=== PATIENT | female | born 1960 | race Caucasian/White ===

== ENCOUNTER 2016-08-21 17:18 | Observation (INO) | payer OTHER ==
[~2016-08-21] VITALS: Ht 154.9 cm; Wt 104.3 kg
[~2016-08-21 17:18] MED LIST: CEPH-571 PO; FNTTP25 TOP; HYDR2TAB2 PO; METO5TAB2 PO; ONDA4TAB9 PO; RXCS5 PO
[2016-08-21] MEDS ORDERED: HYDROmorphone HCL 2 MG TAB PO PRN (18:00)
[2016-08-21] MEDS ORDERED: ONDANSETRON INJ 2 MG/ML 2 ML VIAL IV PRN (18:00)
[2016-08-21] MEDS ORDERED: POLYETHYLENE (MIRALAX) 17 GM PACK PO PRN (18:00)
[2016-08-21] MEDS ORDERED: OXYCODONE HCL SOLN 5 MG/5 ML UDC PO PRN (18:00)
[2016-08-21] MEDS ORDERED: HYDROmorphone INJ 0.5 MG/0.5 ML SYR IV PRN (18:00)
[2016-08-21] MEDS ORDERED: MAGNESIUM HYDROXIDE SUSP 30 ML UDC PO PRN (18:00)
[2016-08-21] MEDS ORDERED: ONDANSETRON 4 MG TAB PO PRN (18:00)
[2016-08-21] MEDS ORDERED: ACETAMINOPHEN 325 MG TAB PO PRN (18:00)
[2016-08-21] MEDS ORDERED: METOCLOPRAMIDE HCL 5 MG TAB PO PRN (18:00)
[2016-08-21] MEDS ORDERED: HYDROmorphone INJ 1 MG/ML SYR IV PRN (18:00)
[2016-08-21] MEDS ORDERED: LORAZEPAM 2 MG/ML 1 ML VIAL IV PRN ×2 (18:00)
[2016-08-21] MEDS ORDERED: ALUMINUM/MAGNESIUM/SIMETH (MAALOX MAX) 30 ML UDC PO PRN (18:00)
[2016-08-21] MEDS ORDERED: FENTANYL PATCH REMOVE & WASTE SCH (18:59)
[2016-08-21] MEDS ORDERED: FENTANYL 25 MCG/HR TDSY TD SCH (19:00)
[2016-08-21] MEDS ORDERED: FILGRASTIM 300 MCG/ML 1 ML VIAL SQ ONE (19:00)
[2016-08-21] MEDS ORDERED: IV FLUIDS COMPLETED PRN (19:30)
[2016-08-21] MEDS ORDERED: LORAZEPAM INJ 0.5 MG in SYRINGE 0.75 ML IV PRN (19:45)
[2016-08-21] MEDS ORDERED: LORAZEPAM INJ 1 MG in SYRINGE 0.5 ML IV PRN (19:45)
[2016-08-21] MEDS: SODIUM CHLORIDE 0.9% 1000ML 1,000 ML IV SCH (20:36)
[2016-08-21] MEDS: HYDROmorphone INJ 1 MG/ML SYR IV PRN (20:44)
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
[2016-08-21] MEDS: OXYMETAZOLINE HCL 0.05% NA SPR 15 ML BTL PRN (22:22)
[2016-08-21 22:32] VITALS: BP 117/79; PULSE 88; TEMP 36.7; O2SAT 93
[2016-08-21 22:37] VITALS: BP 117/79; PULSE 88; TEMP 36.7; O2SAT 93; BMI 43.0
[2016-08-21] MEDS: CHECK FENTANYL PATCH PLACEMENT SCH (23:48)
[2016-08-22] VITALS (19 sets, daily range): BP systolic 100–158; BP diastolic 67–95; PULSE 75–100; TEMP 36.3–36.9; O2SAT 90–96; BMI 43.4
[2016-08-22] MEDS: HYDROmorphone INJ 1 MG/ML SYR IV PRN ×2 (00:53→15:31)
[2016-08-22] MEDS ORDERED: NURSING VERBAL MED ORDER ONE (02:00)
[2016-08-22] MEDS ORDERED: BACITRACIN OINT 15 GM TUBE EXT PRN (02:30)
[2016-08-22] MEDS: SODIUM CHLORIDE 0.9% 1000ML 1,000 ML IV SCH ×2 (05:11→15:32)
[2016-08-22 06:43] LABS: BUN/CREATININE RATIO 29.6 (10-20); CALCIUM 7.8 mg/dl (8.5-10.1); CREATININE 0.87 mg/dl (0.60-1.20); POTASSIUM 3.5 mmol/L (3.5-5.1)
[2016-08-22 07:16] LABS: HEMATOCRIT 22.9 % (37-47); MEAN CELL VOLUME 86.7 fL (80-100); MEAN CORPUSCULAR HEMOGLOBIN 29.2 pg (25-34); MEAN CORPUSCULAR HGB CONC 33.6 g/dl (32-36); PLATELET COUNT 4 K/uL (130-400); RED BLOOD COUNT 2.64 M/uL (4.2-5.4)
[2016-08-22 07:17] LABS: PLT ESTIMATE SIGNIFIC DECREASED
[2016-08-22] MEDS: CHECK FENTANYL PATCH PLACEMENT SCH ×3 (08:03→15:32)
--- NOTE | 2016-08-22 09:58 | Oncology Consultation ---
Oncology/Heme Consultation Date of Consultation: Aug 22, 2016. Attending Physician: Bridger Brooks M.D. Reason for Consultation: Pancytopenia Metastatic ovarian cancer History of Present Illness Ms. 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 She had a hysterectomy/BSO in 2008, which may have been original primary. She was found to have peritoneal carcinomatosis in January 2015. She was treated with debulking surgery with both pre- and post-surgical chemotherapy with carbo/taxol, last in October 2015. She had recurrent disease and a rising CA125 in January,. She was started on Cisplatin/Gemcitabine and received 3 cycles through March 2016. Had pain and rising CA125 with scans showing progression. Started Doxil in April , which continued through late June. In that time, she had multiple admissions for bowel obstructions and her scans were not improving. She also had a rising CA125, suggesting progression. She was recently started on Topotecan/Bevacizumab, but the second week of her treatment was delayed again by a hospital stay for small bowel obstruction. She completed the second week of therapy on 08/14 and received a Neulasta injection that day. She presented to the ER two nights ago feeling ill and was found to be pancytopenic. She was afebrile and had no infectious symptoms, so she was discharged. She came to the [facility] yesterday and was given IV hydration and 2 units of PRBCs. She was also ordered for platelets, but they did not come until late in the evening, so she was admitted for observation and her platelets. By reports, they were hung around 3 am this morning. Her labs, drawn at 5 am, show no response in either her hemoglobin or her platelets. She denies any fevers, chills, infectious symptoms, headaches, vision changes, confusion, or pain. She did have epistaxis while I was in the room, though it was a small amount. Past Medical/Surgical History Medical Problems: (1) Abdominal pain Status: Acute (2) Bowel obstruction Status: Acute (3) Carcinomatosis Status: Acute (4) Dehydration Status: Acute (5) Esophageal Reflux Status: Chronic (6) Left flank pain Status: Acute (7) Lower abdominal pain Status: Acute (8) Morbid Obesity Status: Chronic (9) Ovarian cancer Status: Acute (10) Ovarian cancer Status: Acute (11) Precordial chest pain Status: Acute (12) Primary cancer of peritoneum Status: Chronic (13) Small bowel obstruction Status: Acute (14) UTI (urinary tract infection) Status: Acute Family History Diabetes mellitus FH: heart disease Hypertension Social History Smoking Status: Never Smoker Drug Use: none Marital Status: Housing Status: lives with family Occupation Status: retired Allergies Coded Allergies: Sulfa Antibiotics (Verified Allergy, Intermediate, HIVES, 07/03/16) PT HAS REMOTE HISTORY OF REACTION TO "SULFA DRUG" - PER PT, UNSURE WHICH DRUG, BUT THOUGHT IT WAS AN ANTIBIOTIC Ipratropium (Verified Allergy, Unknown, `, 07/03/16) Levofloxacin (Verified Allergy, Unknown, `, 07/03/16) Codeine (Verified Adverse Reaction, Intermediate, NAUSEA, 07/03/16) Diphenhydramine (Verified Adverse Reaction, Mild, Restless leg, 07/03/16) Home Medications Scheduled Cephalexin (Keflex), 1 CAP PO TID Fentanyl (Fentanyl), 25 MCG TOP CQ72HR Scheduled PRN Hydromorphone Hcl (Hydromorphone Hcl), 2-4 MG PO Q3HRS PRN for Pain Metoclopramide Hcl (Metoclopramide Hcl), 5 MG PO Q6H PRN for Indigestion/Nausea Ondansetron (Ondansetron HCl), 4 MG PO UD PRN for Nausea Oxycodone HCl (Oxycodone HCl), 15 ML PO UD PRN for Pain Current Inpatient Medications Current Inpatient Medications Medications (Trade) Dose Ordered Sig/Mendoza Route Start Time Stop Time Status Last Admin Dose Admin Acetaminophen (Tylenol Tab) 650 mg Q4H PRN PO 08/21/16 18:00 09/20/16 17:59 Al Hydrox/Mg Hydrox/Simethicone (Maalox Max Susp) 15 ml Q4H PRN PO 08/21/16 18:00 09/20/16 17:59 Magnesium Hydroxide (Milk Of Magnesia Susp) 30 ml Q6H PRN PO 08/21/16 18:00 09/20/16 17:59 Polyethylene (Miralax Powder Packet) 17 gm DAILY PRN PO 08/21/16 18:00 09/20/16 17:59 Ondansetron HCl (Zofran Inj) 4 mg Q6H PRN IV 08/21/16 18:00 09/20/16 17:59 08/22/16 00:51 4 MG Fentanyl (Duragesic Patch) 25 mcg Q3D@1900 TD 08/21/16 19:00 09/04/16 18:59 08/21/16 20:36 25 MCG Hydromorphone HCl (Dilaudid Tab) 4 mg Q6 PRN PO 08/21/16 18:00 09/04/16 17:59 Metoclopramide HCl (Reglan Tab) 5 mg Q6H PRN PO 08/21/16 18:00 09/20/16 17:59 Ondansetron HCl (Zofran Tab) 4 mg Q6 PRN PO 08/21/16 18:00 09/20/16 17:59 Oxycodone HCl (Roxicodone Soln) 15 mg BID PRN PO 08/21/16 18:00 09/04/16 17:59 Miscellaneous (Fentanyl Patch Remove & Waste) 1 ea Q3D@1859 N/A 08/21/16 18:59 09/20/16 18:58 08/21/16 20:34 1 EA Miscellaneous Information (Check Fentanyl Patch Placement) 1 ea QS N/A 08/22/16 00:00 09/21/16 00:00 08/22/16 08:03 1 EA Lorazepam (Ativan Inj) 1 mg Q4H PRN IV 08/21/16 18:00 09/20/16 17:59 Lorazepam (Ativan Inj) 0.5 mg Q4H PRN IV 08/21/16 18:00 09/20/16 17:59 Hydromorphone HCl (Dilaudid Inj) FOR PAIN 0.5-1MG 0.5MG ... Q4 PRN IV 08/21/16 19:00 09/04/16 18:59 08/22/16 00:53 1 MG Miscellaneous 1 ea 1 ea PRN PRN N/A 08/21/16 19:30 08/21/17 19:29 Lorazepam 0.5 mg/ Syringe 1 ml @ 1 mls/min Q4 PRN IV 08/21/16 19:45 09/20/16 19:44 Lorazepam 1 mg/ Syringe 1 ml @ 1 mls/min Q4 PRN IV 08/21/16 19:45 09/20/16 19:44 Sodium Chloride (Nss 1000ml) 1,000 ml @ 100 mls/hr Q10H IV 08/21/16 19:45 09/20/16 19:44 08/22/16 05:11 100 MLS/HR Oxymetazoline HCl (Afrin 0.05% Nasal Herreid) 2 sprays UD PRN NA 08/21/16 21:00 09/20/16 20:59 08/21/16 22:22 2 SPRAYS Bacitracin (Bacitracin Oint) 1 appln PRN PRN EXT 08/22/16 02:30 09/21/16 02:29 Review of Systems Constitutional: No chills, No fever, No sweats Eyes: No worsening of vision ENT: + unusual epistaxis, No nasal symptoms Respiratory: No cough, No hemoptysis, No shortness of breath, No sputum Cardiovascular: No chest pain, No edema Abdomen: No GI bleeding, No nausea, No pain, No vomiting Musculoskeletal: No joint pain, No muscle pain Genitourinary - Female: No dysuria, No hematuria, No urinary frequency, No urinary urgency Neurologic: No numbness/tingling Hematologic / Lymphatic: + abnormal bleeding/bruising, No night sweats Integumentary: No rash Physical Exam Date Time Temp Pulse Resp B/P Pulse Ox O2 Delivery O2 Flow Rate FiO2 08/22/16 08:00 Room Air 08/22/16 07:36 36.9 87 18 125/85 91 Room Air 08/22/16 05:00 36.6 95 18 106/70 90 08/22/16 04:30 36.6 100 18 101/68 91 08/22/16 03:59 36.7 92 20 100/67 95 08/22/16 03:45 36.6 92 18 103/67 92 08/22/16 03:30 36.8 97 20 107/68 96 08/22/16 00:48 36.3 87 18 136/78 93 Room Air 08/22/16 00:15 Room Air 08/21/16 22:37 36.7 88 18 117/79 93 Room Air 08/21/16 22:32 36.7 88 18 117/79 93 Room Air General Appearance: WD/WN, no apparent distress Head: normocephalic, atraumatic Eyes: EOMI, sclerae normal ENT: pharynx normal, + pertinent finding (small amount of epistaxis during my visit) Neck: supple, no adenopathy Respiratory/Chest: lungs clear Cardiovascular: regular rate, rhythm, no murmur Abdomen/GI: non tender, soft Extremities/Musculoskelatal: no calf tenderness, no pedal edema Neurologic/Psych: no motor/sensory deficits, alert, oriented x 3 Skin: warm/dry, no rash Lymphatic: no adenopathy Laboratory Results Last 24 Hours Test 08/22/16 05:55 White Blood Count 0.80 K/uL Red Blood Count 2.64 M/uL Hemoglobin 7.7 g/dL Hematocrit 22.9 % Mean Corpuscular Volume 86.7 fL Mean Corpuscular Hemoglobin 29.2 pg Mean Corpuscular Hemoglobin Concent 33.6 g/dl RDW Standard Deviation 49.0 fL RDW Coefficient of Variation 15.3 % Platelet Count 4 K/uL Platelet Estimate SIGNIFIC DECREASED Sodium Level 145 mmol/L Potassium Level 3.5 mmol/L Chloride Level 111 mmol/L Carbon Dioxide Level 25 mmol/L Anion Gap 9.0 mmol/L Blood Urea Nitrogen 26 mg/dl Creatinine 0.87 mg/dl Est Creatinine Clear Calc Drug Dose 80.2 ml/min Estimated GFR () 86.3 Estimated GFR (Non- 74.5 BUN/Creatinine Ratio 29.6 Random Glucose 83 mg/dl Calcium Level 7.8 mg/dl Assessment & Plan Ms. 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 She has not responded to several lines of therapy and has been in and out of the hospital over the last 3 -4 months with recurring bowel obstructions. She is now on third line therapy for her recurrent disease. Her CA125 was down a bit after her first week of topotecan/Avastin. Her counts being low at this point in her cycle, 8 days from her last dose, is not unexpected. However, the degree of her cytopenias and her apparent lack of response to Neulasta is suggestive of chronic bone marrow toxicity from all the chemo she has received this year. It is hard to explain why her counts did not change at all after transfusion. Her CBC was drawn very close to the end of her platelet transfusion, so it is possible the transfused cells had not had a chance to distribute before the blood was taken. The lack of hemoglobin response is more worrisome. She does not appear to be bleeding anywhere, aside from some scant epistaxis. Her smear did not reveal any evidence of microangiopathy or hemolysis. It is possible that, in the time between her CBC on the and her transfusion the following afternoon, her hemoglobin fell even further. It is also possible she was hemoconcentrated in the ER and that her actual hemoglobin was lower. I asked for a repeat CBC to be drawn. We can base further management on her current values. She may require further transfusion today, particularly of platelets given her epistaxis.
[2016-08-22] MEDS: OXYMETAZOLINE HCL 0.05% NA SPR 15 ML BTL PRN (15:32)
--- NOTE | 2016-08-22 15:53 | Progress Note ---
Subjective Date of Service: Aug 22, 2016. Subjective Pt evaluation today including: conversation w/ patient Pain: none PO Intake: imporving seen and examined earlier, awake and alert afebrile, sitting in bed , looks comfortable, no CP or SOB<, no more nasal bleed, palt. 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 (13) Small bowel obstruction Status: Acute (14) UTI (urinary tract infection) Status: Acute Review of Systems Constitutional: + see HPI Eyes: + see HPI ENT: + see HPI Respiratory: + see HPI Cardiac: + see HPI Abdomen: + see HPI Musculoskeletal: + see HPI Neurologic: + see HPI Psychiatric: + see HPI Heme: + see HPI Endo: + see HPI Medications Current Inpatient Medications Medications (Trade) Dose Ordered Sig/Mendoza Route Start Time Stop Time Status Last Admin Dose Admin Acetaminophen (Tylenol Tab) 650 mg Q4H PRN PO 08/21/16 18:00 09/20/16 17:59 Al Hydrox/Mg Hydrox/Simethicone (Maalox Max Susp) 15 ml Q4H PRN PO 08/21/16 18:00 09/20/16 17:59 Magnesium Hydroxide (Milk Of Magnesia Susp) 30 ml Q6H PRN PO 08/21/16 18:00 09/20/16 17:59 Polyethylene (Miralax Powder Packet) 17 gm DAILY PRN PO 08/21/16 18:00 09/20/16 17:59 Ondansetron HCl (Zofran Inj) 4 mg Q6H PRN IV 08/21/16 18:00 09/20/16 17:59 08/22/16 00:51 4 MG Fentanyl (Duragesic Patch) 25 mcg Q3D@1900 TD 08/21/16 19:00 09/04/16 18:59 08/21/16 20:36 25 MCG Hydromorphone HCl (Dilaudid Tab) 4 mg Q6 PRN PO 08/21/16 18:00 09/04/16 17:59 Metoclopramide HCl (Reglan Tab) 5 mg Q6H PRN PO 08/21/16 18:00 09/20/16 17:59 Ondansetron HCl (Zofran Tab) 4 mg Q6 PRN PO 08/21/16 18:00 09/20/16 17:59 Oxycodone HCl (Roxicodone Soln) 15 mg BID PRN PO 08/21/16 18:00 09/04/16 17:59 Miscellaneous (Fentanyl Patch Remove & Waste) 1 ea Q3D@1859 N/A 08/21/16 18:59 09/20/16 18:58 08/21/16 20:34 1 EA Miscellaneous Information (Check Fentanyl Patch Placement) 1 ea QS N/A 08/22/16 00:00 09/21/16 00:00 08/22/16 15:32 1 EA Lorazepam (Ativan Inj) 1 mg Q4H PRN IV 08/21/16 18:00 09/20/16 17:59 Lorazepam (Ativan Inj) 0.5 mg Q4H PRN IV 08/21/16 18:00 09/20/16 17:59 Hydromorphone HCl (Dilaudid Inj) FOR PAIN 0.5-1MG 0.5MG ... Q4 PRN IV 08/21/16 19:00 09/04/16 18:59 08/22/16 15:31 1 MG Miscellaneous 1 ea 1 ea PRN PRN N/A 08/21/16 19:30 08/21/17 19:29 Lorazepam 0.5 mg/ Syringe 1 ml @ 1 mls/min Q4 PRN IV 08/21/16 19:45 09/20/16 19:44 Lorazepam 1 mg/ Syringe 1 ml @ 1 mls/min Q4 PRN IV 08/21/16 19:45 09/20/16 19:44 Sodium Chloride (Nss 1000ml) 1,000 ml @ 100 mls/hr Q10H IV 08/21/16 19:45 09/20/16 19:44 08/22/16 15:32 100 MLS/HR Oxymetazoline HCl (Afrin 0.05% Nasal Beggs) 2 sprays UD PRN NA 08/21/16 21:00 09/20/16 20:59 08/22/16 15:32 2 SPRAYS Bacitracin (Bacitracin Oint) 1 appln PRN PRN EXT 08/22/16 02:30 09/21/16 02:29 Objective Vital Signs Date Time Temp Pulse Resp B/P Pulse Ox O2 Delivery O2 Flow Rate FiO2 08/22/16 14:56 36.6 79 18 156/94 90 08/22/16 12:08 36.6 84 18 147/84 91 08/22/16 11:40 36.7 90 18 138/79 94 08/22/16 10:25 36.7 80 18 121/85 94 08/22/16 09:55 36.8 89 20 126/82 93 08/22/16 09:40 36.7 86 18 123/84 93 08/22/16 09:21 36.4 91 18 121/84 93 08/22/16 08:00 Room Air 08/22/16 07:36 36.9 87 18 125/85 91 Room Air 08/22/16 05:00 36.6 95 18 106/70 90 08/22/16 04:30 36.6 100 18 101/68 91 08/22/16 03:59 36.7 92 20 100/67 95 08/22/16 03:45 36.6 92 18 103/67 92 08/22/16 03:30 36.8 97 20 107/68 96 08/22/16 00:48 36.3 87 18 136/78 93 Room Air 08/22/16 00:15 Room Air 08/21/16 22:37 36.7 88 18 117/79 93 Room Air 08/21/16 22:32 36.7 88 18 117/79 93 Room Air Physical Exam General Appearance: no apparent distress Eyes: normal inspection ENT: normal ENT inspection Neck: supple, no JVD, no carotid bruits Respiratory/Chest: normal breath sounds, no respiratory distress Cardiovascular: regular rate, rhythm, no edema, no gallop, no JVD, no murmur Abdomen: normal bowel sounds, non tender, soft, no organomegaly, + pertinent finding (has PEG tube and no skin abnormalities around ) Extremities: normal range of motion, non-tender, normal inspection, no pedal edema Neurologic/Psychiatric: no motor/sensory deficits, alert, normal mood/affect, oriented x 3 Skin: normal color, no rash Laboratory Results Last 24 Hours Test 08/22/16 05:55 08/22/16 09:22 08/22/16 10:06 White Blood Count 0.80 K/uL Red Blood Count 2.64 M/uL Hemoglobin 7.7 g/dL Hematocrit 22.9 % Mean Corpuscular Volume 86.7 fL Mean Corpuscular Hemoglobin 29.2 pg Mean Corpuscular Hemoglobin Concent 33.6 g/dl RDW Standard Deviation 49.0 fL RDW Coefficient of Variation 15.3 % Platelet Count 4 K/uL Platelet Estimate SIGNIFIC DECREASED Sodium Level 145 mmol/L Potassium Level 3.5 mmol/L Chloride Level 111 mmol/L Carbon Dioxide Level 25 mmol/L Anion Gap 9.0 mmol/L Blood Urea Nitrogen 26 mg/dl Creatinine 0.87 mg/dl Est Creatinine Clear Calc Drug Dose 80.2 ml/min Estimated GFR () 86.3 Estimated GFR (Non- 74.5 BUN/Creatinine Ratio 29.6 Random Glucose 83 mg/dl Calcium Level 7.8 mg/dl Assessment and Plan Severe pancytopenia poss sec to primary peritoneal CA and Chemotherapy Doubted ITP as has no schistocyte and has elsa renal function -as DW hematology repeat CBC, LDH, LFT and HDL is still low palt. count needs plat, nut look like has multiple Ab and needs to bring blood from out side had Neulasta 2 days ago as per pat , no needs for Neupogen or Granix recheck CBC closely poor prognosis Epistaxis sec to severe thrombocytopenia, resolved Primary peritoneal CA and Ovarian CA Poor oral intake needs to be restarted on her TPN all DW pat and nurse DVt prophylaxis , not indicated because of severe thrombocytopenia
[2016-08-22] MEDS ORDERED: CONSULT PHARMACY STA (16:05)
[2016-08-22] MEDS ORDERED: DEXTROSE 10% 1,000 ML IV PRN (16:05)
[2016-08-22] MEDS ORDERED: TPN/PPN CONSULT PHARMACY PRN (16:15)
[2016-08-22 19:10] LABS: HEMATOCRIT 27.3 % (37-47); MEAN CELL VOLUME 84.5 fL (80-100); MEAN CORPUSCULAR HEMOGLOBIN 29.1 pg (25-34); MEAN CORPUSCULAR HGB CONC 34.4 g/dl (32-36); MEAN PLATELET VOLUME 9.5 fL (7.4-10.4); PLATELET COUNT 29 K/uL (130-400); RED BLOOD COUNT 3.23 M/uL (4.2-5.4); WHITE BLOOD COUNT 0.79 K/uL (4.8-10.8)
[2016-08-22 19:12] LABS: BASO % 1.3 %; BASO ABS # 0.01 K/uL (0-0.2); COMPLETE YES; DOHLE BODIES 2+; LYMPH % 89.9 %; LYMPH ABS # 0.71 K/uL (1.2-3.4); MONO % 7.6 %; NEUT % 1.2 %; TOXIC GRANULATION 3+
[2016-08-23 00:19] VITALS: BP 171/78; PULSE 96; TEMP 36.7; O2SAT 92
[2016-08-23] MEDS: CHECK FENTANYL PATCH PLACEMENT SCH ×2 (01:30→08:29)
[2016-08-23] MEDS: SODIUM CHLORIDE 0.9% 1000ML 1,000 ML IV SCH ×2 (01:31→08:55)
[2016-08-23] MEDS: HYDROmorphone INJ 1 MG/ML SYR IV PRN ×2 (01:36→08:55)
[2016-08-23 04:14] VITALS: BP 135/84; PULSE 96; TEMP 36.4; O2SAT 90
[2016-08-23 06:58] VITALS: Ht 154.9 cm; Wt 104.3 kg
[2016-08-23 06:58] LABS: HEMATOCRIT 26.6 % (37-47); MEAN CELL VOLUME 84.4 fL (80-100); MEAN CORPUSCULAR HEMOGLOBIN 29.2 pg (25-34); MEAN CORPUSCULAR HGB CONC 34.6 g/dl (32-36); MEAN PLATELET VOLUME 8.9 fL (7.4-10.4); PLATELET COUNT 21 K/uL (130-400); RED BLOOD COUNT 3.15 M/uL (4.2-5.4); WHITE BLOOD COUNT 0.76 K/uL (4.8-10.8)
[2016-08-23 07:12] LABS: BUN/CREATININE RATIO 19.7 (10-20); CREATININE 0.96 mg/dl (0.60-1.20); MAGNESIUM 1.8 mg/dl (1.8-2.4); POTASSIUM 3.5 mmol/L (3.5-5.1)
[2016-08-23 07:13] LABS: PHOSPHORUS 3.1 mg/dl (2.5-4.9)
[2016-08-23 07:14] LABS: DOHLE BODIES 2+; PLT ESTIMATE SIGNIFIC DECREASED; TOXIC GRANULATION 3+
[2016-08-23 07:15] LABS: COMPLETE YES; LYMPH ABS # 0.65 K/uL (1.2-3.4); LYMPHOCYTE % 85.7 %; META ABS # 0.01 K/uL (0-0); METAMYELOCYTE % 0.9 %; NEUTROPHILS % 13.4 %
[2016-08-23 08:06] VITALS: BP 123/81; PULSE 86; TEMP 36.7; O2SAT 91
--- NOTE | 2016-08-23 10:15 | Hematology/Oncology Prog Note ---
Hematology/Onc Progress Note Date of Service Aug 23, 2016. Diagnoses Pancytopenia Ovarian cancer Medications Medications Administered Medications (Trade) Dose Ordered Sig/Mendoza Route Start Time Stop Time Status Last Admin Dose Admin Ondansetron HCl (Zofran Inj) 4 mg Q6H PRN IV 08/21/16 18:00 09/20/16 17:59 08/22/16 00:51 4 MG Fentanyl (Duragesic Patch) 25 mcg Q3D@1900 TD 08/21/16 19:00 09/04/16 18:59 08/21/16 20:36 25 MCG Miscellaneous (Fentanyl Patch Remove & Waste) 1 ea Q3D@1859 N/A 08/21/16 18:59 09/20/16 18:58 08/21/16 20:34 1 EA Miscellaneous Information (Check Fentanyl Patch Placement) 1 ea QS N/A 08/22/16 00:00 09/21/16 00:00 08/23/16 08:29 1 EA Filgrastim (Neupogen Sq) 300 mcg ONE ONCE SQ 08/21/16 19:00 08/21/16 19:01 DC 08/21/16 20:35 300 MCG Hydromorphone HCl FOR PAIN 0.5-1MG 0.5MG ... Q4 PRN IV 08/21/16 19:00 09/04/16 18:59 08/23/16 08:55 1 MG Sodium Chloride (Nss 1000ml) 1,000 ml @ 100 mls/hr Q10H IV 08/21/16 19:45 09/20/16 19:44 08/23/16 08:55 100 MLS/HR Oxymetazoline HCl (Afrin 0.05% Nasal [place]) 2 sprays UD PRN NA 08/21/16 21:00 09/20/16 20:59 08/22/16 15:32 2 SPRAYS Subjective Ms. Mcbride is tired today, but otherwise feels unchanged. Her epistaxis has stopped. Over the last 2 days, she's received 3 units of PRBCs and 3 pools of platelets. She denies any fevers, chills, sweats, pain, bleeding, or headaches. Review of Systems: Constitutional: No chills, No fever Eyes: No worsening of vision ENT: No unusual epistaxis Respiratory: No cough, No shortness of breath Cardiovascular: No chest pain, No palpitations Abdomen: No GI bleeding, No nausea, No pain, No vomiting Female : No dysuria, No urinary frequency Neurologic: No numbness/tingling, No weakness Heme: No abnormal bleeding/bruising, No swollen lymph nodes Skin: No rash Vital Signs Vital Signs Past 12 Hours Date Time Temp Pulse Resp B/P Pulse Ox O2 Delivery O2 Flow Rate FiO2 08/23/16 08:06 36.7 86 18 123/81 91 08/23/16 08:00 Room Air 08/23/16 04:14 36.4 96 17 135/84 90 Room Air 08/23/16 00:30 Room Air 08/23/16 00:19 36.7 96 18 171/78 92 Room Air Physical Exam Constitutional: General Apperance: heathly-appearing Level of Distress: NAD Psychiatric: Mental Status: active & alert Orientation: oriented except where noted Head: normocephalic, atraumatic Eyes: EOM: EOMI ENMT: pharynx normal Neck: supple, no masses Lungs: Respiratory Effort: no dyspnea Auscuitation: breath sounds normal Cardiovascular: Heart Auscultation: RRR, no murmurs Abdomen: Inspection & Palpation: soft, non-distended Extremities: no edema, no ulcers Laboratory Last 24 Hours Test 08/22/16 18:08 08/23/16 05:58 White Blood Count 0.79 K/uL 0.76 K/uL Red Blood Count 3.23 M/uL 3.15 M/uL Hemoglobin 9.4 g/dL 9.2 g/dL Hematocrit 27.3 % 26.6 % Mean Corpuscular Volume 84.5 fL 84.4 fL Mean Corpuscular Hemoglobin 29.1 pg 29.2 pg Mean Corpuscular Hemoglobin Concent 34.4 g/dl 34.6 g/dl Platelet Count 29 K/uL 21 K/uL Mean Platelet Volume 9.5 fL 8.9 fL Neutrophils (%) (Auto) 1.2 % Lymphocytes (%) (Auto) 89.9 % Monocytes (%) (Auto) 7.6 % Eosinophils (%) (Auto) 0.0 % Basophils (%) (Auto) 1.3 % Neutrophils # (Auto) 0.01 K/uL Lymphocytes # (Auto) 0.71 K/uL Monocytes # (Auto) 0.06 K/uL Eosinophils # (Auto) 0.00 K/uL Basophils # (Auto) 0.01 K/uL RDW Standard Deviation 45.5 fL 45.3 fL RDW Coefficient of Variation 14.6 % 14.5 % Immature Granulocyte % (Auto) 0.0 % Immature Granulocyte # (Auto) 0.00 K/uL Toxic Granulation 3+ 3+ Dohle Bodies 2+ 2+ Total Bilirubin 0.9 mg/dl Direct Bilirubin 0.3 mg/dl Aspartate Amino Transf (AST/SGOT) 16 U/L Alanine Aminotransferase (ALT/SGPT) 34 U/L Alkaline Phosphatase 91 U/L Lactate Dehydrogenase 183 U/L Total Protein 6.2 gm/dl Albumin 2.7 gm/dl Neutrophils % (Manual) 13.4 % Lymphocytes % (Manual) 85.7 % Metamyelocytes % 0.9 % Neutrophils # (Manual) 0.10 K/uL Total Absolute Neutrophils 0.10 K/uL Lymphocytes # (Manual) 0.65 K/uL Total Absolute Lymphocytes 0.65 K/uL Metamyelocytes # 0.01 K/uL Platelet Estimate SIGNIFIC DECREASED Sodium Level 142 mmol/L Potassium Level 3.5 mmol/L Chloride Level 107 mmol/L Carbon Dioxide Level 27 mmol/L Anion Gap 8.0 mmol/L Blood Urea Nitrogen 19 mg/dl Creatinine 0.96 mg/dl Est Creatinine Clear Calc Drug Dose 72.7 ml/min Estimated GFR () 76.6 Estimated GFR (Non- 66.1 BUN/Creatinine Ratio 19.7 Random Glucose 82 mg/dl Calcium Level 8.0 mg/dl Phosphorus Level 3.1 mg/dl Magnesium Level 1.8 mg/dl Triglycerides Level 130 mg/dl Assessment & Plan Ms. Mcbride's hemoglobin is improved. Her bleeding has stopped, though her platelets responded only slightly. She may have some platelet antibodies to explain her poor response to transfusion. She has no evidence by labs or smear of hemolysis or microangiopathy. I would repeat a CBC in the afternoon, to document stability of her platelet count. As for her WBCs, I suspect she has either chronic marrow toxicity from chemotherapy or possibly marrow replacement with tumor. Although she did receive a dose of Neulasta about 10 days ago, we can try some additional GCSF to try to boost her count. Overall, however, this will likely limit her ability to receive further therapy moving forward.
[2016-08-23 11:20] VITALS: BP 137/94; PULSE 76; TEMP 36.7; O2SAT 91
[2016-08-23 13:20] LABS: HEMATOCRIT 30.4 % (37-47); MEAN CELL VOLUME 84.9 fL (80-100); MEAN CORPUSCULAR HEMOGLOBIN 28.8 pg (25-34); MEAN CORPUSCULAR HGB CONC 33.9 g/dl (32-36); MEAN PLATELET VOLUME 9.4 fL (7.4-10.4); PLATELET COUNT 22 K/uL (130-400); RED BLOOD COUNT 3.58 M/uL (4.2-5.4); WHITE BLOOD COUNT 0.87 K/uL (4.8-10.8)
--- NOTE | 2016-08-23 13:35 | Discharge Instructions ---
Discharge Instructions Admission Reason for Admission: Thrombocytopenia, Metastic Ovarian Ca Discharge Discharge Diagnosis / Problem: Pancytopenia Discharge Goals Goal(s): Improve disease control, Therapeutic intervention Activity Recommendations Activity Limitations: resume your previous activity . Instructions / Follow-Up Instructions / Follow-Up You were admitted to receive transfusions of blood and platelets. Your blood counts improved. You are stable for discharge to home and should follow up with Dr. Burgess/Oncology on Wednesday08/25/15. Current Hospital Diet Patient's current hospital diet: Clear Liquid Diet Discharge Diet Recommended Diet: Clear Liquid Diet (and TPN to resume at home) Pending Studies Studies pending at discharge: no Laboratory Results Lipid Panel Test 08/23/16 05:58 Range/Units Triglycerides Level 130 0-150 mg/dl Medical Emergencies . Who to Call and When: Medical Emergencies: If at any time you feel your situation is an emergency, please call 911 immediately. . Non-Emergent Contact Non-Emergency issues call your: Primary Care Provider, Oncologist Call Non-Emergent contact if: temperature is above 101, your pain is not controlled, your pain is worsening, your pain is unusual for you, your pain is concerning you, you have any medication questions Or if you have bleeding of any sort or easy bruising. . . "Provider Documentation" section prepared by Courtney Joshua. VTE Core Measure Inpt VTE Proph given/why not?: Contraindicated
[2016-08-23 13:36] LABS: COMPLETE YES; DOHLE BODIES 2+; EOS % 1.1 %; LYMPH % 78.2 %; LYMPH ABS # 0.68 K/uL (1.2-3.4); MONO % 12.6 %; NEUT % 8.1 %; TOXIC GRANULATION 3+
[2016-08-23 13:52] VITALS: BP 137/94; PULSE 76; TEMP 36.7; O2SAT 91
--- NOTE | 2016-08-24 20:20 | Discharge Summary ---
Discharge Summary Admission Date: Aug 21, 2016 at 18:42 Discharge Date: Aug 23, 2016 Discharge Disposition: Home Principal Diagnosis: Pancytopenia Problems/Secondary Diagnoses: Epistaxis secondary to severe thrombocytopenia Primary peritoneal CA and Ovarian CA H/o small bowel obstructions GERD Obesity Immunizations: Have You Had Influenza Vaccine: Yes History of Tetanus Vaccine?: UTD History of Pneumococcal: No History of Hepatitis B Vaccine: No Procedures: None Consultations: Oncology Medication Reconciliation Continued Medications: Fentanyl (Fentanyl) 25 Mcg Tdsy 25 MCG TOP [id number] Hydromorphone Hcl (Hydromorphone Hcl) 2 Mg Tab 2-4 MG PO Q3HRS PRN for Pain Metoclopramide Hcl (Metoclopramide Hcl) 5 Mg Tab 5 MG PO Q6H PRN for Indigestion/Nausea Ondansetron (Ondansetron HCl) 4 Mg Tab 4 MG PO UD PRN for Nausea Oxycodone HCl (Oxycodone HCl) 5 Mg/5 Ml Soln 15 ML PO UD PRN for Pain Discontinued Medications: Cephalexin (Keflex) 500 Mg Cap 1 CAP PO TID for 7 Days, #21 CAP Referrals At Discharge Follow up Referrals: Family Practice Referral - Within 1-2 Weeks with Marsha Espinoza C.R.N.P Oncology/Hematology Referral - 08/25/16 with Collin Burgess D.O. Discharge Exam Review of Systems: Constitutional: No fever Eyes: No problem reported ENT: No problem reported Respiratory: No shortness of breath Cardiovascular: No chest pain Abdomen: No pain, No vomiting Musculoskeletal: No problem reported Genitourinary - Female: No problem reported Neurologic: No problem reported Psychiatric: No problem reported Endocrine: No problem reported Hematologic / Lymphatic: No abnormal bleeding/bruising Integumentary: No problem reported Physical Exam: General Appearance: no apparent distress, + obese Eyes: normal inspection, sclerae normal Neck: trachea midline Respiratory/Chest: lungs clear, normal breath sounds, no respiratory distress, no accessory muscle use Cardiovascular: regular rate, rhythm, no edema, no gallop, no murmur, normal peripheral pulses Abdomen / GI: normal bowel sounds, non tender, soft (with PEG tube in place) Extremities: no calf tenderness, no pedal edema Neurologic/Psychiatric: alert, oriented x 3, + depressed affect Skin: normal color, warm/dry, no rash Hospital Course Pt has endstage ovarian cancer, found to be pancytopenic and admitted here for transfusion of prbc and platelets. She did develop a nose bleed from low platelets wghich resolved with Afrin. The pt is on home TPN, has a g tube to drain stomach contents due to sbo from abdominal carcinomatosis. She received platelets and PRBCs and her counts improved. She was stable for discharge to home. Total Time Spent: Greater than 30 minutes This includes examination of the patient, discharge planning, medication reconciliation, and communication with other providers. Discharge Instructions Please refer to the electronic Patient Visit Report (Discharge Instructions) for additional information. Follow-Up with Oncology in 2 days Additional Copies To Collin Burgess D.O.
[2016-09-25] MEDS ORDERED: Boost Nutritional Drink PO (16:35)
[2016-09-25] MEDS ORDERED: OMEP40CA41 PO (16:35)
[2016-09-25] MEDS ORDERED: METO5TAB2 PO (16:35)
[2016-09-25] MEDS ORDERED: DRGTP12 TD (16:35)
[2016-09-25] MEDS ORDERED: ANT25 PO (16:35)
[2016-09-25] MEDS ORDERED: LORA-741 PO (16:35)
[2016-09-25] MEDS ORDERED: CLX20 PO (16:35)
[2016-09-25] MEDS ORDERED: HYDR2TAB2 PO (18:23)
== END 2016-08-23 14:41 | disposition home health service (06) ==
LOC: UNDOADMOB 18:42 → C.4E 18:42
PROVIDERS: ADMIT Internal Medicine; ATTEND Family Medicine
DX: D61.818 Other pancytopenia (principal); R04.0 Epistaxis; D69.6 Thrombocytopenia, unspecified; C48.2 Malignant neoplasm of peritoneum, unspecified; C79.60 Secondary malignant neoplasm of unspecified ovary; K21.9 Gastro-esophageal reflux disease without esophagitis; E66.01 Morbid (severe) obesity due to excess calories; Z90.710 Acquired absence of both cervix and uterus; Z90.79 Acquired absence of other genital organ(s); Z90.722 Acquired absence of ovaries, bilateral; Z87.440 Personal history of urinary (tract) infections; Z88.2 Allergy status to sulfonamides; Z88.5 Allergy status to narcotic agent; Z83.3 Family history of diabetes mellitus; Z82.49 Family history of ischemic heart disease and other diseases of the circulatory system

== ENCOUNTER → 2016-08-27 | Outpatient (CLI) | payer OTHER ==
[~2016-08-27] MED LIST changes: +ANT25 PO; +ATV1 SL; +Boost Nutritional Drink PO; -CEPH-571 PO; +CLX20 PO; +DRGTP100 TD; +DRGTP12 TD; +LORA-741 PO; +OMEP40CA41 PO; +OXYC1TAB3 PO
[2016-08-27 12:04] LABS: BLOOD UREA NITROGEN 22 mg/dl (7-18); BUN/CREATININE RATIO 23.5 (10-20); CALCIUM 8.7 mg/dl (8.5-10.1); CARBON DIOXIDE 28 mmol/L (21-32); CHLORIDE 103 mmol/L (98-107); CREATININE 0.94 mg/dl (0.60-1.20); GLUCOSE 113 mg/dl (70-99); MAGNESIUM 1.8 mg/dl (1.8-2.4); POTASSIUM 3.4 mmol/L (3.5-5.1); SODIUM 141 mmol/L (136-145)
== END | disposition home or self-care (01) ==
LOC: C.LABSPEC 12:04
PROVIDERS: ATTEND Family Medicine
DX: K56.69 Other intestinal obstruction (principal); C48.2 Malignant neoplasm of peritoneum, unspecified; E64.0 Sequelae of protein-calorie malnutrition; N39.0 Urinary tract infection, site not specified

== ENCOUNTER → 2016-09-04 | Outpatient (CLI) | payer OTHER ==
[2016-09-04 09:48] LABS: BLOOD UREA NITROGEN 22 mg/dl (7-18); BUN/CREATININE RATIO 23.6 (10-20); CALCIUM 8.6 mg/dl (8.5-10.1); CARBON DIOXIDE 27 mmol/L (21-32); CHLORIDE 107 mmol/L (98-107); CREATININE 0.94 mg/dl (0.60-1.20); GLUCOSE 116 mg/dl (70-99); MAGNESIUM 1.9 mg/dl (1.8-2.4); PHOSPHORUS 3.9 mg/dl (2.5-4.9); SODIUM 144 mmol/L (136-145)
--- NOTE | 2016-09-08 08:40 | CODING QUERY NO DIAGNOSIS ---
: 1960 TREATMENT RENDERED WITHOUT A DIAGNOSIS To promote full compliance with coding requirements relating to patient care, physician participation is requested in all cases of cloth framer uncertainty. Please assist us with providing a diagnosis/symptom for the test(s) below: A diagnosis/symptom was not documented on your Order. A valid diagnosis/symptom is required to bill all insurances. Please remember that we are unable to code a diagnosis of rule out, probable, possible, questionable, or suspected. Tests that require a diagnosis: DOS: 09/04/16 * Magnesium DIAGNOSIS: * Phosphorus DIAGNOSIS: * Partial Renal Profile DIAGNOSIS: * Calcium, Ionized DIAGNOSIS: Provider Signature: Date: Thank you Vikki Wang Health Information Management Once completed, please kindly fax back to [phone] For questions please call [phone]
--- NOTE | 2016-09-18 08:47 | CODING QUERY NO DIAGNOSIS ---
Valid Physician Order Needed A valid physician order must be submitted in order to properly bill for the service(s) provided, including date of service(s), valid diagnosis, and physician signature. If these tests are done on a recurring basis the original physican order must be submitted in order to code and bill for the service(s) provided. Please fax us the original, signed physician order so that we may expedite billing to [phone]. DOS 09/04/2016 * Magnesium * Phosphorus * Partial Renal Profile * Calcium, Ionized Thank you Vikki Mosschey [facility] Information Management
== END | disposition home or self-care (01) ==
LOC: C.LABSPEC 09:04
PROVIDERS: ATTEND Family Medicine
DX: Z00.00 Encounter for general adult medical examination without abnormal findings (principal)

== ENCOUNTER 2016-09-07 10:07 | Inpatient (IN) | payer OTHER ==
[~2016-09-07] VITALS: Ht 154.9 cm; Wt 105.2 kg
[~2016-09-07 10:07] MED LIST changes: -ANT25 PO; -ATV1 SL; -Boost Nutritional Drink PO; -CLX20 PO; -DRGTP100 TD; -DRGTP12 TD; -LORA-741 PO; -OMEP40CA41 PO; -OXYC1TAB3 PO
[2016-09-07] MEDS ORDERED: PROMETHAZINE HCL INJ 25 MG/ML 1 ML VIAL IV STA (10:47)
[2016-09-07] MEDS ORDERED: SODIUM CHLORIDE 0.9% 1000ML 500 ML IV STA (10:47)
[2016-09-07] MEDS ORDERED: ONDANSETRON INJ 2 MG/ML 2 ML VIAL IV STA (10:47)
[2016-09-07] MEDS ORDERED: HYDROmorphone INJ 2 MG/ML SYR/VIAL IV PRN (11:00)
[2016-09-07] MEDS ORDERED: PROMETHAZINE HCL INJ 12.5 MG in SODIUM CHLORIDE 0.9% 50ML 50 ML IV STA (11:05)
[2016-09-07 11:14] LABS: BASO % 0.2 %; BASO ABS # 0.01 K/uL (0-0.2); COMPLETE YES; HEMATOCRIT 27.6 % (37-47); IG% 0.3 %; LYMPH % 5.9 %; LYMPH ABS # 0.34 K/uL (1.2-3.4); MEAN CELL VOLUME 87.6 fL (80-100); MEAN CORPUSCULAR HEMOGLOBIN 29.2 pg (25-34); MEAN CORPUSCULAR HGB CONC 33.3 g/dl (32-36); MEAN PLATELET VOLUME 11.1 fL (7.4-10.4); NEUT % 89.6 %; PLATELET COUNT 136 K/uL (130-400); RED BLOOD COUNT 3.15 M/uL (4.2-5.4); WHITE BLOOD COUNT 5.77 K/uL (4.8-10.8)
--- NOTE | 2016-09-07 11:25 | DIAGNOSTIC IMAGING REPORT ---
SINGLE VIEW CHEST CLINICAL HISTORY: Generalized abdominal pain. Nausea. FINDINGS: An AP, portable, upright chest radiograph is compared to study dated 08/20/2016 and correlated with chest CT dated 05/15/2016. The examination is degraded by portable technique, large body habitus, and patient rotation. A right PICC line and a left subclavian central venous infusion port are unchanged in position. The heart is top normal for projection. The pulmonary vasculature is noncongested. Mild chronic interstitial thickening is unchanged. Minimal bibasilar atelectasis is noted. No airspace consolidation or pleural effusion is seen. There is no pneumothorax. The skeletal structures are osteopenic. The bony thorax is grossly intact. An indeterminant catheter projects over the left upper quadrant. IMPRESSION: No acute cardiopulmonary abnormality. Electronically signed by: Art Grady M.D. 09/07/2016 11:23 AM Dictated Date/Time: 09/07/2016 11:21 AM
[2016-09-07 11:28] LABS: INR 1.1 (0.9-1.1); PARTIAL THROMBOPLASTIN RATIO 1.1; PROTHROMBIN TIME (PATIENT) 12.1 SECONDS (9.0-12.0)
[2016-09-07 11:33] LABS: ALT/SGPT 35 U/L (12-78); BLOOD UREA NITROGEN 19 mg/dl (7-18); BUN/CREATININE RATIO 19.1 (10-20); CALCIUM 8.7 mg/dl (8.5-10.1); CARBON DIOXIDE 23 mmol/L (21-32); CHLORIDE 107 mmol/L (98-107); CREATININE 0.99 mg/dl (0.60-1.20); GLUCOSE 147 mg/dl (70-99); POTASSIUM 4.4 mmol/L (3.5-5.1); SODIUM 142 mmol/L (136-145)
[2016-09-07 11:43] LABS: ALB/GLOB RATIO 0.8 (0.9-2); ALKALINE PHOSPHATASE 108 U/L (45-117); AST/SGOT 25 U/L (15-37)
--- NOTE | 2016-09-07 12:04 | DIAGNOSTIC IMAGING REPORT ---
CT SCAN OF THE ABDOMEN AND PELVIS WITHOUT IV CONTRAST CLINICAL HISTORY: Generalized abdominal pain. Nausea and vomiting. COMPARISON STUDY: Prior abdominal CT scans, most recently dated 07/31/2016. TECHNIQUE: CT scan of the abdomen and pelvis is performed from the lung bases to the proximal femora. Images are reviewed in the axial, sagittal, and coronal planes. IV contrast was not administered for this examination as per the referring clinician. Note that the examination was performed in significantly suboptimal fashion without oral and IV contrast. Automated dose control exposure was utilized. CT DOSE: 1044.53 mGy.cm FINDINGS: Lung bases: The heart is normal in size and without pericardial effusion. There are small pleural effusions with bibasilar atelectasis. Liver: The unenhanced liver is normal in size and contour. The liver demonstrates diffusely diminished attenuation consistent with hepatic steatosis. There is no intrahepatic biliary ductal dilatation. Gallbladder: Surgically absent noting clips in the gallbladder fossa. Spleen: Normal in size and attenuation. Pancreas: The unenhanced pancreas is moderately atrophic and grossly unremarkable. Adrenal glands: Unremarkable. Kidneys: The unenhanced kidneys are atrophic and without hydronephrosis. There is a 5 mm nonobstructing calculus in the lower pole of the right kidney. No left renal calculi are identified. Parapelvic cysts in the left kidney are unchanged. Abdominal vasculature: The abdominal aorta is normal in course and caliber noting mild atherosclerotic calcification. Stomach and bowel: There is a tiny hiatal hernia. A gastrostomy tube is noted in the stomach. An incisional hernia is again seen in the ventral abdominal wall and contains a loop of distal small bowel. No bowel obstruction is identified. Carcinomatosis is again noted involving distal ileal loops in the right lower quadrant. The appendix is not clearly visualized. Peritoneum: There is no intraperitoneal free air. No abdominal ascites is seen. Findings of peritoneal carcinomatosis have not significantly changed from 07/31/2016. Omental thickening and nodularity is similar to previous, greatest in the left mid abdomen Lymphadenopathy: None. Pelvic viscera: The bladder is decompressed and grossly unremarkable. The uterus is surgically absent. A cystic structure in the right adnexa seen on image #345 has not significant changed from 07/31/2016 and measures up to 2.8 cm. Skeletal structures: The skeletal structures are osteopenic. There is mild lumbar sacral spondylosis. No lytic or blastic lesions are seen. IMPRESSION: 1. Significantly suboptimal examination without oral and IV contrast. 2. Small pleural effusions and bibasilar atelectasis. Pleural effusions are new from 07/31/2016. 3. There are no acute infectious or inflammatory findings in the abdomen or pelvis. 4. A ventral hernia containing a nonobstructed loop of small bowel is similar to previous. No bowel obstruction is identified on today's examination. 5. Findings of peritoneal carcinomatosis and a cystic lesion in the right ventral pelvis are unchanged from 07/31/2016. 6. Nonobstructing right renal calculus. 7. Hepatic steatosis. 8. Additional changes as above. Electronically signed by: Art Grady M.D. 09/07/2016 12:02 PM Dictated Date/Time: 09/07/2016 11:52 AM
[2016-09-07] MEDS ORDERED: ACETAMINOPHEN 325 MG TAB PO PRN (14:30)
[2016-09-07] MEDS ORDERED: ALUMINUM/MAGNESIUM/SIMETH (MAALOX MAX) 30 ML UDC PO PRN (14:30)
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
[2016-09-07 16:01] VITALS: BP 160/95; PULSE 125; TEMP 36.8; O2SAT 96; Ht 154.9 cm; Wt 105.2 kg
[2016-09-07] MEDS: ONDANSETRON INJ 2 MG/ML 2 ML VIAL IV PRN (16:53)
[2016-09-07] MEDS ORDERED: HYDROmorphone INJ 1 MG/ML SYR IV ONE (17:00)
[2016-09-07] MEDS: SODIUM CHLORIDE 0.9% 1000ML 1,000 ML IV SCH (18:02)
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
[2016-09-07] MEDS: HYDROmorphone INJ 0.5 MG/0.5 ML SYR IV PRN (20:03)
[2016-09-07 20:05] LABS: URINE APPEARANCE CLEAR (CLEAR); URINE BILIRUBIN NEG (NEG); URINE COLOR YELLOW; URINE NITRITE NEG (NEG); URINE SPECIFIC GRAVITY 1.016 (1.000-1.030); UROBILINOGEN NEG (NEG); ZZUR CULT IF INDIC CLEAN CATCH NO
[2016-09-07 20:08] LABS: MANUAL MICROSCOPIC REQUIRED? NO; REVIEW REQ? NO
[2016-09-07] MEDS ORDERED: LORAZEPAM 2 MG/ML 1 ML VIAL IV PRN (20:30)
[2016-09-07] MEDS ORDERED: LORAZEPAM INJ 0.5 MG in SYRINGE 0.75 ML IV PRN (20:45)
[2016-09-07 23:48] VITALS: BP 111/81; PULSE 102; TEMP 37.3; O2SAT 96
[2016-09-08] MEDS: D5W AND 1/2NSS + 20MEQ KCL 1,000 ML IV SCH ×2 (00:15→14:13)
[2016-09-08] MEDS: SODIUM CHLORIDE 0.9% 1000ML 1,000 ML IV SCH ×2 (01:08→09:28)
[2016-09-08 07:49] VITALS: BP 118/78; PULSE 88; TEMP 37.2; O2SAT 91
[2016-09-08] MEDS: ONDANSETRON INJ 2 MG/ML 2 ML VIAL IV PRN (09:27)
[2016-09-08] MEDS: HYDROmorphone INJ 0.5 MG/0.5 ML SYR IV PRN ×3 (09:28→22:12)
[2016-09-08 11:29] VITALS: BP 111/75; PULSE 81; TEMP 36.5; O2SAT 96
[2016-09-08] MEDS ORDERED: NURSING VERBAL MED ORDER ONE (12:30)
[2016-09-08] MEDS: BACITRACIN OINT 15 GM TUBE EXT SCH ×2 (14:30→19:36)
[2016-09-08] MEDS: PROCHLORPERAZINE INJ 10 MG in SYRINGE 8 ML IV PRN (14:30)
--- NOTE | 2016-09-08 15:09 | DIAGNOSTIC IMAGING REPORT ---
SINUS CT WITHOUT CONTRAST CLINICAL HISTORY: Headache with frontal tenderness. COMPARISON STUDY: PET/CT January 29, 2016. Technique: Helical axial images of the sinuses were obtained without IV contrast. Coronal reformats were viewed. CT DOSE: 568.41 mGy.cm FINDINGS: Visualized portions of the intracranial contents are unremarkable on this unenhanced exam. The orbits are within normal limits. No bony destruction is present. There is mild leftward deviation of the nasal septum. No mass is present with a nasal cavity or the sinuses. Major drainage pathways are patent. There is mild polypoid mucosal thickening of the maxillary sinuses. There is minimal mucosal thickening of the ethmoid sinuses. Frontal sinuses are clear. IMPRESSION: 1. Mild polypoid mucosal thickening of the maxillary sinuses. No CT evidence of acute sinusitis. 2. Patent major drainage pathways. 3. Mild leftward deviation of the nasal septum. Electronically signed by: Giacomo Bird M.D. 09/08/2016 3:07 PM Dictated Date/Time: 09/08/2016 3:04 PM
--- NOTE | 2016-09-08 17:08 | Family Medicine Progress Note ---
Progress Note Date of Service Sep 08, 2016. Subjective Pt evaluation today including: conversation w/ patient, physical exam, chart review, lab review Pain: well controlled Voiding: no voiding problems 56 y/o F with metastatic ovarian cancer here for chemotherapy induced vomiting , 2 weeks after last session. has been treated with IVF and antiemetics. had no more episodes of vomiting since last night. nausea controlled with Zofran as needed. Pain controlled with Dilaudid. c/o headache rosana in the frontal area with some congestion. denied any photophobia. neck stiffness, blurriness in vision, fevers/chills. Constitutional: No chills, No fever Eyes: No worsening of vision ENT: + nasal symptoms, No hearing loss Cardiovascular: No chest pain Abdomen: + nausea, No pain, No vomiting Female : No dysuria Neurologic: No memory loss Medications Current Inpatient Medications Medications (Trade) Dose Ordered Sig/Mendoza Route Start Time Stop Time Status Last Admin Dose Admin Acetaminophen (Tylenol Tab) 650 mg Q4H PRN PO 09/07/16 14:30 10/07/16 14:29 Al Hydrox/Mg Hydrox/Simethicone (Maalox Max Susp) 15 ml Q4H PRN PO 09/07/16 14:30 10/07/16 14:29 Ondansetron HCl 4 mg 4 mg Q6H PRN IV 09/07/16 14:30 10/07/16 14:29 09/08/16 09:27 4 MG Prochlorperazine Edisylate/Syringe (Compazine Inj/ Syringe) 10 ml @ 5 mls/min Q6H PRN IV 09/07/16 17:45 10/07/16 17:44 09/08/16 14:30 5 MLS/MIN Hydromorphone HCl (Dilaudid Inj) 0.5 mg Q2H PRN IV 09/07/16 17:45 09/21/16 17:44 09/08/16 22:12 0.5 MG Bacitracin 1 appln 1 appln BID EXT 09/08/16 13:00 10/08/16 12:59 09/08/16 19:36 1 APPLN Potassium Chloride/Dextrose/ Sod Cl (D5W And 1/2nss + 20meq KCl) 1,000 ml @ 100 mls/hr Q10H IV 09/08/16 13:45 10/08/16 13:29 09/08/16 14:13 100 MLS/HR Lorazepam 1 mg 1 mg Q4H PRN IV 09/08/16 20:00 10/08/16 19:59 09/08/16 22:12 1 MG Acetaminophen 650 mg/Empty Bag 65 ml @ 260 mls/hr Q6H PRN IV 09/08/16 20:00 10/08/16 19:59 Lorazepam/Syringe (Ativan Inj/ Syringe) 1 ml @ 1 mls/min Q4H PRN IV 09/08/16 21:30 10/08/16 21:29 Objective Vital Signs Date Time Temp Pulse Resp B/P Pulse Ox O2 Delivery O2 Flow Rate FiO2 09/08/16 23:09 36.9 89 20 97/64 92 09/08/16 20:00 36.7 80 16 111/74 90 Room Air 09/08/16 16:00 Room Air 09/08/16 11:29 36.5 81 18 111/75 96 Room Air 09/08/16 10:10 Room Air 09/08/16 07:49 37.2 88 20 118/78 91 Room Air 09/08/16 00:00 Room Air 09/07/16 23:48 37.3 102 20 111/81 96 Room Air Physical Exam General Appearance: WD/WN, no apparent distress Eyes: normal inspection ENT: normal ENT inspection, pharynx normal, + pertinent finding (frontal tenderness) Neck: supple Respiratory/Chest: chest non-tender, lungs clear, normal breath sounds, no respiratory distress, no accessory muscle use Cardiovascular: regular rate, rhythm Abdomen: normal bowel sounds, + pertinent finding (peg tube in place) Extremities: normal range of motion, non-tender, no pedal edema Neurologic/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 COMPARISON STUDY: PET/CT January 29, 2016. Technique: Helical axial images of the sinuses were obtained without IV contrast. Coronal reformats were viewed. CT DOSE: 568.41 mGy.cm FINDINGS: Visualized portions of the intracranial contents are unremarkable on this unenhanced exam. The orbits are within normal limits. No bony destruction is present. There is mild leftward deviation of the nasal septum. No mass is present with a nasal cavity or the sinuses. Major drainage pathways are patent. There is mild polypoid mucosal thickening of the maxillary sinuses. There is minimal mucosal thickening of the ethmoid sinuses. Frontal sinuses are clear. IMPRESSION: 1. Mild polypoid mucosal thickening of the maxillary sinuses. No CT evidence of acute sinusitis. 2. Patent major drainage pathways. 3. Mild leftward deviation of the nasal septum. Electronically signed by: Giacomo Bird M.D. 09/08/2016 3:07 PM Dictated Date/Time: 09/08/2016 3:04 PM Assessment and Plan 56 y/o F with h/o ovarian cancer with peritoneal carcinomatosis here with c/o nausea, vomiting which started about 3 days ago [employer]. s/p chemotherapy about 2 weeks ago Chemotherapy induced Nausea and vomiting - IVF, switched to D51/2 NS - Zofran 4 mg q4h PRN , compazine 10 mg q6h for nausea and vomiting, Ativan 1 mg q4h for nausea/sedation - Dilaudid 0.5 mg q4h PRN pain Frontal headache with associated congestion - CN II TO XII intact - CT paranasal sinuses ordered: 1. Mild polypoid mucosal thickening of the maxillary sinuses. No CT evidence of acute sinusitis. Nutrition: H/o recurrent SBO, has a PEG tube and receives TPN via right PICC line - will restart TPN tomorrow , switched IVF to D51/2 NS clear liquid diet DVT prophylaxis: SCDs, will avoid heparin( recent thrombocytopenia s/p platelet transfusion) Dispo: Med/surg Continued [facility] stay due to: inadequate po fluid intake Discharge planning: home Reviewed: Pt Seen/Exam by MICHAEL Burkett Notes, Labs, RAD History Resident Physician Supervision Note: I was present with Dr. Elizabeth during the history and exam. I discussed the case with the resident and agree with the findings and plan as documented in the note. Any exceptions or clarifications are listed here: Pt with improved N/V, but still with mild frontal SALGUERO, wants to eat clears that then go right into her PEG bag (for comfort) Vitals reviewed Neuro: CN 2-12 intact HEENT: +ttp over medial eyebrows bilat, no maxilla tenderness, OP clear Pulm: CTAB, no wcr CV rrrr no mgr Abd soft, obese, G-tube in place draining green fluid A/P: 56 yo unfortunate female with metastatic ovarian CA with carcinomatosis, gastric outlet obstruction, on TPN, still receiving palliative chemo, here with intractable N/V. Unclear if from chemo vs gastric outlet obstruction although seems to be improving and G tube is draining. With new onset SALGUERO, CT sinuses negative--> consider MRI brain to look for mets. -continue antiemetics, added ativan prn nausea and anxiety -IVFs for now and restart TPN tomorrow if still here clears diet for comfort IV Tylenol prn SALGUERO Proph-SCDs Documented By: Courtney Joshua
[2016-09-08 20:00] VITALS: BP 111/74; PULSE 80; TEMP 36.7; O2SAT 90
[2016-09-08] MEDS ORDERED: LORAZEPAM 2 MG/ML 1 ML VIAL IV PRN (20:00)
[2016-09-08 23:09] VITALS: BP 97/64; PULSE 89; TEMP 36.9; O2SAT 92
[2016-09-09] VITALS (7 sets, daily range): BP systolic 101–124; BP diastolic 69–81; PULSE 79–86; TEMP 36.5–36.7; O2SAT 92–95
[2016-09-09 07:00] LABS: BUN/CREATININE RATIO 14.3 (10-20); CALCIUM 7.8 mg/dl (8.5-10.1); CREATININE 1.1 mg/dl (0.60-1.20); POTASSIUM 3.6 mmol/L (3.5-5.1)
[2016-09-09] MEDS: ONDANSETRON INJ 2 MG/ML 2 ML VIAL IV PRN (07:40)
[2016-09-09] MEDS: HYDROmorphone INJ 0.5 MG/0.5 ML SYR IV PRN ×4 (07:40→23:51)
[2016-09-09] MEDS: D5W AND 1/2NSS + 20MEQ KCL 1,000 ML IV SCH (10:17)
[2016-09-09] MEDS: BACITRACIN OINT 15 GM TUBE EXT SCH ×2 (10:18→20:39)
[2016-09-09] MEDS ORDERED: TPN/PPN CONSULT PHARMACY PRN ×2 (14:15→16:00)
--- NOTE | 2016-09-09 15:17 | Pharmacy Progress Note ---
Parenteral Nutrition Consult Date of Service Sep 09, 2016. Scope Pharmacy has been consulted to manage parenteral nutrition orders and order appropriate labs. As part of the Nutrition Support Team guidelines, pharmacy will work in conjunction with dietary when determining the patients caloric needs. Subjective The patient is a 56 year old female admitted on Sep 07, 2016 at 14:26 for Chemotherapy Induced Nausea And Vomiting. Patient is to receive parenteral nutrition for malnutrition and patient was on a home TPN. Pertinent PMH: Ovarian Cancer Objective Height (Feet): 5 Height (Inches): 1.00 Weight (Kilograms): 104.100 Vascular Access: A. Port. Intake & Output (Last 72 Hr): 09/07/16 09/08/16 09/09/16 08:00 08:00 08:00 Intake Total 2453 ml 2905 ml Output Total 950 ml 4600 ml Balance 1503 ml -1695 ml Laboratory Data (Last 24 Hr): Test 09/09/16 05:55 Blood Urea Nitrogen 16 mg/dl (7-18) Calcium Level 7.8 mg/dl (8.5-10.1) Carbon Dioxide Level 31 mmol/L (21-32) Chloride Level 108 mmol/L (98-107) Creatinine 1.10 mg/dl (0.60-1.20) Potassium Level 3.6 mmol/L (3.5-5.1) Random Glucose 93 mg/dl (70-99) Sodium Level 145 mmol/L (136-145) Nutrition Assessment Assessment Patient was on a home TPN regimen infused cyclicly over 18 hrs. Lipids in the home TPN bag was scheduled for Mon,Wed & Fri. Planning on continuing this here while pt is admitted. Plan For day 1 of PN administration, the following will be ordered: Macronutrients Amino acids 84 grams/day Dextrose 250 grams/day Lipids 70 grams/day Micronutrients Combined electrolytes 20 mL - contains 35 mEq Na, 20 meq K, 4.5 mEq Ca, 5 mEq Mg , 35 mEq Cl, 29.5 mEq acetate per 20 mL Potassium phosphate 24 mMol Magnesium sulfate 4.06 mEq Multivitamins 10 mL Trace Elements 1 mL Additional additives: Thiamine 100 mg Total volume 2100 mL to be infused over 18 hrs will provide 1886 kcal/day Labs to be ordered per PN order protocol Pharmacy will follow and adjust parenteral nutrition orders on a daily basis. Thank you.
[2016-09-09] MEDS ORDERED: CUSTOM CENTRAL PN 1 BAG IV SCH (16:00)
--- NOTE | 2016-09-09 16:09 | Family Medicine Progress Note ---
Progress Note Date of Service Sep 09, 2016. Subjective Pt evaluation today including: conversation w/ patient, physical exam, chart review, lab review Pain: well controlled PO Intake: TPN 56 y/o F with metastatic ovarian cancer here for chemotherapy induced vomiting , 2 weeks after last session. doing better, no new episodes of N/V. tolerated clear liquid diet well. Ct for sinuses was negative. Continues to have headaches with some congestion and also c/o muscle aches Constitutional: No chills, No fever Eyes: No worsening of vision ENT: No hearing loss Respiratory: No cough, No sputum, No wheezing Cardiovascular: No chest pain Abdomen: No diarrhea, No nausea, No pain, No vomiting Musculoskeletal: No joint pain Female : No dysuria Medications Current Inpatient Medications Medications (Trade) Dose Ordered Sig/Mendoza Route Start Time Stop Time Status Last Admin Dose Admin Acetaminophen (Tylenol Tab) 650 mg Q4H PRN PO 09/07/16 14:30 10/07/16 14:29 Al Hydrox/Mg Hydrox/Simethicone (Maalox Max Susp) 15 ml Q4H PRN PO 09/07/16 14:30 10/07/16 14:29 Ondansetron HCl 4 mg 4 mg Q6H PRN IV 09/07/16 14:30 10/07/16 14:29 09/09/16 07:40 4 MG Prochlorperazine Edisylate/Syringe (Compazine Inj/ Syringe) 10 ml @ 5 mls/min Q6H PRN IV 09/07/16 17:45 10/07/16 17:44 09/08/16 14:30 5 MLS/MIN Hydromorphone HCl (Dilaudid Inj) 0.5 mg Q2H PRN IV 09/07/16 17:45 09/21/16 17:44 09/09/16 18:12 0.5 MG Bacitracin (Bacitracin Oint) 1 appln BID EXT 09/08/16 13:00 10/08/16 12:59 09/09/16 10:18 1 APPLN Lorazepam 1 mg 1 mg Q4H PRN IV 09/08/16 20:00 10/08/16 19:59 09/08/16 22:12 1 MG Acetaminophen 650 mg/Empty Bag 65 ml @ 260 mls/hr Q6H PRN IV 09/08/16 20:00 10/08/16 19:59 09/09/16 17:23 260 MLS/HR Lorazepam/Syringe (Ativan Inj/ Syringe) 1 ml @ 1 mls/min Q4H PRN IV 09/08/16 21:30 10/08/16 21:29 Miscellaneous Information 1 ea 1 ea UD PRN N/A 09/09/16 16:00 10/09/16 15:59 Nutrition (Parenteral) (Custom Central Pn) 0 ml @ 0 mls/hr TODAY@1600 IV 09/09/16 16:00 09/10/16 09:59 09/09/16 16:47 0 MLS/HR Miscellaneous Information (Pending Order) 1 ea DAILY@0900,1700 N/A 09/09/16 17:00 10/09/16 16:59 09/09/16 17:47 1 EA Objective Vital Signs Date Time Temp Pulse Resp B/P Pulse Ox O2 Delivery O2 Flow Rate FiO2 09/09/16 19:06 36.6 79 18 123/80 Room Air 09/09/16 15:35 36.5 81 16 109/75 94 Room Air 09/09/16 12:24 36.5 80 16 104/69 94 Room Air 09/09/16 11:33 Room Air 09/09/16 07:20 36.6 85 20 101/69 95 Room Air 09/09/16 00:00 92 Room Air 09/08/16 23:09 36.9 89 20 97/64 92 09/08/16 20:00 36.7 80 16 111/74 90 Room Air Physical Exam General Appearance: WD/WN, no apparent distress Eyes: normal inspection ENT: normal ENT inspection, hearing grossly normal Neck: supple Respiratory/Chest: chest non-tender, lungs clear, normal breath sounds, no respiratory distress, no accessory muscle use Cardiovascular: regular rate, rhythm Abdomen: normal bowel sounds, non tender, soft, + pertinent finding (peg tube in place) Neurologic/Psychiatric: alert, normal mood/affect, oriented x 3 Skin: normal color Laboratory Results Last 24 Hours Test 09/09/16 05:55 09/09/16 14:25 Sodium Level 145 mmol/L Potassium Level 3.6 mmol/L Chloride Level 108 mmol/L Carbon Dioxide Level 31 mmol/L Anion Gap 6.0 mmol/L Blood Urea Nitrogen 16 mg/dl Creatinine 1.10 mg/dl Est Creatinine Clear Calc Drug Dose 63.4 ml/min Estimated GFR () 65.0 Estimated GFR (Non- 56.1 BUN/Creatinine Ratio 14.3 Random Glucose 93 mg/dl Calcium Level 7.8 mg/dl Influenza Type A Antigen Neg for Influ A Influenza Type B Antigen Neg for Influ B Assessment and Plan 56 y/o F with h/o ovarian cancer with peritoneal carcinomatosis here with c/o nausea, vomiting which started about 3 days ago [employer]. s/p chemotherapy about 2 weeks ago Chemotherapy induced Nausea and vomiting- better controlled - Zofran 4 mg q4h PRN , compazine 10 mg q6h for nausea and vomiting, Ativan 1 mg q4h for nausea/sedation - Dilaudid 0.5 mg q4h PRN pain - TPN restarted today Frontal headache with associated congestion - CN II TO XII intact - CT paranasal sinuses ordered: 1. Mild polypoid mucosal thickening of the maxillary sinuses. No CT evidence of acute sinusitis. - Flu swab negative for influenza A and B - MRI head ordered for possible brain mets considering aggressive ovarian cancer , headaches , N/V Nutrition: H/o recurrent SBO, has a PEG tube and receives TPN via right PICC line - TPN restarted clear liquid diet DVT prophylaxis: SCDs, will avoid heparin( recent thrombocytopenia s/p platelet transfusion) Dispo: Med/surg Full Code Discharge planning: home Reviewed: Pt Seen/Exam by MICHAEL Burkett Notes, Labs, RAD History Resident Physician Supervision Note: I interviewed and examined the patient. Discussed with Dr. Elizabeth and agree with findings and plan as documented in the note. Any exceptions or clarifications are listed here: SALGUERO is improved but moved over to right side of head. Did have a brief visual change a few min ago where the "lights flickered" in her right eye and had trouble seeing, then went away. No other focal neuro issues. No more N/V. Vitals reviewed obese, NAD, does have a bit of a head/chin tremor RRR no mgr Pulm CTAB no wcr Abd PEG tube in place draining bilious fluid, obese, soft, mild diffuse TTP Ext no edema A/P: 56 yo unfortunate female with metastatic ovarian CA with carcinomatosis, gastric outlet obstruction, on TPN, still receiving palliative chemo, here with intractable N/V, now resolved. Unclear if from chemo vs gastric outlet obstruction although seems to be improving and G tube is draining. With new onset SALGUERO, CT sinuses negative-->will check MRI brain to look for mets. -continue antiemetics, added ativan prn nausea and anxiety -Irestarted TPN clears diet for comfort IV Tylenol prn SALGUERO Proph-SCDs Documented By: Courtney Joshua
[2016-09-09] MEDS: ACETAMINOPHEN IV 650 MG in EMPTY BAG 0 ML IV PRN (17:23)
[2016-09-09] MEDS ORDERED: GADAVIST IV PRN (22:45)
--- NOTE | 2016-09-09 23:07 | DIAGNOSTIC IMAGING REPORT ---
Brain MRI WITH AND WITHOUT CONTRAST HISTORY: h/o metastatic ovarian cancer, headache TECHNIQUE: Multiplanar multisequence MRI of the brain was performed both before and after the intravenous administration of contrast. COMPARISON STUDY: Head CT 04/05/2010. FINDINGS: There are no areas of restricted diffusion to suggest acute infarction. The midline structures are intact. Mild mucosal thickening within the maxillary sinuses and a few partially opacified right posterior mastoid air cells. A few scattered punctate foci of T2 hyperintensity within the subcortical white matter of the supratentorial brain. This is nonspecific but favors mild microvascular ischemic change. The ventricles and sulci are within normal limits for age. There is no mass, hematoma, midline shift. The major vascular flow-voids at the skull base are well maintained. Postcontrast sequences show no areas of abnormal enhancement. IMPRESSION: No evidence for metastatic disease within the brain. Electronically signed by: Joshua Morales M.D. 09/09/2016 11:06 PM Dictated Date/Time: 09/09/2016 10:59 PM
[2016-09-10] VITALS (7 sets, daily range): BP systolic 89–121; BP diastolic 51–89; PULSE 85–143; TEMP 36.6–37.1; O2SAT 90–94
[2016-09-10] MEDS: LORAZEPAM INJ 1 MG in SYRINGE 0.5 ML IV PRN ×2 (01:01→21:30)
[2016-09-10 06:25] LABS: BASO % 0.3 %; BASO ABS # 0.01 K/uL (0-0.2); EOS % 0.3 %; HEMATOCRIT 24.6 % (37-47); IG% 0.3 %; LYMPH % 27.7 %; LYMPH ABS # 0.94 K/uL (1.2-3.4); MEAN CELL VOLUME 90.8 fL (80-100); MEAN CORPUSCULAR HEMOGLOBIN 28.8 pg (25-34); MEAN CORPUSCULAR HGB CONC 31.7 g/dl (32-36); MEAN PLATELET VOLUME 11.3 fL (7.4-10.4); MONO % 20.1 %; NEUT % 51.3 %; PLATELET COUNT 166 K/uL (130-400); RED BLOOD COUNT 2.71 M/uL (4.2-5.4); WHITE BLOOD COUNT 3.39 K/uL (4.8-10.8)
[2016-09-10 06:55] LABS: BUN/CREATININE RATIO 13.4 (10-20); C-REACTIVE PROTEIN 1.8 mg/dl (0-0.29); POTASSIUM 3.5 mmol/L (3.5-5.1)
[2016-09-10 06:58] LABS: PHOSPHORUS 3.7 mg/dl (2.5-4.9)
[2016-09-10 07:06] LABS: COMPLETE YES
[2016-09-10] MEDS: HYDROmorphone INJ 0.5 MG/0.5 ML SYR IV PRN ×4 (07:36→19:48)
[2016-09-10] MEDS: BACITRACIN OINT 15 GM TUBE EXT SCH ×2 (10:53→19:48)
--- NOTE | 2016-09-10 13:17 | Discharge Instructions ---
Discharge Instructions Admission Reason for Admission: Chemotherapy Induced Nausea And Vomiting Discharge Discharge Diagnosis / Problem: Chempotherapy induced vomiting Discharge Goals Goal(s): Decrease discomfort Activity Recommendations Activity Limitations: resume your previous activity . Instructions / Follow-Up Instructions / Follow-Up You were admitted for nausea and vomiting after your chemotherapy 2 weeks ago - Continue to increase fluid intake - Use Zofran as needed for nausea and vomiting - Continue TPN - Reschedule appointment with Jose C to change your Peg tube - Follow up with Dr. Burgess in 2-3 days Current Hospital Diet Patient's current hospital diet: Clear Liquid Diet Discharge Diet Recommended Diet: N/A (TPN) Pending Studies Studies pending at discharge: no Laboratory Results Lipid Panel Test 09/10/16 05:20 Range/Units Triglycerides Level 142 0-150 mg/dl Medical Emergencies . Who to Call and When: Medical Emergencies: If at any time you feel your situation is an emergency, please call 911 immediately. . Non-Emergent Contact Non-Emergency issues call your: Oncologist . . "Provider Documentation" section prepared by Sandi Elizabeth. VTE Core Measure Inpt VTE Proph given/why not?: SCD's
[2016-09-10 14:09] LABS: HEMATOCRIT 26.3 % (37-47); MEAN CELL VOLUME 89.8 fL (80-100); MEAN CORPUSCULAR HEMOGLOBIN 29.7 pg (25-34); MEAN CORPUSCULAR HGB CONC 33.1 g/dl (32-36); MEAN PLATELET VOLUME 10.1 fL (7.4-10.4); PLATELET COUNT 156 K/uL (130-400); RED BLOOD COUNT 2.93 M/uL (4.2-5.4); WHITE BLOOD COUNT 4.46 K/uL (4.8-10.8)
[2016-09-10] MEDS ORDERED: CUSTOM CENTRAL PN 1 BAG IV SCH (16:00)
[2016-09-10] MEDS: ONDANSETRON INJ 2 MG/ML 2 ML VIAL IV PRN (16:22)
[2016-09-10 17:06] LABS: URINE APPEARANCE CLEAR (CLEAR); URINE BILIRUBIN NEG (NEG); URINE COLOR YELLOW; URINE NITRITE NEG (NEG); URINE PH >= 9.0 (4.5-7.5); URINE SPECIFIC GRAVITY 1.015 (1.000-1.030); UROBILINOGEN POS (NEG)
[2016-09-10 17:17] LABS: MANUAL MICROSCOPIC REQUIRED? NO; REVIEW REQ? NO
[2016-09-10 17:37] LABS: BASO % 0.2 %; BASO ABS # 0.01 K/uL (0-0.2); COMPLETE YES; HEMATOCRIT 28.4 % (37-47); IG% 0.5 %; LYMPH % 5.1 %; LYMPH ABS # 0.31 K/uL (1.2-3.4); MEAN CELL VOLUME 90.7 fL (80-100); MEAN CORPUSCULAR HEMOGLOBIN 29.4 pg (25-34); MEAN CORPUSCULAR HGB CONC 32.4 g/dl (32-36); MEAN PLATELET VOLUME 10.3 fL (7.4-10.4); MONO % 4.9 %; NEUT % 89.3 %; PLATELET COUNT 142 K/uL (130-400); RED BLOOD COUNT 3.13 M/uL (4.2-5.4); WHITE BLOOD COUNT 6.09 K/uL (4.8-10.8)
--- NOTE | 2016-09-10 18:12 | Family Medicine Progress Note ---
Progress Note Date of Service Sep 10, 2016. Subjective Pt evaluation today including: conversation w/ patient, physical exam, chart review, lab review Pain: denies PO Intake: TPN Voiding: no voiding problems Was doing better until later this afternoon and she spiked a temperature and congestion with mucus. No new episodes of N/V Constitutional: + problem reported (rigors), No chills, No fever ENT: No hearing loss Respiratory: No cough, No shortness of breath, No sputum, No wheezing Cardiovascular: No chest pain, No orthopnea Abdomen: No diarrhea, No nausea, No pain, No vomiting Musculoskeletal: No joint pain Female : No dysuria Medications Current Inpatient Medications Medications (Trade) Dose Ordered Sig/Mendoza Route Start Time Stop Time Status Last Admin Dose Admin Acetaminophen (Tylenol Tab) 650 mg Q4H PRN PO 09/07/16 14:30 10/07/16 14:29 Al Hydrox/Mg Hydrox/Simethicone (Maalox Max Susp) 15 ml Q4H PRN PO 09/07/16 14:30 10/07/16 14:29 Ondansetron HCl 4 mg 4 mg Q6H PRN IV 09/07/16 14:30 10/07/16 14:29 09/10/16 16:22 4 MG Prochlorperazine Edisylate/Syringe (Compazine Inj/ Syringe) 10 ml @ 5 mls/min Q6H PRN IV 09/07/16 17:45 10/07/16 17:44 09/08/16 14:30 5 MLS/MIN Hydromorphone HCl (Dilaudid Inj) 0.5 mg Q2H PRN IV 09/07/16 17:45 09/21/16 17:44 09/10/16 14:14 0.5 MG Bacitracin (Bacitracin Oint) 1 appln BID EXT 09/08/16 13:00 10/08/16 12:59 09/10/16 10:53 1 APPLN Lorazepam 1 mg 1 mg Q4H PRN IV 09/08/16 20:00 10/08/16 19:59 09/08/16 22:12 1 MG Acetaminophen 650 mg/Empty Bag 65 ml @ 260 mls/hr Q6H PRN IV 09/08/16 20:00 10/08/16 19:59 09/09/16 17:23 260 MLS/HR Lorazepam/Syringe (Ativan Inj/ Syringe) 1 ml @ 1 mls/min Q4H PRN IV 09/08/16 21:30 10/08/16 21:29 09/10/16 01:01 1 MLS/MIN Miscellaneous Information (Pharmacy Tpn/ Ppn Consult Active) 1 ea UD PRN N/A 09/09/16 16:00 10/09/16 15:59 Miscellaneous Information (Pending Order) 1 ea DAILY@0900,1700 N/A 09/09/16 17:00 10/09/16 16:59 09/10/16 17:22 1 EA Gadobutrol (Gadavist) 10 mmol UD PRN IV 09/09/16 22:45 09/13/16 22:44 Heparin Sodium (Porcine) (Heparin 10 Unit/ ml 5 ml Flush) 5 ml PRN PRN FLUSH 09/10/16 00:15 10/10/16 00:14 09/10/16 14:08 5 ML Heparin Sodium (Porcine) 5 ml 5 ml PRN PRN IV 09/10/16 00:15 10/10/16 00:14 09/10/16 17:27 5 ML Nutrition (Parenteral) (Custom Central Pn) 0 ml @ 0 mls/hr TODAY@1600 IV 09/10/16 16:00 09/11/16 09:59 09/10/16 16:20 0 MLS/HR Objective Vital Signs Date Time Temp Pulse Resp B/P Pulse Ox O2 Delivery O2 Flow Rate FiO2 09/10/16 16:00 37.1 09/10/16 15:24 Room Air 09/10/16 15:13 37.0 103 16 121/89 91 Room Air 09/10/16 11:15 36.7 93 18 111/73 93 Room Air 09/10/16 11:00 Room Air 09/10/16 07:39 36.6 92 18 120/80 92 Room Air 09/10/16 04:01 36.7 85 18 111/72 94 Room Air 09/10/16 00:00 Room Air 09/09/16 23:41 36.7 86 20 124/81 92 Room Air 09/09/16 19:06 36.6 79 18 123/80 Room Air Physical Exam General Appearance: WD/WN, no apparent distress Eyes: normal inspection ENT: normal ENT inspection, hearing grossly normal Neck: supple Respiratory/Chest: chest non-tender, lungs clear, normal breath sounds, no respiratory distress, no accessory muscle use Cardiovascular: regular rate, rhythm Abdomen: normal bowel sounds, non tender, soft, + pertinent finding (peg tube in place) Extremities: normal range of motion, non-tender, + pertinent finding (Right PICC) Neurologic/Psychiatric: alert, normal mood/affect, oriented x 3 Laboratory Results 09/10/16 16:20 Red Blood Count 3.13, Mean Corpuscular Volume 90.7, Mean Corpuscular Hemoglobin 29.4, Mean Corpuscular Hemoglobin Concent 32.4, Mean Platelet Volume 10.3, Neutrophils (%) (Auto) 89.3, Lymphocytes (%) (Auto) 5.1, Monocytes (%) (Auto) 4.9, Eosinophils (%) (Auto) 0.0, Basophils (%) (Auto) 0.2, Neutrophils # (Auto) 5.44, Lymphocytes # (Auto) 0.31, Monocytes # (Auto) 0.30, Eosinophils # (Auto) 0.00, Basophils # (Auto) 0.01 09/10/16 05:20 Test 09/10/16 00:00 09/10/16 05:20 09/10/16 11:48 09/10/16 16:20 Red Blood Cell Morphology Unremarkable Anion Gap 8.0 mmol/L (3-11) Est Creatinine Clear Calc Drug Dose 69.7 ml/min Estimated GFR () 72.9 Estimated GFR (Non- 62.9 BUN/Creatinine Ratio 13.4 (10-20) Calcium Level 8.0 mg/dl (8.5-10.1) Phosphorus Level 3.7 mg/dl (2.5-4.9) Magnesium Level 2.0 mg/dl (1.8-2.4) Total Bilirubin 0.3 mg/dl (0.2-1) Aspartate Amino Transf (AST/SGOT) 46 U/L (15-37) Alanine Aminotransferase (ALT/SGPT) 57 U/L (12-78) Alkaline Phosphatase 84 U/L (45-117) C-Reactive Protein 1.80 mg/dl (0-0.29) Albumin 2.4 gm/dl (3.4-5.0) Triglycerides Level 142 mg/dl (0-150) Bedside Glucose 131 mg/dl (70-90) White Blood Count 6.09 K/uL (4.8-10.8) Red Blood Count 3.13 M/uL (4.2-5.4) Hemoglobin 9.2 g/dL (12.0-16.0) Hematocrit 28.4 % (37-47) Mean Corpuscular Volume 90.7 fL (80-100) Mean Corpuscular Hemoglobin 29.4 pg (25-34) Mean Corpuscular Hemoglobin Concent 32.4 g/dl (32-36) Platelet Count 142 K/uL (130-400) Mean Platelet Volume 10.3 fL (7.4-10.4) Neutrophils (%) (Auto) 89.3 % Lymphocytes (%) (Auto) 5.1 % Monocytes (%) (Auto) 4.9 % Eosinophils (%) (Auto) 0.0 % Basophils (%) (Auto) 0.2 % Neutrophils # (Auto) 5.44 K/uL (1.4-6.5) Lymphocytes # (Auto) 0.31 K/uL (1.2-3.4) Monocytes # (Auto) 0.30 K/uL (0.11-0.59) Eosinophils # (Auto) 0.00 K/uL (0-0.5) Basophils # (Auto) 0.01 K/uL (0-0.2) RDW Standard Deviation 51.7 fL (36.4-46.3) RDW Coefficient of Variation 17.5 % (11.5-14.5) Immature Granulocyte % (Auto) 0.5 % Immature Granulocyte # (Auto) 0.03 K/uL (0.00-0.02) Nucleated RBC Absolute Count (auto) 0.02 K/uL (0-0) Nucleated Red Blood Cells % 0.4 % Test 09/10/16 16:30 Urine Color YELLOW Urine Appearance CLEAR (CLEAR) Urine pH >= 9.0 (4.5-7.5) Urine Specific [place] 1.015 (1.000-1.030) Urine Protein NEG (NEG) Urine Glucose (UA) NEG (NEG) Urine Ketones NEG (NEG) Urine Occult Blood NEG (NEG) Urine Nitrite NEG (NEG) Urine Bilirubin NEG (NEG) Urine Urobilinogen POS (NEG) Urine Leukocyte Esterase NEG (NEG) Assessment and Plan 56 y/o F with h/o ovarian cancer with peritoneal carcinomatosis here with c/o 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 s/p chemotherapy about 2 weeks ago spiking temp toady with tachycardia, concern for any infection considering immunosuppressed state Congestion with mucus discharge: - rapid flu negative - BC, UC , Influenza PCR sent Chemotherapy induced Nausea and vomiting- resolved - Zofran 4 mg q4h PRN , compazine 10 mg q6h for nausea and vomiting, Ativan 1 mg q4h for nausea/sedation - Dilaudid 0.5 mg q4h PRN pain - TPN restarted today Frontal headache with associated congestion - CN II TO XII intact - CT paranasal sinuses ordered: 1. Mild polypoid mucosal thickening of the maxillary sinuses. No CT evidence of acute sinusitis. - Flu swab negative for influenza A and B - MRI head ordered for possible brain mets considering aggressive ovarian cancer , headaches , N/V- no mets Nutrition: H/o recurrent SBO, has a PEG tube and receives TPN via right PICC line - TPN restarted clear liquid diet DVT prophylaxis: SCDs, will avoid heparin( recent thrombocytopenia s/p platelet transfusion) Dispo: Med/surg Full Code Reviewed: Pt Seen/Exam by MICHAEL Burkett Notes, Labs, RAD History Resident Physician Supervision Note: I interviewed and examined the patient. Discussed with Dr. Elizabeth and agree with findings and plan as documented in the note. Any exceptions or clarifications are listed here: Having rigors while I saw her today, no temp yet but pancultured and got CXR, no worsening abd pain, no diarrhea but with URI type symptoms. SALGUERO much improved and just very mild. Brain MRI negative for mets. Vitals reviewed Obese, shaking with chills, chattering jaw RRR no mgr Pulm CTAB no wcr HEENT no erythema or exudate in throat, no sinus ttp Abd -G tube in place draining green fluid, mildly diffuse tenderness, +BS, soft Ext no edema A/P:56 yo unfortunate female with metastatic ovarian CA with carcinomatosis, gastric outlet obstruction, on TPN, still receiving palliative chemo, here with intractable N/V, now resolved. Unclear if from chemo vs gastric outlet obstruction although seems to be improving and G tube is draining. With new onset SALGUERO, CT sinuses negative--> MRI brain to look for mets was negative. Now with rigors, low grade temp, immunosuppressed. Will keep for workup for infection. Won't start abx yet unless find a source or meets sepsis criteria. -continue antiemetics, added ativan prn nausea and anxiety -restarted TPN clears diet for comfort IV Tylenol prn SALGUERO -panculture, CXR, flu swab Proph-SCDs Documented By: Courtney Joshua
[2016-09-10 19:03] LABS: INFLUENZA A PCR Neg for Influ A (NEG); INFLUENZA B PCR Neg for Influ B (NEG)
[2016-09-10] MEDS ORDERED: SODIUM CHLORIDE 0.9% 500ML 500 ML IV STA (20:46)
--- NOTE | 2016-09-10 20:46 | DIAGNOSTIC IMAGING REPORT ---
CHEST ONE VIEW PORTABLE CLINICAL HISTORY: Shortness of breath COMPARISON STUDY: Chest radiograph September 07, 2016. FINDINGS: A left subclavian [id number] and right remain in place. There is no pneumothorax. This study is mildly compromised by motion artifact. There is no evidence of pulmonary edema. Cardiomediastinal silhouette is normal. Mild left basilar opacity likely reflects atelectasis. There may be trace bilateral pleural effusions. IMPRESSION: Possible trace bilateral pleural effusions. Electronically signed by: Giacomo Bird M.D. 09/10/2016 8:44 PM Dictated Date/Time: 09/10/2016 8:43 PM
[2016-09-10] MEDS ORDERED: PIPERACILL/TAZOBAC CONSULT ACTIVE PRN (21:15)
[2016-09-10] MEDS ORDERED: VANCOMYCIN CONSULT ACTIVE PRN (21:15)
--- NOTE | 2016-09-10 21:15 | Progress Note ---
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 Had cultures - urine / blood taken, labwork completed - initially was neutropenic which has now resolved (though would likely not be able to produce a leukocytosis on chemo) Saw patient, she reported feeling unwell and felt very thirsty. Denies any pain but feels off. Feels her mouth is very dry. Ate a little amount. Feels cold, had many blankets put on her and her legs are very warm now. O/E Vitals - No documented fevers. Other vitals per EMR. General - awake, alert, oriented HEENT - eyes sunken, tongue dry CVS - tachycardic, HS normal no MRG Chest - Port in situ. Hoarse end-expiratory wheeze, poor inspiratory effort but good air entry bilaterally Abd - soft, tender to palpation around PEG tube site Skin - no erythema around legs, no erythema around PEG site Extremities - very warm legs. non-tender to palpation. Assessment - Tachycardia in pt on chemotherapy, with Port/PEG tube - differential includes dehydration vs infection, and I am concerned for both at this time Plan - Discussed w/Dr Burk - IV Fluids: NSS 500mL/hour, will monitor - I/O monitoring: Use bedside commode - Cultures drawn, start Abx - will start with broad coverage of Vanc and Zosyn - Will follow up later tonight. 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
[2016-09-10] MEDS ORDERED: VANCOMYCIN INJ 2,600 MG in SODIUM CHLORIDE 0.9% 500ML 500 ML IV ONE (21:30)
[2016-09-10] MEDS ORDERED: PIPERACILL/TAZOBAC IV 4.5 GM in DEXTROSE 5% 100ML IV ONE (21:30)
[2016-09-10] MEDS ORDERED: PIPERACILL/TAZOBAC IV 3.375 GM in DEXTROSE 5% 100ML 100 ML IV SCH (22:00)
[2016-09-11] MEDS: HYDROmorphone INJ 0.5 MG/0.5 ML SYR IV PRN ×4 (01:48→20:10)
[2016-09-11] MEDS: SODIUM CHLOR 0.45% + 20MEQ KCL 1,000 ML IV SCH ×2 (01:50→08:32)
[2016-09-11 03:51] VITALS: BP 118/74; PULSE 116; TEMP 37.8; O2SAT 91
[2016-09-11] MEDS: PIPERACILL/TAZOBAC IV 4.5 GM in DEXTROSE 5% 100ML IV SCH ×3 (04:07→20:14)
[2016-09-11] MEDS: ONDANSETRON INJ 2 MG/ML 2 ML VIAL IV PRN (04:09)
[2016-09-11 06:42] LABS: BUN/CREATININE RATIO 17.2 (10-20); CALCIUM 7.5 mg/dl (8.5-10.1); CREATININE 1.2 mg/dl (0.60-1.20); MAGNESIUM 1.7 mg/dl (1.8-2.4)
--- NOTE | 2016-09-11 06:54 | Pharmacy Progress Note ---
Pharmacy Antibiotic Consult Date of Service: Sep 11, 2016. Pharmacy Dosing Scope Pharmacy is consulted to initiate Vancomycin IV dosing therapy, order appropriate labs and adjust drug dose/frequency. Subjective The patient is a 56 year old female admitted on Sep 07, 2016 at 14:[address] Vazquez consulted pharmacy for Vancomycin and Zosyn for possible sepsis. Patient is immunosuppressed patient who became tachycardic and she felt between possible dehydration/infection it was prudent to begin broad spectrum antibiotic regimen. Objective Height (Feet): 5 Height (Inches): 1.00 Weight (Kilograms): 102.200 Lab Results (24hrs): Laboratory Tests Test 09/10/16 14:02 09/10/16 16:20 09/11/16 05:13 White Blood Count 4.46 K/uL 6.09 K/uL Red Blood Count 3.13 M/uL Hemoglobin 9.2 g/dL Hematocrit 28.4 % Mean Corpuscular Volume 90.7 fL Mean Corpuscular Hemoglobin 29.4 pg Mean Corpuscular Hemoglobin Concent 32.4 g/dl Platelet Count 142 K/uL Mean Platelet Volume 10.3 fL Neutrophils (%) (Auto) 89.3 % Lymphocytes (%) (Auto) 5.1 % Monocytes (%) (Auto) 4.9 % Eosinophils (%) (Auto) 0.0 % Basophils (%) (Auto) 0.2 % Neutrophils # (Auto) 5.44 K/uL Lymphocytes # (Auto) 0.31 K/uL Monocytes # (Auto) 0.30 K/uL Eosinophils # (Auto) 0.00 K/uL Basophils # (Auto) 0.01 K/uL BUN/Creatinine Ratio 17.2 Creatinine 1.20 mg/dl Micro Results: Item Value Date Time Urine Culture Received 09/10/16 1630 Urine , Clean Catch Pending Blood Culture Received 09/10/16 1625 Blood Pending Blood Culture Received 09/10/16 1620 Blood Pending Recent Pertinent Medications Item Value Date Time Piperacillin Sod/ 120 ml @ 30 mls/hr 09/11/16 0400 Tazobactam Sod Q8H/IV 09/11/16 0407 4.5 gm/Dextrose Assessment & Plan Loading dose: Vancomycin 2600mg (~25mg/kg) IV X 1 dose then: Vancomycin 1350mg (~13mg/kg) every 12 hours. I estimated a half life of around 11 hours. I will check a trough level prior to 0200 dose on 09/13/16. Goal trough level estimate: between 15-20 mcg/mL. Pharmacy will continue to follow and will adjust dose/frequency as necessary. Thank you
[2016-09-11 07:48] VITALS: BP 124/75; PULSE 111; TEMP 37.4; O2SAT 92
[2016-09-11 08:08] LABS: BASO % 0.2 %; BASO ABS # 0.01 K/uL (0-0.2); IG% 0.4 %; LYMPH % 10.6 %; LYMPH ABS # 0.59 K/uL (1.2-3.4); MEAN CORPUSCULAR HEMOGLOBIN 29.1 pg (25-34); MEAN CORPUSCULAR HGB CONC 32.3 g/dl (32-36); MEAN PLATELET VOLUME 11.5 fL (7.4-10.4); MONO % 8.8 %; PLATELET COUNT 162 K/uL (130-400); RED BLOOD COUNT 2.89 M/uL (4.2-5.4); WHITE BLOOD COUNT 5.58 K/uL (4.8-10.8)
[2016-09-11] MEDS: BACITRACIN OINT 15 GM TUBE EXT SCH ×2 (08:32→20:16)
[2016-09-11 10:16] LABS: COMPLETE YES; LARGE PLATELETS 1+; POLYCHROMASIA 1+
[2016-09-11 11:46] VITALS: BP 113/72; PULSE 97; TEMP 36.9; O2SAT 94
[2016-09-11] MEDS ORDERED: MAGNESIUM SULFATE 1GM / D5W 1 GM in PREMIXED IN D5W 100 ML IV SCH (12:30)
--- NOTE | 2016-09-11 13:04 | Pharmacy Progress Note ---
Parenteral Nutrition Consult Date of Service Sep 11, 2016. [facility] was consulted on 09/09/16 to manage parenteral nutrition orders for this patient. Subjective The patient is currently on day # 3 of central parenteral nutrition for chemotherapy induced n/v, on home TPN. Objective Height (Feet): 5 Height (Inches): 1.00 Weight (Kilograms): 102.000 Diet: Clear Liquid Vascular Access: PICC (TPN) and implanted PORT (chemo) Intake & Output (Last 72 Hr): 09/09/16 09/10/16 09/11/16 08:00 08:00 08:00 Intake Total 2905 ml 1611 ml 5248 ml Output Total 4600 ml 3775 ml 3550 ml Balance -1695 ml -2164 ml 1698 ml Additional Fluid Losses/Gains: Item Value Date Time Piperacillin Sod/ 120 ml @ 30 mls/hr 09/11/16 0400 Tazobactam Sod Q8H/IV 09/11/16 0407 4.5 gm/Dextrose 300 mL/day of D5W (15g of Dextrose) Vancomycin HCl 277 ml @ 125 mls/hr 09/11/16 1400 1350 mg/Sodium Q12H/IV Chloride 554 mL/day of NSS Potassium 1,000 ml @ 125 mls/hr 09/10/16 2215 Chloride/Sodium .Q8H/IV 09/11/16 0832 Chloride 2000mL (154mEq Na, 40mEq KCl) Laboratory Data (Last 24 Hr): Test 09/11/16 05:13 Blood Urea Nitrogen 21 mg/dl (7-18) Calcium Level 7.5 mg/dl (8.5-10.1) Carbon Dioxide Level 28 mmol/L (21-32) Chloride Level 104 mmol/L (98-107) Creatinine 1.20 mg/dl (0.60-1.20) Magnesium Level 1.7 mg/dl (1.8-2.4) Phosphorus Level 3.0 mg/dl (2.5-4.9) Potassium Level 4.0 mmol/L (3.5-5.1) Random Glucose 127 mg/dl (70-99) Sodium Level 140 mmol/L (136-145) Nutrition Assessment Please refer to the Notes section of the EMR for 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 Assessment * 56 y/o female who has ovarian cancer. * She recently completed chemotherapy * TPN at home for n/v * Magnesium low today * replete with 1g IV x1 prior to TPN today * Gram positive cocci in 2/2 blood cultures * vancomycin and pip/tazo started on 09/10/16 * Large amount of output from G-tube * No s/s of refeeding * continue same phos/k * 1/2NS + 20mEq KCl @ 125mL/hr given while TPN off overnight Plan * Continue TPN as below * May consider re-evaulation of thiamine need * Increase magnesium in TPN * Continue to monitor infection, may consider holding TPN until source found/ controlled For day 3 of PN administration, the following will be ordered: Macronutrients Amino acids 84 grams/day Dextrose 250 grams/day Lipids 70 grams/day (given MWF) Micronutrients Sodium chloride 70 mEq Potassium phosphate 24 mMol Potassium chloride 40 mEq Magnesium sulfate 8.12 mEq Calcium gluconate 4.65 mEq Multivitamins 10 mL Trace Elements 1 mL Additional additives: Thiamine 100 mg Total volume 2100 mL to be infused over 18 hrs will provide 1886 kcal/day Labs, as indicated, will be ordered per protocol Pharmacy will continue to follow and adjust parenteral nutrition orders on a daily basis. Thank you for allowing us to participate in the care of this patient.
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
[2016-09-11] MEDS: VANCOMYCIN INJ 1,350 MG in SODIUM CHLORIDE 0.9% 250ML 250 ML IV SCH (14:21)
[2016-09-11 15:14] VITALS: BP 117/62; PULSE 93; TEMP 37; O2SAT 91
[2016-09-11] MEDS ORDERED: CUSTOM CENTRAL PN 1 BAG IV SCH (16:00)
--- NOTE | 2016-09-11 17:17 | Family Medicine Progress Note ---
Progress Note Date of Service Sep 11, 2016. Subjective Pt evaluation today including: conversation w/ patient, physical exam, chart review, lab review Voiding: no voiding problems Constitutional: + chills, + fever Eyes: No worsening of vision ENT: No hearing loss Respiratory: No cough, No shortness of breath, No sputum, No wheezing Cardiovascular: No chest pain Abdomen: No diarrhea, No nausea, No pain, No vomiting Musculoskeletal: No joint pain Female : No dysuria, No urinary frequency Neurologic: No memory loss Medications Current Inpatient Medications Medications (Trade) Dose Ordered Sig/Mendoza Route Start Time Stop Time Status Last Admin Dose Admin Acetaminophen (Tylenol Tab) 650 mg Q4H PRN PO 09/07/16 14:30 10/07/16 14:29 Al Hydrox/Mg Hydrox/Simethicone (Maalox Max Susp) 15 ml Q4H PRN PO 09/07/16 14:30 10/07/16 14:29 Ondansetron HCl 4 mg 4 mg Q6H PRN IV 09/07/16 14:30 10/07/16 14:29 09/11/16 04:09 4 MG Prochlorperazine Edisylate/Syringe (Compazine Inj/ Syringe) 10 ml @ 5 mls/min Q6H PRN IV 09/07/16 17:45 10/07/16 17:44 09/08/16 14:30 5 MLS/MIN Hydromorphone HCl (Dilaudid Inj) 0.5 mg Q2H PRN IV 09/07/16 17:45 09/21/16 17:44 09/11/16 16:56 0.5 MG Bacitracin (Bacitracin Oint) 1 appln BID EXT 09/08/16 13:00 10/08/16 12:59 09/11/16 08:32 1 APPLN Lorazepam 1 mg 1 mg Q4H PRN IV 09/08/16 20:00 10/08/16 19:59 09/08/16 22:12 1 MG Acetaminophen 650 mg/Empty Bag 65 ml @ 260 mls/hr Q6H PRN IV 09/08/16 20:00 10/08/16 19:59 09/09/16 17:23 260 MLS/HR Lorazepam/Syringe (Ativan Inj/ Syringe) 1 ml @ 1 mls/min Q4H PRN IV 09/08/16 21:30 10/08/16 21:29 09/10/16 21:30 1 MLS/MIN Miscellaneous Information (Pharmacy Tpn/ Ppn Consult Active) 1 ea UD PRN N/A 09/09/16 16:00 10/09/16 15:59 Miscellaneous Information (Pending Order) 1 ea DAILY@0900,1700 N/A 09/09/16 17:00 10/09/16 16:59 09/11/16 16:57 1 EA Gadobutrol (Gadavist) 10 mmol UD PRN IV 09/09/16 22:45 09/13/16 22:44 Heparin Sodium (Porcine) (Heparin 10 Unit/ ml 5 ml Flush) 5 ml PRN PRN FLUSH 09/10/16 00:15 10/10/16 00:14 09/10/16 14:08 5 ML Heparin Sodium (Porcine) 5 ml 5 ml PRN PRN IV 09/10/16 00:15 10/10/16 00:14 09/10/16 17:27 5 ML Vancomycin HCl/ Sodium Chloride (Vancomycin Inj/ Nss 250ml) 277 ml @ 125 mls/hr Q12H IV 09/11/16 14:00 09/20/16 13:59 09/11/16 14:21 125 MLS/HR Piperacillin Sod/ Tazobactam Sod (Consult) 1 ea UD PRN N/A 09/10/16 21:15 10/10/16 21:14 Vancomycin HCl 1 ea 1 ea UD PRN N/A 09/10/16 21:15 10/10/16 21:14 Piperacillin Sod/ Tazobactam Sod 4.5 gm/Dextrose 120 ml @ 30 mls/hr Q8H IV 09/11/16 04:00 10/11/16 03:59 09/11/16 12:55 30 MLS/HR Nutrition (Parenteral) 0 ml @ 0 mls/hr TODAY@1600 IV 09/11/16 16:00 09/12/16 10:00 09/11/16 16:57 0 MLS/HR Famotidine/ Dextrose (Pepcid IV Inj/ D5 100ml) 102 ml @ 200 mls/hr Q12H IV 09/11/16 17:00 10/11/16 16:59 UNV Objective Vital Signs Date Time Temp Pulse Resp B/P Pulse Ox O2 Delivery O2 Flow Rate FiO2 09/11/16 15:14 37.0 93 18 117/62 91 Room Air 09/11/16 11:46 36.9 97 20 113/72 94 Room Air 09/11/16 08:00 Room Air 09/11/16 07:48 37.4 111 18 124/75 92 Room Air 09/11/16 03:51 37.8 116 19 118/74 91 Nasal Cannula 2.0 09/11/16 00:15 Nasal Cannula 2.0 09/10/16 23:19 36.9 103 19 89/58 94 Nasal Cannula 2.0 91/51 09/10/16 20:10 Nasal Cannula 2.0 09/10/16 19:38 36.6 143 20 113/73 90 Room Air Physical Exam General Appearance: WD/WN, no apparent distress Eyes: normal inspection ENT: normal ENT inspection, hearing grossly normal Neck: supple Respiratory/Chest: chest non-tender, lungs clear, normal breath sounds Cardiovascular: regular rate, rhythm Abdomen: normal bowel sounds, non tender, soft, + pertinent finding (peg tube in place) Extremities: normal range of motion, no pedal edema, + pertinent finding ( Right PICC line, site reddened) Neurologic/Psychiatric: alert, normal mood/affect, oriented x 3 Skin: normal color Laboratory Results 09/11/16 05:13 Red Blood Count 2.89, Mean Corpuscular Volume 90.0, Mean Corpuscular Hemoglobin 29.1, Mean Corpuscular Hemoglobin Concent 32.3, Mean Platelet Volume 11.5, Neutrophils (%) (Auto) 80.0, Lymphocytes (%) (Auto) 10.6, Monocytes (%) (Auto) 8.8, Eosinophils (%) (Auto) 0.0, Basophils (%) (Auto) 0.2, Neutrophils # (Auto) 4.47, Lymphocytes # (Auto) 0.59, Monocytes # (Auto) 0.49, Eosinophils # (Auto) 0.00, Basophils # (Auto) 0.01 09/11/16 05:13 Test 09/11/16 05:13 09/11/16 12:05 White Blood Count 5.58 K/uL (4.8-10.8) Red Blood Count 2.89 M/uL (4.2-5.4) Hemoglobin 8.4 g/dL (12.0-16.0) Hematocrit 26.0 % (37-47) Mean Corpuscular Volume 90.0 fL (80-100) Mean Corpuscular Hemoglobin 29.1 pg (25-34) Mean Corpuscular Hemoglobin Concent 32.3 g/dl (32-36) Platelet Count 162 K/uL (130-400) Mean Platelet Volume 11.5 fL (7.4-10.4) Neutrophils (%) (Auto) 80.0 % Lymphocytes (%) (Auto) 10.6 % Monocytes (%) (Auto) 8.8 % Eosinophils (%) (Auto) 0.0 % Basophils (%) (Auto) 0.2 % Neutrophils # (Auto) 4.47 K/uL (1.4-6.5) Lymphocytes # (Auto) 0.59 K/uL (1.2-3.4) Monocytes # (Auto) 0.49 K/uL (0.11-0.59) Eosinophils # (Auto) 0.00 K/uL (0-0.5) Basophils # (Auto) 0.01 K/uL (0-0.2) RDW Standard Deviation 52.9 fL (36.4-46.3) RDW Coefficient of Variation 17.9 % (11.5-14.5) Immature Granulocyte % (Auto) 0.4 % Immature Granulocyte # (Auto) 0.02 K/uL (0.00-0.02) Large Platelets 1+ Polychromasia 1+ Anion Gap 8.0 mmol/L (3-11) Est Creatinine Clear Calc Drug Dose 57.5 ml/min Estimated GFR () 58.5 Estimated GFR (Non- 50.5 BUN/Creatinine Ratio 17.2 (10-20) Calcium Level 7.5 mg/dl (8.5-10.1) Phosphorus Level 3.0 mg/dl (2.5-4.9) Magnesium Level 1.7 mg/dl (1.8-2.4) Bedside Glucose 101 mg/dl (70-90) Assessment and Plan 56 y/o F with h/o ovarian cancer with peritoneal carcinomatosis here with c/o nausea, vomiting which started about 3 days ago [employer]. s/p chemotherapy about 2 weeks ago spiked temperature overnight- workup for sepsis Bacteremia with unknown origin: - BCX2 - G+ve cocci, UC - mixed reynaldo - BCx2 from PICC line-pending - PICC line catheter tip culture- pending - Influenza PCR -negative - DC PICC line - ID consult- appreciate input - Continue vancomycin and Zosyn, Dc Zosyn if no G-ve Tachycardia: likely sec to fevers Chemotherapy induced Nausea and vomiting- resolved - Zofran 4 mg q4h PRN , compazine 10 mg q6h for nausea and vomiting, Ativan 1 mg q4h for nausea/sedation - Dilaudid 0.5 mg q4h PRN pain - TPN - MRI head ordered for possible brain mets considering aggressive ovarian cancer , headaches , N/V- no mets Nutrition: H/o recurrent SBO, has a PEG tube - TPN via central port Clear liquid diet DVT prophylaxis: SCDs, will avoid heparin( recent thrombocytopenia s/p platelet transfusion) Dispo: Med/surg Full Code Continued [facility] stay due to: fever Discharge planning: home Reviewed: Pt Seen/Exam by MICHAEL Burkett Notes, Labs, RAD History Resident Physician Supervision Note: I interviewed and examined the patient. Discussed with and agree with findings and plan as documented in the note. Any exceptions or clarifications are listed here: Pt having dull SALGUERO across forehead again, no more rigors, feels nauseous but no vomiting. PICC line noted to have some erythema around it today by Dr. Burgess and was discontinued and sent for culture of the tip. Bacteremia with GPCs Vitals reviewed Obese, NAD Mild tachy, reg rhythm CTAB no wcr Abd G-tube with yellow clear drainage, soft, hypoactive BS, +TTP diffusely but no guarding or rebound Ext no edema or calf tenderness, RUE previous PICC site with pressure dressing in place Skin: left subclavian region with port in place and no surrounding erythema, G tube site with no erythema or induration A/P: 56 yo unfortunate female with metastatic ovarian CA with carcinomatosis, gastric outlet obstruction, on TPN, still receiving palliative chemo, here with intractable N/V, now resolved. Unclear if from chemo vs gastric outlet obstruction although seems to be improving and G tube is draining. With new onset SALGUERO, CT sinuses negative--> MRI brain to look for mets was negative. Developed rigors, low grade temp, immunosuppressed on 09/10 and now found to be bacteremic with GPCs, likely infected PICC RUE. PICC removed. FLu swab neg. -continue antiemetics, added ativan prn nausea and anxiety -continue TPN through port since PICC removed clears diet for comfort -IV Tylenol prn SALGUERO, dilaudid prn pain -continue Zosyn and Vanco, await BCx ID and sensitivity, follow catheter tip cx -Pt still wanting to proceed with chemo when possible, but need to consider Palliative Consult on Wednesday Proph-SCDs Documented By: Courtney Joshua
[2016-09-11] MEDS: FAMOTIDINE IV INJ 20 MG in DEXTROSE 5% 100ML 100 ML IV SCH (18:29)
[2016-09-11 20:05] VITALS: BP 119/78; PULSE 88; TEMP 37; O2SAT 94
[2016-09-11] MEDS: LORAZEPAM INJ 1 MG in SYRINGE 0.5 ML IV PRN (23:40)
[2016-09-12 00:13] VITALS: BP 130/72; PULSE 86; TEMP 37.1; O2SAT 94
[2016-09-12] MEDS: HYDROmorphone INJ 0.5 MG/0.5 ML SYR IV PRN ×5 (00:58→22:30)
[2016-09-12] MEDS: VANCOMYCIN INJ 1,350 MG in SODIUM CHLORIDE 0.9% 250ML 250 ML IV SCH ×2 (02:06→13:34)
[2016-09-12 04:58] VITALS: BP 142/82; PULSE 90; TEMP 36.7; O2SAT 97
[2016-09-12] MEDS: FAMOTIDINE IV INJ 20 MG in DEXTROSE 5% 100ML 100 ML IV SCH ×2 (05:19→18:10)
[2016-09-12] MEDS: PIPERACILL/TAZOBAC IV 4.5 GM in DEXTROSE 5% 100ML IV SCH ×3 (05:56→20:00)
[2016-09-12 06:24] LABS: BUN/CREATININE RATIO 14.8 (10-20); CALCIUM 7.9 mg/dl (8.5-10.1); CREATININE 1.2 mg/dl (0.60-1.20); MAGNESIUM 2.2 mg/dl (1.8-2.4); POTASSIUM 4.3 mmol/L (3.5-5.1)
[2016-09-12 06:25] LABS: PHOSPHORUS 2.8 mg/dl (2.5-4.9)
[2016-09-12 07:46] VITALS: BP 125/85; PULSE 86; TEMP 36.8; O2SAT 92
[2016-09-12] MEDS: BACITRACIN OINT 15 GM TUBE EXT SCH ×2 (10:02→20:01)
[2016-09-12] MEDS: ONDANSETRON INJ 2 MG/ML 2 ML VIAL IV PRN (13:33)
[2016-09-12 15:49] VITALS: BP 108/70; PULSE 78; TEMP 36.7; O2SAT 96
[2016-09-12] MEDS ORDERED: CUSTOM CENTRAL PN 1 BAG IV SCH (16:00)
--- NOTE | 2016-09-12 19:17 | Hospitalist Progress Note ---
Hospitalist Progress Note Date of Service Sep 12, 2016. Subjective Pt evaluation today including: conversation w/ patient, physical exam, chart review, lab review, review of studies, review of inpatient medication list PO Intake: minimal clears Voiding: no voiding problems Pt feeling a little better today, afebrile. Has some irritation around PEG tube site. Headache is gone Constitutional: No fever Respiratory: No cough, No shortness of breath Cardiovascular: No chest pain Abdomen: + nausea, + pain, No vomiting All Other Systems: Reviewed and Negative Objective Vital Signs Date Time Temp Pulse Resp B/P Pulse Ox O2 Delivery O2 Flow Rate FiO2 09/12/16 15:49 36.7 78 18 108/70 96 Room Air 09/12/16 08:00 Room Air 09/12/16 07:46 36.8 86 16 125/85 92 Room Air 09/12/16 04:58 36.7 90 20 142/82 97 Room Air 09/12/16 00:13 37.1 86 20 130/72 94 Room Air 09/12/16 00:00 Room Air 09/11/16 20:05 37.0 88 20 119/78 94 Room Air 09/11/16 20:00 Room Air Physical Exam General Appearance: no apparent distress, + obese Eyes: normal inspection, sclerae normal ENT: hearing grossly normal, pharynx normal, + pertinent finding (alopecia) Neck: trachea midline Respiratory/Chest: lungs clear, normal breath sounds, no respiratory distress, no accessory muscle use Cardiovascular: regular rate, rhythm, no edema, no gallop, no murmur Abdomen: soft, + pertinent finding (obese, PEG tube in place with small amount of erythema surrounding inferior portion with indentation from plastic disc, abd with hypoactive BS, diffuse mild TTP without guarding or rebound) Extremities: non-tender, normal inspection, no pedal edema, no calf tenderness Neurologic/Psychiatric: alert, oriented x 3, + depressed affect Skin: normal color, warm/dry, no rash, + pertinent finding (left subclavian port without erythema) Laboratory Results Last 24 Hours Test 09/11/16 23:53 09/12/16 05:19 09/12/16 11:45 Bedside Glucose 125 mg/dl 98 mg/dl Sodium Level 139 mmol/L Potassium Level 4.3 mmol/L Chloride Level 105 mmol/L Carbon Dioxide Level 24 mmol/L Anion Gap 10.0 mmol/L Blood Urea Nitrogen 18 mg/dl Creatinine 1.20 mg/dl Est Creatinine Clear Calc Drug Dose 57.4 ml/min Estimated GFR () 58.5 Estimated GFR (Non- 50.5 BUN/Creatinine Ratio 14.8 Random Glucose 126 mg/dl Calcium Level 7.9 mg/dl Phosphorus Level 2.8 mg/dl Magnesium Level 2.2 mg/dl Assessment and Plan 56 y/o F with h/o ovarian cancer with peritoneal carcinomatosis here with 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, developed headache and workup for brain mets negative, however developed fever and bacteremia while here, related to PICC line Bacteremia with Strep species - BCX2 -Strep species PICC catheter tip with Strep -Repeat BCx2 09/11 NGTD - Influenza PCR -negative - DC'd PICC line - ID consult- appreciate input - Continue vancomycin and Zosyn until sensitivities come back, will need 14 days of IV abx most likely -will need replaced PICC line when repeat BCxs neg Intractable Nausea and vomiting, does have gastric outlet obstruction with G- tube draining to gravity- resolved - Zofran 4 mg q4h PRN , compazine 10 mg q6h for nausea and vomiting, Ativan 1 mg q4h for nausea/sedation - Dilaudid 0.5 mg q4h PRN pain -continue TPN - MRI head ordered for possible brain mets considering aggressive ovarian cancer , headaches , N/V- no mets Nutrition: H/o recurrent SBO and 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
[2016-09-12 20:13] VITALS: BP 128/81; PULSE 85; TEMP 36.6; O2SAT 94
[2016-09-12] MEDS: LORAZEPAM INJ 1 MG in SYRINGE 0.5 ML IV PRN (23:07)
[2016-09-12 23:55] VITALS: BP 131/83; PULSE 74; TEMP 36.7; O2SAT 93
[2016-09-13] VITALS (11 sets, daily range): BP systolic 103–125; BP diastolic 72–86; PULSE 75–81; TEMP 36.4–36.7; O2SAT 18–96
[2016-09-13] MEDS ORDERED: VANCOMYCIN TROUGH SCH (01:30)
[2016-09-13] MEDS: VANCOMYCIN INJ 1,350 MG in SODIUM CHLORIDE 0.9% 250ML 250 ML IV SCH (01:58)
[2016-09-13] MEDS: LORAZEPAM INJ 1 MG in SYRINGE 0.5 ML IV PRN (04:14)
[2016-09-13] MEDS: FAMOTIDINE IV INJ 20 MG in DEXTROSE 5% 100ML 100 ML IV SCH ×2 (04:51→17:40)
[2016-09-13] MEDS: PIPERACILL/TAZOBAC IV 4.5 GM in DEXTROSE 5% 100ML IV SCH ×2 (05:34→13:06)
[2016-09-13 06:24] LABS: CREATININE 1.1 mg/dl (0.60-1.20); MAGNESIUM 2.1 mg/dl (1.8-2.4); POTASSIUM 3.9 mmol/L (3.5-5.1)
[2016-09-13 07:50] LABS: BASO % 0.3 %; BASO ABS # 0.01 K/uL (0-0.2); EOS % 0.3 %; HEMATOCRIT 22.7 % (37-47); IG% 0.6 %; LYMPH % 23.7 %; LYMPH ABS # 0.85 K/uL (1.2-3.4); MEAN CELL VOLUME 91.5 fL (80-100); MEAN CORPUSCULAR HGB CONC 31.7 g/dl (32-36); MEAN PLATELET VOLUME 11.2 fL (7.4-10.4); MONO % 15.3 %; NEUT % 59.8 %; PLATELET COUNT 134 K/uL (130-400); RED BLOOD COUNT 2.48 M/uL (4.2-5.4); WHITE BLOOD COUNT 3.59 K/uL (4.8-10.8)
[2016-09-13 08:09] LABS: COMPLETE YES; LARGE PLATELETS 1+
[2016-09-13] MEDS: HYDROmorphone INJ 0.5 MG/0.5 ML SYR IV PRN ×2 (09:35→09:56)
[2016-09-13] MEDS: ONDANSETRON INJ 2 MG/ML 2 ML VIAL IV PRN ×2 (09:35→15:20)
[2016-09-13] MEDS: BACITRACIN OINT 15 GM TUBE EXT SCH ×2 (09:41→20:49)
[2016-09-13] MEDS ORDERED: NURSING VERBAL MED ORDER ONE (10:00)
--- NOTE | 2016-09-13 10:07 | Hospitalist Progress Note ---
Hospitalist Progress Note Date of Service Sep 13, 2016. Subjective Pt evaluation today including: conversation w/ patient, physical exam, chart review, lab review, review of studies, review of inpatient medication list PO Intake: minimal clears Voiding: no voiding problems Pt just started having severe abd pain this AM in mi abdomen an is vomiting again. G-tube draining pink fluid that is cloudy. She did have a broan BM this morning which is rare fo rher an is passing flatus. Afebrile Constitutional: No fever Respiratory: No shortness of breath Cardiovascular: No chest pain Abdomen: + nausea, + pain, + vomiting, No GI bleeding Skin: No rash All Other Systems: Reviewed and Negative Objective Vital Signs Date Time Temp Pulse Resp B/P Pulse Ox O2 Delivery O2 Flow Rate FiO2 09/13/16 07:30 36.5 79 16 122/86 96 Room Air 09/13/16 04:16 36.7 79 20 118/83 96 Room Air 09/13/16 00:20 Room Air 09/12/16 23:55 36.7 74 20 131/83 93 Room Air 09/12/16 20:13 36.6 85 20 128/81 94 Room Air 09/12/16 20:00 Room Air 09/12/16 16:00 Room Air 09/12/16 15:49 36.7 78 18 108/70 96 Room Air Physical Exam General Appearance: + mild distress, + obese Eyes: sclerae normal Neck: trachea midline Respiratory/Chest: lungs clear, normal breath sounds, no respiratory distress, no accessory muscle use Cardiovascular: regular rate, rhythm, no edema, no gallop, no murmur Abdomen: + tenderness (hypoactive BS, soft, +TTP mid abdomen and somewhat diffusely without guaring or rebound tenderness, G tube in place and draining pink fluid with some particulate matter in it) Extremities: no calf tenderness Neurologic/Psychiatric: alert, oriented x 3 Skin: normal color, warm/dry, + pertinent finding (left subclavian port site w/ o surrounding erythema) Laboratory Results Last 24 Hours Test 09/12/16 11:45 09/13/16 00:15 09/13/16 01:16 09/13/16 05:17 Bedside Glucose 98 mg/dl 116 mg/dl Vancomycin Level Trough 30.4 mcg/ml White Blood Count 3.59 K/uL Red Blood Count 2.48 M/uL Hemoglobin 7.2 g/dL Hematocrit 22.7 % Mean Corpuscular Volume 91.5 fL Mean Corpuscular Hemoglobin 29.0 pg Mean Corpuscular Hemoglobin Concent 31.7 g/dl Platelet Count 134 K/uL Mean Platelet Volume 11.2 fL Neutrophils (%) (Auto) 59.8 % Lymphocytes (%) (Auto) 23.7 % Monocytes (%) (Auto) 15.3 % Eosinophils (%) (Auto) 0.3 % Basophils (%) (Auto) 0.3 % Neutrophils # (Auto) 2.15 K/uL Lymphocytes # (Auto) 0.85 K/uL Monocytes # (Auto) 0.55 K/uL Eosinophils # (Auto) 0.01 K/uL Basophils # (Auto) 0.01 K/uL RDW Standard Deviation 61.0 fL RDW Coefficient of Variation 18.6 % Immature Granulocyte % (Auto) 0.6 % Immature Granulocyte # (Auto) 0.02 K/uL Large Platelets 1+ Sodium Level 144 mmol/L Potassium Level 3.9 mmol/L Chloride Level 112 mmol/L Carbon Dioxide Level 24 mmol/L Anion Gap 8.0 mmol/L Blood Urea Nitrogen 15 mg/dl Creatinine 1.10 mg/dl Est Creatinine Clear Calc Drug Dose 62.9 ml/min Estimated GFR () 65.0 Estimated GFR (Non- 56.1 BUN/Creatinine Ratio 14.0 Random Glucose 118 mg/dl Calcium Level 7.0 mg/dl Phosphorus Level 3.0 mg/dl Magnesium Level 2.1 mg/dl Test 09/13/16 06:58 Bedside Glucose 138 mg/dl Assessment and Plan 56 y/o F with h/o ovarian cancer with peritoneal carcinomatosis, h/o SBOs, here with 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 N/V improved, developed headache and workup for brain mets negative, however developed fever and bacteremia while here, related to PICC line and with Strep bacteremia. Now with recurrent abd pain and N/V on 09/13. Bacteremia with Strep species - BCX2 -Strep species, awaiting final ID and sens PICC catheter tip with Strep -Repeat BCx2 09/11 NGTD - Influenza PCR -negative, CT sinuses neg for sinusitis - DC'd PICC line - ID consult- appreciate input - Continue vancomycin and Zosyn until sensitivities come back, will need 14 days of IV abx most likely -will need replaced PICC line when repeat BCxs neg Intractable Nausea and vomiting, does have gastric outlet obstruction with G- tube draining to gravity- resolved but NOW RETURNED on 09/13. MRI brain neg for mets as cause of intractable N/V. She does take clears for comfort but most goes out her G-tube to gravity but did have a BM on 09/13. -check AAS, consult Gen Surgery for further input in case of worsening abd pain given complex history. Called Dr. 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 Jones as he is currently in OR - Zofran 4 mg q4h PRN , compazine 10 mg q6h for nausea and vomiting, Ativan 1 mg q4h for nausea/sedation - increase Dilaudid 1 mg mg q2h PRN pain -continue TPN - MRI head ordered for possible brain mets considering aggressive ovarian cancer , headaches , N/V- no mets Metastatic Ovarian CA- pt on palliative chemo with plans to return to this as soon as possible -discussed with her Palliative Care consult and she declines Anemia- hgb low chronically possibly from CA, chemo? 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
--- NOTE | 2016-09-13 10:29 | DIAGNOSTIC IMAGING REPORT ---
ABDOMINAL SERIES 4 VIEWS CLINICAL HISTORY: Metastatic ovarian carcinoma, abdominal pain. History of small bowel obstruction COMPARISON STUDY: 07/05/2016 FINDINGS: Supine and decubitus views are provided for interpretation. There is a left-sided gastrostomy tube. There are surgical clips within the right upper quadrant consistent with a prior cholecystectomy. There are no abnormally dilated loops of large or small bowel. There are few scattered air-fluid levels on the decubitus view. No free air is visualized. IMPRESSION: No evidence of bowel obstruction. No evidence of free air. Electronically signed by: Lalo Fortune M.D. 09/13/2016 10:27 AM Dictated Date/Time: 09/13/2016 10:26 AM
[2016-09-13] MEDS ORDERED: HYDROmorphone INJ 0.5 MG/0.5 ML SYR IV ONE (10:30)
[2016-09-13] MEDS ORDERED: DiphenhydrAMINE HCL 50 MG/ML VIAL IV SCH (12:15)
--- NOTE | 2016-09-13 12:36 | HISTORY & PHYSICAL EXAMINATION ---
DATE OF ADMISSION: 09/07/[address] Joshua for abdominal pain. HISTORY OF PRESENT ILLNESS: The patient is a 56-year-old female admitted to the hospital with recurrent severe nausea and abdominal pain with a history of metastatic ovarian cancer with carcinomatosis, who had surgery approximately over a year ago at [facility] and then recently had a recurrence of her cancer and has been started on chemo with recent chemo lately. She has had some problems with thrombocytopenia and is currently anemic with a hematocrit of 22. She was doing relatively well, has a gastrostomy tube in place to gravity because of gastric outlet obstruction from tumor; however, she became very nauseated today and developed upper abdominal pain which was relatively severe. She had an abdominal film done which showed no evidence of obstruction or free air. Her other history includes history of bronchitis, morbid obesity. She has had a cholecystectomy, partial hysterectomy. FAMILY AND SOCIAL HISTORY: Noncontributory. REVIEW OF SYSTEMS: Please see HPI for review of systems. Ten other systems reviewed and negative. ALLERGIES: SHE HAS MULTIPLE ALLERGIES INCLUDING SULFA AND LEVOFLOXACIN. MEDICATIONS: Takes multiple medications and several pain medications at home. PHYSICAL EXAMINATION: GENERAL: She is an ill-appearing female in no distress at the present time, she is responsive. She is very pale. She has no rashes. HEENT: Her sclerae are nonicteric. LUNGS: Clear. HEART: Regular rate and rhythm. ABDOMEN: Actually flat and soft. She has minimal tenderness. She does have bowel sounds. She has a hernia to the right and near the umbilicus which is soft and nontender. EXTREMITIES: Without significant edema. Recent PICC line tip showed enterococcus. She is being treated for that. I did review her film. ASSESSMENT AND PLAN: A 56-year-old female with abdominal pain, chronic nausea which is intractable with a draining gastrostomy tube and evidence of carcinomatosis. The patient does not have significant obstruction at this time, does not have evidence of perforation. Her exam at the present time is relatively stable with minimal pain. I do not think she has a surgical emergency. I did discuss with her the possibility of going back to [facility] at some point if surgery is required but she does not want to do this. We will continue to monitor her progress.
[2016-09-13] MEDS: ACETAMINOPHEN IV 650 MG in EMPTY BAG 0 ML IV PRN (12:42)
[2016-09-13] MEDS: HYDROmorphone INJ 1 MG/ML SYR IV PRN ×2 (15:37→21:45)
[2016-09-13] MEDS ORDERED: CUSTOM CENTRAL PN 1 BAG IV SCH (16:00)
[2016-09-13] MEDS: AMPICILLIN INJ 2,000 MG in SODIUM CHLORIDE 0.9% 50ML 50 ML IV SCH ×2 (18:28→21:50)
[2016-09-14] VITALS (8 sets, daily range): BP systolic 100–142; BP diastolic 68–86; PULSE 73–90; TEMP 36.3–36.9; O2SAT 91–98
[2016-09-14] MEDS: AMPICILLIN INJ 2,000 MG in SODIUM CHLORIDE 0.9% 50ML 50 ML IV SCH ×2 (01:47→05:53)
[2016-09-14] MEDS: HYDROmorphone INJ 1 MG/ML SYR IV PRN ×4 (04:52→20:49)
[2016-09-14] MEDS: FAMOTIDINE IV INJ 20 MG in DEXTROSE 5% 100ML 100 ML IV SCH ×2 (04:56→20:49)
[2016-09-14] MEDS: AMPICILLIN IV 2,000 MG in SODIUM CHLOR 0.9% AD-VAN 100ML 100 ML IV SCH ×5 (06:45→21:58)
[2016-09-14 07:08] LABS: BASO % 0.4 %; BASO ABS # 0.02 K/uL (0-0.2); COMPLETE YES; EOS % 0.9 %; HEMATOCRIT 33.1 % (37-47); IG% 0.4 %; LYMPH % 23.2 %; LYMPH ABS # 1.09 K/uL (1.2-3.4); MEAN CELL VOLUME 87.1 fL (80-100); MEAN CORPUSCULAR HEMOGLOBIN 29.7 pg (25-34); MEAN CORPUSCULAR HGB CONC 34.1 g/dl (32-36); MEAN PLATELET VOLUME 11.3 fL (7.4-10.4); MONO % 17.7 %; NEUT % 57.4 %; PLATELET COUNT 167 K/uL (130-400); WHITE BLOOD COUNT 4.69 K/uL (4.8-10.8)
[2016-09-14 07:46] LABS: CALCIUM 8.7 mg/dl (8.5-10.1); CREATININE 1.2 mg/dl (0.60-1.20); MAGNESIUM 2.3 mg/dl (1.8-2.4); PHOSPHORUS 3.8 mg/dl (2.5-4.9); POTASSIUM 4.7 mmol/L (3.5-5.1)
--- NOTE | 2016-09-14 08:31 | Surgery Progress Note ---
Surgery Progress Note Date of Service Sep 14, 2016. Subjective little less pain today, tolerating clears, G-tube unclamped Objective Vital Signs: Date Time Temp Pulse Resp B/P Pulse Ox O2 Delivery O2 Flow Rate FiO2 09/14/16 07:54 36.5 73 20 121/80 92 Room Air 09/14/16 04:07 36.7 77 18 120/78 94 Room Air 09/14/16 00:33 36.5 75 20 131/83 93 Room Air 09/14/16 00:05 Room Air 09/13/16 20:00 Room Air 09/13/16 16:00 Room Air 09/13/16 15:50 36.6 79 16 125/81 09/13/16 15:20 36.7 75 22 117/86 95 09/13/16 14:50 36.5 81 16 103/73 09/13/16 14:35 36.6 75 16 109/72 09/13/16 14:15 36.5 80 18 110/78 09/13/16 13:30 36.4 76 16 113/77 09/13/16 13:00 36.5 79 16 108/73 09/13/16 12:30 36.4 80 16 112/75 09/13/16 12:12 36.5 80 113/76 18 Abdomen: non tender, non distended, soft Laboratory Results: Results Past 24 Hours Test 09/13/16 11:19 09/13/16 14:18 09/13/16 23:52 09/14/16 06:47 Range/Units Bedside Glucose 122 103 112 70-90 mg/dl Random Vancomycin Level 29.2 mcg/ml Test 09/14/16 06:53 Range/Units White Blood Count 4.69 4.8-10.8 K/uL Red Blood Count 3.80 4.2-5.4 M/uL Hemoglobin 11.3 12.0-16.0 g/dL Hematocrit 33.1 37-47 % Mean Corpuscular Volume 87.1 80-100 fL Mean Corpuscular Hemoglobin 29.7 25-34 pg Mean Corpuscular Hemoglobin Concent 34.1 32-36 g/dl Platelet Count 167 130-400 K/uL Mean Platelet Volume 11.3 7.4-10.4 fL Neutrophils (%) (Auto) 57.4 % Lymphocytes (%) (Auto) 23.2 % Monocytes (%) (Auto) 17.7 % Eosinophils (%) (Auto) 0.9 % Basophils (%) (Auto) 0.4 % Neutrophils # (Auto) 2.69 1.4-6.5 K/uL Lymphocytes # (Auto) 1.09 1.2-3.4 K/uL Monocytes # (Auto) 0.83 0.11-0.59 K/uL Eosinophils # (Auto) 0.04 0-0.5 K/uL Basophils # (Auto) 0.02 0-0.2 K/uL RDW Standard Deviation 55.9 36.4-46.3 fL RDW Coefficient of Variation 18.6 11.5-14.5 % Immature Granulocyte % (Auto) 0.4 % Immature Granulocyte # (Auto) 0.02 0.00-0.02 K/uL Sodium Level 142 136-145 mmol/L Potassium Level 4.7 3.5-5.1 mmol/L Chloride Level 107 98-107 mmol/L Carbon Dioxide Level 25 21-32 mmol/L Anion Gap 10.0 3-11 mmol/L Blood Urea Nitrogen 18 7-18 mg/dl Creatinine 1.20 0.60-1.20 mg/dl Est Creatinine Clear Calc Drug Dose 57.3 ml/min Estimated GFR () 58.5 Estimated GFR (Non- 50.5 BUN/Creatinine Ratio 15.0 10-20 Random Glucose 116 70-99 mg/dl Calcium Level 8.7 8.5-10.1 mg/dl Phosphorus Level 3.8 2.5-4.9 mg/dl Magnesium Level 2.3 1.8-2.4 mg/dl Total Bilirubin 0.5 0.2-1 mg/dl Direct Bilirubin 0.2 0-0.2 mg/dl Aspartate Amino Transf (AST/SGOT) 32 15-37 U/L Alanine Aminotransferase (ALT/SGPT) 37 12-78 U/L Alkaline Phosphatase 82 45-117 U/L Total Protein 5.9 6.4-8.2 gm/dl Albumin 2.4 3.4-5.0 gm/dl Assessment & Plan abdominal pain, ovarian carcinomatosis no acute findings continue symptomatic treatment, TPN
[2016-09-14] MEDS: BACITRACIN OINT 15 GM TUBE EXT SCH ×2 (08:39→21:58)
--- NOTE | 2016-09-14 10:15 | Infectious Disease Progress Nt ---
Progress Note Date of Service Sep 14, 2016. Subjective Pt evaluation today including: conversation w/ patient, physical exam, chart review, lab review, review of studies, conversation w/ risk and insurance consultant, review of inpatient medication list Recent events reviewed. Patient developed recurrent nausea and vomiting, now improved. Blood cultures have returned positive for Enterococcus faecalis, and catheter tip also growing same species. As discussed, patient now on ampicillin. Currently afebrile and tolerating antibiotic without apparent difficulty. All Other Systems: Reviewed and Negative Medications Current Inpatient Medications Medications (Trade) Dose Ordered Sig/Mendoza Route Start Time Stop Time Status Last Admin Dose Admin Acetaminophen (Tylenol Tab) 650 mg Q4H PRN PO 09/07/16 14:30 10/07/16 14:29 Al Hydrox/Mg Hydrox/Simethicone (Maalox Max Susp) 15 ml Q4H PRN PO 09/07/16 14:30 10/07/16 14:29 Ondansetron HCl 4 mg 4 mg Q6H PRN IV 09/07/16 14:30 10/07/16 14:29 09/13/16 15:20 4 MG Prochlorperazine Edisylate/Syringe (Compazine Inj/ Syringe) 10 ml @ 5 mls/min Q6H PRN IV 09/07/16 17:45 10/07/16 17:44 09/08/16 14:30 5 MLS/MIN Bacitracin (Bacitracin Oint) 1 appln BID EXT 09/08/16 13:00 10/08/16 12:59 09/14/16 08:39 1 APPLN Lorazepam 1 mg 1 mg Q4H PRN IV 09/08/16 20:00 10/08/16 19:59 09/08/16 22:12 1 MG Acetaminophen 650 mg/Empty Bag 65 ml @ 260 mls/hr Q6H PRN IV 09/08/16 20:00 10/08/16 19:59 09/13/16 12:42 260 MLS/HR Lorazepam/Syringe (Ativan Inj/ Syringe) 1 ml @ 1 mls/min Q4H PRN IV 09/08/16 21:30 10/08/16 21:29 09/13/16 04:14 1 MLS/MIN Miscellaneous Information (Pharmacy Tpn/ Ppn Consult Active) 1 ea UD PRN N/A 09/09/16 16:00 10/09/16 15:59 Miscellaneous Information (Pending Order) 1 ea DAILY@0900,1700 N/A 09/09/16 17:00 10/09/16 16:59 09/14/16 09:26 1 EA Heparin Sodium (Porcine) (Heparin 10 Unit/ ml 5 ml Flush) 5 ml PRN PRN FLUSH 09/10/16 00:15 10/10/16 00:14 09/10/16 14:08 5 ML Heparin Sodium (Porcine) 5 ml 5 ml PRN PRN IV 09/10/16 00:15 10/10/16 00:14 09/12/16 10:30 5 ML Famotidine/ Dextrose (Pepcid IV Inj/ D5 100ml) 102 ml @ 200 mls/hr Q12H IV 09/11/16 18:00 10/11/16 17:59 09/14/16 04:56 200 MLS/HR Hydromorphone HCl 1 mg 1 mg Q2H PRN IV 09/13/16 11:45 09/27/16 11:44 09/14/16 08:36 1 MG Ampicillin Sodium/ Sodium Chloride (Ampicillin Iv/ Nss Ad-Van 100ml) 108 ml @ 216 mls/hr Q4@0200,0600,1000,1400,1800,2200 IV 09/14/16 06:40 09/24/16 06:39 09/14/16 09:28 216 MLS/HR Fentanyl (Duragesic Patch) 12 mcg Q72H TD 09/14/16 10:00 09/28/16 09:59 UNV Miscellaneous (Fentanyl Patch Remove & Waste) 1 ea Q3D N/A 09/17/16 10:00 10/17/16 09:59 UNV Miscellaneous Information 1 ea 1 ea QS N/A 09/14/16 16:00 10/14/16 15:59 UNV Nutrition (Parenteral) (Custom Central Pn) 0 ml @ 0 mls/hr TODAY@1600 IV 09/14/16 16:00 09/15/16 15:59 Objective Vital Signs Date Time Temp Pulse Resp B/P Pulse Ox O2 Delivery O2 Flow Rate FiO2 09/14/16 07:54 36.5 73 20 121/80 92 Room Air 09/14/16 04:07 36.7 77 18 120/78 94 Room Air 09/14/16 00:33 36.5 75 20 131/83 93 Room Air 09/14/16 00:05 Room Air 09/13/16 20:00 Room Air 09/13/16 16:00 Room Air 09/13/16 15:50 36.6 79 16 125/81 09/13/16 15:20 36.7 75 22 117/86 95 09/13/16 14:50 36.5 81 16 103/73 09/13/16 14:35 36.6 75 16 109/72 09/13/16 14:15 36.5 80 18 110/78 09/13/16 13:30 36.4 76 16 113/77 09/13/16 13:00 36.5 79 16 108/73 09/13/16 12:30 36.4 80 16 112/75 09/13/16 12:12 36.5 80 113/76 18 Physical Exam General Appearance: WD/WN, no apparent distress Eyes: normal inspection, sclerae normal ENT: normal ENT inspection, pharynx normal Neck: supple, no adenopathy, trachea midline Respiratory/Chest: chest non-tender, lungs clear, normal breath sounds, no respiratory distress Cardiovascular: regular rate, rhythm, no gallop, no murmur Abdomen: normal bowel sounds, non tender, soft, no organomegaly Extremities: non-tender, no calf tenderness Neurologic/Psychiatric: alert, oriented x 3 Skin: normal color, no rash Lymphatic: no adenopathy Laboratory Results Last 2 RUN DATE: 09/13/16 [facility] LAB PAGE 1 RUN TIME: 1114 Specimen Inquiry PATIENT: ARIANA MCKEON LOC: [facility] U # : [id number] AGE/SX: 56/F ROOM: [facility] REG : 09/07/[address]: Courtney Joshua MD : 1960 BED: 1 DIS : STATUS: ADM IN TLOC: SPEC #: [id number] ARIANE: 09/11/16 STATUS: COMP REQ #: [id number] RECD: 09/11/[address]: Sandi Elizabeth MD SOURCE: CATH TIP ENTR: 09/11/[address]: Jean Carlos Burgess MD SPDESC: PICC Marsha Espinoza C.R.N.P Tussey, Natalie B., MD ORDERED: CT COMMENTS: Has Specimen Been Obtained/Collected? Y Procedure Result Verified Site CATHETER TIP CULTURE Final 09/13/16-1114 Organism 1 ENTEROCOCCUS FAECALIS CATH TIP QUANTITY >1000 COLONIES SENS SENSITIVITY TO FOLLOW 1. ENTEROCOCCUS FAECALIS Target Route Dose RX AB Cost M.I.C. IQ ------ ----- ------ -- ------ -------- - ------ AMPICILLIN S <=2 GENT SYNERGY S <=500 VANCOMYCIN S 4 PENICILLIN S 2 DAPTOMYCIN S 2 STREP SYNERGY S <=1000 Streptomycin Synergy Screen S Gentamicin Synergy Screen S S = SENSITIVE I = INTERMEDIATE R = RESISTANT 4 Hours Test 09/13/16 11:19 09/13/16 14:18 09/13/16 23:52 09/14/16 06:47 Bedside Glucose 122 mg/dl 103 mg/dl 112 mg/dl Random Vancomycin Level 29.2 mcg/ml Test 09/14/16 06:53 White Blood Count 4.69 K/uL Red Blood Count 3.80 M/uL Hemoglobin 11.3 g/dL Hematocrit 33.1 % Mean Corpuscular Volume 87.1 fL Mean Corpuscular Hemoglobin 29.7 pg Mean Corpuscular Hemoglobin Concent 34.1 g/dl Platelet Count 167 K/uL Mean Platelet Volume 11.3 fL Neutrophils (%) (Auto) 57.4 % Lymphocytes (%) (Auto) 23.2 % Monocytes (%) (Auto) 17.7 % Eosinophils (%) (Auto) 0.9 % Basophils (%) (Auto) 0.4 % Neutrophils # (Auto) 2.69 K/uL Lymphocytes # (Auto) 1.09 K/uL Monocytes # (Auto) 0.83 K/uL Eosinophils # (Auto) 0.04 K/uL Basophils # (Auto) 0.02 K/uL RDW Standard Deviation 55.9 fL RDW Coefficient of Variation 18.6 % Immature Granulocyte % (Auto) 0.4 % Immature Granulocyte # (Auto) 0.02 K/uL Sodium Level 142 mmol/L Potassium Level 4.7 mmol/L Chloride Level 107 mmol/L Carbon Dioxide Level 25 mmol/L Anion Gap 10.0 mmol/L Blood Urea Nitrogen 18 mg/dl Creatinine 1.20 mg/dl Est Creatinine Clear Calc Drug Dose 57.3 ml/min Estimated GFR () 58.5 Estimated GFR (Non- 50.5 BUN/Creatinine Ratio 15.0 Random Glucose 116 mg/dl Calcium Level 8.7 mg/dl Phosphorus Level 3.8 mg/dl Magnesium Level 2.3 mg/dl Total Bilirubin 0.5 mg/dl Direct Bilirubin 0.2 mg/dl Aspartate Amino Transf (AST/SGOT) 32 U/L Alanine Aminotransferase (ALT/SGPT) 37 U/L Alkaline Phosphatase 82 U/L Total Protein 5.9 gm/dl Albumin 2.4 gm/dl ABDOMINAL SERIES 4 VIEWS CLINICAL HISTORY: Metastatic ovarian carcinoma, abdominal pain. History of small bowel obstruction COMPARISON STUDY: 07/05/2016 FINDINGS: Supine and decubitus views are provided for interpretation. There is a left-sided gastrostomy tube. There are surgical clips within the right upper quadrant consistent with a prior cholecystectomy. There are no abnormally dilated loops of large or small bowel. There are few scattered air-fluid levels on the decubitus view. No free air is visualized. IMPRESSION: No evidence of bowel obstruction. No evidence of free air. Electronically signed by: Lalo Fortune M.D. 09/13/2016 10:27 AM Dictated Date/Time: 09/13/2016 10:26 AM The status of this report is Signed. Draft = Not yet reviewed or approved by Radiologist. Signed = Reviewed and approved by Radiologist. <AttendingPhy>Courtney Joshua MD</AttendingPhy> <FamilyPhy>Marsha Espinoza C.R.N.P</FamilyPhy> <PrimaryPhy>Marsha Espinoza C.R.N.P</PrimaryPhy> <UnitNumber >[id number]</UnitNumber> <VisitNumber>[id number]</VisitNumber> <PatientName> ARIANA MCKEON</PatientName> <DateOfBirth>1960</DateOfBirth> <Location>C[facility] </Location> <ServiceDate>09/07/16</ServiceDate> <MNE>ESINDI</MNE> <OrderingPhy> Courtney Joshua MD</OrderingPhy> <OrderingPhyMNE>f rep ord dr dickinson</ OrderingPhyMNE> <DictatingPhyMNE>f rep dict dr dickinson</DictatingPhyMNE> <CCListMNE> f rep ct mne</CCListMNE> <AdmittingPhyMNE>f pt admit dr dickinson</AdmittingPhyMNE> < AttendingPhyMNE>f pt attend dr dickinson</AttendingPhyMNE> <ConsultingPhyMNE>f pt consult dr dickinson</ConsultingPhyMNE> <FamilyPhyMNE>f pt fam dr dickinson</FamilyPhyMNE> <OtherPhyMNE>f pt other dr dickinson</OtherPhyMNE> < PrimaryPhyMNE>f pt prim care dr dickinson</PrimaryPhyMNE> <ReferringPhyMNE>f pt referring dr dickinson</ReferringPhyMNE> Assessment and Plan Choose 56-year-old female with metastatic ovarian carcinoma on chemotherapy now with interim in enterococcal bacteremia from infected PICC line, now removed. As discussed, patient has been changed to IV ampicillin, and will require 2 weeks of IV therapy. Repeat blood cultures are negative. We will continue to follow.
--- NOTE | 2016-09-14 10:54 | Family Medicine Progress Note ---
Progress Note Date of Service Sep 14, 2016. Subjective Pt evaluation today including: conversation w/ patient, physical exam Pain: 4 The patient states that her pain is relatively under control but feels like the efficiency of the medications is starting to waver Other no other complaints agreeable to have another PICC placed Constitutional: No fever Eyes: No worsening of vision ENT: No hearing loss Respiratory: No cough, No dyspnea on exertion, No shortness of breath, No sputum, No wheezing Cardiovascular: No chest pain Abdomen: No constipation, No diarrhea, No nausea, No pain, No vomiting Musculoskeletal: No joint pain, No muscle pain Neurologic: + weakness, No balance problems, No memory loss Endo: + fatigue Skin: No rash Medications Medications Administered Medications (Trade) Dose Ordered Sig/Mendoza Route Start Time Stop Time Status Last Admin Dose Admin Sodium Chloride (Nss 1000ml) 500 ml @ 999 mls/hr Q31M STAT IV 09/07/16 10:47 09/07/16 11:17 DC 09/07/16 11:11 999 MLS/HR Ondansetron HCl (Zofran Inj) 4 mg NOW STAT IV 09/07/16 10:47 09/07/16 10:49 DC 09/07/16 11:11 4 MG Hydromorphone HCl 1 mg 1 mg Q30M PRN IV 09/07/16 11:00 09/07/16 17:49 DC 09/07/16 11:11 1 MG Promethazine HCl/ Sodium Chloride (Phenergan Inj/ Nss 50ml) 50.5 ml @ 202 mls/hr NOW STAT IV 09/07/16 11:05 09/07/16 11:19 DC 09/07/16 11:20 202 MLS/HR Ondansetron HCl (Zofran Inj) 4 mg Q6H PRN IV 09/07/16 14:30 10/07/16 14:29 09/13/16 15:20 4 MG Hydromorphone HCl 1 mg 1 mg NOW ONCE IV 09/07/16 17:00 09/07/16 17:01 DC 09/07/16 16:53 1 MG Prochlorperazine Edisylate/Syringe (Compazine Inj/ Syringe) 10 ml @ 5 mls/min Q6H PRN IV 09/07/16 17:45 10/07/16 17:44 09/08/16 14:30 5 MLS/MIN Hydromorphone HCl 0.5 mg 0.5 mg Q2H PRN IV 09/07/16 17:45 09/13/16 09:59 DC 09/13/16 09:56 0.5 MG Sodium Chloride (Nss 1000ml) 1,000 ml @ 125 mls/hr Q8H IV 09/07/16 17:45 09/08/16 13:28 DC 09/08/16 09:28 125 MLS/HR Lorazepam (Ativan Inj) 0.5 mg Q4H PRN IV 09/07/16 20:30 09/08/16 21:18 DC 09/07/16 22:30 0.5 MG Bacitracin 1 appln 1 appln BID EXT 09/08/16 13:00 10/08/16 12:59 09/14/16 08:39 1 APPLN Potassium Chloride/Dextrose/ Sod Cl (D5W And 1/2nss + 20meq KCl) 1,000 ml @ 100 mls/hr Q10H IV 09/08/16 13:45 09/09/16 16:00 DC 09/09/16 10:17 100 MLS/HR Lorazepam 1 mg 1 mg Q4H PRN IV 09/08/16 20:00 10/08/16 19:59 09/08/16 22:12 1 MG Acetaminophen 650 mg/Empty Bag 65 ml @ 260 mls/hr Q6H PRN IV 09/08/16 20:00 10/08/16 19:59 09/13/16 12:42 260 MLS/HR Lorazepam 1 mg/ Syringe 1 ml @ 1 mls/min Q4H PRN IV 09/08/16 21:30 10/08/16 21:29 09/13/16 04:14 1 MLS/MIN Nutrition (Parenteral) (Custom Central Pn) 0 ml @ 0 mls/hr TODAY@1600 IV 09/09/16 16:00 09/10/16 09:59 DC 09/09/16 16:47 0 MLS/HR Miscellaneous Information (Pending Order) 1 ea DAILY@0900,1700 N/A 09/09/16 17:00 10/09/16 16:59 09/14/16 09:26 1 EA Heparin Sodium (Porcine) (Heparin 10 Unit/ ml 5 ml Flush) 5 ml PRN PRN FLUSH 09/10/16 00:15 10/10/16 00:14 09/10/16 14:08 5 ML Heparin Sodium (Porcine) 5 ml 5 ml PRN PRN IV 09/10/16 00:15 10/10/16 00:14 09/12/16 10:30 5 ML Nutrition (Parenteral) 0 ml @ 0 mls/hr TODAY@1600 IV 09/10/16 16:00 09/11/16 09:59 DC 09/10/16 16:20 0 MLS/HR Sodium Chloride 500 ml @ 500 mls/hr Q1H STAT IV 09/10/16 20:46 09/10/16 21:45 DC 09/10/16 21:04 500 MLS/HR Vancomycin HCl 2600 mg/Sodium Chloride 552 ml @ 200 mls/hr TODAY@2130 ONCE IV 09/10/16 21:30 09/11/16 00:15 DC 09/10/16 22:53 200 MLS/HR Vancomycin HCl 1350 mg/Sodium Chloride 277 ml @ 125 mls/hr Q12H IV 09/11/16 14:00 09/13/16 17:49 DC 09/13/16 01:58 125 MLS/HR Piperacillin Sod/ Tazobactam Sod 4.5 gm/Dextrose 120 ml @ 200 mls/hr TODAY@2130 ONCE IV 09/10/16 21:30 09/10/16 22:05 DC 09/10/16 21:57 200 MLS/HR Piperacillin Sod/ Tazobactam Sod 4.5 gm/Dextrose 120 ml @ 30 mls/hr Q8H IV 09/11/16 04:00 09/13/16 17:49 DC 09/13/16 13:06 30 MLS/HR Potassium Chloride/Sodium Chloride 1,000 ml @ 125 mls/hr Q8H IV 09/10/16 22:15 09/11/16 14:14 DC 09/11/16 08:32 125 MLS/HR Magnesium Sulfate 1 gm/Prmx 100 ml @ 100 mls/hr 1230 IV 09/11/16 12:30 09/11/16 13:29 DC 09/11/16 12:56 100 MLS/HR Nutrition (Parenteral) 0 ml @ 0 mls/hr TODAY@1600 IV 09/11/16 16:00 09/12/16 10:00 DC 09/11/16 16:57 0 MLS/HR Famotidine 20 mg/ Dextrose 102 ml @ 200 mls/hr Q12H IV 09/11/16 18:00 10/11/16 17:59 09/14/16 04:56 200 MLS/HR Nutrition (Parenteral) (Custom Central Pn) 0 ml @ 0 mls/hr TODAY@1600 IV 09/12/16 16:00 09/13/16 15:59 DC 09/12/16 17:14 0 MLS/HR Hydromorphone HCl (Dilaudid Inj) 1 mg Q2H PRN IV 09/13/16 11:45 09/27/16 11:44 09/14/16 08:36 1 MG Diphenhydramine HCl 12.5 mg 12.5 mg TODAY@1215 IV 09/13/16 12:15 09/13/16 23:59 DC 09/13/16 12:19 12.5 MG Nutrition (Parenteral) 0 ml @ 0 mls/hr TODAY@1600 IV 09/13/16 16:00 09/14/16 09:59 DC 09/13/16 16:34 0 MLS/HR Ampicillin Sodium 2000 mg/Sodium Chloride 58 ml @ 100 mls/hr Q4H IV 09/13/16 18:00 09/14/16 06:34 DC 09/14/16 01:47 100 MLS/HR Ampicillin Sodium/ Sodium Chloride (Ampicillin Iv/ Nss Ad-Van 100ml) 108 ml @ 216 mls/hr Q4@0200,0600,1000,1400,1800,2200 IV 09/14/16 06:40 09/24/16 06:39 09/14/16 09:28 216 MLS/HR Objective Vital Signs Date Time Temp Pulse Resp B/P Pulse Ox O2 Delivery O2 Flow Rate FiO2 09/14/16 07:54 36.5 73 20 121/80 92 Room Air 09/14/16 04:07 36.7 77 18 120/78 94 Room Air 09/14/16 00:33 36.5 75 20 131/83 93 Room Air 09/14/16 00:05 Room Air 09/13/16 20:00 Room Air 09/13/16 16:00 Room Air 09/13/16 15:50 36.6 79 16 125/81 09/13/16 15:20 36.7 75 22 117/86 95 09/13/16 14:50 36.5 81 16 103/73 09/13/16 14:35 36.6 75 16 109/72 09/13/16 14:15 36.5 80 18 110/78 09/13/16 13:30 36.4 76 16 113/77 09/13/16 13:00 36.5 79 16 108/73 09/13/16 12:30 36.4 80 16 112/75 09/13/16 12:12 36.5 80 113/76 18 Physical Exam General Appearance: WD/WN, no apparent distress Eyes: normal inspection ENT: normal ENT inspection Neck: supple Respiratory/Chest: lungs clear, normal breath sounds, no respiratory distress, no accessory muscle use Cardiovascular: regular rate, rhythm, no murmur Abdomen: normal bowel sounds, non tender, soft, + pertinent finding ( gastrostomy tube , intact and non tender) Extremities: non-tender, normal inspection, no pedal edema, no calf tenderness Neurologic/Psychiatric: alert, normal mood/affect, oriented x 3 Skin: normal color, warm/dry, no rash Lymphatic: no adenopathy Laboratory Results Results Past 24 Hours Test 09/13/16 11:19 09/13/16 14:18 09/13/16 23:52 09/14/16 06:47 Range/Units Bedside Glucose 122 103 112 70-90 mg/dl Random Vancomycin Level 29.2 mcg/ml Test 09/14/16 06:53 Range/Units White Blood Count 4.69 4.8-10.8 K/uL Red Blood Count 3.80 4.2-5.4 M/uL Hemoglobin 11.3 12.0-16.0 g/dL Hematocrit 33.1 37-47 % Mean Corpuscular Volume 87.1 80-100 fL Mean Corpuscular Hemoglobin 29.7 25-34 pg Mean Corpuscular Hemoglobin Concent 34.1 32-36 g/dl Platelet Count 167 130-400 K/uL Mean Platelet Volume 11.3 7.4-10.4 fL Neutrophils (%) (Auto) 57.4 % Lymphocytes (%) (Auto) 23.2 % Monocytes (%) (Auto) 17.7 % Eosinophils (%) (Auto) 0.9 % Basophils (%) (Auto) 0.4 % Neutrophils # (Auto) 2.69 1.4-6.5 K/uL Lymphocytes # (Auto) 1.09 1.2-3.4 K/uL Monocytes # (Auto) 0.83 0.11-0.59 K/uL Eosinophils # (Auto) 0.04 0-0.5 K/uL Basophils # (Auto) 0.02 0-0.2 K/uL RDW Standard Deviation 55.9 36.4-46.3 fL RDW Coefficient of Variation 18.6 11.5-14.5 % Immature Granulocyte % (Auto) 0.4 % Immature Granulocyte # (Auto) 0.02 0.00-0.02 K/uL Sodium Level 142 136-145 mmol/L Potassium Level 4.7 3.5-5.1 mmol/L Chloride Level 107 98-107 mmol/L Carbon Dioxide Level 25 21-32 mmol/L Anion Gap 10.0 3-11 mmol/L Blood Urea Nitrogen 18 7-18 mg/dl Creatinine 1.20 0.60-1.20 mg/dl Est Creatinine Clear Calc Drug Dose 57.3 ml/min Estimated GFR () 58.5 Estimated GFR (Non- 50.5 BUN/Creatinine Ratio 15.0 10-20 Random Glucose 116 70-99 mg/dl Calcium Level 8.7 8.5-10.1 mg/dl Phosphorus Level 3.8 2.5-4.9 mg/dl Magnesium Level 2.3 1.8-2.4 mg/dl Total Bilirubin 0.5 0.2-1 mg/dl Direct Bilirubin 0.2 0-0.2 mg/dl Aspartate Amino Transf (AST/SGOT) 32 15-37 U/L Alanine Aminotransferase (ALT/SGPT) 37 12-78 U/L Alkaline Phosphatase 82 45-117 U/L Total Protein 5.9 6.4-8.2 gm/dl Albumin 2.4 3.4-5.0 gm/dl Assessment and Plan 56 yo f with a h/o ovarian cancer with peritoneal carcinomatosis that was suffering from a fever secondary to a bacteremia associated to PICC line with Strep. Blood cx negative x 2 so plan is to replace PICC. w/u brain mets negative. Patient plans to return to palliative chemo after d/c. Bacteremia with Strep species - BCX2 -Strep species, source is from PICC - sensitive to Ampicillin - blood cx repeat neg x 2 09/11 - plan is to replace PICC - Influenza PCR -negative - ID consult- appreciate input Intractable Nausea and vomiting, - Resolved; h/o SBO and gastric outlet obs with G Tube - Gen surg was consult for worsening N&V- no obstruction noted - appreciate input - Zofran 4 mg q4h PRN , compazine 10 mg q6h for nausea and vomiting, Ativan 1 mg q4h for nausea/sedation - increase Dilaudid 1 mg mg q2h PRN pain - continue TPN - MRI head ordered for possible brain mets considering aggressive ovarian cancer , headaches , N/V- no mets Metastatic Ovarian CA- pt on palliative chemo with plans to return to this as soon as possible -declines palliative consult - For pain control, additionally added fentanyl 15 mcg patch Anemia- possibly secondary to chemo vs anemia of chronic disease -Hgb 7.2 today--> received 2 units PRBCs - improved to 11.2 -follow CBC Nutrition: - TPN via central port for now and then will need PICC if o go home again on TPN Clear liquid diet for comfort DVT prophylaxis: SCDs, will avoid heparin( recent thrombocytopenia s/p platelet transfusion) Dispo: Med/surg Full Code-discussed with pt without family present and she definitely still wants to pursue chemo when she recovers from bacteremia PT/OT Resident Physician Supervision Note: I interviewed and examined the patient. Discussed with Dr. Villela and agree with findings and plan as documented in the note. Any exceptions or clarifications are listed here: None Documented By: Gordon Patel feeling better, abdominal pain improving, notes she's on a 25mcg fentanyl patch at home vitals noted, pleasant nad breathing unlabored -strep bacteremia - IV abx as per ID, working towards outpt administration -nausea/vomiting - improving -pain control - improving, resume fentanyl patch at 12mcg, increase if needed otherwise as above Continued [facility] stay due to: inadequate oral pain control, multiple IV medications needed Discharge planning: uncertain
[2016-09-14] MEDS ORDERED: FENTANYL PATCH REMOVE & WASTE SCH (11:29)
[2016-09-14] MEDS ORDERED: FENTANYL 12 MCG/HR TDSY TD SCH (11:30)
[2016-09-14] MEDS: CHECK FENTANYL PATCH PLACEMENT SCH ×2 (15:32→23:06)
[2016-09-14] MEDS ORDERED: CUSTOM CENTRAL PN 1 BAG IV SCH (16:00)
[2016-09-14] MEDS: LORAZEPAM INJ 1 MG in SYRINGE 0.5 ML IV PRN (23:06)
[2016-09-15] MEDS: HYDROmorphone INJ 1 MG/ML SYR IV PRN ×5 (01:34→23:35)
[2016-09-15] MEDS: AMPICILLIN IV 2,000 MG in SODIUM CHLOR 0.9% AD-VAN 100ML 100 ML IV SCH ×6 (01:39→22:37)
[2016-09-15 03:39] VITALS: BP 103/71; PULSE 78; TEMP 36.7; O2SAT 95
[2016-09-15] MEDS: FAMOTIDINE IV INJ 20 MG in DEXTROSE 5% 100ML 100 ML IV SCH ×2 (06:00→17:33)
[2016-09-15 06:20] LABS: HEMATOCRIT 33.2 % (37-47); MEAN CELL VOLUME 88.3 fL (80-100); MEAN CORPUSCULAR HEMOGLOBIN 29.5 pg (25-34); MEAN CORPUSCULAR HGB CONC 33.4 g/dl (32-36); MEAN PLATELET VOLUME 11.2 fL (7.4-10.4); PLATELET COUNT 177 K/uL (130-400); RED BLOOD COUNT 3.76 M/uL (4.2-5.4); WHITE BLOOD COUNT 5.08 K/uL (4.8-10.8)
[2016-09-15 06:46] LABS: BUN/CREATININE RATIO 14.5 (10-20); CALCIUM 8.7 mg/dl (8.5-10.1); CREATININE 1.4 mg/dl (0.60-1.20); MAGNESIUM 2.2 mg/dl (1.8-2.4); POTASSIUM 4.3 mmol/L (3.5-5.1)
[2016-09-15 07:32] VITALS: BP 125/65; PULSE 68; TEMP 36.5; O2SAT 96
[2016-09-15] MEDS ORDERED: SODIUM CHLORIDE 0.9% 1000ML 1,000 ML IV ONE ×2 (07:45→17:45)
[2016-09-15] MEDS: CHECK FENTANYL PATCH PLACEMENT SCH ×3 (07:51→23:40)
[2016-09-15] MEDS: BACITRACIN OINT 15 GM TUBE EXT SCH ×2 (07:51→20:26)
--- NOTE | 2016-09-15 08:28 | Surgery Progress Note ---
Surgery Progress Note Date of Service Sep 15, 2016. Subjective resting comfortably, G tube draining well Objective Vital Signs: Date Time Temp Pulse Resp B/P Pulse Ox O2 Delivery O2 Flow Rate FiO2 09/15/16 07:32 36.5 68 18 125/65 96 Room Air 09/15/16 03:39 36.7 78 18 103/71 95 Room Air 09/15/16 00:00 Room Air 09/14/16 23:44 36.9 84 16 127/75 93 Room Air 09/14/16 20:39 36.5 84 16 142/86 98 Room Air 09/14/16 16:00 94 Room Air 09/14/16 15:17 36.6 84 18 100/68 94 Room Air 09/14/16 12:01 36.3 90 20 119/82 91 Room Air General Appearance: no apparent distress Respiratory/Chest: no respiratory distress Abdomen: soft Laboratory Results: Results Past 24 Hours Test 09/14/16 13:23 09/14/16 20:34 09/15/16 05:35 Range/Units Bedside Glucose 84 99 70-90 mg/dl White Blood Count 5.08 4.8-10.8 K/uL Red Blood Count 3.76 4.2-5.4 M/uL Hemoglobin 11.1 12.0-16.0 g/dL Hematocrit 33.2 37-47 % Mean Corpuscular Volume 88.3 80-100 fL Mean Corpuscular Hemoglobin 29.5 25-34 pg Mean Corpuscular Hemoglobin Concent 33.4 32-36 g/dl RDW Standard Deviation 56.3 36.4-46.3 fL RDW Coefficient of Variation 18.5 11.5-14.5 % Platelet Count 177 130-400 K/uL Mean Platelet Volume 11.2 7.4-10.4 fL Sodium Level 143 136-145 mmol/L Potassium Level 4.3 3.5-5.1 mmol/L Chloride Level 107 98-107 mmol/L Carbon Dioxide Level 26 21-32 mmol/L Anion Gap 10.0 3-11 mmol/L Blood Urea Nitrogen 20 7-18 mg/dl Creatinine 1.40 0.60-1.20 mg/dl Est Creatinine Clear Calc Drug Dose 49.0 ml/min Estimated GFR () 48.6 Estimated GFR (Non- 41.9 BUN/Creatinine Ratio 14.5 10-20 Random Glucose 107 70-99 mg/dl Calcium Level 8.7 8.5-10.1 mg/dl Phosphorus Level 4.0 2.5-4.9 mg/dl Magnesium Level 2.2 1.8-2.4 mg/dl Assessment & Plan 09/15/16- seems to be stable- no acute abdominal process requiring surgery will sign off for now.
[2016-09-15] MEDS: ONDANSETRON INJ 2 MG/ML 2 ML VIAL IV PRN (08:54)
[2016-09-15] MEDS ORDERED: FENTANYL PATCH REMOVE & WASTE SCH (09:29)
[2016-09-15] MEDS ORDERED: FENTANYL 25 MCG/HR TDSY TD SCH (09:30)
[2016-09-15 11:15] VITALS: BP 117/77; PULSE 94; TEMP 36.5; O2SAT 93
[2016-09-15 13:37] LABS: BUN/CREATININE RATIO 14.2 (10-20); CREATININE 1.4 mg/dl (0.60-1.20); POTASSIUM 4.2 mmol/L (3.5-5.1)
--- NOTE | 2016-09-15 15:25 | Family Medicine Progress Note ---
Progress Note Date of Service Sep 15, 2016. Subjective Pt evaluation today including: conversation w/ patient, physical exam, chart review, lab review Pain: controlled wit current regimen PO Intake: tpn Voiding: no voiding problems Patient is doing well She had her PICC placed today on the right side one bout of abdominal pain which was controlled with dilaudid concerns and questions were addressed Constitutional: No fever Eyes: No worsening of vision ENT: No hearing loss Respiratory: No cough, No dyspnea on exertion, No shortness of breath, No sputum, No wheezing Cardiovascular: No chest pain Abdomen: + nausea (controlled), No constipation, No diarrhea, No pain, No vomiting Musculoskeletal: No joint pain, No muscle pain Neurologic: No balance problems, No memory loss, No numbness/tingling, No weakness Psychiatric: No depression symptoms Endo: No fatigue Medications Medications Administered Medications (Trade) Dose Ordered Sig/Mendoza Route Start Time Stop Time Status Last Admin Dose Admin Sodium Chloride (Nss 1000ml) 500 ml @ 999 mls/hr Q31M STAT IV 09/07/16 10:47 09/07/16 11:17 DC 09/07/16 11:11 999 MLS/HR Ondansetron HCl (Zofran Inj) 4 mg NOW STAT IV 09/07/16 10:47 09/07/16 10:49 DC 09/07/16 11:11 4 MG Hydromorphone HCl 1 mg 1 mg Q30M PRN IV 09/07/16 11:00 09/07/16 17:49 DC 09/07/16 11:11 1 MG Promethazine HCl/ Sodium Chloride (Phenergan Inj/ Nss 50ml) 50.5 ml @ 202 mls/hr NOW STAT IV 09/07/16 11:05 09/07/16 11:19 DC 09/07/16 11:20 202 MLS/HR Ondansetron HCl (Zofran Inj) 4 mg Q6H PRN IV 09/07/16 14:30 10/07/16 14:29 09/15/16 08:54 4 MG Hydromorphone HCl 1 mg 1 mg NOW ONCE IV 09/07/16 17:00 09/07/16 17:01 DC 09/07/16 16:53 1 MG Prochlorperazine Edisylate/Syringe (Compazine Inj/ Syringe) 10 ml @ 5 mls/min Q6H PRN IV 09/07/16 17:45 10/07/16 17:44 09/08/16 14:30 5 MLS/MIN Hydromorphone HCl 0.5 mg 0.5 mg Q2H PRN IV 09/07/16 17:45 09/13/16 09:59 DC 09/13/16 09:56 0.5 MG Sodium Chloride (Nss 1000ml) 1,000 ml @ 125 mls/hr Q8H IV 09/07/16 17:45 09/08/16 13:28 DC 09/08/16 09:28 125 MLS/HR Lorazepam (Ativan Inj) 0.5 mg Q4H PRN IV 09/07/16 20:30 09/08/16 21:18 DC 09/07/16 22:30 0.5 MG Bacitracin 1 appln 1 appln BID EXT 09/08/16 13:00 10/08/16 12:59 09/15/16 07:51 1 APPLN Potassium Chloride/Dextrose/ Sod Cl (D5W And 1/2nss + 20meq KCl) 1,000 ml @ 100 mls/hr Q10H IV 09/08/16 13:45 09/09/16 16:00 DC 09/09/16 10:17 100 MLS/HR Lorazepam 1 mg 1 mg Q4H PRN IV 09/08/16 20:00 10/08/16 19:59 09/08/16 22:12 1 MG Acetaminophen 650 mg/Empty Bag 65 ml @ 260 mls/hr Q6H PRN IV 09/08/16 20:00 10/08/16 19:59 09/13/16 12:42 260 MLS/HR Lorazepam 1 mg/ Syringe 1 ml @ 1 mls/min Q4H PRN IV 09/08/16 21:30 10/08/16 21:29 09/14/16 23:06 1 MLS/MIN Nutrition (Parenteral) (Custom Central Pn) 0 ml @ 0 mls/hr TODAY@1600 IV 09/09/16 16:00 09/10/16 09:59 DC 09/09/16 16:47 0 MLS/HR Miscellaneous Information (Pending Order) 1 ea DAILY@0900,1700 N/A 09/09/16 17:00 10/09/16 16:59 09/15/16 08:57 1 EA Heparin Sodium (Porcine) (Heparin 10 Unit/ ml 5 ml Flush) 5 ml PRN PRN FLUSH 09/10/16 00:15 10/10/16 00:14 09/10/16 14:08 5 ML Heparin Sodium (Porcine) 5 ml 5 ml PRN PRN IV 09/10/16 00:15 10/10/16 00:14 09/14/16 10:59 5 ML Nutrition (Parenteral) 0 ml @ 0 mls/hr TODAY@1600 IV 09/10/16 16:00 09/11/16 09:59 DC 09/10/16 16:20 0 MLS/HR Sodium Chloride 500 ml @ 500 mls/hr Q1H STAT IV 09/10/16 20:46 09/10/16 21:45 DC 09/10/16 21:04 500 MLS/HR Vancomycin HCl 2600 mg/Sodium Chloride 552 ml @ 200 mls/hr TODAY@2130 ONCE IV 09/10/16 21:30 09/11/16 00:15 DC 09/10/16 22:53 200 MLS/HR Vancomycin HCl 1350 mg/Sodium Chloride 277 ml @ 125 mls/hr Q12H IV 09/11/16 14:00 09/13/16 17:49 DC 09/13/16 01:58 125 MLS/HR Piperacillin Sod/ Tazobactam Sod 4.5 gm/Dextrose 120 ml @ 200 mls/hr TODAY@2130 ONCE IV 09/10/16 21:30 09/10/16 22:05 DC 09/10/16 21:57 200 MLS/HR Piperacillin Sod/ Tazobactam Sod 4.5 gm/Dextrose 120 ml @ 30 mls/hr Q8H IV 09/11/16 04:00 09/13/16 17:49 DC 09/13/16 13:06 30 MLS/HR Potassium Chloride/Sodium Chloride 1,000 ml @ 125 mls/hr Q8H IV 09/10/16 22:15 09/11/16 14:14 DC 09/11/16 08:32 125 MLS/HR Magnesium Sulfate 1 gm/Prmx 100 ml @ 100 mls/hr 1230 IV 09/11/16 12:30 09/11/16 13:29 DC 09/11/16 12:56 100 MLS/HR Nutrition (Parenteral) 0 ml @ 0 mls/hr TODAY@1600 IV 09/11/16 16:00 09/12/16 10:00 DC 09/11/16 16:57 0 MLS/HR Famotidine 20 mg/ Dextrose 102 ml @ 200 mls/hr Q12H IV 09/11/16 18:00 10/11/16 17:59 09/15/16 06:00 200 MLS/HR Nutrition (Parenteral) (Custom Central Pn) 0 ml @ 0 mls/hr TODAY@1600 IV 09/12/16 16:00 09/13/16 15:59 DC 09/12/16 17:14 0 MLS/HR Hydromorphone HCl (Dilaudid Inj) 1 mg Q2H PRN IV 09/13/16 11:45 09/27/16 11:44 09/15/16 14:28 1 MG Diphenhydramine HCl 12.5 mg 12.5 mg TODAY@1215 IV 09/13/16 12:15 09/13/16 23:59 DC 09/13/16 12:19 12.5 MG Nutrition (Parenteral) 0 ml @ 0 mls/hr TODAY@1600 IV 09/13/16 16:00 09/14/16 09:59 DC 09/13/16 16:34 0 MLS/HR Ampicillin Sodium 2000 mg/Sodium Chloride 58 ml @ 100 mls/hr Q4H IV 09/13/16 18:00 09/14/16 06:34 DC 09/14/16 01:47 100 MLS/HR Ampicillin Sodium/ Sodium Chloride (Ampicillin Iv/ Nss Ad-Van 100ml) 108 ml @ 216 mls/hr Q4@0200,0600,1000,1400,1800,2200 IV 09/14/16 06:40 09/24/16 06:39 09/15/16 14:24 216 MLS/HR Fentanyl (Duragesic Patch) 12 mcg Q3D@1130 TD 09/14/16 11:30 09/15/16 09:16 DC 09/14/16 11:52 12 MCG Miscellaneous Information 1 ea 1 ea QS N/A 09/14/16 16:00 10/14/16 15:59 09/15/16 07:51 1 EA Nutrition (Parenteral) 0 ml @ 0 mls/hr TODAY@1600 IV 09/14/16 16:00 09/15/16 15:59 09/14/16 16:10 0 MLS/HR Sodium Chloride (Nss 1000ml) 1,000 ml @ 150 mls/hr Q6H40M ONCE IV 09/15/16 07:45 09/15/16 14:24 DC 09/15/16 07:51 150 MLS/HR Fentanyl (Duragesic Patch) 25 mcg Q3D@0930 TD 09/15/16 09:30 09/29/16 09:29 09/15/16 10:14 25 MCG Miscellaneous (Fentanyl Patch Remove & Waste) 1 ea Q3D@0929 N/A 09/15/16 09:29 10/15/16 09:28 09/15/16 10:16 1 EA Objective Vital Signs Date Time Temp Pulse Resp B/P Pulse Ox O2 Delivery O2 Flow Rate FiO2 09/15/16 11:15 36.5 94 22 117/77 93 Room Air 09/15/16 08:00 Room Air 09/15/16 07:32 36.5 68 18 125/65 96 Room Air 09/15/16 03:39 36.7 78 18 103/71 95 Room Air 09/15/16 00:00 Room Air 09/14/16 23:44 36.9 84 16 127/75 93 Room Air 09/14/16 20:39 36.5 84 16 142/86 98 Room Air 09/14/16 16:00 94 Room Air Physical Exam General Appearance: WD/WN, no apparent distress, + obese Eyes: normal inspection ENT: normal ENT inspection Neck: supple Respiratory/Chest: lungs clear, normal breath sounds, no respiratory distress, no accessory muscle use Cardiovascular: regular rate, rhythm, no murmur Abdomen: normal bowel sounds, non tender, soft, + pertinent finding ( gastrostomy tube patent and clean) Extremities: normal range of motion, non-tender, normal inspection Neurologic/Psychiatric: alert, normal mood/affect, oriented x 3 Skin: normal color, warm/dry, no rash Lymphatic: no adenopathy Laboratory Results Results Past 24 Hours Test 09/14/16 20:34 09/15/16 05:35 09/15/16 12:01 09/15/16 13:00 Range/Units Bedside Glucose 99 76 70-90 mg/dl White Blood Count 5.08 4.8-10.8 K/uL Red Blood Count 3.76 4.2-5.4 M/uL Hemoglobin 11.1 12.0-16.0 g/dL Hematocrit 33.2 37-47 % Mean Corpuscular Volume 88.3 80-100 fL Mean Corpuscular Hemoglobin 29.5 25-34 pg Mean Corpuscular Hemoglobin Concent 33.4 32-36 g/dl RDW Standard Deviation 56.3 36.4-46.3 fL RDW Coefficient of Variation 18.5 11.5-14.5 % Platelet Count 177 130-400 K/uL Mean Platelet Volume 11.2 7.4-10.4 fL Sodium Level 143 143 136-145 mmol/L Potassium Level 4.3 4.2 3.5-5.1 mmol/L Chloride Level 107 107 98-107 mmol/L Carbon Dioxide Level 26 23 21-32 mmol/L Anion Gap 10.0 13.0 3-11 mmol/L Blood Urea Nitrogen 20 20 7-18 mg/dl Creatinine 1.40 1.40 0.60-1.20 mg/dl Est Creatinine Clear Calc Drug Dose 49.0 49.0 ml/min Estimated GFR () 48.6 48.6 Estimated GFR (Non- 41.9 41.9 BUN/Creatinine Ratio 14.5 14.2 10-20 Random Glucose 107 77 70-99 mg/dl Calcium Level 8.7 9.0 8.5-10.1 mg/dl Phosphorus Level 4.0 2.5-4.9 mg/dl Magnesium Level 2.2 1.8-2.4 mg/dl Assessment and Plan 56 yo f with a h/o ovarian cancer with peritoneal carcinomatosis that was suffering from a fever secondary to a bacteremia associated to PICC line with Strep. Blood cx negative x 2 so plan is to replace PICC. w/u brain mets negative. Patient plans to return to palliative chemo after d/c. Bacteremia with Strep species - BCX2 -Strep species, source is from PICC - sensitive to Ampicillin - blood cx repeat neg x 2 09/11 - PICC placed 09/15- plan is d/c home tomorrow morning with ampicillin for 7 more days - Influenza PCR -negative - ID consult- appreciate input Intractable Nausea and vomiting, - Resolved; h/o SBO and gastric outlet obs with G Tube - Gen surg was consult for worsening N&V- no obstruction noted - appreciate input - Zofran 4 mg q4h PRN , compazine 10 mg q6h for nausea and vomiting, Ativan 1 mg q4h for nausea/sedation - increase Dilaudid 1 mg mg q2h PRN pain - continue TPN - MRI head ordered for possible brain mets considering aggressive ovarian cancer , headaches , N/V- no mets Metastatic Ovarian CA- pt on palliative chemo with plans to return to this as soon as possible -declines palliative consult - For pain control, additionally added fentanyl 25 mcg patch Anemia- possibly secondary to chemo vs anemia of chronic disease -Hgb 7.2 today--> received 2 units PRBCs - improved to 11.2 -follow CBC Nutrition: - TPN via central port for now and then will need PICC if o go home again on TPN Clear liquid diet for comfort DVT prophylaxis: SCDs, will avoid heparin( recent thrombocytopenia s/p platelet transfusion) Dispo: Med/surg Full Code-discussed with pt without family present and she definitely still wants to pursue chemo when she recovers from bacteremia PT/OT Resident Physician Supervision Note: I interviewed and examined the patient. Discussed with Dr. Villela and agree with findings and plan as documented in the note. Any exceptions or clarifications are listed here: None Documented By: Gordon Patel feeling better, still some abdominal pain this AM but relates that this may have been due to anxiety as much as anything. this is better. awaiting arrangements for IV abx vitals noted, nad, breathing unlabored, no neuro deficits bacteremia - ongoing IV abx metastatic ovarian cancer - ongoing symptomatic care Continued [facility] stay due to: multiple IV medications needed, other Discharge planning: home with home health
[2016-09-15 15:26] VITALS: BP 112/63; PULSE 96; TEMP 36.5; O2SAT 91
--- NOTE | 2016-09-15 15:35 | Infectious Disease Progress Nt ---
Progress Note Date of Service Sep 15, 2016. Subjective Pt evaluation today including: conversation w/ patient, physical exam, chart review, lab review, review of studies, conversation w/ publicity consultant, review of inpatient medication list Patient without further vomiting. Pain controlled. Remains afebrile. New PICC line placed. All Other Systems: Reviewed and Negative Medications Current Inpatient Medications Medications (Trade) Dose Ordered Sig/Mendoza Route Start Time Stop Time Status Last Admin Dose Admin Acetaminophen (Tylenol Tab) 650 mg Q4H PRN PO 09/07/16 14:30 10/07/16 14:29 Al Hydrox/Mg Hydrox/Simethicone (Maalox Max Susp) 15 ml Q4H PRN PO 09/07/16 14:30 10/07/16 14:29 Ondansetron HCl 4 mg 4 mg Q6H PRN IV 09/07/16 14:30 10/07/16 14:29 09/15/16 08:54 4 MG Prochlorperazine Edisylate/Syringe (Compazine Inj/ Syringe) 10 ml @ 5 mls/min Q6H PRN IV 09/07/16 17:45 10/07/16 17:44 09/08/16 14:30 5 MLS/MIN Bacitracin (Bacitracin Oint) 1 appln BID EXT 09/08/16 13:00 10/08/16 12:59 09/15/16 07:51 1 APPLN Lorazepam 1 mg 1 mg Q4H PRN IV 09/08/16 20:00 10/08/16 19:59 09/08/16 22:12 1 MG Acetaminophen 650 mg/Empty Bag 65 ml @ 260 mls/hr Q6H PRN IV 09/08/16 20:00 10/08/16 19:59 09/13/16 12:42 260 MLS/HR Lorazepam/Syringe (Ativan Inj/ Syringe) 1 ml @ 1 mls/min Q4H PRN IV 09/08/16 21:30 10/08/16 21:29 09/14/16 23:06 1 MLS/MIN Miscellaneous Information (Pharmacy Tpn/ Ppn Consult Active) 1 ea UD PRN N/A 09/09/16 16:00 10/09/16 15:59 Miscellaneous Information (Pending Order) 1 ea DAILY@0900,1700 N/A 09/09/16 17:00 10/09/16 16:59 09/15/16 08:57 1 EA Heparin Sodium (Porcine) (Heparin 10 Unit/ ml 5 ml Flush) 5 ml PRN PRN FLUSH 09/10/16 00:15 10/10/16 00:14 09/10/16 14:08 5 ML Heparin Sodium (Porcine) 5 ml 5 ml PRN PRN IV 09/10/16 00:15 10/10/16 00:14 09/14/16 10:59 5 ML Famotidine/ Dextrose (Pepcid IV Inj/ D5 100ml) 102 ml @ 200 mls/hr Q12H IV 09/11/16 18:00 10/11/16 17:59 09/15/16 06:00 200 MLS/HR Hydromorphone HCl 1 mg 1 mg Q2H PRN IV 09/13/16 11:45 09/27/16 11:44 09/15/16 14:28 1 MG Ampicillin Sodium/ Sodium Chloride (Ampicillin Iv/ Nss Ad-Van 100ml) 108 ml @ 216 mls/hr Q4@0200,0600,1000,1400,1800,2200 IV 09/14/16 06:40 09/24/16 06:39 09/15/16 14:24 216 MLS/HR Miscellaneous Information 1 ea 1 ea QS N/A 09/14/16 16:00 10/14/16 15:59 09/15/16 07:51 1 EA Nutrition (Parenteral) (Custom Central Pn) 0 ml @ 0 mls/hr TODAY@1600 IV 09/14/16 16:00 09/15/16 15:59 09/14/16 16:10 0 MLS/HR Fentanyl (Duragesic Patch) 25 mcg Q3D@0930 TD 09/15/16 09:30 09/29/16 09:29 09/15/16 10:14 25 MCG Miscellaneous 1 ea 1 ea Q3D@0929 N/A 09/15/16 09:29 10/15/16 09:28 09/15/16 10:16 1 EA Nutrition (Parenteral) (Custom Central Pn) 0 ml @ 0 mls/hr TODAY@1600 IV 09/15/16 16:00 09/16/16 15:59 Objective Vital Signs Date Time Temp Pulse Resp B/P Pulse Ox O2 Delivery O2 Flow Rate FiO2 09/15/16 15:26 36.5 96 20 112/63 91 Room Air 09/15/16 11:15 36.5 94 22 117/77 93 Room Air 09/15/16 08:00 Room Air 09/15/16 07:32 36.5 68 18 125/65 96 Room Air 09/15/16 03:39 36.7 78 18 103/71 95 Room Air 09/15/16 00:00 Room Air 09/14/16 23:44 36.9 84 16 127/75 93 Room Air 09/14/16 20:39 36.5 84 16 142/86 98 Room Air 09/14/16 16:00 94 Room Air Physical Exam General Appearance: WD/WN, no apparent distress Eyes: normal inspection, sclerae normal ENT: normal ENT inspection, pharynx normal Neck: supple, no adenopathy, trachea midline Respiratory/Chest: chest non-tender, lungs clear, normal breath sounds, no respiratory distress Cardiovascular: regular rate, rhythm, no gallop, no murmur Abdomen: normal bowel sounds, non tender, soft, no organomegaly Extremities: non-tender, no calf tenderness Neurologic/Psychiatric: alert, oriented x 3 Skin: normal color, warm/dry, no rash Lymphatic: no adenopathy Laboratory Results Last 24 Hours Test 09/14/16 20:34 09/15/16 05:35 09/15/16 12:01 09/15/16 13:00 Bedside Glucose 99 mg/dl 76 mg/dl White Blood Count 5.08 K/uL Red Blood Count 3.76 M/uL Hemoglobin 11.1 g/dL Hematocrit 33.2 % Mean Corpuscular Volume 88.3 fL Mean Corpuscular Hemoglobin 29.5 pg Mean Corpuscular Hemoglobin Concent 33.4 g/dl RDW Standard Deviation 56.3 fL RDW Coefficient of Variation 18.5 % Platelet Count 177 K/uL Mean Platelet Volume 11.2 fL Sodium Level 143 mmol/L 143 mmol/L Potassium Level 4.3 mmol/L 4.2 mmol/L Chloride Level 107 mmol/L 107 mmol/L Carbon Dioxide Level 26 mmol/L 23 mmol/L Anion Gap 10.0 mmol/L 13.0 mmol/L Blood Urea Nitrogen 20 mg/dl 20 mg/dl Creatinine 1.40 mg/dl 1.40 mg/dl Est Creatinine Clear Calc Drug Dose 49.0 ml/min 49.0 ml/min Estimated GFR () 48.6 48.6 Estimated GFR (Non- 41.9 41.9 BUN/Creatinine Ratio 14.5 14.2 Random Glucose 107 mg/dl 77 mg/dl Calcium Level 8.7 mg/dl 9.0 mg/dl Phosphorus Level 4.0 mg/dl Magnesium Level 2.2 mg/dl Assessment and Plan Choose 56-year-old female with metastatic ovarian carcinoma on chemotherapy now with interim in enterococcal bacteremia from infected PICC line, now removed. As discussed, patient has been changed to IV ampicillin, and will require 2 weeks of IV therapy. Repeat blood cultures are negative. We will continue to follow.
[2016-09-15] MEDS ORDERED: CUSTOM CENTRAL PN 1 BAG IV SCH (16:00)
[2016-09-15 19:53] VITALS: BP 106/73; PULSE 88; TEMP 36.6; O2SAT 94
[2016-09-15 23:38] VITALS: BP 123/76; PULSE 78; TEMP 36.7; O2SAT 94
[2016-09-15] MEDS: LORAZEPAM INJ 1 MG in SYRINGE 0.5 ML IV PRN (23:47)
[2016-09-16] MEDS: AMPICILLIN IV 2,000 MG in SODIUM CHLOR 0.9% AD-VAN 100ML 100 ML IV SCH ×3 (02:00→10:09)
[2016-09-16 04:10] VITALS: BP 127/82; PULSE 79; TEMP 36.6; O2SAT 95
[2016-09-16] MEDS: FAMOTIDINE IV INJ 20 MG in DEXTROSE 5% 100ML 100 ML IV SCH (05:22)
[2016-09-16 05:33] LABS: HEMATOCRIT 31.6 % (37-47); MEAN CELL VOLUME 90.5 fL (80-100); MEAN CORPUSCULAR HEMOGLOBIN 28.9 pg (25-34); MEAN PLATELET VOLUME 10.7 fL (7.4-10.4); PLATELET COUNT 164 K/uL (130-400); RED BLOOD COUNT 3.49 M/uL (4.2-5.4); WHITE BLOOD COUNT 4.46 K/uL (4.8-10.8)
[2016-09-16 06:05] LABS: CREATININE 1.4 mg/dl (0.60-1.20)
[2016-09-16 06:06] LABS: BUN/CREATININE RATIO 14.4 (10-20); CALCIUM 8.4 mg/dl (8.5-10.1); POTASSIUM 4.5 mmol/L (3.5-5.1)
[2016-09-16 07:48] VITALS: BP 135/78; PULSE 76; TEMP 36.6; O2SAT 93
[2016-09-16] MEDS: CHECK FENTANYL PATCH PLACEMENT SCH (08:00)
[2016-09-16] MEDS: BACITRACIN OINT 15 GM TUBE EXT SCH (10:09)
[2016-09-16 10:25] LABS: MAGNESIUM 2.2 mg/dl (1.8-2.4); PHOSPHORUS 4.2 mg/dl (2.5-4.9)
[2016-09-16 11:24] VITALS: BP 127/78; PULSE 83; TEMP 36.6; O2SAT 94
[2016-09-16] MEDS: ONDANSETRON INJ 2 MG/ML 2 ML VIAL IV PRN (11:49)
[2016-09-16] MEDS ORDERED: DAPTOmycin IV 625 MG in SODIUM CHLORIDE 0.9% 50ML 50 ML IV SCH (12:00)
[2016-09-16] MEDS: HYDROmorphone INJ 1 MG/ML SYR IV PRN (12:28)
[2016-09-16] MEDS: PROCHLORPERAZINE INJ 10 MG in SYRINGE 8 ML IV PRN (12:43)
--- NOTE | 2016-09-16 13:05 | Discharge Instructions ---
Discharge Instructions Admission Reason for Admission: Chemotherapy Induced Nausea And Vomiting Discharge Discharge Diagnosis / Problem: bacteremia Discharge Goals Goal(s): Decrease discomfort, Improve disease control, Improve nutritional status Activity Recommendations Activity Limitations: resume your previous activity Lifting Limitations: none Exercise/Sports Limitations: as tolerated Shower/Bathe: no limitations . Instructions / Follow-Up Instructions / Follow-Up You were admitted to the hospital because of worsening nausea and vomiting. While admitted you were found to have positive blood cultures. This means we found some bacteria in your blood. The type of bacteria is called streptomycin. When we cultured your PICC we were able to find that that was the source of the infection. This is not uncommon when you have a mcc line placed especially when you receive TPN. You were treated with the appropriate antibiotics and this will be continue in the outpatient setting. This has been arranged with case management.We also had the PICC replaced once we had a normal blood culture returned. As you have worsening nausea and vomiting we also checked imagining of the brain to make sure there was no acute changes and this imaging with normal. Your hemoglobin (blood count) also decreased which could be a result of your chemotherapy. You received 2 units of blood for this and your blood count has been stable since. We recommend you get a blood count recheck with your oncologist/ PCP in the next week or so. We also recommend you get your BMP rechecked by Wednesday as there was a minimal bump in your creatinine. You did received some fluids but we would like you to recheck it to make sure it improves. 1. Continue your Antibiotics as prescribed, script has been sent to the agency 2. Repeat BMP by wednesday 3. Please follow up with your PCP wednesday/ and discuss a repeat blood count (CBC) 4. If you have worsening of symptoms, develop a fever > 102F, chest pain please return to the ED Current Hospital Diet Patient's current hospital diet: Clear Liquid Diet Discharge Diet Recommended Diet: N/A Pending Studies Studies pending at discharge: no Laboratory Results Lipid Panel Test 09/10/16 05:20 Range/Units Triglycerides Level 142 0-150 mg/dl Medical Emergencies . Who to Call and When: Medical Emergencies: If at any time you feel your situation is an emergency, please call 911 immediately. . Non-Emergent Contact Non-Emergency issues call your: Primary Care Provider . . "Provider Documentation" section prepared by Mackenzie Villela. VTE Core Measure Inpt VTE Proph given/why not?: SCD's
--- NOTE | 2016-09-16 13:14 | Discharge Summary ---
Discharge Summary Admission Date: Sep 07, 2016 at 14:26 Discharge Date: Sep 10, 2016 Discharge Disposition: Home with services Principal Diagnosis: Bacteremia Problems/Secondary Diagnoses: (1) Esophageal Reflux Status: Chronic (2) Morbid Obesity Status: Chronic (3) Primary cancer of peritoneum Status: Chronic Immunizations: Have You Had Influenza Vaccine: Yes History of Tetanus Vaccine?: UTD History of Pneumococcal: No History of Hepatitis B Vaccine: No (Mackenzie Villela MD) Medication Reconciliation Continued Medications: Fentanyl (Fentanyl) 25 Mcg Tdsy 25 MCG TOP [id number] Hydromorphone Hcl (Hydromorphone Hcl) 2 Mg Tab 2-4 MG PO Q3HRS PRN for Pain Metoclopramide Hcl (Metoclopramide Hcl) 5 Mg Tab 5 MG PO Q6H PRN for Indigestion/Nausea Ondansetron (Ondansetron HCl) 4 Mg Tab 4 MG PO UD PRN for Nausea Oxycodone HCl (Oxycodone HCl) 5 Mg/5 Ml Soln 15 ML PO UD PRN for Pain Discharge Exam Patient feeling well, a little fatigued this morning Pain is under good control Denies any N&V questions and concerns regarding discharge was addressed and patient is agreeable with plan Review of Systems: Constitutional: No fever Eyes: No worsening of vision ENT: No hearing loss Respiratory: No cough, No dyspnea at rest, No dyspnea on exertion, No shortness of breath, No sputum, No wheezing Cardiovascular: No chest pain Abdomen: + nausea, + pain, No constipation, No diarrhea, No vomiting Musculoskeletal: No joint pain, No muscle pain Genitourinary - Female: No dysuria, No urinary frequency Neurologic: + balance problems, + weakness, No memory loss, No numbness/ tingling, No paralysis Endocrine: + fatigue Hematologic / Lymphatic: No abnormal bleeding/bruising Integumentary: No rash (Mackenzie Villela MD) Hospital Course 56 yo f with a h/o ovarian cancer with peritoneal carcinomatosis that was suffering from a fever secondary to a bacteremia associated to PICC line with Strep. She was treated with broad spectrum antibiotics and once sensitivities returned she was changed to Ampicillin. Once the blood culture was negative a PICC was replaced and as per ID she was d/c home with daptomycin. Home antibiotics Iv therapy was arranged prior to d/c by case management. She did have intractable N&V which was concerning considering her PMHx of SBO and mets. A MRI of the brain did not reveal any met and gen surgery did not feel the patient was suffering from an acute abdomen. Her N&V is currently under good control on dc/. She was also found to have a decrease in her hgb to 7.2. She received 2 units of blood and has been stable since. Most likely secondary to chemo however it is recommended she get a follow up CBC. She also had a very mild elevation of Cr to 1.4. She was given fluids and it remained stable. She was given a script to check it on Wednesday. She was also told to try and follow up on Wednesday/ Wednesday or next week. 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 - Gen surg was consult for worsening N&V- no obstruction noted - MRI head ordered for possible brain mets considering aggressive ovarian cancer , headaches , N/V- no mets Anemia- possibly secondary to chemo vs anemia of chronic disease -Hgb 7.2 --> received 2 units PRBCs - improved to 11.2 and stable around 10 - Rec recheck of CBC next week Full Code-discussed with pt without family present and she definitely still wants to pursue chemo when she recovers from bacteremia Total Time Spent: Less than 30 minutes This includes examination of the patient, discharge planning, medication reconciliation, and communication with other providers. (Mackenzie Villela MD) Resident Physician Supervision Note: I interviewed and examined the patient. Discussed with Dr. Villela and agree with findings and plan as documented in the note. Any exceptions or clarifications are listed here: None Documented By: Gordon Patel feeling better, wants to go home. notes pain under better control vitals noted, nad, no pallor or icterus. breathing unlabored bacteremia - ongoing ampicillin metastatic ovarian cancer - continue pain control. otherwise as above. stable for home. close ongoing outpt f/u Total Time Spent: Less than 30 minutes (Gordon Patel, D.O.) Discharge Instructions Please refer to the electronic Patient Visit Report (Discharge Instructions) for additional information. (Mackenzie Villela MD) Additional Copies To Marsha Espinoza C.R.N.P
[2016-09-16 13:17] VITALS: BP 127/78; PULSE 83; TEMP 36.6; O2SAT 94
[2016-09-16] MEDS ORDERED: CUSTOM CENTRAL PN 1 BAG IV SCH (16:00)
[2016-09-25] MEDS ORDERED: OMEP40CA41 PO (16:35)
[2016-09-25] MEDS ORDERED: LORA-741 PO (16:35)
[2016-09-25] MEDS ORDERED: DRGTP12 TD (16:35)
[2016-09-25] MEDS ORDERED: ANT25 PO (16:35)
[2016-09-25] MEDS ORDERED: METO5TAB2 PO (16:35)
[2016-09-25] MEDS ORDERED: Boost Nutritional Drink PO (16:35)
[2016-09-25] MEDS ORDERED: CLX20 PO (16:35)
[2016-09-25] MEDS ORDERED: HYDR2TAB2 PO (18:23)
[2016-10-10] MEDS ORDERED: DRGTP100 TD (10:57)
[2016-10-10] MEDS ORDERED: ATV1 SL (10:57)
[2016-10-10] MEDS ORDERED: FNTTP25 TOP (10:57)
== END 2016-09-16 15:24 | disposition home or self-care (01) | DRG 872 ==
LOC: ENRESERVTM → ENRESERVDT → C.EDB 10:09 → C.4E 14:26
PROVIDERS: ADMIT Family Medicine; ATTEND Family Medicine
DX: R78.81 Bacteremia (principal); T80.211A Bloodstream infection due to central venous catheter, initial encounter; Z68.41 Body mass index [BMI] 40.0-44.9, adult; C48.1 Malignant neoplasm of specified parts of peritoneum; J98.11 Atelectasis; J90 Pleural effusion, not elsewhere classified; C79.60 Secondary malignant neoplasm of unspecified ovary; K21.9 Gastro-esophageal reflux disease without esophagitis; E66.01 Morbid (severe) obesity due to excess calories; K43.9 Ventral hernia without obstruction or gangrene; N20.0 Calculus of kidney; K76.0 Fatty (change of) liver, not elsewhere classified; N28.1 Cyst of kidney, acquired; M47.896 Other spondylosis, lumbar region; K43.2 Incisional hernia without obstruction or gangrene; D64.81 Anemia due to antineoplastic chemotherapy; Z93.1 Gastrostomy status; B95.2 Enterococcus as the cause of diseases classified elsewhere; Y84.8 Other medical procedures as the cause of abnormal reaction of the patient, or of later complication, without mention of misadventure at the time of the procedure; Z51.5 Encounter for palliative care; R11.2 Nausea with vomiting, unspecified; Z82.49 Family history of ischemic heart disease and other diseases of the circulatory system

== ENCOUNTER 2016-09-20 00:44 | Inpatient (IN) | payer OTHER ==
[~2016-09-20] VITALS: Ht 154.9 cm; Wt 102.0 kg
[2016-09-20] VITALS (9 sets, daily range): BP systolic 82–132; BP diastolic 52–75; PULSE 70–92; TEMP 36.4–36.6; O2SAT 94–96; BMI 40.3
[2016-09-20] MEDS ORDERED: SODIUM CHLORIDE 0.9% 500ML 500 ML IV STA (00:50)
[2016-09-20] MEDS ORDERED: SODIUM CHLORIDE 0.9% 1000ML 1,000 ML IV STA (00:50)
[2016-09-20] MEDS ORDERED: MoRPHine SULFATE 4 MG/ML 1 ML CARP\\VIAL IV STA ×2 (00:50→02:19)
[2016-09-20] MEDS ORDERED: ONDANSETRON INJ 2 MG/ML 2 ML VIAL IV STA (00:50)
[2016-09-20] MEDS ORDERED: METOCLOPRAMIDE HCL INJ 5 MG/ML 2 ML VIAL IV STA (01:28)
[2016-09-20] MEDS ORDERED: OXYC1TAB3 PO (01:30)
[2016-09-20 02:13] LABS: BASO % 0.2 %; BASO ABS # 0.02 K/uL (0-0.2); COMPLETE YES; EOS % 0.5 %; HEMATOCRIT 38.7 % (37-47); IG% 0.3 %; LYMPH % 11.7 %; LYMPH ABS # 1.35 K/uL (1.2-3.4); MEAN CELL VOLUME 88.4 fL (80-100); MEAN CORPUSCULAR HEMOGLOBIN 29.9 pg (25-34); MEAN CORPUSCULAR HGB CONC 33.9 g/dl (32-36); MEAN PLATELET VOLUME 10.9 fL (7.4-10.4); NEUT % 74.3 %; PLATELET COUNT 300 K/uL (130-400); RED BLOOD COUNT 4.38 M/uL (4.2-5.4); WHITE BLOOD COUNT 11.56 K/uL (4.8-10.8)
[2016-09-20 02:29] LABS: INR 1.1 (0.9-1.1); PARTIAL THROMBOPLASTIN RATIO 1.1; PROTHROMBIN TIME (PATIENT) 11.8 SECONDS (9.0-12.0)
[2016-09-20] MEDS ORDERED: OPTIRAY 320 IV PRN (02:30)
[2016-09-20 02:31] LABS: ALT/SGPT 71 U/L (12-78); AST/SGOT 51 U/L (15-37); BLOOD UREA NITROGEN 40 mg/dl (7-18); CARBON DIOXIDE 32 mmol/L (21-32); CHLORIDE 97 mmol/L (98-107); GLUCOSE 82 mg/dl (70-99); MAGNESIUM 2.1 mg/dl (1.8-2.4); POTASSIUM 2.7 mmol/L (3.5-5.1); SODIUM 140 mmol/L (136-145)
[2016-09-20 02:36] LABS: ALB/GLOB RATIO 0.7 (0.9-2); ALKALINE PHOSPHATASE 137 U/L (45-117)
[2016-09-20] MEDS ORDERED: POTASSIUM CHLORIDE 10 MEQ TABCR PO STA (02:37)
[2016-09-20] MEDS ORDERED: POTASSIUM CHLORIDE 10 MEQ / 100ML WTR IV STA (02:37)
[2016-09-20] MEDS ORDERED: METOCLOPRAMIDE HCL INJ 5 MG/ML 2 ML VIAL IV PRN (04:45)
[2016-09-20] MEDS ORDERED: ZOLPIDEM TARTRATE 5 MG TAB PO PRN ×2 (04:45)
[2016-09-20] MEDS ORDERED: HYDROmorphone INJ 1 MG/ML SYR IV PRN (04:45)
[2016-09-20] MEDS ORDERED: ACETAMINOPHEN 325 MG TAB PO PRN ×2 (04:45)
[2016-09-20] MEDS ORDERED: DiphenhydrAMINE HCL 50 MG/ML VIAL IV PRN (04:45)
[2016-09-20] MEDS ORDERED: ACETAMINOPHEN IV 100 ML IV PRN (04:45)
[2016-09-20] MEDS ORDERED: FENTANYL 25 MCG/HR TDSY TD SCH (04:45)
[2016-09-20] MEDS ORDERED: PROMETHAZINE HCL INJ 12.5 MG in SODIUM CHLORIDE 0.9% 50ML 50 ML IV PRN (04:45)
[2016-09-20] MEDS ORDERED: LORAZEPAM 2 MG/ML 1 ML VIAL IV PRN ×2 (04:45)
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
[2016-09-20] MEDS ORDERED: SODIUM CHLORIDE 0.9% 1000ML 1,000 ML IV SCH (05:45)
[2016-09-20] MEDS ORDERED: PIPERACILL/TAZOBAC IV 3.375 GM in DEXTROSE 5% 100ML 100 ML IV SCH (06:00)
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
[2016-09-20] MEDS: HYDROmorphone INJ 1 MG/ML SYR IV PRN ×3 (06:13→20:21)
[2016-09-20] MEDS ORDERED: PIPERACILL/TAZOBAC IV 4.5 GM in DEXTROSE 5% 100ML IV ONE (06:15)
[2016-09-20] MEDS ORDERED: PIPERACILL/TAZOBAC CONSULT ACTIVE PRN (06:15)
[2016-09-20] MEDS ORDERED: SODIUM CHLORIDE 0.9% IV SCH (08:00)
[2016-09-20] MEDS ORDERED: DAPTOMYCIN IV SCH (08:00)
--- NOTE | 2016-09-20 08:00 | DIAGNOSTIC IMAGING REPORT ---
CHEST ONE VIEW PORTABLE HISTORY: Upper abdominal pain. Epigastric pain. COMPARISON: Chest 09/10/2016. FINDINGS: No pneumothorax. No pleural effusions. Linear density at the left lung base likely represents scarring or subsegmental atelectasis. The lungs are otherwise clear. The heart is stable in size. There is a left subclavian Port-A-Cath and PICC which terminates in the SVC. IMPRESSION: No acute process. Electronically signed by: Joshua Morales M.D. 09/20/2016 7:58 AM Dictated Date/Time: 09/20/2016 7:57 AM
[2016-09-20] MEDS: CHECK FENTANYL PATCH PLACEMENT SCH ×2 (08:05→15:57)
[2016-09-20] MEDS ORDERED: NURSING VERBAL MED ORDER ONE (08:15)
[2016-09-20] MEDS ORDERED: SODIUM CHLORIDE 0.9% 1000ML 1,000 ML IV ONE (08:30)
--- NOTE | 2016-09-20 08:34 | DIAGNOSTIC IMAGING REPORT ---
ABDOMEN AND PELVIS CT WITHOUT CONTRAST CT DOSE: 1076.97 mGy.cm HISTORY: Generalized abdominal pain. Ovarian cancer. TECHNIQUE: Multiaxial CT images of the abdomen and pelvis were performed without contrast. COMPARISON STUDY: Abdomen and pelvis CT 09/07/2016. FINDINGS: Trace bilateral pleural effusions, unchanged. Prior cholecystectomy. The unenhanced liver, spleen, adrenal glands, and pancreas are unremarkable. There is a 3 mm stone within the lower pole the right kidney. No hydronephrosis. Bilateral peripelvic renal cysts are again noted. A percutaneous gastrostomy tube is in good position. No significant retroperitoneal lymphadenopathy. Small midline ventral hernia containing a short segment of small bowel. This remains unchanged. No evidence for bowel obstruction. The bladder is not well-distended but appears unremarkable. The uterus is surgically absent. No bowel wall thickening. A few fluid-filled loops of small bowel within the anterior abdomen which are nondilated this time. The majority without decompressed. Omental soft tissue thickening/nodularity persists consistent with the patient's history of carcinomatosis. Stable 2.8 cm low density lesion seen within the right pelvis. IMPRESSION: 1. Overall, no significant change compared to the prior study. 2. Omental thickening/nodularity consistent with peritoneal carcinomatosis. 3. Right-sided nephrolithiasis. No hydronephrosis. 4. Trace bilateral pleural effusions. 5. Stable small midline ventral hernia containing a short segment of small bowel. No evidence for bowel obstruction at this time. 6. Stable 2.8 cm low density lesion within the right pelvis. 7. Additional findings as described above. Electronically signed by: Joshua Morales M.D. 09/20/2016 8:32 AM Dictated Date/Time: 09/20/2016 8:24 AM
[2016-09-20 09:20] LABS: BASO % 0.3 %; BASO ABS # 0.03 K/uL (0-0.2); EOS % 0.9 %; HEMATOCRIT 35.5 % (37-47); IG% 0.3 %; LYMPH % 14.6 %; LYMPH ABS # 1.32 K/uL (1.2-3.4); MEAN CELL VOLUME 90.8 fL (80-100); MEAN CORPUSCULAR HEMOGLOBIN 30.2 pg (25-34); MEAN PLATELET VOLUME 11.1 fL (7.4-10.4); MONO % 13.3 %; NEUT % 70.6 %; PLATELET COUNT 266 K/uL (130-400); RED BLOOD COUNT 3.91 M/uL (4.2-5.4); WHITE BLOOD COUNT 9.05 K/uL (4.8-10.8)
[2016-09-20 09:32] LABS: COMPLETE YES; MEAN CORPUSCULAR HGB CONC 33.2 g/dl (32-36)
[2016-09-20 09:46] LABS: BUN/CREATININE RATIO 20.3 (10-20); CALCIUM 8.4 mg/dl (8.5-10.1); CREATININE 2.1 mg/dl (0.60-1.20); POTASSIUM 2.9 mmol/L (3.5-5.1)
[2016-09-20] MEDS ORDERED: POTASSIUM CHLORIDE INJ 40 MEQ in SODIUM CHLORIDE 0.9% 1000ML 1,000 ML IV SCH (10:00)
[2016-09-20] MEDS: PIPERACILL/TAZOBAC IV 4.5 GM in DEXTROSE 5% 100ML IV SCH ×2 (10:27→18:05)
--- NOTE | 2016-09-20 10:42 | Oncology Consultation ---
Oncology/Heme Consultation Date of Consultation: Sep 20, 2016. Attending Physician: Bridger Brooks M.D. Reason for Consultation: Ovarian cancer History of Present Illness Ms. Mcbride presented last night with fatigue and near syncope. She has been receiving chemotherapy with Dr. Burgess but has continued to decline clinically. Her appetite is [id number]-[id number]-existent. She is spending most of the day in bed. She had some mild nausea with chemo and one episode of vomiting, but she doesn' t think the nausea is why she wasn't eating. She is moving her bowels normally and last had a BM two days ago. She denies any worsening pain, though she is stably mildly tender in her abdomen. Past Medical/Surgical History Medical Problems: (1) Abdominal pain Status: Acute (2) Acute kidney injury Status: Acute (3) Bowel obstruction Status: Acute (4) Carcinomatosis Status: Acute (5) Dehydration Status: Acute (6) Dehydration Status: Acute (7) Diffuse abdominal pain Status: Acute (8) Esophageal Reflux Status: Chronic (9) Failure of outpatient treatment Status: Acute (10) Intractable abdominal pain Status: Acute (11) Left flank pain Status: Acute (12) Lower abdominal pain Status: Acute (13) Morbid Obesity Status: Chronic (14) Ovarian cancer Status: Acute (15) Ovarian cancer Status: Acute (16) Precordial chest pain Status: Acute (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 (18) Small bowel obstruction Status: Acute (19) UTI (urinary tract infection) Status: Acute Family History Diabetes mellitus FH: heart disease Hypertension Social History Smoking Status: Never Smoker Smokeless Tobacco Use: No Alcohol Use: none Drug Use: none Marital Status: Housing Status: lives with family Occupation Status: retired Allergies Coded Allergies: Sulfa Antibiotics (Verified Allergy, Intermediate, HIVES, 09/20/16) PT HAS REMOTE HISTORY OF REACTION TO "SULFA DRUG" - PER PT, UNSURE WHICH DRUG, BUT THOUGHT IT WAS AN ANTIBIOTIC Ipratropium (Verified Allergy, Unknown, `, 09/20/16) Levofloxacin (Verified Allergy, Unknown, `, 09/20/16) Codeine (Verified Adverse Reaction, Intermediate, NAUSEA, 09/20/16) Diphenhydramine (Verified Adverse Reaction, Mild, Restless leg, 09/20/16) Home Medications Scheduled Fentanyl (Fentanyl), 25 MCG TOP [id number] Scheduled PRN Hydromorphone Hcl (Hydromorphone Hcl), 2-4 MG PO Q3HRS PRN for Pain Metoclopramide Hcl (Metoclopramide Hcl), 5 MG PO Q6H PRN for Indigestion/Nausea Ondansetron (Ondansetron HCl), 4 MG PO UD PRN for Nausea Oxycodone Immediate Rel Tab (Roxicodone Ir), 1 TAB PO UD PRN for Pain Current Inpatient Medications Current Inpatient Medications Medications (Trade) Dose Ordered Sig/Mendoza Route Start Time Stop Time Status Last Admin Dose Admin Ioversol (Optiray 320) 100 ml UD PRN IV 09/20/16 02:30 2 02:29 Zolpidem Tartrate (Ambien Tab) 5 mg HSZ PRN PO 09/20/16 04:45 10/20/16 04:44 Lorazepam (Ativan Inj) 0.5 mg Q4H PRN IV 09/20/16 04:45 10/20/16 04:44 Lorazepam (Ativan Inj) 1 mg Q4H PRN IV 09/20/16 04:45 10/20/16 04:44 Acetaminophen (Tylenol Tab) 650 mg Q4H PRN PO 09/20/16 04:45 10/20/16 04:44 Diphenhydramine HCl 25 mg 25 mg Q4H PRN IV 09/20/16 04:45 10/20/16 04:44 Promethazine HCl/ Sodium Chloride (Phenergan Inj/ Nss 50ml) 50.5 ml @ 202 mls/hr Q4H PRN IV 09/20/16 04:45 10/20/16 04:44 Ondansetron HCl (Zofran Inj) 4 mg Q6H PRN IV 09/20/16 04:45 10/20/16 04:44 Hydromorphone HCl (Dilaudid Inj) 1 mg Q2H PRN IV 09/20/16 04:45 10/04/16 04:44 09/20/16 06:13 1 MG Hydromorphone HCl (Dilaudid Inj) 0.5 mg Q2H PRN IV 09/20/16 04:45 10/04/16 04:44 Hydromorphone HCl 2 mg 2 mg Q2H PRN IV 09/20/16 04:45 10/04/16 04:44 Acetaminophen (Ofirmev Iv) 100 ml @ 400 mls/hr Q8H PRN IV 09/20/16 04:45 10/20/16 04:44 Metoclopramide HCl 10 mg 10 mg Q6H PRN IV 09/20/16 04:45 10/20/16 04:44 Daptomycin/Sodium Chloride (Cubicin IV/Nss 50ml) 62.6 ml @ 100 mls/hr DAILY IV 09/20/16 08:00 10/04/16 08:59 Future Hold 09/20/16 07:59 100 MLS/HR Fentanyl (Duragesic Patch) 25 mcg Q3D TD 09/22/16 08:00 10/06/16 07:59 Miscellaneous (Fentanyl Patch Remove & Waste) 1 ea Q3D N/A 09/22/16 08:00 10/22/16 07:59 Miscellaneous Information 1 ea 1 ea QS N/A 09/20/16 08:00 10/20/16 07:59 09/20/16 08:05 1 EA Piperacillin Sod/ Tazobactam Sod/ Dextrose (Zosyn Iv/D5 100ml) 120 ml @ 30 mls/hr Q8H IV 09/20/16 10:30 09/30/16 10:29 Piperacillin Sod/ Tazobactam Sod 1 ea 1 ea UD PRN N/A 09/20/16 06:15 10/20/16 06:14 Potassium Chloride/Sodium Chloride (KCl Inj/Nss 1000ml) 1,020 ml @ 125 mls/hr Q8H10M IV 09/20/16 10:00 10/20/16 09:59 Review of Systems Constitutional: + fatigue, + weakness, No chills, No fever Eyes: No eye pain ENT: No sore throat, No unusual epistaxis Respiratory: No cough, No shortness of breath Cardiovascular: No chest pain, No palpitations Abdomen: + nausea, + pain, + vomiting, No GI bleeding, No constipation, No diarrhea Musculoskeletal: No joint pain, No muscle pain Genitourinary - Female: No dysuria Neurologic: No numbness/tingling, No weakness Hematologic / Lymphatic: No abnormal bleeding/bruising, No swollen lymph nodes Integumentary: No rash Physical Exam Date Time Temp Pulse Resp B/P Pulse Ox O2 Delivery O2 Flow Rate FiO2 09/20/16 09:31 88 113/75 09/20/16 09:10 79 102/70 09/20/16 08:05 82/60 09/20/16 08:00 Room Air 09/20/16 07:34 36.4 92 18 86/52 95 Room Air 09/20/16 06:28 96 Room Air 09/20/16 05:59 36.4 70 20 132/64 09/20/16 05:14 92 20 125/81 98 09/20/16 04:30 96 19 128/86 96 Room Air 09/20/16 04:17 102 09/20/16 04:00 101 16 09/20/16 03:30 102 18 09/20/16 02:28 92 Room Air 09/20/16 02:23 109 20 123/91 93 Room Air 09/20/16 00:53 36.7 115 20 111/83 93 Room Air 09/20/16 00:52 114 General Appearance: no apparent distress, + pertinent finding (Chronically ill- appearing and very weak) Head: normocephalic, atraumatic Eyes: EOMI ENT: + pertinent finding (mucous membranes dry) Respiratory/Chest: chest non-tender, lungs clear Cardiovascular: regular rate, rhythm, no murmur Abdomen/GI: normal bowel sounds, soft, + tenderness (mildly tender to palpation diffusely) Extremities/Musculoskelatal: no pedal edema Neurologic/Psych: no motor/sensory deficits, alert, oriented x 3 Skin: no rash Lymphatic: no adenopathy Laboratory Results Last 24 Hours Test 09/20/16 00:50 09/20/16 02:00 09/20/16 02:08 09/20/16 02:09 White Blood Count 11.56 K/uL Red Blood Count 4.38 M/uL Hemoglobin 13.1 g/dL Hematocrit 38.7 % Mean Corpuscular Volume 88.4 fL Mean Corpuscular Hemoglobin 29.9 pg Mean Corpuscular Hemoglobin Concent 33.9 g/dl Platelet Count 300 K/uL Mean Platelet Volume 10.9 fL Neutrophils (%) (Auto) 74.3 % Lymphocytes (%) (Auto) 11.7 % Monocytes (%) (Auto) 13.0 % Eosinophils (%) (Auto) 0.5 % Basophils (%) (Auto) 0.2 % Neutrophils # (Auto) 8.59 K/uL Lymphocytes # (Auto) 1.35 K/uL Monocytes # (Auto) 1.50 K/uL Eosinophils # (Auto) 0.06 K/uL Basophils # (Auto) 0.02 K/uL RDW Standard Deviation 58.7 fL RDW Coefficient of Variation 18.7 % Immature Granulocyte % (Auto) 0.3 % Immature Granulocyte # (Auto) 0.04 K/uL Prothrombin Time 11.8 SECONDS Prothromb Time International Ratio 1.1 Activated Partial Thromboplast Time 28.5 SECONDS Partial Thromboplastin Ratio 1.1 Sodium Level 140 mmol/L Potassium Level 2.7 mmol/L Chloride Level 97 mmol/L Carbon Dioxide Level 32 mmol/L Anion Gap 11.0 mmol/L Blood Urea Nitrogen 40 mg/dl Creatinine 1.80 mg/dl Est Creatinine Clear Calc Drug Dose 38.9 ml/min Estimated GFR () 35.8 Estimated GFR (Non- 30.9 BUN/Creatinine Ratio 22.0 Random Glucose 82 mg/dl Calcium Level 9.0 mg/dl Magnesium Level 2.1 mg/dl Total Bilirubin 0.7 mg/dl Aspartate Amino Transf (AST/SGOT) 51 U/L Alanine Aminotransferase (ALT/SGPT) 71 U/L Alkaline Phosphatase 137 U/L Total Creatine Kinase 17 U/L Creatine Kinase MB < 0.5 ng/ml Creatine Kinase MB Ratio Total Protein 7.7 gm/dl Albumin 3.3 gm/dl Globulin 4.4 gm/dl Albumin/Globulin Ratio 0.7 Bedside Lactic Acid Venous 1.13 mmol/L Bedside Troponin I 0.010 ng/ml Test 09/20/16 08:30 White Blood Count 9.05 K/uL Red Blood Count 3.91 M/uL Hemoglobin 11.8 g/dL Hematocrit 35.5 % Mean Corpuscular Volume 90.8 fL Mean Corpuscular Hemoglobin 30.2 pg Mean Corpuscular Hemoglobin Concent 33.2 g/dl Platelet Count 266 K/uL Mean Platelet Volume 11.1 fL Neutrophils (%) (Auto) 70.6 % Lymphocytes (%) (Auto) 14.6 % Monocytes (%) (Auto) 13.3 % Eosinophils (%) (Auto) 0.9 % Basophils (%) (Auto) 0.3 % Neutrophils # (Auto) 6.39 K/uL Lymphocytes # (Auto) 1.32 K/uL Monocytes # (Auto) 1.20 K/uL Eosinophils # (Auto) 0.08 K/uL Basophils # (Auto) 0.03 K/uL RDW Standard Deviation 62.1 fL RDW Coefficient of Variation 18.8 % Immature Granulocyte % (Auto) 0.3 % Immature Granulocyte # (Auto) 0.03 K/uL Sodium Level 142 mmol/L Potassium Level 2.9 mmol/L Chloride Level 101 mmol/L Carbon Dioxide Level 28 mmol/L Anion Gap 13.0 mmol/L Blood Urea Nitrogen 43 mg/dl Creatinine 2.10 mg/dl Est Creatinine Clear Calc Drug Dose 31.8 ml/min Estimated GFR () 29.7 Estimated GFR (Non- 25.7 BUN/Creatinine Ratio 20.3 Random Glucose 76 mg/dl Calcium Level 8.4 mg/dl Assessment & Plan Ms. Mcbride presents with dehydration and ARTEMIO secondary to decreased oral intake. Globally, she is doing very poorly. She has been in and out of the hospital on a regular basis since the fall. She has insisted on continuing aggressive therapy despite this decline. This is now her fourth hospital stay this month alone. Her performance status is such that I think further chemotherapy would be ill-advised. I discussed with her the concept of hospice care, a conversation I know she has had before. She did not respond much, though she at least seemed to be considering it. I would recommend consulting palliative care in an attempt to help her come to terms with the situation she is facing. Otherwise, I would continue with supportive care as she is receiving.
[2016-09-20] MEDS ORDERED: DEXTROSE 10% 1,000 ML IV PRN (11:42)
[2016-09-20] MEDS ORDERED: CONSULT PHARMACY STA (11:42)
--- NOTE | 2016-09-20 11:42 | Progress Note ---
Subjective Date of Service: Sep 20, 2016. Subjective pt feels so-so, no further vomiting, feels weak and tired Problem List Medical Problems: (1) Abdominal pain Status: Acute (2) Acute kidney injury Status: Acute (3) Bowel obstruction Status: Acute (4) Carcinomatosis Status: Acute (5) Dehydration Status: Acute (6) Dehydration Status: Acute (7) Diffuse abdominal pain Status: Acute (8) Esophageal Reflux Status: Chronic (9) Failure of outpatient treatment Status: Acute (10) Intractable abdominal pain Status: Acute (11) Left flank pain Status: Acute (12) Lower abdominal pain Status: Acute (13) Morbid Obesity Status: Chronic (14) Ovarian cancer Status: Acute (15) Ovarian cancer Status: Acute (16) Precordial chest pain Status: Acute (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 (18) Small bowel obstruction Status: Acute (19) UTI (urinary tract infection) Status: Acute Review of Systems Constitutional: No chills, No fever, No weight loss Respiratory: No cough, No shortness of breath Cardiac: No chest pain, No orthopnea Abdomen: + nausea, + pain, No diarrhea, No vomiting Female : No dysuria, No urinary frequency Psychiatric: No anhedonism, No depression symptoms Objective Vital Signs Date Time Temp Pulse Resp B/P Pulse Ox O2 Delivery O2 Flow Rate FiO2 09/20/16 08:05 82/60 09/20/16 07:34 36.4 92 18 86/52 95 Room Air 09/20/16 06:28 96 Room Air 09/20/16 05:59 36.4 70 20 132/64 09/20/16 05:14 92 20 125/81 98 09/20/16 04:30 96 19 128/86 96 Room Air 09/20/16 04:17 102 09/20/16 04:00 101 16 09/20/16 03:30 102 18 09/20/16 02:28 92 Room Air 09/20/16 02:23 109 20 123/91 93 Room Air 09/20/16 00:53 36.7 115 20 111/83 93 Room Air 09/20/16 00:52 114 Physical Exam General Appearance: + moderate distress, + obese Respiratory/Chest: chest non-tender, no respiratory distress, + decreased breath sounds Cardiovascular: regular rate, rhythm, + systolic murmur Abdomen: soft, + abnormal bowel sounds, + distended Extremities: no pedal edema, no calf tenderness Laboratory Results Last 24 Hours Test 09/20/16 00:50 09/20/16 02:00 09/20/16 02:08 09/20/16 02:09 White Blood Count 11.56 K/uL Red Blood Count 4.38 M/uL Hemoglobin 13.1 g/dL Hematocrit 38.7 % Mean Corpuscular Volume 88.4 fL Mean Corpuscular Hemoglobin 29.9 pg Mean Corpuscular Hemoglobin Concent 33.9 g/dl Platelet Count 300 K/uL Mean Platelet Volume 10.9 fL Neutrophils (%) (Auto) 74.3 % Lymphocytes (%) (Auto) 11.7 % Monocytes (%) (Auto) 13.0 % Eosinophils (%) (Auto) 0.5 % Basophils (%) (Auto) 0.2 % Neutrophils # (Auto) 8.59 K/uL Lymphocytes # (Auto) 1.35 K/uL Monocytes # (Auto) 1.50 K/uL Eosinophils # (Auto) 0.06 K/uL Basophils # (Auto) 0.02 K/uL RDW Standard Deviation 58.7 fL RDW Coefficient of Variation 18.7 % Immature Granulocyte % (Auto) 0.3 % Immature Granulocyte # (Auto) 0.04 K/uL Prothrombin Time 11.8 SECONDS Prothromb Time International Ratio 1.1 Activated Partial Thromboplast Time 28.5 SECONDS Partial Thromboplastin Ratio 1.1 Sodium Level 140 mmol/L Potassium Level 2.7 mmol/L Chloride Level 97 mmol/L Carbon Dioxide Level 32 mmol/L Anion Gap 11.0 mmol/L Blood Urea Nitrogen 40 mg/dl Creatinine 1.80 mg/dl Est Creatinine Clear Calc Drug Dose 38.9 ml/min Estimated GFR () 35.8 Estimated GFR (Non- 30.9 BUN/Creatinine Ratio 22.0 Random Glucose 82 mg/dl Calcium Level 9.0 mg/dl Magnesium Level 2.1 mg/dl Total Bilirubin 0.7 mg/dl Aspartate Amino Transf (AST/SGOT) 51 U/L Alanine Aminotransferase (ALT/SGPT) 71 U/L Alkaline Phosphatase 137 U/L Total Creatine Kinase 17 U/L Creatine Kinase MB < 0.5 ng/ml Creatine Kinase MB Ratio Total Protein 7.7 gm/dl Albumin 3.3 gm/dl Globulin 4.4 gm/dl Albumin/Globulin Ratio 0.7 Bedside Lactic Acid Venous 1.13 mmol/L Bedside Troponin I 0.010 ng/ml Assessment and Plan Ovarian cancer/peritoneal carcinomatosis Previous strep bacteremia was on outpt daptomycin, change to Zosyn( also covers strep per previous sensitivities), did have low blood pressure in am 09/20 , attempting fluid bolus maybe sepsis?, blood cultures drawn, urine culture, does have history of ESBL, may need Carbipenem previous SBO suspected from peritoneal carcinomatosis, s/p j tube for drainage of gastic secretions, nothing by mouth status. normal saline at 125 ML's per hour. Protonix 40 mg IV daily, typically is on tpn will have pharmacy consult for such Oncology did have discussion with pt regarding end of life and declining functional status that my limit further chemo and if so to reconsider TPN as no benefit as only reason started was to attempt chemo to open up sbo by shrinking abdominal carcinomatosis, so far little change Hypokalemia/renal insufficiency-repleted on admission will follow Pain management--continue fentanyl patch 25 g topically changing a 72 hour intervals, and place on Dilaudid 0.5-1-2 mg IV every 2 hours when necessary.
[2016-09-20] MEDS ORDERED: TPN/PPN CONSULT PHARMACY PRN (11:45)
[2016-09-20] MEDS ORDERED: CUSTOM CENTRAL PN 1 BAG IV SCH (16:00)
[2016-09-20] MEDS ORDERED: LORAZEPAM INJ 0.5 MG in SYRINGE 0.75 ML IV PRN (21:00)
[2016-09-20] MEDS: LORAZEPAM INJ 1 MG in SYRINGE 0.5 ML IV PRN (22:35)
[2016-09-21] VITALS (7 sets, daily range): BP systolic 99–138; BP diastolic 66–85; PULSE 72–83; TEMP 36.4–36.8; O2SAT 95–99; BMI 41.2
[2016-09-21] MEDS: CHECK FENTANYL PATCH PLACEMENT SCH ×3 (00:26→16:21)
[2016-09-21] MEDS: HYDROmorphone INJ 1 MG/ML SYR IV PRN ×3 (02:45→14:03)
[2016-09-21] MEDS: PIPERACILL/TAZOBAC IV 4.5 GM in DEXTROSE 5% 100ML IV SCH (02:45)
[2016-09-21] MEDS ORDERED: NURSING DECISION MEDICATION ORDER SCH (03:00)
[2016-09-21] MEDS ORDERED: MICONAZOLE NITRATE POWDER 43 GM ONE (03:00)
[2016-09-21 06:21] LABS: BASO % 0.2 %; BASO ABS # 0.01 K/uL (0-0.2); COMPLETE YES; EOS % 2.3 %; HEMATOCRIT 32.1 % (37-47); IG% 0.2 %; LYMPH % 12.3 %; LYMPH ABS # 0.81 K/uL (1.2-3.4); MEAN CELL VOLUME 91.2 fL (80-100); MEAN CORPUSCULAR HGB CONC 31.8 g/dl (32-36); MEAN PLATELET VOLUME 10.5 fL (7.4-10.4); MONO % 11.7 %; NEUT % 73.3 %; PLATELET COUNT 199 K/uL (130-400); RED BLOOD COUNT 3.52 M/uL (4.2-5.4); WHITE BLOOD COUNT 6.56 K/uL (4.8-10.8)
[2016-09-21 06:27] LABS: INR 1.1 (0.9-1.1); PROTHROMBIN TIME (PATIENT) 12.1 SECONDS (9.0-12.0)
[2016-09-21 07:03] LABS: BUN/CREATININE RATIO 25.7 (10-20); CALCIUM 8.1 mg/dl (8.5-10.1); CREATININE 1.6 mg/dl (0.60-1.20); MAGNESIUM 2.2 mg/dl (1.8-2.4); POTASSIUM 3.4 mmol/L (3.5-5.1)
[2016-09-21 07:35] LABS: PHOSPHORUS 2.7 mg/dl (2.5-4.9); PREALBUMIN 24.2 mg/dl (20-40)
--- NOTE | 2016-09-21 08:56 | HEME/ONC PROGRESS NOTE ---
DATE: 09/21/2016 HOSPITAL COURSE: Sandrita was admitted over the weekend. This is her fourth hospitalization in a brief period of time. She had been receiving topotecan with bevacizumab sporadically. Apparently was admitted for chemotherapy-induced nausea, vomiting and hypokalemia along with generalized weakness. Engaged in discussion regarding her current clinical status and overall prognosis. Sandrita is well aware that she is terminal. Briefly discussed the possibility of hospice and I believe at some point Sandrita will come around to agree with this approach. Her p.o. intake is minimal at this juncture, she is receiving TPN. She does not complain of pain at this time. PHYSICAL EXAMINATION: GENERAL: She is in no acute distress, appropriate and conversant. VITAL SIGNS: Temperature 36.8, pulse 75, respirations 18, blood pressure 129/85. SKIN: Without rash or lesion. HEENT: No buccal lesions or ulcerations. HEART: Regular rate and rhythm. LUNGS: Clear. ABDOMEN: Soft, nontender, nondistended. EXTREMITIES: No clubbing, cyanosis or edema. NEUROLOGIC: Grossly intact. LABORATORY DATA: WBC count 6560, hemoglobin 10.2, platelet count 199,000. Sodium 144, potassium 3.4, chloride 106, carbon dioxide 29, creatinine 1.60, BUN 41, total protein 5.9, albumin 2.5. IMPRESSION: 1. Chemotherapy-induced nausea and vomiting. 2. Acute renal injury. 3. Hypokalemia. 4. Hypoalbuminemia. 5. Metastatic ovarian cancer. PLAN: Sandrita is a very pleasant but unfortunate 56-year-old female patient well known to [facility] admitted with the above clinical issues. She is receiving TPN and generalized supportive care. Engaged in a lengthy discussion today with where we go from here clinically. Sandrita and I collectively agree to suspend further chemotherapy for the foreseeable future. Dr. Melton as well as myself discussed the possibility of hospice. Sandrita understands the terminal nature of her disease, but is not ready to commit to hospice care. Will engage her on a daily basis and hopefully by the time she is discharged will come to a consensus on where we go therapeutically. Thank you for assisting us in the care of this very pleasant lady.
[2016-09-21] MEDS ORDERED: POTASSIUM CHLR 20 MEQ / WTR 20 MEQ in PREMIXED WATER 100 ML IV ONE (09:45)
[2016-09-21] MEDS ORDERED: POTASSIUM CHLR 10 MEQ / WTR 10 MEQ in PREMIXED WATER 100 ML IV SCH (09:45)
[2016-09-21] MEDS: AMPICILLIN IV SCH ×2 (09:51→20:55)
[2016-09-21] MEDS: SODIUM CHLORIDE 0.9% IV SCH ×2 (09:51→20:55)
[2016-09-21] MEDS: POTASSIUM CHLR 10 MEQ / WTR 10 MEQ in PREMIXED WATER 100 ML IV SCH ×2 (10:01→11:13)
[2016-09-21] MEDS: TPN - STOP ORDER SCH (10:01)
[2016-09-21] MEDS ORDERED: TEMAZEPAM 7.5 MG CAP PO PRN (10:45)
--- NOTE | 2016-09-21 12:04 | DIAGNOSTIC IMAGING REPORT ---
CHEST CTA for PULMONARY ARTERIES CT DOSE: 605.80 mGycm HISTORY: Chest pain dyspnea. Appearing carcinoma. TECHNIQUE: Multiaxial CT images of the chest were performed following the intravenous administration of contrast to evaluate the pulmonary arteries. Maximal intensity projection images were also obtained. COMPARISON STUDY: None. FINDINGS: There is a normal caliber thoracic aorta with no evidence for dissection. There is no evidence for pulmonary embolus. Small bilateral pleural effusions. Mild bibasilar atelectasis. Lungs otherwise are clear. No significant nodular pathology. No significant mediastinal or hilar adenopathy. Evidence for a gastrostomy tube in position. Prior cholecystectomy. IMPRESSION: 1. Study is negative for pulmonary embolus. 2. Very small bilateral pleural effusions with mild bibasilar atelectasis. Electronically signed by: Garrett Jiang M.D. 09/21/2016 12:03 PM Dictated Date/Time: 09/21/2016 11:58 AM
[2016-09-21] MEDS: FENTANYL PATCH REMOVE & WASTE SCH (12:32)
[2016-09-21] MEDS: FENTANYL 12 MCG/HR TDSY TD SCH (12:38)
[2016-09-21] MEDS: FENTANYL 25 MCG/HR TDSY TD SCH (12:38)
[2016-09-21] MEDS ORDERED: CUSTOM CENTRAL PN 1 BAG IV SCH (16:00)
--- NOTE | 2016-09-21 21:16 | Progress Note ---
Subjective Date of Service: Sep 21, 2016. Subjective Pt evaluation today including: conversation w/ patient, physical exam, chart review, lab review, review of studies (CTA chest) Pain: abdomen, back - chronic PO Intake: requests clear liquids Voiding: no voiding problems reports ongoing dyspnea on exertion for at least a few weeks if not longer continues to have mild abdominal pain and back pain denies cough reports depression, lack of energy, etc but states "I'm not a quitter" and does not wish to initiate hospice yet alludes to some social issues at home (she lives with her , daughter, and her own mother and the daughter does not get along with pt's mother) Problem List Medical Problems: (1) Abdominal pain Status: Acute (2) Acute kidney injury Status: Acute (3) Bowel obstruction Status: Acute (4) Carcinomatosis Status: Acute (5) Dehydration Status: Acute (6) Dehydration Status: Acute (7) Diffuse abdominal pain Status: Acute (8) Esophageal Reflux Status: Chronic (9) Failure of outpatient treatment Status: Acute (10) Intractable abdominal pain Status: Acute (11) Left flank pain Status: Acute (12) Lower abdominal pain Status: Acute (13) Morbid Obesity Status: Chronic (14) Ovarian cancer Status: Acute (15) Ovarian cancer Status: Acute (16) Precordial chest pain Status: Acute (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 (18) Small bowel obstruction Status: Acute (19) UTI (urinary tract infection) Status: Acute Review of Systems Constitutional: No fever Respiratory: + dyspnea on exertion, No cough, No dyspnea at rest Cardiac: No chest pain Abdomen: + nausea, + pain, No vomiting Objective Vital Signs Date Time Temp Pulse Resp B/P Pulse Ox O2 Delivery O2 Flow Rate FiO2 09/21/16 19:56 36.5 78 18 138/79 97 Room Air 09/21/16 14:11 36.4 80 20 129/84 99 09/21/16 13:00 36.6 83 20 126/79 96 09/21/16 08:00 Room Air 09/21/16 07:50 36.8 75 18 129/85 98 Room Air 09/21/16 04:11 36.5 82 16 107/69 95 Room Air 09/21/16 01:57 Room Air 09/21/16 01:27 36.4 72 16 99/66 97 Room Air Physical Exam General Appearance: no apparent distress, + obese ENT: pharynx normal Neck: no JVD Respiratory/Chest: lungs clear, no respiratory distress, no accessory muscle use Cardiovascular: regular rate, rhythm, no gallop, no murmur Abdomen: normal bowel sounds, soft, no organomegaly, + tenderness (mild) Extremities: no pedal edema Neurologic/Psychiatric: alert, + depressed affect Skin: + pertinent finding (port clean) Laboratory Results Last 24 Hours Test 09/21/16 05:33 White Blood Count 6.56 K/uL Red Blood Count 3.52 M/uL Hemoglobin 10.2 g/dL Hematocrit 32.1 % Mean Corpuscular Volume 91.2 fL Mean Corpuscular Hemoglobin 29.0 pg Mean Corpuscular Hemoglobin Concent 31.8 g/dl Platelet Count 199 K/uL Mean Platelet Volume 10.5 fL Neutrophils (%) (Auto) 73.3 % Lymphocytes (%) (Auto) 12.3 % Monocytes (%) (Auto) 11.7 % Eosinophils (%) (Auto) 2.3 % Basophils (%) (Auto) 0.2 % Neutrophils # (Auto) 4.81 K/uL Lymphocytes # (Auto) 0.81 K/uL Monocytes # (Auto) 0.77 K/uL Eosinophils # (Auto) 0.15 K/uL Basophils # (Auto) 0.01 K/uL RDW Standard Deviation 62.2 fL RDW Coefficient of Variation 18.8 % Immature Granulocyte % (Auto) 0.2 % Immature Granulocyte # (Auto) 0.01 K/uL Prothrombin Time 12.1 SECONDS Prothromb Time International Ratio 1.1 Activated Partial Thromboplast Time 27.2 SECONDS Partial Thromboplastin Ratio 1.0 Sodium Level 144 mmol/L Potassium Level 3.4 mmol/L Chloride Level 106 mmol/L Carbon Dioxide Level 29 mmol/L Anion Gap 9.0 mmol/L Blood Urea Nitrogen 41 mg/dl Creatinine 1.60 mg/dl Est Creatinine Clear Calc Drug Dose 42.3 ml/min Estimated GFR () 41.3 Estimated GFR (Non- 35.7 BUN/Creatinine Ratio 25.7 Random Glucose 126 mg/dl Calcium Level 8.1 mg/dl Phosphorus Level 2.7 mg/dl Magnesium Level 2.2 mg/dl Total Bilirubin 0.4 mg/dl Direct Bilirubin 0.1 mg/dl Aspartate Amino Transf (AST/SGOT) 45 U/L Alanine Aminotransferase (ALT/SGPT) 69 U/L Alkaline Phosphatase 102 U/L Total Protein 5.9 gm/dl Albumin 2.5 gm/dl Prealbumin 24.2 mg/dl Triglycerides Level 144 mg/dl Assessment and Plan 56yo female: 1. acute kidney injury 2nd to nausea, vomiting from chemotherapy - improving with fluids. 2. hypokalemia 2nd to vomiting - improving; give additional 20meq of KCL today. 3. 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 Agree that hospice would be best option in light of progressive nature of disease, failure to thrive, poor quality of life, deconditioning, etc. 4. dyspnea on exertion - CTA chest obtained to exclude PE and negative for such. Likely deconditioning. 5. mild-moderate protein calorie malnutrition - on TPN via central port. 6. recent PICC line infection 2nd to enterococcus - day #14 of IV abx therapy today; d/c abx after today's doses. Repeat blood cx's negative to date. 7. depression - add SSRI. 8. chronic pain syndrome 2nd to #3 - increase fentanyl patch to 37mcg. 9. insomnia - temazepam at HS. 10. DVT proph - heparin BID. 11. FEN - allow clear liquids for palliative purposes. Replace K. BMP in am. 12. anemia - repeat CBC am. need to update family PT consult Continued [facility] stay due to: ambulation difficulties, multiple IV medications needed Discharge planning: home
[2016-09-22 00:14] VITALS: BP 131/71; PULSE 78; TEMP 37; O2SAT 96
[2016-09-22] MEDS: HYDROmorphone INJ 1 MG/ML SYR IV PRN ×4 (02:42→23:35)
[2016-09-22 05:01] VITALS: BP 127/81; PULSE 83; TEMP 36.4; O2SAT 94
[2016-09-22 06:10] LABS: BASO % 0.2 %; BASO ABS # 0.01 K/uL (0-0.2); COMPLETE YES; EOS % 3.6 %; HEMATOCRIT 31.9 % (37-47); IG% 0.2 %; LYMPH % 16.8 %; LYMPH ABS # 0.99 K/uL (1.2-3.4); MEAN CELL VOLUME 91.9 fL (80-100); MEAN CORPUSCULAR HEMOGLOBIN 29.7 pg (25-34); MEAN CORPUSCULAR HGB CONC 32.3 g/dl (32-36); MEAN PLATELET VOLUME 10.5 fL (7.4-10.4); MONO % 9.3 %; NEUT % 69.9 %; PLATELET COUNT 197 K/uL (130-400); RED BLOOD COUNT 3.47 M/uL (4.2-5.4); WHITE BLOOD COUNT 5.91 K/uL (4.8-10.8)
[2016-09-22 06:38] LABS: BUN/CREATININE RATIO 26.1 (10-20); CALCIUM 8.2 mg/dl (8.5-10.1); CREATININE 1.1 mg/dl (0.60-1.20); POTASSIUM 3.2 mmol/L (3.5-5.1)
[2016-09-22] MEDS ORDERED: FENTANYL PATCH REMOVE & WASTE SCH (08:00)
[2016-09-22] MEDS ORDERED: FENTANYL 25 MCG/HR TDSY TD SCH (08:00)
[2016-09-22] MEDS ORDERED: POTASSIUM CHLR 10 MEQ / WTR 10 MEQ in PREMIXED WATER 100 ML IV SCH (08:30)
--- NOTE | 2016-09-22 08:36 | HEME/ONC PROGRESS NOTE ---
DATE: 09/22/2016 DATE: 09/22/2016. HOSPITAL COURSE: Sandrita was seen and examined at bedside this morning. Again, she was admitted for chemotherapy-induced nausea and vomiting as well as hypokalemia. She also initially complained of generalized weakness, which has improved slightly. She has no significant complaints this morning; however, p.o. intake has been marginal. She continues TPN. She reports no other symptoms and nursing reports no overnight issues. The patient continues to ambulate to the bathroom with assistance. PHYSICAL EXAMINATION: GENERAL: She is in no acute distress. VITAL SIGNS: Temperature 36.4, pulse 83, blood pressure 127/81. SKIN: Without rash or lesion. HEAD, EYES, EARS, NOSE, AND THROAT: No oral lesions or ulcerations. NECK: Supple. HEART: Regular rate and rhythm. No clicks, rubs or murmurs. LUNGS: Clear to auscultation. ABDOMEN: Nondistended, mild tenderness around the PEG site. Otherwise bowel sounds hypoactive. EXTREMITIES: No clubbing, cyanosis or edema. NEUROLOGIC EXAMINATION: Grossly intact. LABORATORY DATA: WBC count 5,910, hemoglobin 10.3, platelet count 197,000. Sodium 141, potassium 3.2, chloride 104, carbon dioxide 29, BUN 29, creatinine 1.1. Chest CTA negative for pulmonary embolus, small bilateral effusions and mid bibasilar atelectasis noted. IMPRESSION: 1. Chemotherapy-induced nausea and vomiting. 2. Acute renal injury. 3. Hypokalemia. 4. Hypoalbuminemia. 5. Metastatic ovarian cancer. PLAN: Sandrita appears to be making some progress. Her p.o. intake however is minimal as she continues TPN. Would continue to replace electrolytes as necessary. Again, I engaged in discussion with Sandrita regarding halfway goals. She clearly understands with frequent hospitalizations and further chemotherapy would be more of a detriment. Will continue to work on convincing her to pursue a more palliative approach. Will continue to follow her during her hospital stay. Thank you again for assisting us in the care of this very pleasant but unfortunate lady. BRANDT
[2016-09-22] MEDS: CHECK FENTANYL PATCH PLACEMENT SCH ×4 (08:57→23:45)
[2016-09-22] MEDS: CITALOPRAM 20 MG TAB PO SCH (09:05)
[2016-09-22] MEDS: HEPARIN SOD 5000 UNIT/0.5 ML CARP SQ SCH ×2 (09:07→20:48)
[2016-09-22 09:16] VITALS: BP 118/79; PULSE 81; TEMP 36.7; O2SAT 95
[2016-09-22] MEDS: POTASSIUM CHLR 10 MEQ / WTR 10 MEQ in PREMIXED WATER 100 ML IV SCH ×4 (10:25→14:33)
[2016-09-22] MEDS: MICONAZOLE NITRATE POWDER 43 GM EXT PRN (10:30)
[2016-09-22] MEDS: TPN - STOP ORDER SCH (10:33)
[2016-09-22] MEDS: ONDANSETRON INJ 2 MG/ML 2 ML VIAL IV PRN (11:27)
[2016-09-22 11:50] VITALS: BP 137/84; PULSE 88; TEMP 36.8; O2SAT 96
[2016-09-22 15:56] VITALS: BP 137/84; PULSE 79; TEMP 36.6; O2SAT 95
[2016-09-22] MEDS ORDERED: CUSTOM CENTRAL PN 1 BAG IV SCH (16:00)
[2016-09-22] MEDS: BOOST BREEZE NUTRITION DRINK 1 BOX PO SCH (17:28)
[2016-09-22] MEDS ORDERED: MECLIZINE HCL 25 MG TAB PO PRN (19:00)
[2016-09-22 19:45] VITALS: BP 117/78; PULSE 85; TEMP 36.8; O2SAT 94
[2016-09-22] MEDS ORDERED: TEMAZEPAM 15 MG CAP PO PRN (21:00)
--- NOTE | 2016-09-22 22:01 | Progress Note ---
Subjective Date of Service: Sep 22, 2016. Subjective Pt evaluation today including: conversation w/ patient, conversation w/ family ( by phone), physical exam, chart review, lab review, conversation w/ dynamics ax consultant (Dr. Burgess, heme/onc), review of inpatient medication list Pain: back, abdomen - slight improvement today PO Intake: tolerating clears; no emesis Voiding: no voiding problems c/o vertigo today with movement has had BPV in the past no emesis overall feels better in comparison to admission Problem List Medical Problems: (1) Abdominal pain Status: Acute (2) Acute kidney injury Status: Acute (3) Bowel obstruction Status: Acute (4) Carcinomatosis Status: Acute (5) Dehydration Status: Acute (6) Dehydration Status: Acute (7) Diffuse abdominal pain Status: Acute (8) Esophageal Reflux Status: Chronic (9) Failure of outpatient treatment Status: Acute (10) Intractable abdominal pain Status: Acute (11) Left flank pain Status: Acute (12) Lower abdominal pain Status: Acute (13) Morbid Obesity Status: Chronic (14) Ovarian cancer Status: Acute (15) Ovarian cancer Status: Acute (16) Precordial chest pain Status: Acute (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 (18) Small bowel obstruction Status: Acute (19) UTI (urinary tract infection) Status: Acute Review of Systems Constitutional: No fever Respiratory: No cough, No dyspnea at rest Cardiac: No chest pain Abdomen: + pain Objective Vital Signs Date Time Temp Pulse Resp B/P Pulse Ox O2 Delivery O2 Flow Rate FiO2 09/22/16 19:45 36.8 85 16 117/78 94 Room Air 09/22/16 16:00 Room Air 09/22/16 15:56 36.6 79 20 137/84 95 Room Air 09/22/16 11:50 36.8 88 18 137/84 96 Room Air 09/22/16 09:16 36.7 81 16 118/79 95 Room Air 09/22/16 08:00 Room Air 09/22/16 05:01 36.4 83 18 127/81 94 Room Air 09/22/16 00:14 37.0 78 18 131/71 96 Room Air 09/22/16 00:00 Room Air Physical Exam General Appearance: no apparent distress, + pertinent finding (looks better) ENT: pharynx normal Neck: no JVD Respiratory/Chest: lungs clear, no respiratory distress, no accessory muscle use Cardiovascular: regular rate, rhythm, no gallop, no JVD Abdomen: normal bowel sounds, non tender, soft, no organomegaly Extremities: no pedal edema Neurologic/Psychiatric: alert, oriented x 3 Skin: + pertinent finding (port, chest, clean ) Laboratory Results Last 24 Hours Test 09/22/16 05:20 White Blood Count 5.91 K/uL Red Blood Count 3.47 M/uL Hemoglobin 10.3 g/dL Hematocrit 31.9 % Mean Corpuscular Volume 91.9 fL Mean Corpuscular Hemoglobin 29.7 pg Mean Corpuscular Hemoglobin Concent 32.3 g/dl Platelet Count 197 K/uL Mean Platelet Volume 10.5 fL Neutrophils (%) (Auto) 69.9 % Lymphocytes (%) (Auto) 16.8 % Monocytes (%) (Auto) 9.3 % Eosinophils (%) (Auto) 3.6 % Basophils (%) (Auto) 0.2 % Neutrophils # (Auto) 4.14 K/uL Lymphocytes # (Auto) 0.99 K/uL Monocytes # (Auto) 0.55 K/uL Eosinophils # (Auto) 0.21 K/uL Basophils # (Auto) 0.01 K/uL RDW Standard Deviation 60.8 fL RDW Coefficient of Variation 18.3 % Immature Granulocyte % (Auto) 0.2 % Immature Granulocyte # (Auto) 0.01 K/uL Sodium Level 141 mmol/L Potassium Level 3.2 mmol/L Chloride Level 104 mmol/L Carbon Dioxide Level 29 mmol/L Anion Gap 8.0 mmol/L Blood Urea Nitrogen 29 mg/dl Creatinine 1.10 mg/dl Est Creatinine Clear Calc Drug Dose 62.5 ml/min Estimated GFR () 65.0 Estimated GFR (Non- 56.1 BUN/Creatinine Ratio 26.1 Random Glucose 120 mg/dl Calcium Level 8.2 mg/dl Assessment and Plan 56yo female: 1. acute kidney injury 2nd to nausea, vomiting from chemotherapy - resolved. 2. hypokalemia 2nd to vomiting - ongoing; give additional 40meq of KCL today. BMP am. 3. 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 Agree that hospice would be best option in light of progressive nature of disease, failure to thrive, poor quality of life, deconditioning, etc. Pt reluctant to choose such. I spoke with who is going to visit tomorrow. Will speak with pt and her spouse tomorrow. 4. dyspnea on exertion - CTA chest obtained to exclude PE and negative for such. Likely deconditioning. 5. mild-moderate protein calorie malnutrition - on TPN via central port. 6. recent PICC line infection 2nd to enterococcus - completed 2-weeks abx -- d/ c abx. 7. depression - day #1 celexa. 8. chronic pain syndrome 2nd to #3 - fentanyl patch 37mcg. 9. insomnia - temazepam at HS. Helping, but not optimal; increase to 15mg at HS. 10. DVT proph - heparin BID. 11. FEN - allow clear liquids for palliative purposes. Replace K. BMP in am. Add boost breeze. 12. anemia - repeat CBC stable. 13. vertigo, likely BPV - meclizine prn. will give update to tomorrow when he visits hopefully home next 48 hrs Continued [facility] stay due to: ambulation difficulties, multiple IV medications needed Discharge planning: home
[2016-09-23] MEDS: HYDROmorphone INJ 1 MG/ML SYR IV PRN ×4 (00:07→19:43)
[2016-09-23 00:47] VITALS: BP 103/69; PULSE 76; TEMP 36.9; O2SAT 94
[2016-09-23 04:08] VITALS: BP 118/79; PULSE 71; TEMP 36.5; O2SAT 97
[2016-09-23 06:25] VITALS: BMI 41.7
[2016-09-23 06:30] LABS: BUN/CREATININE RATIO 23.7 (10-20); CALCIUM 8.4 mg/dl (8.5-10.1); CREATININE 1.1 mg/dl (0.60-1.20); PHOSPHORUS 2.9 mg/dl (2.5-4.9); POTASSIUM 4.5 mmol/L (3.5-5.1)
[2016-09-23] MEDS: BOOST BREEZE NUTRITION DRINK 1 BOX PO SCH ×2 (08:00→16:35)
[2016-09-23 08:02] VITALS: BP 138/66; PULSE 82; TEMP 36.7; O2SAT 95
--- NOTE | 2016-09-23 09:04 | HEME/ONC PROGRESS NOTE ---
DATE: 09/23/2016 DIAGNOSES: 1. Intractable nausea and vomiting. 2. Metastatic ovarian cancer. 3. Electrolyte dysfunction. HOSPITAL COURSE: Sandrita was once again seen and examined at bedside. She is attempting to eat breakfast. She states her nausea has improved somewhat. She is ambulating minimally with assistance and continues TPN. Engaged in discussion regarding long-term goals. Sandrita is compelled to continue her fight despite recognizing she has been hospitalized on multiple occasions here in the last several weeks. Also, discussed the possibility of palliative care consult versus placement in a step down facility to continue basic nursing care. Sandrita remains reluctant to pursue hospice at this juncture. PHYSICAL EXAMINATION: GENERAL: She is in no acute distress. VITAL SIGNS: Temperature 36.7, pulse 82, respirations 22, blood pressure 138/66. SKIN: Without rash or lesion. HEENT: No buccal lesions or ulcerations. NECK: Supple. HEART: Regular rate and rhythm. LUNGS: Clear to auscultation. ABDOMEN: Nondistended with periumbilical tenderness. Bowel sounds are otherwise hypoactive. EXTREMITIES: No clubbing, cyanosis or edema. NEUROLOGIC: Remains intact. LABORATORY DATA: Chemistries: Sodium 142, potassium 4.5, chloride 103, carbon dioxide 30, creatinine 1.1, BUN 26. IMPRESSION: 1. Chemotherapy-induced nausea and vomiting. 2. Acute renal injury. 3. Hypokalemia. 4. Hypoalbuminemia. 5. Metastatic ovarian cancer. PLAN: Sandrita was seen and examined this morning. She continues TPN, but is making attempts to increase p.o. intake. I again discussed long-term goals. She seems reluctant to discharge for fear that she may become symptomatic over the weekend. I presented a possibility of discharge to a step down assisted facility for continued basic nursing care. She remains reluctant to pursue a palliative approach. I once again explained to her that I would not agree to continue chemotherapy if I believe the potential harm is greater than any added benefit. I agree with the current medical management. Thank you again for assisting us in the care of this very pleasant but unfortunate lady.
[2016-09-23] MEDS: CHECK FENTANYL PATCH PLACEMENT SCH ×2 (09:33→16:27)
[2016-09-23] MEDS: CITALOPRAM 20 MG TAB PO SCH (09:34)
[2016-09-23] MEDS: HEPARIN SOD 5000 UNIT/0.5 ML CARP SQ SCH ×2 (09:35→21:37)
[2016-09-23] MEDS: TPN - STOP ORDER SCH (09:36)
[2016-09-23] MEDS: MICONAZOLE NITRATE POWDER 43 GM EXT PRN (10:30)
[2016-09-23 11:14] VITALS: BP 127/75; PULSE 76; TEMP 36.4; O2SAT 93
[2016-09-23 15:42] VITALS: BP 111/74; PULSE 81; TEMP 36.6; O2SAT 93
[2016-09-23] MEDS ORDERED: CUSTOM CENTRAL PN 1 BAG IV SCH (16:00)
[2016-09-23] MEDS: [UNRECOGNIZED DRUG - NUTRITION] SCH (17:30)
[2016-09-23 19:40] VITALS: BP 114/73; PULSE 83; TEMP 37.9; O2SAT 96
[2016-09-23] MEDS: LORAZEPAM INJ 1 MG in SYRINGE 0.5 ML IV PRN (22:47)
--- NOTE | 2016-09-23 23:36 | Progress Note ---
Subjective Date of Service: Sep 23, 2016. Subjective Pt evaluation today including: conversation w/ patient, conversation w/ family (daughter, , mother - all at bedside), physical exam, chart review, lab review, review of inpatient medication list Pain: abdomen - but improved PO Intake: tolerating clears Voiding: no voiding problems no major issues overnight vertigo is improved has had only 1 dose of antivert today no vomiting minimal nausea lengthy discussion held with family at bedside today Problem List Medical Problems: (1) Abdominal pain Status: Acute (2) Acute kidney injury Status: Acute (3) Bowel obstruction Status: Acute (4) Carcinomatosis Status: Acute (5) Dehydration Status: Acute (6) Dehydration Status: Acute (7) Diffuse abdominal pain Status: Acute (8) Esophageal Reflux Status: Chronic (9) Failure of outpatient treatment Status: Acute (10) Intractable abdominal pain Status: Acute (11) Left flank pain Status: Acute (12) Lower abdominal pain Status: Acute (13) Morbid Obesity Status: Chronic (14) Ovarian cancer Status: Acute (15) Ovarian cancer Status: Acute (16) Precordial chest pain Status: Acute (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 (18) Small bowel obstruction Status: Acute (19) UTI (urinary tract infection) Status: Acute Review of Systems Constitutional: No fever Respiratory: No dyspnea at rest Cardiac: No chest pain, No orthopnea Abdomen: + pain, No diarrhea, No vomiting Objective Vital Signs Date Time Temp Pulse Resp B/P Pulse Ox O2 Delivery O2 Flow Rate FiO2 09/23/16 19:40 37.9 83 16 114/73 96 Room Air 09/23/16 16:00 Room Air 09/23/16 15:42 36.6 81 16 111/74 93 Room Air 09/23/16 11:14 36.4 76 18 127/75 93 Room Air 09/23/16 08:02 36.7 82 22 138/66 95 Room Air 09/23/16 08:00 Room Air 09/23/16 04:08 36.5 71 18 118/79 97 Room Air 09/23/16 00:47 36.9 76 16 103/69 94 Room Air 09/23/16 00:00 Room Air Physical Exam General Appearance: no apparent distress ENT: pharynx normal Neck: no JVD Respiratory/Chest: lungs clear, no respiratory distress, no accessory muscle use Cardiovascular: regular rate, rhythm, no gallop, no murmur Abdomen: normal bowel sounds, non tender, soft, no organomegaly, + pertinent finding (J tube in place, clean insertion site) Extremities: no pedal edema Neurologic/Psychiatric: alert, + depressed affect Skin: + pertinent finding (port, chest, clean ) Laboratory Results Last 24 Hours Test 09/23/16 05:37 09/23/16 09:20 Sodium Level 142 mmol/L Potassium Level 4.5 mmol/L Chloride Level 103 mmol/L Carbon Dioxide Level 30 mmol/L Anion Gap 9.0 mmol/L Blood Urea Nitrogen 26 mg/dl Creatinine 1.10 mg/dl Est Creatinine Clear Calc Drug Dose 62.0 ml/min Estimated GFR () 65.0 Estimated GFR (Non- 56.1 BUN/Creatinine Ratio 23.7 Random Glucose 74 mg/dl Calcium Level 8.4 mg/dl Phosphorus Level 2.9 mg/dl Magnesium Level 2.0 mg/dl Assessment and Plan 56yo female: 1. acute kidney injury 2nd to nausea, vomiting from chemotherapy - resolved. 2. hypokalemia 2nd to vomiting - resolved. 3. progressive stage 4 ovarian CA with carcinomatosis - very length discussion held with patient, pt's /daughter/mother. I reviewed all test results, CT results, hospital course, and options for care after she leaves the hospital. I did not receive a whole lot of feedback from her family today; they mainly listened to the information being given. Ms. Mcbride was very open to disseminating all information to her family today. We DID discuss hospice - goals for hospice, what services they provide, etc 4. dyspnea on exertion - CTA chest obtained to exclude PE and negative for such. Likely deconditioning. 5. mild-moderate protein calorie malnutrition - on TPN via central port. 6. recent PICC line infection 2nd to enterococcus - completed 2-weeks abx and now OFF of such. 7. depression - day #2 celexa. Tolerating thus far. 8. chronic pain syndrome 2nd to #3 - fentanyl patch 37mcg. 9. insomnia - temazepam at HS. 10. DVT proph - heparin BID. 11. FEN - allow clear liquids for palliative purposes. BMP now normal. 12. anemia - repeat CBC stable. 13. vertigo, likely BPV - meclizine prn. between two visits today spent about 45 minutes discussing care plan, options for care, goals of hospice, etc pt more receptive today of her current condition she did ask questions about hospice later in the visit dispo - home tomorrow if possible Continued [facility] stay due to: ambulation difficulties, multiple IV medications needed Discharge planning: home
[2016-09-24 01:31] VITALS: BP 127/80; PULSE 79; TEMP 36.8; O2SAT 94
[2016-09-24] MEDS: HYDROmorphone INJ 2 MG/ML SYR/VIAL IV PRN ×3 (01:58→21:32)
[2016-09-24 04:33] VITALS: BP 112/73; PULSE 78; TEMP 36.7; O2SAT 95
[2016-09-24 06:21] VITALS: BMI 42.0
[2016-09-24 07:36] VITALS: BP 121/77; PULSE 74; TEMP 36.5; O2SAT 94
[2016-09-24] MEDS: CITALOPRAM 20 MG TAB PO SCH (07:55)
[2016-09-24] MEDS: BOOST BREEZE NUTRITION DRINK 1 BOX PO SCH ×2 (07:56→17:04)
[2016-09-24] MEDS: CHECK FENTANYL PATCH PLACEMENT SCH ×3 (07:59→15:53)
[2016-09-24] MEDS: FENTANYL 25 MCG/HR TDSY TD SCH (08:42)
[2016-09-24] MEDS: HEPARIN SOD 5000 UNIT/0.5 ML CARP SQ SCH ×2 (08:42→21:28)
[2016-09-24] MEDS: FENTANYL PATCH REMOVE & WASTE SCH (08:42)
[2016-09-24] MEDS: FENTANYL 12 MCG/HR TDSY TD SCH (08:43)
[2016-09-24] MEDS: ONDANSETRON INJ 2 MG/ML 2 ML VIAL IV PRN (08:43)
[2016-09-24 08:47] LABS: HEMATOCRIT 33.3 % (37-47); MEAN CELL VOLUME 92.8 fL (80-100); MEAN CORPUSCULAR HEMOGLOBIN 30.1 pg (25-34); MEAN CORPUSCULAR HGB CONC 32.4 g/dl (32-36); PLATELET COUNT 191 K/uL (130-400); RED BLOOD COUNT 3.59 M/uL (4.2-5.4); WHITE BLOOD COUNT 8.07 K/uL (4.8-10.8)
[2016-09-24] MEDS: [UNRECOGNIZED DRUG - NUTRITION] SCH ×2 (08:51→17:05)
[2016-09-24] MEDS: TPN - STOP ORDER SCH (09:36)
[2016-09-24] MEDS: METOCLOPRAMIDE HCL 5 MG TAB PO SCH ×3 (11:02→21:31)
[2016-09-24 15:56] VITALS: BP 120/83; PULSE 80; TEMP 36.5; O2SAT 98
[2016-09-24] MEDS ORDERED: CUSTOM CENTRAL PN 1 BAG IV SCH (16:00)
[2016-09-24 16:58] LABS: URINE APPEARANCE CLEAR (CLEAR); URINE BILIRUBIN NEG (NEG); URINE COLOR DK YELLOW; URINE EPITHELIAL CELL AUTO >30 /lpf (0-5); URINE NITRITE NEG (NEG); URINE PH 7.5 (4.5-7.5); URINE SPECIFIC GRAVITY 1.025 (1.000-1.030); UROBILINOGEN NEG (NEG)
[2016-09-24 17:03] LABS: MANUAL MICROSCOPIC REQUIRED? NO; REVIEW REQ? YES
[2016-09-24] MEDS: HYDROmorphone INJ 1 MG/ML SYR IV PRN (18:47)
--- NOTE | 2016-09-24 18:54 | Progress Note ---
Subjective Date of Service: Sep 24, 2016. Subjective Pt evaluation today including: conversation w/ patient, physical exam, chart review, lab review, conversation w/ technical healthcare consultant (motion picture camera lens technician, mercedes/onc (Dr Burgess), social media manager) Pain: abdomen - no change from yesterday; relieved with PRN oxy's PO Intake: minimal intake of clears Voiding: no voiding problems intermittent nausea persists c/o recent hematuria? just prior to admission and slight odor to urine she asks if she can speak with Dr. Burgess about continuing chemotherapy next week when asked if she feels ready for discharge she looks at me and says "I guess so " denies cough denies sob at rest denies vomiting had low-grade temp last night that resolved on its own Problem List Medical Problems: (1) Abdominal pain Status: Acute (2) Acute kidney injury Status: Acute (3) Bowel obstruction Status: Acute (4) Carcinomatosis Status: Acute (5) Dehydration Status: Acute (6) Dehydration Status: Acute (7) Diffuse abdominal pain Status: Acute (8) Esophageal Reflux Status: Chronic (9) Failure of outpatient treatment Status: Acute (10) Intractable abdominal pain Status: Acute (11) Left flank pain Status: Acute (12) Lower abdominal pain Status: Acute (13) Morbid Obesity Status: Chronic (14) Ovarian cancer Status: Acute (15) Ovarian cancer Status: Acute (16) Precordial chest pain Status: Acute (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 (18) Small bowel obstruction Status: Acute (19) UTI (urinary tract infection) Status: Acute Objective Vital Signs Date Time Temp Pulse Resp B/P Pulse Ox O2 Delivery O2 Flow Rate FiO2 09/24/16 16:00 Room Air 09/24/16 15:56 36.5 80 16 120/83 98 Room Air 09/24/16 07:45 Room Air 09/24/16 07:36 36.5 74 16 121/77 94 Room Air 09/24/16 04:33 36.7 78 18 112/73 95 Room Air 09/24/16 02:00 Room Air 09/24/16 01:31 36.8 79 18 127/80 94 Room Air 09/23/16 21:30 Room Air 09/23/16 19:40 37.9 83 16 114/73 96 Room Air Physical Exam General Appearance: no apparent distress, + obese ENT: pharynx normal Neck: no JVD Respiratory/Chest: lungs clear, no respiratory distress, no accessory muscle use Cardiovascular: regular rate, rhythm, no gallop, no murmur Abdomen: normal bowel sounds, non tender, soft, no organomegaly, + pertinent finding (j tube in place) Extremities: no pedal edema Neurologic/Psychiatric: alert, + depressed affect Skin: + pertinent finding (PICC, left arm - clean, no erythema or drainage ) Laboratory Results Last 24 Hours Test 09/24/16 08:07 09/24/16 15:00 White Blood Count 8.07 K/uL Red Blood Count 3.59 M/uL Hemoglobin 10.8 g/dL Hematocrit 33.3 % Mean Corpuscular Volume 92.8 fL Mean Corpuscular Hemoglobin 30.1 pg Mean Corpuscular Hemoglobin Concent 32.4 g/dl RDW Standard Deviation 60.1 fL RDW Coefficient of Variation 17.9 % Platelet Count 191 K/uL Mean Platelet Volume 11.0 fL Urine Color DK YELLOW Urine Appearance CLEAR Urine pH 7.5 Urine Specific Jerome 1.025 Urine Protein NEG Urine Glucose (UA) NEG Urine Ketones NEG Urine Occult Blood NEG Urine Nitrite NEG Urine Bilirubin NEG Urine Urobilinogen NEG Urine Leukocyte Esterase TRACE Urine WBC (Auto) 5-10 /hpf Urine RBC (Auto) 0-4 /hpf Urine Hyaline Casts (Auto) 10-30 /lpf Urine Epithelial Cells (Auto) >30 /lpf Urine Bacteria (Auto) NEG Urine Renal Epithelial Cells /lpf Assessment and Plan 56yo female: 1. acute kidney injury - resolved. 2. hypokalemia 2nd to vomiting - resolved. 3. progressive stage 4 ovarian CA with carcinomatosis - very length discussion held with patient, pt's /daughter/mother on 09/23/16. I reviewed all test results, CT results, hospital course, and options for care after she leaves the hospital. I did not receive a whole lot of feedback from her family; they mainly listened to the information being given. We DID discuss hospice - goals for hospice, what services they provide, etc After that discussion yesterday the patient today inquired about continuing chemotherapy. I discussed this with Dr. Burgess who will speak with patient in AM. Tumor marker noted to be markedly elevated & rising. 4. dyspnea on exertion - CTA chest obtained to exclude PE and negative for such. Likely deconditioning. 5. mild-moderate protein calorie malnutrition - on TPN via central port. 6. recent PICC line infection 2nd to enterococcus - completed 2-weeks abx and now OFF of such. 7. depression - day #3 celexa. Tolerating thus far. 8. chronic pain syndrome 2nd to #3 - fentanyl patch 37mcg. 9. insomnia - temazepam at HS. 10. DVT proph - heparin BID. 11. FEN - allow clear liquids for palliative purposes. BMP now normal. 12. anemia - repeat CBC stable. 13. vertigo, likely BPV - meclizine prn. Improved. 14. nausea - chronic, intermittent - schedule reglan 5mg ac/hs. hopefully home tomorrow Continued [facility] stay due to: ambulation difficulties Discharge planning: home with home health
[2016-09-24 19:10] VITALS: BP 116/83; PULSE 80; TEMP 36.8; O2SAT 93
[2016-09-24] MEDS: LORAZEPAM INJ 1 MG in SYRINGE 0.5 ML IV PRN (19:49)
[2016-09-25 00:42] VITALS: BP 112/71; PULSE 74; TEMP 36.8; O2SAT 92
[2016-09-25] MEDS: HYDROmorphone INJ 2 MG/ML SYR/VIAL IV PRN ×3 (03:58→16:44)
[2016-09-25 05:41] VITALS: BP 110/73; PULSE 73; TEMP 36.6; O2SAT 95
[2016-09-25 07:12] VITALS: Ht 154.9 cm; Wt 102.0 kg
[2016-09-25 07:19] LABS: BUN/CREATININE RATIO 20.8 (10-20); CALCIUM 8.7 mg/dl (8.5-10.1); CREATININE 1.2 mg/dl (0.60-1.20); MAGNESIUM 2.2 mg/dl (1.8-2.4); POTASSIUM 4.4 mmol/L (3.5-5.1)
[2016-09-25 07:20] LABS: PHOSPHORUS 3.6 mg/dl (2.5-4.9)
[2016-09-25] MEDS: METOCLOPRAMIDE HCL 5 MG TAB PO SCH ×3 (07:32→16:44)
[2016-09-25] MEDS: CHECK FENTANYL PATCH PLACEMENT SCH ×3 (07:37→16:45)
[2016-09-25] MEDS: BOOST BREEZE NUTRITION DRINK 1 BOX PO SCH ×2 (07:38→16:46)
[2016-09-25] MEDS: CITALOPRAM 20 MG TAB PO SCH (07:38)
[2016-09-25 08:13] VITALS: BP 168/79; PULSE 76; TEMP 36.9; O2SAT 94
[2016-09-25] MEDS: [UNRECOGNIZED DRUG - NUTRITION] SCH ×2 (08:54→16:46)
[2016-09-25] MEDS: HEPARIN SOD 5000 UNIT/0.5 ML CARP SQ SCH (08:55)
--- NOTE | 2016-09-25 09:27 | HEME/ONC PROGRESS NOTE ---
DATE: 09/25/2016 DIAGNOSES: 1. Intractable nausea and vomiting. 2. Electrolyte dysfunction. 3. Metastatic ovarian cancer. HOSPITAL COURSE: Sandrita was seen and examined at bedside this morning. She is eating a little bit better. Nausea has improved. She is ambulating minimally with assistance and continues TPN. Once again, I engaged in discussion regarding long-term goals. Sandrita would like to try chemotherapy one more time. I sort of bargained with her a bit and advised her that I did not think further chemo would be helpful, but I am willing to treat her one more time; however, she ended up hospitalized, we have collectively agreed to discontinue therapy at that point. PHYSICAL EXAMINATION: GENERAL: She is in no acute distress. VITAL SIGNS: Temperature 36.9, pulse 76, respirations 22, blood pressure 168/79. SKIN: Without rash or lesion. HEENT: No buccal lesions or ulcerations. NECK: Supple. HEART: Regular rate and rhythm. LUNGS: Clear. ABDOMEN: Mild periumbilical tenderness. Bowel sounds continue to be hypoactive. No rigidity or guarding. EXTREMITIES: No clubbing, cyanosis or edema. NEUROLOGIC: Grossly intact. LABORATORY DATA: CA 125 of 4579, sodium 139, potassium 4.4, chloride 102, carbon dioxide 30, creatinine 1.2, BUN 25. WBC count 8070, hemoglobin 10.8, platelet count 191,000. IMPRESSION: 1. Chemotherapy-induced nausea and vomiting. 2. Acute renal injury. 3. Hypokalemia. 4. Hypoalbuminemia. 5. Metastatic ovarian cancer. PLAN: Sandrita was seen and examined at bedside this morning. She has increased her p.o. intake modestly. She will continue TPN until discharge. I once again discussed long-term goals with her. She wants to attempt further chemotherapy. I am reluctant to do so but did bargain with her that we can try a reduced dose of current therapy for better tolerance. If she is hospitalized again, however, I informed her that I would no longer support further treatment. Thank you for assisting us in the care of this very pleasant but unfortunate lady.
[2016-09-25] MEDS: TPN - STOP ORDER SCH (10:07)
[2016-09-25 11:55] VITALS: BP 112/71; PULSE 83; TEMP 37; O2SAT 94
[2016-09-25 15:31] VITALS: BP 111/71; PULSE 76; TEMP 37.1; O2SAT 93
[2016-09-25] MEDS ORDERED: CUSTOM CENTRAL PN 1 BAG IV SCH (16:00)
[2016-09-25] MEDS ORDERED: Boost Nutritional Drink PO (16:35)
[2016-09-25] MEDS ORDERED: LORA-741 PO (16:35)
[2016-09-25] MEDS ORDERED: METO5TAB2 PO (16:35)
[2016-09-25] MEDS ORDERED: OMEP40CA41 PO (16:35)
[2016-09-25] MEDS ORDERED: CLX20 PO (16:35)
[2016-09-25] MEDS ORDERED: DRGTP12 TD (16:35)
[2016-09-25] MEDS ORDERED: ANT25 PO (16:35)
--- NOTE | 2016-09-25 16:58 | Discharge Instructions ---
Discharge Instructions Admission Reason for Admission: nausea, vomiting, low potassium, and dehydration Discharge Discharge Diagnosis / Problem: Nausea, vomiting, dehydration, low potassium - all resolved Discharge Goals Goal(s): Learn about illness, Diagnostic testing, Therapeutic intervention Activity Recommendations Activity Limitations: resume your previous activity . Instructions / Follow-Up Instructions / Follow-Up From Dr. Holley - 1. Your fentanyl patch dose has been increased to 37mcg every 3 days. Thus, place a 25mcg patch AND a 12mcg patch to your skin every 3 days. A new prescription for the 12mcg patch has been provided for you. 2. For "breakthrough" pain I would not take dilaudid (hydromorphone) and oxycodone together. Please stop the oxycodone and continue on the dilaudid for now. 3. For prevention and treatment of nausea - * take reglan (metoclopramide) 30 minutes before breakfast, 30 minutes before lunch, and 30 minutes before dinner AND at bedtime 4. For stomach upset/pain - * take omeprazole 40mg once daily every morning 5. For vertigo/dizziness - * take meclizine 25mg every 6 hours as needed 6. Diet - * continue your TPN as previous * try to obtain the boost breeze product and drink twice daily * continue on clear liquids as tolerated; I would not advance your diet beyond clears 7. For depression - * continue citalopram (celexa) 20mg once daily * this medication takes about 3-4 weeks to help with your spirits/depression 8. For anxiety or sleep - * may take ativan (lorazepam) 0.5mg every 6 hours as needed 9. Please call Dr. Burgess's office on Wednesday to schedule follow-up appointment with him. 10. Please call Marsha Ch's office on Wednesday to schedule follow-up appointment for early this coming week to ensure your nausea, pain, etc are all controlled. Current Hospital Diet Patient's current hospital diet: Clear Liquid Diet Discharge Diet Recommended Diet: Clear Liquid Diet Procedures Procedures Performed: CAT scan of the lungs - no evidence of blood clots, pneumonia, etc Pending Studies Studies pending at discharge: no Laboratory Results Lipid Panel Test 09/21/16 05:33 Range/Units Triglycerides Level 144 0-150 mg/dl Medical Emergencies . Who to Call and When: Medical Emergencies: If at any time you feel your situation is an emergency, please call 911 immediately. . Non-Emergent Contact Non-Emergency issues call your: Primary Care Provider, Oncologist Call Non-Emergent contact if: temperature is above 100.5, your pain is not controlled, your pain is worsening, your pain is unusual for you, your pain is concerning you, you have any medication questions . . "Provider Documentation" section prepared by Dmitri Holley. VTE Core Measure Inpt VTE Proph given/why not?: Unfractionated heparin SQ, SCD's
[2016-09-25 17:42] VITALS: BP 111/71; PULSE 76; TEMP 37.1; O2SAT 93
[2016-09-25] MEDS ORDERED: HYDR2TAB2 PO (18:23)
--- NOTE | 2016-09-29 23:15 | Discharge Summary ---
Discharge Summary Admission Date: Sep 20, 2016 at 04:31 Discharge Date: Sep 25, 2016 Discharge Disposition: Home with services Principal Diagnosis: acute kidney injury Problems/Secondary Diagnoses: 1. stage 4 ovarian cancer 2. failure to thrive 3. depression 4. hypokalemia - resolved 5. chronic pain syndrome due to ovarian cancer 6. chronic nausea due to ovarian cancer 7. G-tube status 2nd to small bowel obstruction from ovarian cancer 8. mild-moderate protein calorie malnutrition 9. recent PICC line infection 2nd to enterococcus 10. BPV 11. anemia Immunizations: Have You Had Influenza Vaccine: Yes History of Tetanus Vaccine?: UTD History of Pneumococcal: No History of Hepatitis B Vaccine: No Procedures: 1. CT abd/pelvis - IMPRESSION: 1. Overall, no significant change compared to the prior study. 2. Omental thickening/nodularity consistent with peritoneal carcinomatosis. 3. Right-sided nephrolithiasis. No hydronephrosis. 4. Trace bilateral pleural effusions. 5. Stable small midline ventral hernia containing a short segment of small bowel. No evidence for bowel obstruction at this time. 6. Stable 2.8 cm low density lesion within the right pelvis. 7. Additional findings as described above. 2. CTA chest - Negative for PE. Negative for metastatic disease. Consultations: hematology/oncology - Mark Melton MD / Collin Burgess, DO Medication Reconciliation New Medications: Lorazepam (Ativan) 0.5 Mg Tab 0.5 MG PO Q6H PRN for anxiety or sleep , #30 TAB 0 Refills Omeprazole (Prilosec) 40 Mg Cap 40 MG PO QAM, #30 CAP 2 Refills Citalopram (Citalopram Hydrobromide) 20 Mg Tab 20 MG PO QAM, #30 TAB 2 Refills Fentanyl (Fentanyl) 12 Mcg Tdsy 12 MCG TD Q3D@0900, #10 0 Refills total dose is 37mcg (25mcg patch + 12mcg patch) Meclizine HCl (Meclizine HCl) 25 Mg Tab 25 MG PO Q6H PRN for vertigo, #30 TAB 0 Refills for vertigo [Boost Nutritional Drink] () 1 BOX LIQD 1 BOX PO BIDM, #60 2 Refills Changed Medications: Hydromorphone Hcl (Hydromorphone Hcl) 2 Mg Tab 2 MG PO Q3HRS PRN for Pain, #30 0 Refills (Changed from: 2-4 MG; Refills: ) Metoclopramide Hcl (Metoclopramide Hcl) 5 Mg Tab 5 MG PO ac/hs, #120 1 Refill (Changed from: Q6H; Removed Reason; Refills: ) Continued Medications: Fentanyl (Fentanyl) 25 Mcg Tdsy 25 MCG TOP CQ72HR Ondansetron (Ondansetron HCl) 4 Mg Tab 4 MG PO UD PRN for Nausea Discontinued Medications: Oxycodone Immediate Rel Tab (Roxicodone Ir) 5 Mg Tab 1 TAB PO UD PRN for Pain Referrals At Discharge Follow up Referrals: Oncology/Hematology Referral - Please Call For Appointment with Collin Burgess D.O. Physician Referral - Within 1 Week with Marsha Espinoza C.R.N.P Discharge Exam Physical Exam: General Appearance: no apparent distress ENT: pharynx normal Neck: no JVD Respiratory/Chest: lungs clear, no respiratory distress, no accessory muscle use Cardiovascular: regular rate, rhythm, no gallop, no murmur, normal peripheral pulses Abdomen / GI: normal bowel sounds, non tender, soft, no organomegaly, + pertinent finding (G-tube in place draining nonbilious contents) Extremities: no pedal edema Neurologic/Psychiatric: alert, oriented x 3, + depressed affect Skin: + pertinent finding (port, left upper chest - clean, no erythema, no drainage ) Hospital Course HISTORY OF PRESENT ILLNESS: The patient is a 56-year-old female with known stage 4 ovarian cancer and carcinomatosis who presented to the emergency department with nausea and abdominal pain since the morning prior to arrival. She continues to receive chemotherapy [facility]. She was recently hospitalized for enterococcal bacteremia due to an infected PICC line and has been receiving daptomycin for such. She also has a G-tube in place due to previous, multiple SBOs due to her ovarian cancer. At time of ER presentation she had evidence of acute kidney injury as well as significant hypokalemia. CT abd/pelvis failed to reveal any bowel obstruction or change in her ovarian cancer burden. HOSPITAL COURSE: The patient's acute kidney injury resolved with IV fluids and supportive care measures. Peak creatinine was 2.1, improving to 1.2 prior to discharge. Her hypokalemia resolved with IV potassium supplementation. The acute kidney injury and hypokalemia were due to ongoing poor oral intake and recurrent vomiting in the setting of her progressive stage 4 ovarian cancer as well as recent chemotherapy. Throughout her stay multiple discussions were held with her (and to a lesser extent her family) about palliative care measures and/or hospice. Dr. Collin Burgess from oncology also spoke with her extensively about stopping chemotherapy, pursuing hospice, etc. She was made aware that her tumor marker - CA-125- was markedly elevated and continuing to rise. In light of her progressive disease and poor prognosis along with failure to thrive hospice was strongly encouraged. At the conclusion of her hospitalization the patient voiced that she wished to undergo at least 1 more session of chemotherapy. She also was not ready to initiate palliative care and/or hospice. She did report that if the next chemotherapy session went poorly she would stop all future treatments. In addition to the above, the following issues were also addressed - 1. dyspnea on exertion - CTA chest was obtained to exclude PE(s) and metastatic disease. This study was negative for such. Likely that deconditioning has been contributing to her dyspnea. 2. mild-moderate protein calorie malnutrition - she remains on TPN via central port. Home health services have been arranged for ongoing TPN within her home. 3. recent PICC line infection 2nd to enterococcus - she completed 2+ weeks of antibiotics for this and at time of discharge all antibiotics have been discontinued. Her LUE PICC line was also discontinued. 4. depression - celexa 20mg daily was initiated while here. She had no side effects from the SSRI. PCP - please continue to titrate in the future as necessary. 5. chronic pain syndrome - her fentanyl patch was increased to 37mcg q72h. She will remain on dilaudid by mouth PRN for breakthrough pain. . 6. chronic nausea - she was placed on scheduled reglan 5mg ac/hs with significant improvement in this symptom. She had no side effects from the reglan. 7. diet - she will remain on clear liquids. Boost Breeze supplementation was added and she tolerated this without difficulty. Total Time Spent: Greater than 30 minutes This includes examination of the patient, discharge planning, medication reconciliation, and communication with other providers. Discharge Instructions Please refer to the electronic Patient Visit Report (Discharge Instructions) for additional information. Follow-Up 1. see Marsha Espinoza NP, within [address] Collin Burgess, oncology, within 1-2 weeks Additional Copies To Collin Burgess D.O.; Marsha Espinoza C.R.N.P
[2016-10-10] MEDS ORDERED: DRGTP100 TD (10:57)
[2016-10-10] MEDS ORDERED: FNTTP25 TOP (10:57)
[2016-10-10] MEDS ORDERED: ATV1 SL (10:57)
== END 2016-09-25 18:48 | disposition home health service (06) | DRG 683 ==
LOC: ENRESERVTM → ENRESERVDT → EDBD 00:44 → C.EDB 00:47 → C.4E 04:31
PROVIDERS: ADMIT Hospitalist; ATTEND Internal Medicine
DX: N17.9 Acute kidney failure, unspecified (principal); Z68.41 Body mass index [BMI] 40.0-44.9, adult; C56.9 Malignant neoplasm of unspecified ovary; E44.0 Moderate protein-calorie malnutrition; C78.6 Secondary malignant neoplasm of retroperitoneum and peritoneum; K21.9 Gastro-esophageal reflux disease without esophagitis; E66.01 Morbid (severe) obesity due to excess calories; Z90.49 Acquired absence of other specified parts of digestive tract; Z90.710 Acquired absence of both cervix and uterus; Z87.440 Personal history of urinary (tract) infections; E87.6 Hypokalemia; Z83.3 Family history of diabetes mellitus; Z82.49 Family history of ischemic heart disease and other diseases of the circulatory system; Z88.2 Allergy status to sulfonamides; Z88.5 Allergy status to narcotic agent; Z88.8 Allergy status to other drugs, medicaments and biological substances; Z88.1 Allergy status to other antibiotic agents; E86.0 Dehydration; G89.4 Chronic pain syndrome; F32.9 Major depressive disorder, single episode, unspecified; R62.7 Adult failure to thrive; E88.09 Other disorders of plasma-protein metabolism, not elsewhere classified; G47.00 Insomnia, unspecified; R11.2 Nausea with vomiting, unspecified; T45.1X5A Adverse effect of antineoplastic and immunosuppressive drugs, initial encounter

== ENCOUNTER → 2016-09-27 | Outpatient (CLI) | payer OTHER ==
[~2016-09-27] MED LIST changes: +ANT25 PO; +ATV1 SL; +Boost Nutritional Drink PO; +CLX20 PO; +DRGTP100 TD; +DRGTP12 TD; +LORA-741 PO; +OMEP40CA41 PO; -RXCS5 PO
[2016-09-27 14:52] LABS: BLOOD UREA NITROGEN 26 mg/dl (7-18); BUN/CREATININE RATIO 23.6 (10-20); CALCIUM 8.8 mg/dl (8.5-10.1); CARBON DIOXIDE 28 mmol/L (21-32); CHLORIDE 105 mmol/L (98-107); GLUCOSE 85 mg/dl (70-99); MAGNESIUM 1.9 mg/dl (1.8-2.4); PHOSPHORUS 3.9 mg/dl (2.5-4.9); POTASSIUM 4.4 mmol/L (3.5-5.1); SODIUM 142 mmol/L (136-145)
== END | disposition home or self-care (01) ==
LOC: C.LABSPEC 10:24
PROVIDERS: ATTEND Family Medicine
DX: K56.69 Other intestinal obstruction (principal); C48.2 Malignant neoplasm of peritoneum, unspecified; E64.0 Sequelae of protein-calorie malnutrition; N39.0 Urinary tract infection, site not specified

== ENCOUNTER 2016-10-01 09:24 | Inpatient (IN) | payer OTHER ==
[~2016-10-01] VITALS: Ht 154.9 cm; Wt 100.0 kg
[~2016-10-01 09:24] MED LIST changes: -ATV1 SL; -DRGTP100 TD
[2016-10-01] MEDS ORDERED: ONDANSETRON INJ 2 MG/ML 2 ML VIAL ONE (09:30)
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
[2016-10-01] MEDS ORDERED: SODIUM CHLORIDE 0.9% 1000ML 1,000 ML IV ONE (09:45)
[2016-10-01] MEDS: HYDROmorphone INJ 1 MG/ML SYR IV PRN ×6 (09:47→21:51)
[2016-10-01] MEDS: ONDANSETRON INJ 2 MG/ML 2 ML VIAL IV PRN ×2 (09:47→12:06)
--- NOTE | 2016-10-01 10:00 | DIAGNOSTIC IMAGING REPORT ---
CHEST ONE VIEW PORTABLE CLINICAL HISTORY: Vomiting COMPARISON STUDY: 09/20/2016 FINDINGS: There is a left subclavian A-Port catheter present. The tip projects over the superior vena cava. The heart is normal in size. There is no focal pulmonary consolidation. There is no failure. There is blunting of both lateral costophrenic angle suggesting small effusions.[ IMPRESSION: 1. Small bilateral pleural effusions 2. No evidence of focal pulmonary consolidation 3. No evidence of free intraperitoneal air Electronically signed by: Lalo Fortune M.D. 10/01/2016 9:59 AM Dictated Date/Time: 10/01/2016 9:58 AM
[2016-10-01 10:12] LABS: BASO % 0.1 %; BASO ABS # 0.01 K/uL (0-0.2); COMPLETE YES; EOS % 3.4 %; HEMATOCRIT 37.6 % (37-47); IG% 0.2 %; LYMPH % 15.4 %; LYMPH ABS # 1.54 K/uL (1.2-3.4); MEAN CELL VOLUME 91.7 fL (80-100); MEAN CORPUSCULAR HGB CONC 33.8 g/dl (32-36); MEAN PLATELET VOLUME 11.3 fL (7.4-10.4); MONO % 8.8 %; NEUT % 72.1 %; PLATELET COUNT 247 K/uL (130-400); WHITE BLOOD COUNT 9.97 K/uL (4.8-10.8)
[2016-10-01 10:14] LABS: URINE APPEARANCE CLEAR (CLEAR); URINE COLOR DK YELLOW; URINE EPITHELIAL CELL AUTO >30 /lpf (0-5); URINE NITRITE NEG (NEG); URINE SPECIFIC GRAVITY 1.023 (1.000-1.030); UROBILINOGEN NEG (NEG); ZZURINE CULT IF INDIC CATH NO
[2016-10-01 10:15] LABS: MANUAL MICROSCOPIC REQUIRED? NO; REVIEW REQ? YES
[2016-10-01 10:17] LABS: URINE BILIRUBIN NEG (NEG)
[2016-10-01 10:21] LABS: INR 1.1 (0.9-1.1); PARTIAL THROMBOPLASTIN RATIO 1.1
[2016-10-01 11:10] LABS: BUN/CREATININE RATIO 19.5 (10-20); CALCIUM 8.5 mg/dl (8.5-10.1); CREATININE 1.1 mg/dl (0.60-1.20); POTASSIUM 3.7 mmol/L (3.5-5.1)
[2016-10-01 11:13] LABS: ALB/GLOB RATIO 0.7 (0.9-2)
[2016-10-01] MEDS ORDERED: OPTIRAY 320 IV PRN (12:00)
--- NOTE | 2016-10-01 12:10 | DIAGNOSTIC IMAGING REPORT ---
ABDOMEN AND PELVIS CT WITH IV CONTRAST CT DOSE: 1225.47 mGy.cm HISTORY: Pain ovarian CA obstructed? TECHNIQUE: Multiaxial CT images of the abdomen and pelvis were performed following the use of intravenous contrast. COMPARISON STUDY: 09/20/2016 FINDINGS: Small bilateral pleural effusions.. Bibasilar atelectasis slightly progressive. Gastrostomy tube in good position. Liver enhances uniformly. Slightly progressive peritoneal carcinomatosis. Small ventral hernia containing a slightly distended loop of small bowel. This may indicate a partially obstructive component. Anterior abdominal wall carcinomatosis May be a contributory factor. Small bilateral renal parapelvic cysts. Bladder is midline. IMPRESSION: 1. Findings suggesting partial small bowel obstruction 2. This potentially relates to a small ventral hernia combined with mildly progressive anterior abdominal wall carcinomatosis. 3. Slightly progressive bibasilar pleural effusions and bibasilar atelectasis. Electronically signed by: Garrett Jiang M.D. 10/01/2016 12:08 PM Dictated Date/Time: 10/01/2016 12:00 PM
[2016-10-01] MEDS ORDERED: DEXTROSE 10% 1,000 ML IV PRN (12:51)
[2016-10-01] MEDS ORDERED: CONSULT PHARMACY STA (12:51)
[2016-10-01] MEDS ORDERED: HYDROmorphone INJ 1 MG/ML SYR IV PRN (13:00)
[2016-10-01] MEDS ORDERED: TPN/PPN CONSULT PHARMACY PRN (13:00)
[2016-10-01 14:24] VITALS: Ht 154.9 cm; Wt 100.0 kg
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
[2016-10-01] MEDS ORDERED: CUSTOM CENTRAL PN 1 BAG IV SCH (16:00)
[2016-10-01 16:15] LABS: MAGNESIUM 1.6 mg/dl (1.8-2.4)
[2016-10-01 16:45] VITALS: O2SAT 94
--- NOTE | 2016-10-01 16:59 | Oncology Consultation ---
Oncology/Heme Consultation Date of Consultation: Oct 01, 2016. Attending Physician: Bridger Brooks M.D. Reason for Consultation: Refractory progressive ovarian carcinoma History of Present Illness This is one of multiple omissions for Ms. Mcbride presents with pain around her gastrostomy tube. She denies any fever or chills or shortness of breath. She has a history of advanced ovarian carcinoma status post multiple regimens with continued progression of disease and resultant intermittent bowel obstruction. Past Medical/Surgical History Medical Problems: (1) Abdominal pain Status: Acute (2) Acute kidney injury Status: Acute (3) Bowel obstruction Status: Acute (4) Carcinomatosis Status: Acute (5) Dehydration Status: Acute (6) Dehydration Status: Acute (7) Diffuse abdominal pain Status: Acute (8) Esophageal Reflux Status: Chronic (9) Failure of outpatient treatment Status: Acute (10) Intractable abdominal pain Status: Acute (11) Left flank pain Status: Acute (12) Lower abdominal pain Status: Acute (13) Morbid Obesity Status: Chronic (14) Ovarian cancer Status: Acute (15) Ovarian cancer Status: Acute (16) Ovarian cancer Status: Acute (17) Precordial chest pain Status: Acute (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 (19) Small bowel obstruction Status: Acute (20) Small bowel obstruction Status: Acute (21) UTI (urinary tract infection) Status: Acute Family History Diabetes mellitus FH: heart disease Hypertension Social History Smoking Status: Never Smoker Drug Use: none Marital Status: Housing Status: lives with family Occupation Status: retired Allergies Coded Allergies: Sulfa Antibiotics (Verified Allergy, Intermediate, HIVES, 10/01/16) PT HAS REMOTE HISTORY OF REACTION TO "SULFA DRUG" - PER PT, UNSURE WHICH DRUG, BUT THOUGHT IT WAS AN ANTIBIOTIC Ipratropium (Verified Allergy, Unknown, `, 10/01/16) Levofloxacin (Verified Allergy, Unknown, `, 10/01/16) Codeine (Verified Adverse Reaction, Intermediate, NAUSEA, 10/01/16) Diphenhydramine (Verified Adverse Reaction, Mild, Restless leg, 10/01/16) Home Medications Scheduled Citalopram (Citalopram Hydrobromide), 20 MG PO QAM Fentanyl (Fentanyl), 25 MCG TOP CQ72HR Fentanyl (Fentanyl), 12 MCG TD Q3D@0900 Metoclopramide Hcl (Metoclopramide Hcl), 5 MG PO ac/hs Omeprazole (Prilosec), 40 MG PO QAM [Boost Nutritional Drink], 1 BOX PO BIDM Scheduled PRN Hydromorphone Hcl (Hydromorphone Hcl), 2 MG PO Q3HRS PRN for Pain Lorazepam (Ativan), 0.5 MG PO Q6H PRN for anxiety or sleep Meclizine HCl (Meclizine HCl), 25 MG PO Q6H PRN for vertigo Ondansetron (Ondansetron HCl), 4 MG PO UD PRN for Nausea Current Inpatient Medications Current Inpatient Medications Medications (Trade) Dose Ordered Sig/Mendoza Route Start Time Stop Time Status Last Admin Dose Admin Ioversol (Optiray 320) 125 ml UD PRN IV 10/01/16 12:00 10/05/16 11:59 Enoxaparin Sodium (Lovenox Inj) 30 mg Q12 SQ 10/01/16 21:00 10/31/16 20:59 Ondansetron HCl 4 mg 4 mg Q6H PRN IV 10/01/16 13:00 10/31/16 12:59 Dextrose (D10w) 1,000 ml @ 0 mls/hr Q0M PRN IV 10/01/16 12:51 10/31/16 12:50 Miscellaneous Information (Pharmacy Tpn/ Ppn Consult Active) 1 ea UD PRN N/A 10/01/16 13:00 10/31/16 12:59 Hydromorphone HCl (Dilaudid Inj) 0.5 mg Q4H PRN IV 10/01/16 13:00 10/15/16 12:59 Hydromorphone HCl 1 mg 1 mg Q4 PRN IV 10/01/16 13:00 10/15/16 12:59 Promethazine HCl 12.5 mg/Sodium Chloride 50.5 ml @ 204 mls/hr Q6H PRN IV 10/01/16 13:00 10/31/16 12:59 Pantoprazole Sodium 40 mg/ Syringe 10 ml @ 5 mls/min BID@0900,2100 IV 10/01/16 21:00 10/31/16 20:59 Nutrition (Parenteral) (Custom Central Pn) 0 ml @ 0 mls/hr TODAY@1600 IV 10/01/16 16:00 10/02/16 09:59 Miscellaneous (Stop Order) 1 ea DAILY@1000 N/A 10/02/16 10:00 11/01/16 09:59 Review of Systems Constitutional: Negative for weight loss, night sweats, or fever. She states she is able to take clear fluid Eyes: Negative for event change of vision ENT: Negative for epistaxis, nasal discharge, sore throat, or deafness Cardiovascular: Negative for chest pain, palpitations, dizziness, diaphoresis Respiratory: Negative for new shortness of breath,hemoptysis, or purulent cough Gastrointestinal: Negative for diarrhea, hematemesis, melena, nausea, vomiting , or dyspepsia Integumentary (skin): Negative for rash or jaundice discoloration Genitourinary: Negative for urinary frequency, hematuria, or dysuria Neurological: Negative for weakness, seizure activity, headache, or dizziness Lymphatic/Hematologic: Negative for petechiae, bleeding or new adenopathy Musculoskeletal: Negative for new joint or back pain Allergic/Immunologic: Negative for unusual rash or pruritis. Physical Exam Date Time Temp Pulse Resp B/P Pulse Ox O2 Delivery O2 Flow Rate FiO2 10/01/16 15:06 95 16 100/69 94 Room Air 10/01/16 14:24 Room Air 10/01/16 13:54 92 18 109/82 98 10/01/16 12:07 100 20 108/76 97 Nasal Cannula 3.0 10/01/16 11:11 108 16 121/93 97 Room Air 10/01/16 09:28 36.6 117 20 119/93 92 Room Air Constitutional: vitals are stable. Obese pleasant female Eyes: Eyes are VALDO EOMI without conjuctival erythema or icterus. ENT: External examination was negative for masses. Neck: Negative for masses or palpable thyromegaly Respiratory: Lung sounds were generally clear bilaterally Cardiovascular: Heart was RRR without significant murmur, gallops aoe rubs Gastrointestinal: No palpable hepatic or splenomegaly. The abdomen was soft with normal bowel sounds. Gastrostomy tube in place with some very mild irritation around the entrance site at most Lymphatic system: there was no palpable peripheral lymphadenopathy Musculoskeletal System: The musculoskeletal system seemed concordant with age. Skin: The skin was negative for jaundice. Neurologic exam: The exam was negative for any focal findings. Deep tendon reflexes were equal and symmetrical. Psychiatric exam: Was essentially negative with normal mood and effect. Breast exam: Was not done Extremities: Negative for edema erythema Laboratory Results Last 24 Hours Test 10/01/16 09:40 10/01/16 10:02 10/01/16 10:45 White Blood Count 9.97 K/uL Red Blood Count 4.10 M/uL Hemoglobin 12.7 g/dL Hematocrit 37.6 % Mean Corpuscular Volume 91.7 fL Mean Corpuscular Hemoglobin 31.0 pg Mean Corpuscular Hemoglobin Concent 33.8 g/dl Platelet Count 247 K/uL Mean Platelet Volume 11.3 fL Neutrophils (%) (Auto) 72.1 % Lymphocytes (%) (Auto) 15.4 % Monocytes (%) (Auto) 8.8 % Eosinophils (%) (Auto) 3.4 % Basophils (%) (Auto) 0.1 % Neutrophils # (Auto) 7.18 K/uL Lymphocytes # (Auto) 1.54 K/uL Monocytes # (Auto) 0.88 K/uL Eosinophils # (Auto) 0.34 K/uL Basophils # (Auto) 0.01 K/uL RDW Standard Deviation 60.1 fL RDW Coefficient of Variation 18.0 % Immature Granulocyte % (Auto) 0.2 % Immature Granulocyte # (Auto) 0.02 K/uL Prothrombin Time 12.0 SECONDS Prothromb Time International Ratio 1.1 Activated Partial Thromboplast Time 28.4 SECONDS Partial Thromboplastin Ratio 1.1 Urine Color DK YELLOW Urine Appearance CLEAR Urine pH 5.0 Urine Specific Barnum 1.023 Urine Protein 1+ Urine Glucose (UA) NEG Urine Ketones TRACE Urine Occult Blood NEG Urine Nitrite NEG Urine Bilirubin NEG Urine Urobilinogen NEG Urine Leukocyte Esterase NEG Urine WBC (Auto) 1-5 /hpf Urine RBC (Auto) 0-4 /hpf Urine Hyaline Casts (Auto) /lpf Urine Epithelial Cells (Auto) >30 /lpf Urine Bacteria (Auto) NEG Urine Pathogenic Casts /lpf Sodium Level 140 mmol/L Potassium Level 3.7 mmol/L Chloride Level 107 mmol/L Carbon Dioxide Level 22 mmol/L Anion Gap 11.0 mmol/L Blood Urea Nitrogen 21 mg/dl Creatinine 1.10 mg/dl Est Creatinine Clear Calc Drug Dose 62.6 ml/min Estimated GFR () 65.0 Estimated GFR (Non- 56.1 BUN/Creatinine Ratio 19.5 Random Glucose 124 mg/dl Calcium Level 8.5 mg/dl Phosphorus Level 4.0 mg/dl Magnesium Level 1.6 mg/dl Total Bilirubin 0.7 mg/dl Aspartate Amino Transf (AST/SGOT) 23 U/L Alanine Aminotransferase (ALT/SGPT) 27 U/L Alkaline Phosphatase 90 U/L Total Protein 6.5 gm/dl Albumin 2.7 gm/dl Globulin 3.8 gm/dl Albumin/Globulin Ratio 0.7 Assessment & Plan Extensive advanced refractory ovarian carcinoma. Performance status graded 3.0 now This is one of multiple admissions for abdominal discomfort. Our chemotherapy attempts have not been helpful. More recently she has been receiving Topotecan and occasional bevacizumab but again the CA-125 and her clinical condition all point towards progression of disease. She has had multiple conversations with a number of physicians concerning hospice placement and again I focused primarily on that. I stated that it is time now for hospice. I stated that the quality of life should be focused on being care for at home where problems like she is currently having (with some mild abdominal pain) could be dealt with help by hospice. She understood and shook her head head "yes". She did ask whether more chemotherapy would be helpful and I stated no. With that then please consult hospice to become involved.. Her blood counts and chemistries appear quite good.
[2016-10-01] MEDS ORDERED: NURSING VERBAL MED ORDER ONE ×2 (17:45)
[2016-10-01] MEDS ORDERED: FENTANYL PATCH REMOVE & WASTE SCH ×2 (17:59)
[2016-10-01] MEDS ORDERED: FENTANYL 12 MCG/HR TDSY TD SCH (18:00)
[2016-10-01] MEDS ORDERED: FENTANYL 25 MCG/HR TDSY TD SCH (18:00)
[2016-10-01 19:24] VITALS: BP 92/65; PULSE 83; TEMP 36.3; O2SAT 92
[2016-10-01] MEDS: PANTOprazole INJ 40 MG in SYRINGE 0 ML IV SCH (21:51)
[2016-10-01] MEDS: ENOXAPARIN 30 MG/0.3 ML SYR SQ SCH (21:52)
[2016-10-01 22:08] VITALS: BP 113/78; PULSE 81
[2016-10-01 23:50] VITALS: BP 111/61; PULSE 92; TEMP 36.3; O2SAT 93
[2016-10-02] VITALS (7 sets, daily range): BP systolic 102–125; BP diastolic 66–79; PULSE 74–91; TEMP 36.5–36.8; O2SAT 91–95
[2016-10-02] MEDS: HYDROmorphone INJ 1 MG/ML SYR IV PRN ×4 (04:35→20:21)
[2016-10-02] MEDS: CHECK FENTANYL PATCH PLACEMENT SCH ×8 (04:50→23:42)
[2016-10-02 06:31] LABS: MEAN CELL VOLUME 93.8 fL (80-100); MEAN CORPUSCULAR HEMOGLOBIN 29.9 pg (25-34); MEAN CORPUSCULAR HGB CONC 31.9 g/dl (32-36); MEAN PLATELET VOLUME 11.4 fL (7.4-10.4); PLATELET COUNT 187 K/uL (130-400); RED BLOOD COUNT 3.41 M/uL (4.2-5.4)
[2016-10-02 06:39] LABS: BUN/CREATININE RATIO 21.6 (10-20); CALCIUM 8.4 mg/dl (8.5-10.1); CREATININE 1.1 mg/dl (0.60-1.20); MAGNESIUM 1.9 mg/dl (1.8-2.4); PHOSPHORUS 3.8 mg/dl (2.5-4.9)
[2016-10-02] MEDS: PANTOprazole INJ 40 MG in SYRINGE 0 ML IV SCH ×2 (08:53→20:13)
[2016-10-02] MEDS: ENOXAPARIN 30 MG/0.3 ML SYR SQ SCH ×2 (09:18→20:14)
[2016-10-02] MEDS: TPN - STOP ORDER SCH (10:41)
[2016-10-02 13:36] LABS: HEMATOCRIT 30.9 % (37-47)
--- NOTE | 2016-10-02 15:26 | Progress Note ---
Subjective Date of Service: Oct 02, 2016. Subjective pt notes that she has some black discharge that is foul smelling coming from gtube, maybe some pain focused in that area. CT on presentation did not comment on any changes there, hernia site remains non tender today Problem List Medical Problems: (1) Abdominal pain Status: Acute (2) Acute kidney injury Status: Acute (3) Bowel obstruction Status: Acute (4) Carcinomatosis Status: Acute (5) Dehydration Status: Acute (6) Dehydration Status: Acute (7) Diffuse abdominal pain Status: Acute (8) Esophageal Reflux Status: Chronic (9) Failure of outpatient treatment Status: Acute (10) Intractable abdominal pain Status: Acute (11) Left flank pain Status: Acute (12) Lower abdominal pain Status: Acute (13) Morbid Obesity Status: Chronic (14) Ovarian cancer Status: Acute (15) Ovarian cancer Status: Acute (16) Ovarian cancer Status: Acute (17) Precordial chest pain Status: Acute (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 (19) Small bowel obstruction Status: Acute (20) Small bowel obstruction Status: Acute (21) UTI (urinary tract infection) Status: Acute Review of Systems Constitutional: + fatigue, + weakness, No chills, No fever Respiratory: No cough, No shortness of breath Cardiac: No chest pain, No edema Abdomen: + pain, No diarrhea, No nausea, No vomiting Female : No dysuria, No urinary frequency Objective Vital Signs Date Time Temp Pulse Resp B/P Pulse Ox O2 Delivery O2 Flow Rate FiO2 10/02/16 11:32 36.5 85 16 102/66 92 10/02/16 08:00 Room Air 10/02/16 07:18 36.6 91 18 109/71 94 Room Air 10/02/16 04:11 36.5 91 20 121/67 95 Room Air 10/02/16 04:00 94 Room Air 3.0 10/02/16 04:00 94 Room Air 10/01/16 23:50 36.3 92 18 111/61 93 Room Air 10/01/16 22:08 81 113/78 10/01/16 19:24 36.3 83 20 92/65 92 Room Air 10/01/16 16:45 94 Room Air Physical Exam General Appearance: + moderate distress, + obese Neck: supple, no JVD Respiratory/Chest: chest non-tender, + decreased breath sounds Cardiovascular: regular rate, rhythm, no murmur Abdomen: soft, + distended, + tenderness, + pertinent finding (gtube with black drainage and some grittiness) Neurologic/Psychiatric: alert, oriented x 3 Laboratory Results Last 24 Hours Test 10/01/16 18:06 10/02/16 00:11 10/02/16 06:00 10/02/16 06:55 Bedside Glucose 119 mg/dl 126 mg/dl 131 mg/dl White Blood Count 6.30 K/uL Red Blood Count 3.41 M/uL Hemoglobin 10.2 g/dL Hematocrit 32.0 % Mean Corpuscular Volume 93.8 fL Mean Corpuscular Hemoglobin 29.9 pg Mean Corpuscular Hemoglobin Concent 31.9 g/dl RDW Standard Deviation 62.5 fL RDW Coefficient of Variation 18.3 % Platelet Count 187 K/uL Mean Platelet Volume 11.4 fL Sodium Level 139 mmol/L Potassium Level 4.0 mmol/L Chloride Level 108 mmol/L Carbon Dioxide Level 24 mmol/L Anion Gap 7.0 mmol/L Blood Urea Nitrogen 24 mg/dl Creatinine 1.10 mg/dl Est Creatinine Clear Calc Drug Dose 62.6 ml/min Estimated GFR () 65.0 Estimated GFR (Non- 56.1 BUN/Creatinine Ratio 21.6 Random Glucose 122 mg/dl Calcium Level 8.4 mg/dl Phosphorus Level 3.8 mg/dl Magnesium Level 1.9 mg/dl Test 10/02/16 13:24 Hemoglobin 10.1 g/dL Hematocrit 30.9 % Assessment and Plan 56 F with metastatic ovarian cancer, here with poor pain control continue fentanyl patches and parenteral pain meds g tube study to determine if in proper placement
[2016-10-02] MEDS ORDERED: CUSTOM CENTRAL PN 1 BAG IV SCH (16:00)
--- NOTE | 2016-10-02 17:13 | DIAGNOSTIC IMAGING REPORT ---
KUB CLINICAL HISTORY: Tube placement. FINDINGS: 2 AP supine abdominal radiographs are correlated with abdominal CT dated 10/01/2016. There is a nonobstructed abdominal bowel gas pattern noting moderate colonic fecal retention. A gastrostomy tube is present in the left upper quadrant. Cholecystotomy clips are identified in the right upper quadrant, and there is a surgical clip in the right lower quadrant. No evidence of intraperitoneal free air is seen on these supine views. Numerous phlebolith are noted in the pelvis. The skeletal structures are osteopenic. Mild lumbosacral spondylosis is observed. There is sclerotic change at the pubic symphysis. The lung bases are clear as imaged. IMPRESSION: 1. A gastrostomy tube projects over the left upper quadrant. 2. Nonobstructed abdominal bowel gas pattern noting moderate colonic fecal retention. Electronically signed by: Art Grady M.D. 10/02/2016 5:12 PM Dictated Date/Time: 10/02/2016 5:07 PM
[2016-10-03] VITALS (7 sets, daily range): BP systolic 92–155; BP diastolic 61–87; PULSE 81–90; TEMP 36.4–36.8; O2SAT 92–97
[2016-10-03] MEDS: HYDROmorphone INJ 1 MG/ML SYR IV PRN ×2 (00:12→04:29)
[2016-10-03] MEDS: ONDANSETRON INJ 2 MG/ML 2 ML VIAL IV PRN ×2 (04:25→15:54)
[2016-10-03 07:07] LABS: BLOOD UREA NITROGEN 24 mg/dl (7-18); BUN/CREATININE RATIO 22.2 (10-20); CALCIUM 8.3 mg/dl (8.5-10.1); CARBON DIOXIDE 25 mmol/L (21-32); CHLORIDE 108 mmol/L (98-107); GLUCOSE 115 mg/dl (70-99); SODIUM 141 mmol/L (136-145)
[2016-10-03] MEDS: CHECK FENTANYL PATCH PLACEMENT SCH ×5 (07:36→23:38)
[2016-10-03] MEDS: ENOXAPARIN 30 MG/0.3 ML SYR SQ SCH ×2 (07:37→21:07)
[2016-10-03] MEDS: PANTOprazole INJ 40 MG in SYRINGE 0 ML IV SCH ×2 (07:37→21:06)
[2016-10-03] MEDS ORDERED: HYDROmorphone INJ 0.5 MG/0.5 ML SYR IV PRN (10:00)
[2016-10-03] MEDS ORDERED: HYDROmorphone INJ 2 MG/ML SYR/VIAL IV PRN (10:00)
[2016-10-03] MEDS ORDERED: HYDROmorphone INJ 2 MG/ML SYR/VIAL ONE (10:01)
[2016-10-03] MEDS: TPN - STOP ORDER SCH (10:05)
--- NOTE | 2016-10-03 10:55 | DIAGNOSTIC IMAGING REPORT ---
KUB CLINICAL HISTORY: Tube check. FINDINGS: An AP supine abdominal radiograph is compared to study dated 10/02/16. Approximately 50 cc of Gastrografin was injected into the enteric tube prior to the examination. A gastrostomy tube is present in the left upper quadrant. The enteric contrast is located within the stomach. There is no evidence of extraluminal contrast. There is a nonobstructed abdominal bowel gas pattern. There is no evidence of intraperitoneal free air on this supine examination. Mild colonic fecal retention is noted. Cholecystectomy clips are noted. No abnormal abdominal calcifications are identified. The imaged bony structures appear intact. IMPRESSION: 1. A gastrostomy tube is present in the left upper quadrant. Enteric contrast fills the stomach. No extraluminal contrast is seen. 2. There is no radiographic evidence of bowel obstruction. Electronically signed by: Art Grady M.D. 10/03/2016 10:53 AM Dictated Date/Time: 10/03/2016 10:52 AM
[2016-10-03] MEDS: HYDROmorphone INJ 2 MG/ML SYR/VIAL IV PRN (15:55)
[2016-10-03] MEDS ORDERED: CUSTOM CENTRAL PN 1 BAG IV SCH (16:00)
--- NOTE | 2016-10-03 16:59 | Hematology/Oncology Prog Note ---
Hematology/Onc Progress Note Date of Service Oct 03, 2016. Diagnoses Refractory ovarian carcinoma Possible infected G-tube Medications Medications Administered Medications (Trade) Dose Ordered Sig/Mendoza Route Start Time Stop Time Status Last Admin Dose Admin Ondansetron HCl (Zofran Inj) 4 mg Q1HWA PRN IV 10/01/16 09:45 10/01/16 16:02 DC 10/01/16 12:06 4 MG Hydromorphone HCl 1 mg 1 mg Q1HWA PRN IV 10/01/16 09:45 10/01/16 16:02 DC 10/01/16 15:03 1 MG Sodium Chloride (Nss 1000ml) 1,000 ml @ 1,000 mls/hr Q1H ONCE IV 10/01/16 09:45 10/01/16 10:44 DC 10/01/16 09:46 1,000 MLS/HR Enoxaparin Sodium (Lovenox Inj) 30 mg Q12 SQ 10/01/16 21:00 10/31/16 20:59 10/03/16 07:37 30 MG Ondansetron HCl (Zofran Inj) 4 mg Q6H PRN IV 10/01/16 13:00 10/31/16 12:59 10/03/16 15:54 4 MG Hydromorphone HCl 1 mg 1 mg Q4 PRN IV 10/01/16 13:00 10/15/16 12:59 10/03/16 04:29 1 MG Pantoprazole Sodium 40 mg/ Syringe 10 ml @ 5 mls/min BID@0900,2100 IV 10/01/16 21:00 10/31/16 20:59 10/03/16 07:37 5 MLS/MIN Nutrition (Parenteral) (Custom Central Pn) 0 ml @ 0 mls/hr TODAY@1600 IV 10/01/16 16:00 10/02/16 10:00 DC 10/01/16 18:02 0 MLS/HR Miscellaneous (Stop Order) 1 ea DAILY@1000 N/A 10/02/16 10:00 11/01/16 09:59 10/03/16 10:05 1 EA Fentanyl (Duragesic Patch) 25 mcg Q3D TD 10/01/16 18:00 10/15/16 17:59 10/01/16 18:02 25 MCG Miscellaneous (Fentanyl Patch Remove & Waste) 1 ea Q3D N/A 10/01/16 17:59 10/31/16 17:58 10/01/16 18:11 1 EA Miscellaneous Information (Check Fentanyl Patch Placement) 1 ea QS N/A 10/02/16 00:00 11/01/16 00:00 10/03/16 15:55 1 EA Fentanyl (Duragesic Patch) 12 mcg Q3D TD 10/01/16 18:00 10/15/16 17:59 10/01/16 18:02 12 MCG Miscellaneous (Fentanyl Patch Remove & Waste) 1 ea Q3D N/A 10/01/16 17:59 10/31/16 17:58 10/01/16 18:11 1 EA Miscellaneous Information 1 ea 1 ea QS N/A 10/02/16 00:00 11/01/16 00:00 10/03/16 15:55 1 EA Nutrition (Parenteral) (Custom Central Pn) 0 ml @ 0 mls/hr TODAY@1600 IV 10/02/16 16:00 10/03/16 13:07 DC 10/02/16 16:29 0 MLS/HR Hydromorphone HCl (Dilaudid Inj) 2 mg STK-MED ONCE .ROUTE 10/03/16 10:01 10/03/16 10:03 DC 10/03/16 10:05 2 MG Hydromorphone HCl 2 mg 2 mg Q4 PRN IV 10/03/16 11:30 10/17/16 11:29 10/03/16 15:55 2 MG Nutrition (Parenteral) (Custom Central Pn) 0 ml @ 0 mls/hr TODAY@1600 IV 10/03/16 16:00 10/04/16 09:59 10/03/16 15:55 0 MLS/HR Subjective Patient states that she started to smell the current aroma around the G-tube a few days ago. She continues to have some mild abdominal pain that does not appear to be any more severe than before Review of Systems: Constitutional: Negative for night sweats, or fever Eyes: Negative for event change of vision ENT: Negative for epistaxis, nasal discharge, sore throat, or deafness Cardiovascular: Negative for chest pain, palpitations, dizziness, diaphoresis Respiratory: Negative for new shortness of breath,hemoptysis, or purulent cough Gastrointestinal: Negative for diarrhea, hematemesis, or melena, Integumentary (skin): Negative for rash or jaundice discoloration Genitourinary: Negative for urinary frequency, hematuria, or dysuria Neurological: Negative for weakness, seizure activity, headache, or dizziness Lymphatic/Hematologic: Negative for petechiae, bleeding or new adenopathy Musculoskeletal: Negative for new joint or back pain Allergic/Immunologic: Negative for unusual rash or pruritis. Vital Signs Vital Signs Past 12 Hours Date Time Temp Pulse Resp B/P Pulse Ox O2 Delivery O2 Flow Rate FiO2 10/03/16 16:00 Room Air 10/03/16 15:08 36.4 90 16 101/66 95 10/03/16 12:28 36.4 82 18 92/61 96 Room Air 10/03/16 08:00 Room Air 10/03/16 07:59 36.4 89 18 108/72 94 Room Air Physical Exam Constitutional: vitals are stable. Eyes: Eyes are VALDO EOMI without conjuctival erythema or icterus. ENT: External examination was negative for masses. Neck: Negative for masses or palpable thyromegaly Respiratory: Lung sounds were generally clear bilaterally Cardiovascular: Heart was RRR without significant murmur, gallops aoe rubs Gastrointestinal: No palpable hepatic or splenomegaly. The G-tube does have foul -smelling drainage both in the bag as well as a little bit around the tube itself. The abdomen is generally tender to moderate to deep palpation around the tube as well as distant from the tube. Lymphatic system: there was no palpable peripheral lymphadenopathy Musculoskeletal System: The musculoskeletal system seemed concordant with age. Skin: The skin was negative for jaundice. Neurologic exam: The exam was negative for any focal findings. Deep tendon reflexes were equal and symmetrical. Psychiatric exam: Was essentially negative with normal mood and effect. Breast exam: Not done Extremities: Negative for edema erythema Laboratory Last 24 Hours Test 10/02/16 19:25 10/02/16 23:58 10/03/16 05:55 10/03/16 06:05 Bedside Glucose 140 mg/dl 113 mg/dl 118 mg/dl Sodium Level 141 mmol/L Potassium Level mmol/L Chloride Level 108 mmol/L Carbon Dioxide Level 25 mmol/L Anion Gap 8.0 mmol/L Blood Urea Nitrogen 24 mg/dl Creatinine 1.10 mg/dl Est Creatinine Clear Calc Drug Dose 62.2 ml/min Estimated GFR () 65.0 Estimated GFR (Non- 56.1 BUN/Creatinine Ratio 22.2 Random Glucose 115 mg/dl Calcium Level 8.3 mg/dl Test 10/03/16 07:30 10/03/16 11:56 Potassium Level 4.1 mmol/L Bedside Glucose 76 mg/dl Assessment & Plan Visit on smelling aroma around the tube almost smells like Pseudomonas. Cultures are pending otherwise she appears clinically stable.
--- NOTE | 2016-10-03 18:35 | Progress Note ---
Subjective Date of Service: Oct 03, 2016. Subjective pt with pain increasing and request for higher doses of dilaudid, smell of tissue from G tube site, site is reddened Problem List Medical Problems: (1) Abdominal pain Status: Acute (2) Acute kidney injury Status: Acute (3) Bowel obstruction Status: Acute (4) Carcinomatosis Status: Acute (5) Dehydration Status: Acute (6) Dehydration Status: Acute (7) Diffuse abdominal pain Status: Acute (8) Esophageal Reflux Status: Chronic (9) Failure of outpatient treatment Status: Acute (10) Intractable abdominal pain Status: Acute (11) Left flank pain Status: Acute (12) Lower abdominal pain Status: Acute (13) Morbid Obesity Status: Chronic (14) Ovarian cancer Status: Acute (15) Ovarian cancer Status: Acute (16) Ovarian cancer Status: Acute (17) Precordial chest pain Status: Acute (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 (19) Small bowel obstruction Status: Acute (20) Small bowel obstruction Status: Acute (21) UTI (urinary tract infection) Status: Acute Review of Systems Constitutional: + fatigue, + weakness, No chills, No fever Respiratory: No cough, No wheezing Cardiac: No chest pain, No orthopnea Abdomen: + constipation, + pain, No diarrhea, No nausea, No vomiting Musculoskeletal: No joint pain, No muscle pain, No swelling Psychiatric: + anxiety, + depression symptoms, No anhedonism Objective Vital Signs Date Time Temp Pulse Resp B/P Pulse Ox O2 Delivery O2 Flow Rate FiO2 10/03/16 16:00 Room Air 10/03/16 15:08 36.4 90 16 101/66 95 10/03/16 12:28 36.4 82 18 92/61 96 Room Air 10/03/16 08:00 Room Air 10/03/16 07:59 36.4 89 18 108/72 94 Room Air 10/03/16 04:00 36.4 89 18 155/87 97 Room Air 10/03/16 00:00 94 Room Air 3.0 10/02/16 23:35 36.7 74 20 107/70 93 Room Air 10/02/16 19:51 36.6 74 18 125/79 92 Room Air Physical Exam General Appearance: WD/WN, + moderate distress Respiratory/Chest: chest non-tender, + decreased breath sounds Cardiovascular: regular rate, rhythm, no murmur Abdomen: + abnormal bowel sounds, + distended, + tenderness, + pertinent finding (hernia remains reduceable) Extremities: no pedal edema, no calf tenderness Neurologic/Psychiatric: alert, oriented x 3 Laboratory Results Last 24 Hours Test 10/02/16 19:25 10/02/16 23:58 10/03/16 05:55 10/03/16 06:05 Bedside Glucose 140 mg/dl 113 mg/dl 118 mg/dl Sodium Level 141 mmol/L Potassium Level mmol/L Chloride Level 108 mmol/L Carbon Dioxide Level 25 mmol/L Anion Gap 8.0 mmol/L Blood Urea Nitrogen 24 mg/dl Creatinine 1.10 mg/dl Est Creatinine Clear Calc Drug Dose 62.2 ml/min Estimated GFR () 65.0 Estimated GFR (Non- 56.1 BUN/Creatinine Ratio 22.2 Random Glucose 115 mg/dl Calcium Level 8.3 mg/dl Test 10/03/16 07:30 10/03/16 11:56 10/03/16 18:01 Potassium Level 4.1 mmol/L Bedside Glucose 76 mg/dl 137 mg/dl Assessment and Plan 56 F with metastatic ovarian cancer, here with poor pain control continue fentanyl patches and parenteral pain meds, escalating needs, outlook is poor will need to transition to hospice and may need parenteral opiate infusion, will increase pain patches g tube study shows proper tube placement
[2016-10-03] MEDS ORDERED: FENTANYL PATCH REMOVE & WASTE SCH (18:45)
[2016-10-03] MEDS ORDERED: FENTANYL 75 MCG/HR TDSY TD SCH (18:45)
[2016-10-04] VITALS (7 sets, daily range): BP systolic 105–156; BP diastolic 56–92; PULSE 68–83; TEMP 36.3–36.6; O2SAT 91–95
[2016-10-04] MEDS: HYDROmorphone INJ 2 MG/ML SYR/VIAL IV PRN ×3 (00:06→17:10)
[2016-10-04] MEDS ORDERED: NURSING VERBAL MED ORDER ONE ×2 (06:15→06:30)
[2016-10-04 06:25] LABS: HEMATOCRIT 31.1 % (37-47); MEAN CELL VOLUME 94.2 fL (80-100); MEAN CORPUSCULAR HGB CONC 31.8 g/dl (32-36); MEAN PLATELET VOLUME 11.1 fL (7.4-10.4); PLATELET COUNT 196 K/uL (130-400); WHITE BLOOD COUNT 5.54 K/uL (4.8-10.8)
[2016-10-04] MEDS ORDERED: ACETAMINOPHEN 325 MG TAB PO PRN (06:30)
[2016-10-04 06:55] LABS: BUN/CREATININE RATIO 23.7 (10-20); CALCIUM 8.7 mg/dl (8.5-10.1); MAGNESIUM 1.8 mg/dl (1.8-2.4); PHOSPHORUS 3.4 mg/dl (2.5-4.9); POTASSIUM 4.2 mmol/L (3.5-5.1)
[2016-10-04] MEDS: CHECK FENTANYL PATCH PLACEMENT SCH ×3 (07:39→23:05)
[2016-10-04] MEDS: ACETAMINOPHEN IV 650 MG / 65ML IV PRN ×2 (07:39→23:36)
[2016-10-04] MEDS: ENOXAPARIN 30 MG/0.3 ML SYR SQ SCH ×2 (07:49→21:00)
[2016-10-04] MEDS: TPN - STOP ORDER SCH (08:55)
[2016-10-04] MEDS: PANTOprazole INJ 40 MG in SYRINGE 0 ML IV SCH ×2 (08:55→21:00)
[2016-10-04] MEDS: ONDANSETRON INJ 2 MG/ML 2 ML VIAL IV PRN ×2 (13:39→23:27)
--- NOTE | 2016-10-04 14:14 | Progress Note ---
Subjective Date of Service: Oct 04, 2016. Subjective pt is about the same, is now understanding that she will go home with hospice care, will have hospice contact her to arrange home coverage, her pain is not controlled currently and did increase fentanyl patch [facility] Problem List Medical Problems: (1) Abdominal pain Status: Acute (2) Acute kidney injury Status: Acute (3) Bowel obstruction Status: Acute (4) Carcinomatosis Status: Acute (5) Dehydration Status: Acute (6) Dehydration Status: Acute (7) Diffuse abdominal pain Status: Acute (8) Esophageal Reflux Status: Chronic (9) Failure of outpatient treatment Status: Acute (10) Intractable abdominal pain Status: Acute (11) Left flank pain Status: Acute (12) Lower abdominal pain Status: Acute (13) Morbid Obesity Status: Chronic (14) Ovarian cancer Status: Acute (15) Ovarian cancer Status: Acute (16) Ovarian cancer Status: Acute (17) Precordial chest pain Status: Acute (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 (19) Small bowel obstruction Status: Acute (20) Small bowel obstruction Status: Acute (21) UTI (urinary tract infection) Status: Acute Review of Systems Constitutional: + fatigue, + weakness Respiratory: No cough, No shortness of breath Cardiac: No chest pain, No edema Abdomen: + nausea, + pain Psychiatric: + anhedonism, + depression symptoms Objective Vital Signs Date Time Temp Pulse Resp B/P Pulse Ox O2 Delivery O2 Flow Rate FiO2 10/04/16 11:12 36.5 76 16 130/56 94 Room Air 10/04/16 09:01 Room Air 10/04/16 07:04 36.6 83 18 156/71 93 Room Air 10/04/16 05:12 36.6 82 18 150/92 95 Room Air 10/04/16 00:00 94 Room Air 10/03/16 23:24 36.5 84 18 103/67 95 Room Air 10/03/16 19:48 36.8 81 18 99/66 92 Room Air 10/03/16 16:00 Room Air 10/03/16 15:08 36.4 90 16 101/66 95 Physical Exam General Appearance: + moderate distress, + obese Neck: supple, no JVD Respiratory/Chest: no respiratory distress, + decreased breath sounds Cardiovascular: regular rate, rhythm, no murmur Abdomen: + tenderness (diffusely tender, hernia reducable), + pertinent finding (foul smell from g tube site, site itself is not abnormal ) Laboratory Results Last 24 Hours Test 10/03/16 18:01 10/03/16 23:58 10/04/16 06:00 10/04/16 06:06 Bedside Glucose 137 mg/dl 132 mg/dl 115 mg/dl White Blood Count 5.54 K/uL Red Blood Count 3.30 M/uL Hemoglobin 9.9 g/dL Hematocrit 31.1 % Mean Corpuscular Volume 94.2 fL Mean Corpuscular Hemoglobin 30.0 pg Mean Corpuscular Hemoglobin Concent 31.8 g/dl RDW Standard Deviation 62.8 fL RDW Coefficient of Variation 18.2 % Platelet Count 196 K/uL Mean Platelet Volume 11.1 fL Sodium Level 142 mmol/L Potassium Level 4.2 mmol/L Chloride Level 107 mmol/L Carbon Dioxide Level 25 mmol/L Anion Gap 10.0 mmol/L Blood Urea Nitrogen 24 mg/dl Creatinine 1.00 mg/dl Est Creatinine Clear Calc Drug Dose 68.5 ml/min Estimated GFR () 72.9 Estimated GFR (Non- 62.9 BUN/Creatinine Ratio 23.7 Random Glucose 121 mg/dl Calcium Level 8.7 mg/dl Phosphorus Level 3.4 mg/dl Magnesium Level 1.8 mg/dl Test 10/04/16 11:34 Bedside Glucose 81 mg/dl Assessment and Plan 56 F with metastatic ovarian cancer, here with poor pain control continue fentanyl patches and parenteral pain meds, escalating needs, outlook is poor, pt has agreed to transition to hospice and may need parenteral opiate infusion, will increase pain patches 10/04. g tube study shows proper tube placement
[2016-10-04] MEDS ORDERED: CUSTOM CENTRAL PN 1 BAG IV SCH (16:00)
[2016-10-05] VITALS (7 sets, daily range): BP systolic 104–131; BP diastolic 61–74; PULSE 71–88; TEMP 36.4–36.6; O2SAT 92–97
[2016-10-05 06:46] LABS: CALCIUM 8.3 mg/dl (8.5-10.1); MAGNESIUM 1.7 mg/dl (1.8-2.4); POTASSIUM 4.4 mmol/L (3.5-5.1)
[2016-10-05 06:47] LABS: PHOSPHORUS 3.3 mg/dl (2.5-4.9)
[2016-10-05] MEDS: ONDANSETRON INJ 2 MG/ML 2 ML VIAL IV PRN ×3 (07:29→23:23)
[2016-10-05] MEDS: CHECK FENTANYL PATCH PLACEMENT SCH ×3 (07:29→23:24)
[2016-10-05] MEDS: HYDROmorphone INJ 2 MG/ML SYR/VIAL IV PRN ×3 (07:29→20:22)
[2016-10-05] MEDS: ENOXAPARIN 30 MG/0.3 ML SYR SQ SCH ×2 (07:30→20:25)
[2016-10-05] MEDS: PANTOprazole INJ 40 MG in SYRINGE 0 ML IV SCH ×2 (07:34→20:25)
--- NOTE | 2016-10-05 10:33 | Hospitalist Progress Note ---
Hospitalist Progress Note Date of Service Oct 05, 2016. Subjective Pt evaluation today including: conversation w/ patient, physical exam, chart review, lab review, review of inpatient medication list Pt wants to know if can take G-tube out due to the smell-she fears it is offending people. She says she just wants to eat regular korin but doesn't quite understand that she has a gastric outlet obstruction requiring placement of the G-tube in the fist place.Otherwise pain is improved with increased dose Duragesic patch Constitutional: No fever Respiratory: No shortness of breath Cardiovascular: No chest pain Abdomen: + pain All Other Systems: Reviewed and Negative Objective Vital Signs Date Time Temp Pulse Resp B/P Pulse Ox O2 Delivery O2 Flow Rate FiO2 10/05/16 07:28 36.6 76 18 129/74 95 Room Air 10/05/16 05:18 36.4 80 20 106/65 94 Room Air 10/05/16 00:00 94 Room Air 10/04/16 22:59 36.5 74 20 108/73 92 Room Air 10/04/16 19:36 36.4 80 18 105/69 91 Room Air 10/04/16 16:31 36.3 68 16 127/69 95 Room Air 10/04/16 11:12 36.5 76 16 130/56 94 Room Air Physical Exam General Appearance: no apparent distress, + obese Eyes: normal inspection, sclerae normal ENT: pharynx normal Neck: trachea midline Respiratory/Chest: lungs clear, normal breath sounds, no respiratory distress, no accessory muscle use Cardiovascular: regular rate, rhythm, no edema, no gallop, no murmur Abdomen: normal bowel sounds, soft, + tenderness (diffusely without guarding, G -tube site with no surrounding erythema or drainage, draining greenish clear fluid into bag, slight foul odor) Extremities: no pedal edema, no calf tenderness Neurologic/Psychiatric: alert, oriented x 3, + depressed affect Skin: normal color, warm/dry Laboratory Results Last 24 Hours Test 10/04/16 11:34 10/04/16 19:10 10/04/16 23:49 10/05/16 05:58 Bedside Glucose 81 mg/dl 124 mg/dl 84 mg/dl Sodium Level 142 mmol/L Potassium Level 4.4 mmol/L Chloride Level 106 mmol/L Carbon Dioxide Level 26 mmol/L Anion Gap 10.0 mmol/L Blood Urea Nitrogen 24 mg/dl Creatinine 1.00 mg/dl Est Creatinine Clear Calc Drug Dose 68.5 ml/min Estimated GFR () 72.9 Estimated GFR (Non- 62.9 BUN/Creatinine Ratio 24.0 Random Glucose 127 mg/dl Calcium Level 8.3 mg/dl Phosphorus Level 3.3 mg/dl Magnesium Level 1.7 mg/dl Test 10/05/16 06:30 Bedside Glucose 119 mg/dl Assessment and Plan 56 F with metastatic ovarian cancer, here with poor pain control of abdominal pain and diffuse myalgias chronically continue fentanyl patches at increased dose as is helping, and parenteral pain meds, escalating needs, outlook is poor, pt has agreed to transition to hospice and may need parenteral opiate infusion g tube study shows proper tube placement, advised to keep f/u appt at [facility] on Wed for G-tube changeout and discuss removal of tube with them but I feel this will detract from her comfor measures an will certainly not allow her to eat solids as she is requesting palliative Care Consult today
[2016-10-05] MEDS: TPN - STOP ORDER SCH (10:51)
[2016-10-05] MEDS ORDERED: CUSTOM CENTRAL PN 1 BAG IV SCH (16:00)
--- NOTE | 2016-10-05 16:13 | Palliative Care Consultation ---
Consultation Date of Consultation: Oct 05, 2016. Requesting Physician: Dr. Joshua Attending Physician: Dr. Joshua Reason for Consultation: Goals of care History of Present Illness This 56 year old female patient who is well-known to me presented to the ED four days ago with complaints of abdominal pain. This patient unfortunately has metastatic ovarian carcinoma and abdominal carcinomatosis with recurrent bowel obstruction, chronic abdominal pain, s/p G-tube placement in [place]. The patient had been receiving chemotherapy up until about three weeks ago as she has had frequent admissions for the abdominal pain and electrolyte imbalances. Unfortunately, she has really continued to overall decline and is no longer able to receive chemotherapy per the oncologists involved in her care. Palliative care consulted to assist in establishing goals of care. I have met with the patient several times in the past. She was adamant about "not giving up," as she stated, "I made a promise to my mom that I would always take care of her." Her is also not in the best health, and they "all take care of each other." Patient's daughter also lives with her and helps to take care of her. I met with the patient again today and she states that she is aware of her terminal diagnosis and that she is no longer going to receive chemo. However, she is really not ready to make the decision to be on hospice care, as she would like to continue her TPN that she receives at home. I explained that no matter what, the focus can be on comfort, even if she wants to continue the TPN for now. She understands that some day the decision will have to be made to discontinue the TPN, but she will wait to do that when she feels she no longer has quality of life or when she continues to decline. Patient and I went over in detail about a POLST form and what her goals of care/ wishes are. She said she is not ready to be comfort measures only and said, "I don't think I want to at home." The other issue is that the smell of her G- tube drainage is bothering her greatly and she wants the G-tube removed. We discussed the G-tube today and its important. She is scheduled to follow up in [place] this coming Wednesday for the G-tube. Her pain is currently a 4-5/10 and she does not feel her pain is quite well-enough controlled. She currently has a 75mcg/hr fentanyl patch and takes PRN dilaudid-- has only had one dose this shift. Past Medical/Surgical History Medical History: Abdominal pain Metastatic ovarian cancer Abdominal carcinomatosis Bowel obstruction Reflux Morbid obesity UTI Surgical History: Cholecystectomy Hysterectomy G-tube placement Social History Smoking Status: Never Smoker History of Alcohol Use: No Drug Use: none Marital Status: Housing Status: lives with family Occupation Status: retired Review of Systems Constitutional: + weakness, No chills, No fever Respiratory: No cough, No dyspnea on exertion, No shortness of breath Cardiac: No chest pain Abdomen: + nausea, + pain, No vomiting Female : No problem reported Psychiatric: No anxiety Allergies Coded Allergies: Sulfa Antibiotics (Verified Allergy, Intermediate, HIVES, 10/01/16) PT HAS REMOTE HISTORY OF REACTION TO "SULFA DRUG" - PER PT, UNSURE WHICH DRUG, BUT THOUGHT IT WAS AN ANTIBIOTIC Ipratropium (Verified Allergy, Unknown, `, 10/01/16) Levofloxacin (Verified Allergy, Unknown, `, 10/01/16) Codeine (Verified Adverse Reaction, Intermediate, NAUSEA, 10/01/16) Diphenhydramine (Verified Adverse Reaction, Mild, Restless leg, 10/01/16) Medications Current Inpatient Medications Medications (Trade) Dose Ordered Sig/Mendoza Route Start Time Stop Time Status Last Admin Dose Admin Enoxaparin Sodium (Lovenox Inj) 30 mg Q12 SQ 10/01/16 21:00 10/31/16 20:59 10/05/16 07:30 30 MG Ondansetron HCl 4 mg 4 mg Q6H PRN IV 10/01/16 13:00 10/31/16 12:59 10/05/16 14:59 4 MG Dextrose (D10w) 1,000 ml @ 0 mls/hr Q0M PRN IV 10/01/16 12:51 10/31/16 12:50 Miscellaneous Information (Pharmacy Tpn/ Ppn Consult Active) 1 ea UD PRN N/A 10/01/16 13:00 10/31/16 12:59 Hydromorphone HCl (Dilaudid Inj) 0.5 mg Q4H PRN IV 10/01/16 13:00 10/15/16 12:59 Hydromorphone HCl 1 mg 1 mg Q4 PRN IV 10/01/16 13:00 10/15/16 12:59 10/03/16 04:29 1 MG Promethazine HCl 12.5 mg/Sodium Chloride 50.5 ml @ 204 mls/hr Q6H PRN IV 10/01/16 13:00 10/31/16 12:59 Pantoprazole Sodium/Syringe (Protonix Inj/ Syringe) 10 ml @ 5 mls/min BID@0900,2100 IV 10/01/16 21:00 10/31/16 20:59 10/05/16 07:34 5 MLS/MIN Miscellaneous (Stop Order) 1 ea DAILY@1000 N/A 10/02/16 10:00 11/01/16 09:59 10/05/16 10:51 1 EA Hydromorphone HCl (Dilaudid Inj) 3 mg Q4 PRN IV 10/03/16 10:00 10/17/16 09:59 Hydromorphone HCl (Dilaudid Inj) 2 mg Q4 PRN IV 10/03/16 11:30 10/17/16 11:29 10/05/16 14:59 2 MG Heparin Sodium (Porcine) (Heparin 100 Unit/ml 5ml Flush) 5 ml PRN PRN IV 10/03/16 11:45 11/02/16 11:44 10/05/16 14:59 5 ML Fentanyl (Duragesic Patch) 75 mcg Q72H TD 10/03/16 18:45 10/17/16 18:44 10/03/16 19:47 75 MCG Miscellaneous (Fentanyl Patch Remove & Waste) 1 ea Q3D N/A 10/03/16 18:45 11/02/16 18:44 10/03/16 19:46 1 EA Miscellaneous Information (Check Fentanyl Patch Placement) 1 ea QS N/A 10/04/16 00:00 11/03/16 00:00 10/05/16 07:29 1 EA Acetaminophen 650 mg 650 mg Q6H PRN PO 10/04/16 06:30 11/03/16 06:29 Acetaminophen 650 mg/Empty Bag 65 ml @ 260 mls/hr Q6H PRN IV 10/04/16 06:45 11/03/16 06:44 10/04/16 23:36 260 MLS/HR Nutrition (Parenteral) (Custom Central Pn) 0 ml @ 0 mls/hr TODAY@1600 IV 10/05/16 16:00 10/06/16 09:59 Physical Exam Date Time Temp Pulse Resp B/P Pulse Ox O2 Delivery O2 Flow Rate FiO2 10/05/16 15:05 36.6 88 16 104/66 92 Room Air 10/05/16 11:07 36.6 71 18 107/61 97 Room Air 10/05/16 08:00 Room Air 10/05/16 07:28 36.6 76 18 129/74 95 Room Air 10/05/16 05:18 36.4 80 20 106/65 94 Room Air 10/05/16 00:00 94 Room Air 10/04/16 22:59 36.5 74 20 108/73 92 Room Air 10/04/16 19:36 36.4 80 18 105/69 91 Room Air 10/04/16 16:31 36.3 68 16 127/69 95 Room Air General Appearance: no apparent distress, + obese Neck: no JVD Respiratory: normal breath sounds, no respiratory distress, no accessory muscle use Cardiovascular: regular rate, rhythm, no edema, + normal peripheral pulses Abdomen: normal bowel sounds, + tenderness, + pertinent finding (G-tube) Musculoskeletal: normal Neurologic/Psychiatric: alert, normal mood/affect, oriented x 3, + pertinent finding (slightly depressed affect.) Skin: + pallor Laboratory Results Last 24 Hours Test 10/04/16 19:10 10/04/16 23:49 10/05/16 05:58 10/05/16 06:30 Bedside Glucose 124 mg/dl 84 mg/dl 119 mg/dl Sodium Level 142 mmol/L Potassium Level 4.4 mmol/L Chloride Level 106 mmol/L Carbon Dioxide Level 26 mmol/L Anion Gap 10.0 mmol/L Blood Urea Nitrogen 24 mg/dl Creatinine 1.00 mg/dl Est Creatinine Clear Calc Drug Dose 68.5 ml/min Estimated GFR () 72.9 Estimated GFR (Non- 62.9 BUN/Creatinine Ratio 24.0 Random Glucose 127 mg/dl Calcium Level 8.3 mg/dl Phosphorus Level 3.3 mg/dl Magnesium Level 1.7 mg/dl Test 10/05/16 11:52 Bedside Glucose 81 mg/dl Assessment & Plan Palliative Performance Scale: 40 % (unable to take anything by mouth, TPN only) Problem list: Abdominal pain Weakness Metastatic ovarian CA, abdominal carcinomatosis NPO, on TPN with G-tube to gravity Goals of care (Z51.5) Palliative care plan: -Discussed goals of care. Patient not ready to stop TPN and to not come back to the hospital. She did state she would not likely want CPR or intubation if she were to be found with no pulse or not breathing. She'd like to discuss these things with her family. I will assist her in talking with her daughter about her wishes/advance directives tomorrow after she gets a chance to talk to daughter today. For now, she does still want to be home with [facility] and [facility] for TPN with an increased focus on comfort. She understands the nature of her disease. -Increase fentanyl patch to 100mcg/hr Q72h (patient has had 75mcg/hr fentanyl patch and 6mg IV dilaudid in 24 hours which converts to 100mcg/hr fentanyl patch at 75% for incomplete cross tolerance). -Order Roxanol 5mg Q3h PO PRN for breakthrough pain- this will be a good option as she does not tolerate much PO. -Zofran ODT 4mg Q6h PO PRN nausea -Discussed a POLST form in detail. She'd like to discuss this with her daughter and family this evening, I will follow up on that tomorrow. Thank you kindly for this consult. I will continue to follow.
[2016-10-05] MEDS: PROMETHAZINE HCL INJ 12.5 MG in SODIUM CHLORIDE 0.9% 50ML 50 ML IV PRN (20:22)
[2016-10-06 03:51] VITALS: BP 99/66; PULSE 80; TEMP 36.4; O2SAT 94
[2016-10-06] MEDS: HYDROmorphone INJ 2 MG/ML SYR/VIAL IV PRN ×3 (05:11→19:52)
[2016-10-06 07:21] LABS: HEMATOCRIT 31.2 % (37-47); MEAN CELL VOLUME 92.9 fL (80-100); MEAN CORPUSCULAR HEMOGLOBIN 30.4 pg (25-34); MEAN CORPUSCULAR HGB CONC 32.7 g/dl (32-36); MEAN PLATELET VOLUME 10.7 fL (7.4-10.4); PLATELET COUNT 231 K/uL (130-400); RED BLOOD COUNT 3.36 M/uL (4.2-5.4); WHITE BLOOD COUNT 5.78 K/uL (4.8-10.8)
[2016-10-06 07:25] VITALS: BP 108/71; PULSE 68; TEMP 36.6; O2SAT 94
[2016-10-06 07:47] LABS: BUN/CREATININE RATIO 19.8 (10-20); CALCIUM 8.6 mg/dl (8.5-10.1); CREATININE 1.1 mg/dl (0.60-1.20); POTASSIUM 4.3 mmol/L (3.5-5.1)
[2016-10-06 07:49] LABS: PHOSPHORUS 3.4 mg/dl (2.5-4.9)
[2016-10-06] MEDS: ONDANSETRON INJ 2 MG/ML 2 ML VIAL IV PRN (09:11)
[2016-10-06] MEDS: CHECK FENTANYL PATCH PLACEMENT SCH ×3 (09:14→23:20)
[2016-10-06] MEDS: PANTOprazole INJ 40 MG in SYRINGE 0 ML IV SCH ×2 (09:16→19:54)
[2016-10-06] MEDS: ENOXAPARIN 30 MG/0.3 ML SYR SQ SCH ×2 (09:17→19:58)
[2016-10-06] MEDS: TPN - STOP ORDER SCH (10:00)
[2016-10-06 10:53] VITALS: BP 100/53; PULSE 83; TEMP 36.7; O2SAT 96
--- NOTE | 2016-10-06 10:59 | Hematology/Oncology Prog Note ---
Hematology/Onc Progress Note Date of Service Oct 06, 2016. Diagnoses Refractory metastatic ovarian carcinoma Medications Medications Administered Medications (Trade) Dose Ordered Sig/Mendoza Route Start Time Stop Time Status Last Admin Dose Admin Ondansetron HCl (Zofran Inj) 4 mg Q1HWA PRN IV 10/01/16 09:45 10/01/16 16:02 DC 10/01/16 12:06 4 MG Hydromorphone HCl 1 mg 1 mg Q1HWA PRN IV 10/01/16 09:45 10/01/16 16:02 DC 10/01/16 15:03 1 MG Sodium Chloride (Nss 1000ml) 1,000 ml @ 1,000 mls/hr Q1H ONCE IV 10/01/16 09:45 10/01/16 10:44 DC 10/01/16 09:46 1,000 MLS/HR Enoxaparin Sodium (Lovenox Inj) 30 mg Q12 SQ 10/01/16 21:00 10/31/16 20:59 10/06/16 09:17 30 MG Ondansetron HCl (Zofran Inj) 4 mg Q6H PRN IV 10/01/16 13:00 10/31/16 12:59 10/06/16 09:11 4 MG Hydromorphone HCl 1 mg 1 mg Q4 PRN IV 10/01/16 13:00 10/15/16 12:59 10/03/16 04:29 1 MG Promethazine HCl 12.5 mg/Sodium Chloride 50.5 ml @ 204 mls/hr Q6H PRN IV 10/01/16 13:00 10/31/16 12:59 10/05/16 20:22 204 MLS/HR Pantoprazole Sodium 40 mg/ Syringe 10 ml @ 5 mls/min BID@0900,2100 IV 10/01/16 21:00 10/31/16 20:59 10/06/16 09:16 5 MLS/MIN Nutrition (Parenteral) (Custom Central Pn) 0 ml @ 0 mls/hr TODAY@1600 IV 10/01/16 16:00 10/02/16 10:00 DC 10/01/16 18:02 0 MLS/HR Miscellaneous (Stop Order) 1 ea DAILY@1000 N/A 10/02/16 10:00 11/01/16 09:59 10/05/16 10:51 1 EA Fentanyl (Duragesic Patch) 25 mcg Q3D TD 10/01/16 18:00 10/03/16 18:36 DC 10/01/16 18:02 25 MCG Miscellaneous (Fentanyl Patch Remove & Waste) 1 ea Q3D N/A 10/01/16 17:59 10/03/16 18:37 DC 10/01/16 18:11 1 EA Miscellaneous Information (Check Fentanyl Patch Placement) 1 ea QS N/A 10/02/16 00:00 10/03/16 18:37 DC 10/03/16 15:55 1 EA Fentanyl (Duragesic Patch) 12 mcg Q3D TD 10/01/16 18:00 10/03/16 18:37 DC 10/01/16 18:02 12 MCG Miscellaneous (Fentanyl Patch Remove & Waste) 1 ea Q3D N/A 10/01/16 17:59 10/03/16 18:37 DC 10/01/16 18:11 1 EA Miscellaneous Information 1 ea 1 ea QS N/A 10/02/16 00:00 10/03/16 18:37 DC 10/03/16 15:55 1 EA Nutrition (Parenteral) (Custom Central Pn) 0 ml @ 0 mls/hr TODAY@1600 IV 10/02/16 16:00 10/03/16 13:07 DC 10/02/16 16:29 0 MLS/HR Hydromorphone HCl (Dilaudid Inj) 2 mg STK-MED ONCE .ROUTE 10/03/16 10:01 10/03/16 10:03 DC 10/03/16 10:05 2 MG Hydromorphone HCl (Dilaudid Inj) 2 mg Q4 PRN IV 10/03/16 11:30 10/17/16 11:29 10/06/16 09:14 1 MG Heparin Sodium (Porcine) 5 ml 5 ml PRN PRN IV 10/03/16 11:45 11/02/16 11:44 10/05/16 14:59 5 ML Nutrition (Parenteral) (Custom Central Pn) 0 ml @ 0 mls/hr TODAY@1600 IV 10/03/16 16:00 10/04/16 09:59 DC 10/03/16 15:55 0 MLS/HR Fentanyl (Duragesic Patch) 75 mcg Q72H TD 10/03/16 18:45 10/17/16 18:44 10/03/16 19:47 75 MCG Miscellaneous (Fentanyl Patch Remove & Waste) 1 ea Q3D N/A 10/03/16 18:45 11/02/16 18:44 10/03/16 19:46 1 EA Miscellaneous Information 1 ea 1 ea QS N/A 10/04/16 00:00 11/03/16 00:00 10/06/16 09:14 1 EA Acetaminophen 650 mg/Empty Bag 65 ml @ 260 mls/hr Q6H PRN IV 10/04/16 06:45 11/03/16 06:44 10/04/16 23:36 260 MLS/HR Nutrition (Parenteral) 0 ml @ 0 mls/hr TODAY@1600 IV 10/04/16 16:00 10/05/16 09:59 DC 10/04/16 17:05 0 MLS/HR Nutrition (Parenteral) (Custom Central Pn) 0 ml @ 0 mls/hr TODAY@1600 IV 10/05/16 16:00 10/06/16 09:59 DC 10/05/16 15:41 66 MLS/HR Subjective Ms. Mcbride is tired-appearing today but feels OK. She met with palliative care last night and seemed amenable to end-of-life care, though some issues remain to be resolved. In particular, the question of continued TPN was problematic. She is planning to discuss this issue with her family today. Review of Systems: Constitutional: No chills, No fever Eyes: No worsening of vision Respiratory: No cough, No shortness of breath Cardiovascular: No chest pain Abdomen: No nausea, No vomiting Female : No hematuria Heme: No abnormal bleeding/bruising Skin: No bleeding Vital Signs Vital Signs Past 12 Hours Date Time Temp Pulse Resp B/P Pulse Ox O2 Delivery O2 Flow Rate FiO2 10/06/16 07:25 36.6 68 18 108/71 94 Room Air 10/06/16 03:51 36.4 80 20 99/66 94 Room Air 10/06/16 00:20 Room Air 10/05/16 23:57 36.6 71 20 105/70 95 Room Air Physical Exam Constitutional: Level of Distress: NAD, chronically ill ENMT: normal ENT inspection (mucous membranes moist) Lungs: Auscuitation: CTA except as noted Cardiovascular: Heart Auscultation: RRR, no murmurs Abdomen: Inspection & Palpation: soft, RUQ tenderness (diffusely tender to palpation with voluntary guarding.), pertinent finding (G-tube in place with no drainage around tube) Laboratory Last 24 Hours Test 10/05/16 11:52 10/05/16 18:31 10/06/16 00:00 10/06/16 05:53 Bedside Glucose 81 mg/dl 130 mg/dl 132 mg/dl 110 mg/dl Test 10/06/16 06:25 White Blood Count 5.78 K/uL Red Blood Count 3.36 M/uL Hemoglobin 10.2 g/dL Hematocrit 31.2 % Mean Corpuscular Volume 92.9 fL Mean Corpuscular Hemoglobin 30.4 pg Mean Corpuscular Hemoglobin Concent 32.7 g/dl RDW Standard Deviation 61.4 fL RDW Coefficient of Variation 18.2 % Platelet Count 231 K/uL Mean Platelet Volume 10.7 fL Sodium Level 142 mmol/L Potassium Level 4.3 mmol/L Chloride Level 106 mmol/L Carbon Dioxide Level 26 mmol/L Anion Gap 10.0 mmol/L Blood Urea Nitrogen 22 mg/dl Creatinine 1.10 mg/dl Est Creatinine Clear Calc Drug Dose 62.4 ml/min Estimated GFR () 65.0 Estimated GFR (Non- 56.1 BUN/Creatinine Ratio 19.8 Random Glucose 126 mg/dl Calcium Level 8.6 mg/dl Phosphorus Level 3.4 mg/dl Magnesium Level 2.0 mg/dl Assessment & Plan Ms. Mcbride is contemplating hospice, a decision that is long overdue. My partners and I have all seen her at various points over the last month in the hospital and have shared a recommendation that further chemotherapy would not be beneficial or safe for her. It appears she is beginning to accept this plan, which is encouraging. She is continuing to discuss the logistics and specifics with palliative care. One issue that came up was her TPN. I discussed with her that TPN is contrary to the philosophy of hospice care, as it is artificially life-prolonging. Studies have shown that patients who are in the end stages of cancer often become anorexic and do not appear to suffer from hunger or other symptoms related to lack of eating. In addition, TPN would pose risks of infection that might, if anything, hasten her demise or at least make it more uncomfortable or traumatic. 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 She will continue making arrangements for hospice care, or home palliative care as appropriate. I would be happy to provide any assistance I can. We will continue to periodically check in with her to make sure this process is moving forward. She also is apparently scheduled for a G-tube change, which may relieve some of her tube-related issues. This seems reasonable, given her discomfort.
[2016-10-06] MEDS ORDERED: ONDANSETRON 8MG OD TAB PO PRN (12:00)
[2016-10-06] MEDS ORDERED: OXYCODONE HCL 5 MG/0.25 ML UDP PO PRN ×2 (12:45→15:30)
[2016-10-06] MEDS ORDERED: FENTANYL PATCH REMOVE & WASTE SCH (12:59)
[2016-10-06] MEDS ORDERED: FENTANYL 100 MCG/HR TDSY TD SCH (13:00)
[2016-10-06] MEDS ORDERED: NURSING VERBAL MED ORDER ONE (15:15)
[2016-10-06 15:32] VITALS: BP 115/63; PULSE 94; TEMP 36.7; O2SAT 92
--- NOTE | 2016-10-06 18:14 | Gastrointestinal Consultation ---
Gastrointestinal Consultation Date of Consultation: Oct 06, 2016 Attending Physician: Dr. Joshua Consulting Physician: Dr. Rosa Reason for Consultation: G tube change History of Present Illness Patient is a 56 year old female with metastatic ovarian cancer who is now considering palliative care but has a G tube placed for venting purpose, currently on TPN. Had this placed by IR in [place] 06/2016, tube is somewhat tender at site, she was due for travel to [place] to have this changed tomorrow but given overall condition, is unable to make this appt. GI consulted for G tube change. Past Medical/Surgical History Medical Problems: (1) Abdominal pain Status: Acute (2) Acute kidney injury Status: Acute (3) Bowel obstruction Status: Acute (4) Carcinomatosis Status: Acute (5) Dehydration Status: Acute (6) Dehydration Status: Acute (7) Diffuse abdominal pain Status: Acute (8) Esophageal Reflux Status: Chronic (9) Failure of outpatient treatment Status: Acute (10) Intractable abdominal pain Status: Acute (11) Left flank pain Status: Acute (12) Lower abdominal pain Status: Acute (13) Morbid Obesity Status: Chronic (14) Ovarian cancer Status: Acute (15) Ovarian cancer Status: Acute (16) Ovarian cancer Status: Acute (17) Precordial chest pain Status: Acute (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 (19) Small bowel obstruction Status: Acute (20) Small bowel obstruction Status: Acute (21) UTI (urinary tract infection) Status: Acute Past Medical History: As listed in problem list Family History Diabetes mellitus FH: heart disease Hypertension Social History Smoking Status: Never Smoker Alcohol Use: none Drug Use: none Marital Status: Housing Status: lives with family Occupation Status: retired Allergies Coded Allergies: Sulfa Antibiotics (Verified Allergy, Intermediate, HIVES, 10/01/16) PT HAS REMOTE HISTORY OF REACTION TO "SULFA DRUG" - PER PT, UNSURE WHICH DRUG, BUT THOUGHT IT WAS AN ANTIBIOTIC Ipratropium (Verified Allergy, Unknown, `, 10/01/16) Levofloxacin (Verified Allergy, Unknown, `, 10/01/16) Codeine (Verified Adverse Reaction, Intermediate, NAUSEA, 10/01/16) Diphenhydramine (Verified Adverse Reaction, Mild, Restless leg, 10/01/16) Current Medications Home Meds and Scripts Medications Dose Route/Sig Max Daily Dose Days Date Category Dose Instructions Hydromorphone Hcl 2 Mg Tab 2 Mg PO Q3HRS PRN 09/25/16 Rx Prilosec (Omeprazole) 40 Mg Cap 40 Mg PO QAM 09/25/16 Rx Ativan (Lorazepam) 0.5 Mg Tab 0.5 Mg PO Q6H PRN 09/25/16 Rx Meclizine HCl 25 Mg Tab 25 Mg PO Q6H PRN 09/25/16 Rx for vertigo [Boost Nutritional Drink] 1 BOX Liqd 1 Box PO BIDM 09/25/16 Rx Fentanyl 12 Mcg Tdsy 12 Mcg TD Q3D@0900 09/25/16 Rx total dose is 37mcg (25mcg patch + 12mcg patch) Citalopram Hydrobromide (Citalopram) 20 Mg Tab 20 Mg PO QAM 09/25/16 Rx Metoclopramide Hcl 5 Mg Tab 5 Mg PO AC/HS 09/25/16 Rx Ondansetron HCl (Ondansetron) 4 Mg Tab 4 Mg PO UD PRN 08/20/16 Reported Fentanyl 25 Mcg Tdsy 25 Mcg TOP [id number] 07/31/16 Reported Review of Systems Constitutional: No chills, No fever Eyes: No problem reported ENT: No problem reported Respiratory: No problem reported Cardiac: No chest pain Abdomen: + see HPI, No pain, No vomiting Musculoskeletal: No problem reported Neuro: No problem reported Heme: + see HPI (unable to tolerate furthur chemo) Physical Exam Date Time Temp Pulse Resp B/P Pulse Ox O2 Delivery O2 Flow Rate FiO2 10/06/16 16:20 Room Air 10/06/16 15:32 36.7 94 16 115/63 92 Room Air 10/06/16 10:53 36.7 83 18 100/53 96 Room Air 10/06/16 10:00 Room Air 10/06/16 07:25 36.6 68 18 108/71 94 Room Air 10/06/16 03:51 36.4 80 20 99/66 94 Room Air 10/06/16 00:20 Room Air 10/05/16 23:57 36.6 71 20 105/70 95 Room Air 10/05/16 20:10 Room Air 10/05/16 19:09 36.4 75 16 131/61 92 Room Air General Appearance: no apparent distress (appears chronically ill) Eyes: PERRL ENT: hearing grossly normal Neck: supple Respiratory/Chest: normal breath sounds, no respiratory distress Cardiovascular: no edema Abdomen: non tender, soft (20F G tube in place with bag attached) Extremities: non-tender, no pedal edema Neurologic/Psych: alert, normal mood/affect, oriented x 3 Laboratory Results Last 24 Hours Test 10/05/16 18:31 10/06/16 00:00 10/06/16 05:53 10/06/16 06:25 Bedside Glucose 130 mg/dl 132 mg/dl 110 mg/dl White Blood Count 5.78 K/uL Red Blood Count 3.36 M/uL Hemoglobin 10.2 g/dL Hematocrit 31.2 % Mean Corpuscular Volume 92.9 fL Mean Corpuscular Hemoglobin 30.4 pg Mean Corpuscular Hemoglobin Concent 32.7 g/dl RDW Standard Deviation 61.4 fL RDW Coefficient of Variation 18.2 % Platelet Count 231 K/uL Mean Platelet Volume 10.7 fL Sodium Level 142 mmol/L Potassium Level 4.3 mmol/L Chloride Level 106 mmol/L Carbon Dioxide Level 26 mmol/L Anion Gap 10.0 mmol/L Blood Urea Nitrogen 22 mg/dl Creatinine 1.10 mg/dl Est Creatinine Clear Calc Drug Dose 62.4 ml/min Estimated GFR () 65.0 Estimated GFR (Non- 56.1 BUN/Creatinine Ratio 19.8 Random Glucose 126 mg/dl Calcium Level 8.6 mg/dl Phosphorus Level 3.4 mg/dl Magnesium Level 2.0 mg/dl Test 10/06/16 12:03 Bedside Glucose 82 mg/dl Impression Patient is a 56 year old female with metastatic ovarian cancer requiring G tube change Plan Pt examined. Imaging and prior IR records reviewed. Will plan to replace G tube tomorrow 10/07/16. ATTESTATION: I have performed a history and physical examination of this patient and reviewed the electronic record. Specifically, on physical examination G-tube site appears clean, tube in place is secured with balloon. I have discussed the case with Gina Dean PA-C. The above note reflects my findings, conclusions, and recommendations. Isiah Rosa MD
[2016-10-06 19:31] VITALS: BP 137/61; PULSE 85; TEMP 36.6; O2SAT 92
--- NOTE | 2016-10-06 22:43 | Hospitalist Progress Note ---
Hospitalist Progress Note Date of Service Oct 06, 2016. Subjective Pt evaluation today including: conversation w/ patient, physical exam, chart review, conversation w/ webmethods consultant (GI SEBASTIEN), review of inpatient medication list Pt was trying to not take pain meds as much this AM but has increased pain. Discussed plan of trying to get on a regimen she can do at home. Pain mostly around site of G-tube and doesn't think she can make the trip to [place] in the car to have tube changed out. Will consult GI here to see if they can do. Still deciding if ready to give up on TPN and doesn't want to yet so can't qualify for Hospice. Constitutional: No fever Abdomen: + nausea, + pain, No vomiting Objective Vital Signs Date Time Temp Pulse Resp B/P Pulse Ox O2 Delivery O2 Flow Rate FiO2 10/06/16 19:31 36.6 85 16 137/61 92 Room Air 10/06/16 16:20 Room Air 10/06/16 15:32 36.7 94 16 115/63 92 Room Air 10/06/16 10:53 36.7 83 18 100/53 96 Room Air 10/06/16 10:00 Room Air 10/06/16 07:25 36.6 68 18 108/71 94 Room Air 10/06/16 03:51 36.4 80 20 99/66 94 Room Air 10/06/16 00:20 Room Air 10/05/16 23:57 36.6 71 20 105/70 95 Room Air Physical Exam General Appearance: + mild distress, + obese Eyes: normal inspection, sclerae normal Respiratory/Chest: lungs clear, normal breath sounds, no respiratory distress, no accessory muscle use Cardiovascular: regular rate, rhythm, no edema, no gallop, no murmur Abdomen: soft, + tenderness (diffusely without guarding but mostly around G- tube, no drainage around tube, skin without erythema, smell is foul coming from tube) Extremities: no calf tenderness Neurologic/Psychiatric: alert Skin: normal color, warm/dry, no rash Laboratory Results Last 24 Hours Test 10/06/16 00:00 10/06/16 05:53 10/06/16 06:25 10/06/16 12:03 Bedside Glucose 132 mg/dl 110 mg/dl 82 mg/dl White Blood Count 5.78 K/uL Red Blood Count 3.36 M/uL Hemoglobin 10.2 g/dL Hematocrit 31.2 % Mean Corpuscular Volume 92.9 fL Mean Corpuscular Hemoglobin 30.4 pg Mean Corpuscular Hemoglobin Concent 32.7 g/dl RDW Standard Deviation 61.4 fL RDW Coefficient of Variation 18.2 % Platelet Count 231 K/uL Mean Platelet Volume 10.7 fL Sodium Level 142 mmol/L Potassium Level 4.3 mmol/L Chloride Level 106 mmol/L Carbon Dioxide Level 26 mmol/L Anion Gap 10.0 mmol/L Blood Urea Nitrogen 22 mg/dl Creatinine 1.10 mg/dl Est Creatinine Clear Calc Drug Dose 62.4 ml/min Estimated GFR () 65.0 Estimated GFR (Non- 56.1 BUN/Creatinine Ratio 19.8 Random Glucose 126 mg/dl Calcium Level 8.6 mg/dl Phosphorus Level 3.4 mg/dl Magnesium Level 2.0 mg/dl Test 10/06/16 18:08 Bedside Glucose 80 mg/dl Assessment and Plan 56 F with metastatic ovarian cancer, here with poor pain control of abdominal pain and diffuse myalgias chronically. Increase fentanyl patch to 100 mcg today and try Roxicodone drops for breakthrough to see if can transition home with this with Palliative care. Continue TPN for now. Trial of Zofran ODT so can go home with this too as has been getting IV Zofran here. With increased pain around G-tube and foul smell, no other signs of infection. G-tube study shows proper tube placement. Change out G-tube here tomorrow with GI. [place] is poor. Palliative Care Consult appreciated.
[2016-10-06 23:42] VITALS: BP 110/75; PULSE 78; TEMP 36.6; O2SAT 95
[2016-10-07] VITALS (8 sets, daily range): BP systolic 108–129; BP diastolic 73–81; PULSE 77–85; TEMP 36.4–36.6; O2SAT 91–94
[2016-10-07] MEDS: HYDROmorphone INJ 2 MG/ML SYR/VIAL IV PRN ×3 (04:36→23:40)
[2016-10-07] MEDS: ENOXAPARIN 30 MG/0.3 ML SYR SQ SCH ×2 (07:32→21:05)
[2016-10-07 07:47] LABS: BUN/CREATININE RATIO 18.5 (10-20); CALCIUM 8.7 mg/dl (8.5-10.1); CREATININE 1.1 mg/dl (0.60-1.20); MAGNESIUM 1.9 mg/dl (1.8-2.4); POTASSIUM 4.1 mmol/L (3.5-5.1)
[2016-10-07 07:54] LABS: PHOSPHORUS 4.2 mg/dl (2.5-4.9)
[2016-10-07] MEDS: CHECK FENTANYL PATCH PLACEMENT SCH ×5 (08:00→23:33)
[2016-10-07] MEDS: PANTOprazole INJ 40 MG in SYRINGE 0 ML IV SCH ×2 (09:12→21:05)
[2016-10-07] MEDS ORDERED: MoRPHine SULFATE 5 MG/0.25 ML UDP PO PRN (10:30)
--- NOTE | 2016-10-07 10:47 | Palliative Care Progress Note ---
Palliative Care Progress Note Date of Service Oct 07, 2016. Subjective Pt evaluation today including: conversation w/ patient, physical exam, chart review, conversation w/ managed services sales consultant (Dr. Joshua), review of inpatient medication list Pain: 2/10 in abdomen PO Intake: none prior to procedure today. normally only ice chips & occasional clears Voiding: no voiding problems Pain is 2/10 at this time. Has been as high as 10/10 during this admission, but normally only gets to about a 4-5/10 and she asks for pain medication. She did not like the Roxicodone solution-- she said it tastes bad and really didn't help the pain but just made her "fuzzy-headed." We discussed pain medication options and I will discuss with Dr. Joshua as well. Patient has still not made final decision on whether or not to stop TPN. She asked for my help in having the goals of care conversation with her and her family. She is going to call my cell phone when her family arrives. She is to have G-tube changed today-- I'm hoping this will relieve some of her symptoms and anxiety related to the tube. Review of Systems Constitutional: + weakness, No chills, No fever Respiratory: No cough, No dyspnea on exertion, No shortness of breath Cardiac: No chest pain, No edema Abdomen: + nausea, + pain, No vomiting Female : No problem reported Psychiatric: + anxiety Objective Vital Signs Date Time Temp Pulse Resp B/P Pulse Ox O2 Delivery O2 Flow Rate FiO2 10/07/16 08:17 94 Room Air 10/07/16 07:48 36.6 77 12 108/74 94 Room Air 10/07/16 04:19 36.6 80 20 129/76 93 Room Air 10/07/16 00:00 Room Air 10/06/16 23:42 36.6 78 20 110/75 95 Room Air 10/06/16 20:00 Room Air 10/06/16 19:31 36.6 85 16 137/61 92 Room Air 10/06/16 16:20 Room Air 10/06/16 15:32 36.7 94 16 115/63 92 Room Air 10/06/16 10:53 36.7 83 18 100/53 96 Room Air Physical Exam General Appearance: no apparent distress, + obese Neck: no JVD Respiratory/Chest: no respiratory distress, no accessory muscle use, + decreased breath sounds, + pertinent finding (room air) Cardiovascular: regular rate, rhythm, no edema, + normal peripheral pulses Abdomen: normal bowel sounds, + tenderness, + pertinent finding (G-tube present with foul-smelling drainage) Neurologic/Psychiatric: alert, normal mood/affect, oriented x 3 Skin: + pallor Laboratory Results Last 24 Hours Test 10/06/16 12:03 10/06/16 18:08 10/07/16 00:33 10/07/16 06:10 Bedside Glucose 82 mg/dl 80 mg/dl 81 mg/dl 79 mg/dl Test 10/07/16 06:26 Sodium Level 141 mmol/L Potassium Level 4.1 mmol/L Chloride Level 107 mmol/L Carbon Dioxide Level 26 mmol/L Anion Gap 8.0 mmol/L Blood Urea Nitrogen 20 mg/dl Creatinine 1.10 mg/dl Est Creatinine Clear Calc Drug Dose 62.3 ml/min Estimated GFR () 65.0 Estimated GFR (Non- 56.1 BUN/Creatinine Ratio 18.5 Random Glucose 79 mg/dl Calcium Level 8.7 mg/dl Phosphorus Level 4.2 mg/dl Magnesium Level 1.9 mg/dl Triglycerides Level 151 mg/dl Assessment and Plan Problem list: Abdominal pain Weakness Metastatic ovarian CA, abdominal carcinomatosis NPO, on TPN with G-tube to gravity Goals of care (Z51.5) Palliative care plan: Discussed with Dr. Joshua and patient. -Discontinue Zofran ODT -Start lorazepam 1mg PO Q4h PRN nausea or anxiety -Discontinue Roxicodone now, discontinue IV Dilaudid in 12 hours if pain controlled -Increase fentanyl patch to 150mcg/hr and order Roxanol 5mg Q3h PRN -Meet with patient and family to discuss goals of care and discharge planning I will continue to follow. Palliative Performance Scale: 40 % (unable to take anything by mouth, TPN only) Continued [facility] stay due to: multiple IV medications needed, home environment unsafe for pt Discharge planning: uncertain
--- NOTE | 2016-10-07 10:48 | Hospitalist Progress Note ---
Hospitalist Progress Note Date of Service Oct 07, 2016. Subjective Pt evaluation today including: conversation w/ patient, physical exam, chart review, lab review, conversation w/ business development consultant (Palliative Care), review of inpatient medication list Pt reports the Roxicodone made her feel like her head was big an fuzzy and didn' t help much with her breakthrough pain. Also does not like the ODT Zofran taste. She is still undecided about stopping her TPN to go on hospice at home but is considering and leaning towards stopping it. Family to come in today and will have d/w Palliative Care and make final decision. Still with 9/10 pain around G-tube site. Plan for change out today. Constitutional: No fever Respiratory: No shortness of breath Abdomen: + nausea, + pain Objective Vital Signs Date Time Temp Pulse Resp B/P Pulse Ox O2 Delivery O2 Flow Rate FiO2 10/07/16 08:17 94 Room Air 10/07/16 07:48 36.6 77 12 108/74 94 Room Air 10/07/16 04:19 36.6 80 20 129/76 93 Room Air 10/07/16 00:00 Room Air 10/06/16 23:42 36.6 78 20 110/75 95 Room Air 10/06/16 20:00 Room Air 10/06/16 19:31 36.6 85 16 137/61 92 Room Air 10/06/16 16:20 Room Air 10/06/16 15:32 36.7 94 16 115/63 92 Room Air 10/06/16 10:53 36.7 83 18 100/53 96 Room Air Physical Exam General Appearance: no apparent distress (sour smell in room), + obese Eyes: normal inspection, sclerae normal Neck: trachea midline Respiratory/Chest: lungs clear, normal breath sounds, no respiratory distress, no accessory muscle use Cardiovascular: regular rate, rhythm, no edema, no murmur Abdomen: soft, + tenderness (diffusely but more around G-tube without guarding) Extremities: non-tender, normal inspection, no pedal edema, no calf tenderness Neurologic/Psychiatric: alert, oriented x 3, + depressed affect Skin: normal color, warm/dry, no rash Laboratory Results Last 24 Hours Test 10/06/16 12:03 10/06/16 18:08 10/07/16 00:33 10/07/16 06:10 Bedside Glucose 82 mg/dl 80 mg/dl 81 mg/dl 79 mg/dl Test 10/07/16 06:26 Sodium Level 141 mmol/L Potassium Level 4.1 mmol/L Chloride Level 107 mmol/L Carbon Dioxide Level 26 mmol/L Anion Gap 8.0 mmol/L Blood Urea Nitrogen 20 mg/dl Creatinine 1.10 mg/dl Est Creatinine Clear Calc Drug Dose 62.3 ml/min Estimated GFR () 65.0 Estimated GFR (Non- 56.1 BUN/Creatinine Ratio 18.5 Random Glucose 79 mg/dl Calcium Level 8.7 mg/dl Phosphorus Level 4.2 mg/dl Magnesium Level 1.9 mg/dl Triglycerides Level 151 mg/dl Assessment and Plan 56 F with metastatic ovarian cancer, here with poor pain control of abdominal pain and diffuse myalgias chronically. Increase fentanyl patch to 150 mcg today and switch roxicodone (couldn't tolerate side effects) to Roxanol drops for breakthrough, stop ODT Zofran (didn' t like taste) to SL ativan for nausea and anxiety, to see if can transition home with this with Palliative care. Continue TPN for now. With increased pain around G-tube and foul smell, no other signs of infection. G-tube study shows proper tube placement. Change out G-tube here today with GI. [place] is poor. Palliative Care Consult appreciated. Plan for family discussion today to decide if changing to DNR and going home with hospice and stopping TPN
[2016-10-07] MEDS: FENTANYL 50 MCG/HR TDSY TD SCH (12:15)
[2016-10-07] MEDS: FENTANYL 100 MCG/HR TDSY TD SCH (12:16)
[2016-10-07] MEDS: FENTANYL PATCH REMOVE & WASTE SCH (12:20)
[2016-10-07] MEDS: HYDROmorphone INJ 1 MG/ML SYR IV PRN (12:26)
[2016-10-07] MEDS ORDERED: NURSING VERBAL MED ORDER ONE (14:15)
--- NOTE | 2016-10-07 15:40 | Progress Note ---
Progress Note GI Progress note: 20F G tube changed at bedside today. Pt tolerated well. Please refer to full procedure note by Dr. Rosa. (Gina Dean, SEBASTIEN-C) I performed a gastrostomy tube exchange at the bedside. (Isiah Rosa M.D.)
[2016-10-07] MEDS ORDERED: CUSTOM CENTRAL PN 1 BAG IV SCH (16:00)
[2016-10-07] MEDS ORDERED: TROLAMINE SALICYLATE 10% CRM 255 APPLN/85 GM TUBE EXT PRN (21:30)
[2016-10-08] VITALS (7 sets, daily range): BP systolic 103–118; BP diastolic 68–72; PULSE 76–85; TEMP 36.4–36.7; O2SAT 90–96
[2016-10-08 06:52] LABS: HEMATOCRIT 31.3 % (37-47); MEAN CELL VOLUME 92.9 fL (80-100); MEAN CORPUSCULAR HGB CONC 32.3 g/dl (32-36); MEAN PLATELET VOLUME 11.1 fL (7.4-10.4); PLATELET COUNT 206 K/uL (130-400); RED BLOOD COUNT 3.37 M/uL (4.2-5.4); WHITE BLOOD COUNT 5.44 K/uL (4.8-10.8)
[2016-10-08 07:16] LABS: CALCIUM 8.6 mg/dl (8.5-10.1); CREATININE 1.1 mg/dl (0.60-1.20); MAGNESIUM 1.9 mg/dl (1.8-2.4); POTASSIUM 4.1 mmol/L (3.5-5.1)
[2016-10-08 07:17] LABS: PHOSPHORUS 3.6 mg/dl (2.5-4.9)
[2016-10-08] MEDS: ENOXAPARIN 30 MG/0.3 ML SYR SQ SCH (09:07)
[2016-10-08] MEDS: PANTOprazole INJ 40 MG in SYRINGE 0 ML IV SCH ×2 (09:07→21:17)
[2016-10-08] MEDS: BACITRACIN OINT 15 GM TUBE EXT SCH (09:08)
[2016-10-08] MEDS: CHECK FENTANYL PATCH PLACEMENT SCH ×4 (09:08→17:00)
[2016-10-08] MEDS ORDERED: KETOROLAC TROMETHAMINE 30 MG/ML VIAL IV SCH (11:12)
[2016-10-08] MEDS ORDERED: KETOROLAC TROMETHAMINE 30 MG/ML VIAL IV PRN (11:15)
--- NOTE | 2016-10-08 11:43 | Palliative Care Progress Note ---
Palliative Care Progress Note Date of Service Oct 08, 2016. Subjective Pt evaluation today including: conversation w/ patient, chart review, conversation w/ international travel consultant Pain: 10/02 PO Intake: sips and chips Voiding: no voiding problems Pain is better again today with fentanyl 150mcg/hr patch. Did try a dose of Roxanol yesterday and did not like it. She states it still gives her the fuzzy- headed feeling and does not really help with the pain. She is requesting to see if hospice will teach her daughter to give IV push pain meds at home. Had G-tube replaced yesterday and smell is gone-- she is very pleased with this. The pain has improved as well. Has not taken any PRN lorazepam for nausea or anxiety. Decided to discontinue TPN POLST form completed Review of Systems All Other Systems: Reviewed and Negative (see HPI) Objective Vital Signs Date Time Temp Pulse Resp B/P Pulse Ox O2 Delivery O2 Flow Rate FiO2 10/08/16 11:13 36.6 84 18 118/68 94 Room Air 10/08/16 09:00 Room Air 10/08/16 07:25 36.7 82 18 114/72 96 Room Air 10/08/16 03:13 36.4 81 18 105/69 94 Room Air 10/08/16 00:00 Room Air 10/07/16 23:47 36.6 85 20 112/73 94 Room Air 10/07/16 20:42 36.4 77 18 129/79 91 Room Air 10/07/16 15:55 36.6 82 18 127/81 92 10/07/16 15:45 91 Room Air 10/07/16 12:24 36.6 82 116/74 93 Room Air Physical Exam General Appearance: no apparent distress, + obese Neck: no JVD Respiratory/Chest: no respiratory distress, no accessory muscle use, + decreased breath sounds, + pertinent finding (noted very dyspneic after a walk in the hallway, but did recover quickly) Cardiovascular: regular rate, rhythm, no edema, + normal peripheral pulses Abdomen: normal bowel sounds, + pertinent finding (G-tube present in left abdomen) Neurologic/Psychiatric: alert, normal mood/affect, oriented x 3 Skin: + pallor Assessment and Plan Problem list: Abdominal pain Weakness Metastatic ovarian CA, abdominal carcinomatosis NPO, on TPN with G-tube to gravity Goals of care (Z51.5) Palliative care plan: Discussed with Dr. Joshua and patient. -Discontinue Roxanol -Discontinue TPN -Recommend 2mg IV Dilaudid Q4h PRN. She's only been taken about 3 doses a day -Pursuing options for home IV medications -Continue all other medications -POLST form completed as follows: DNR/DNI, comfort measures only, limited use of antibiotics with comfort as the goal, trial of artificial hydration but no feeding by tube -Plan is for home with hospice I will continue to follow. Palliative Performance Scale: 30 % (unable to take anything by mouth other than minimal sips) Continued [facility] stay due to: multiple IV medications needed, home environment unsafe for pt Discharge planning: uncertain
[2016-10-08] MEDS: ONDANSETRON INJ 2 MG/ML 2 ML VIAL IV PRN ×2 (11:44→16:59)
[2016-10-08] MEDS ORDERED: CUSTOM CENTRAL PN 1 BAG IV SCH (16:00)
[2016-10-08] MEDS: HYDROmorphone INJ 2 MG/ML SYR/VIAL IV PRN (16:59)
[2016-10-08] MEDS: PROMETHAZINE HCL INJ 12.5 MG in SODIUM CHLORIDE 0.9% 50ML 50 ML IV PRN (21:17)
--- NOTE | 2016-10-08 22:04 | Hospitalist Progress Note ---
Hospitalist Progress Note Date of Service Oct 08, 2016. Subjective Pt evaluation today including: conversation w/ patient, physical exam, chart review, lab review, conversation w/ industrial rehabilitation consultant (Palliative Care) Pt did not like the taste of liquid morphine, would like to stop TPN and go home with Hospice and get IV pain meds. Still with pain around G-tube but smell much improved since changing out the tube yesterday. Significant SOB with walking to bathroom and back. Having right shoulder pain with movement for the last day. SHe would like to be a DNR/DNI and move towards comfort measures only All Other Systems: Reviewed and Negative (other than HPI) Objective Vital Signs Date Time Temp Pulse Resp B/P Pulse Ox O2 Delivery O2 Flow Rate FiO2 10/08/16 19:17 36.5 85 18 103/72 90 Room Air 10/08/16 14:44 36.7 76 18 118/71 94 Room Air 10/08/16 11:13 36.6 84 18 118/68 94 Room Air 10/08/16 09:00 Room Air 10/08/16 07:25 36.7 82 18 114/72 96 Room Air 10/08/16 03:13 36.4 81 18 105/69 94 Room Air 10/08/16 00:00 Room Air 10/07/16 23:47 36.6 85 20 112/73 94 Room Air Physical Exam General Appearance: + mild distress, + obese Eyes: normal inspection, sclerae normal Respiratory/Chest: no respiratory distress, no accessory muscle use Abdomen: + tenderness (diffusely but more around G-tube site no guarding) Extremities: no pedal edema, no calf tenderness Neurologic/Psychiatric: alert, oriented x 3, + depressed affect Skin: normal color, warm/dry Laboratory Results Last 24 Hours Test 10/08/16 00:05 10/08/16 06:17 10/08/16 11:29 10/08/16 19:01 Bedside Glucose 176 mg/dl 86 mg/dl 86 mg/dl White Blood Count 5.44 K/uL Red Blood Count 3.37 M/uL Hemoglobin 10.1 g/dL Hematocrit 31.3 % Mean Corpuscular Volume 92.9 fL Mean Corpuscular Hemoglobin 30.0 pg Mean Corpuscular Hemoglobin Concent 32.3 g/dl RDW Standard Deviation 60.9 fL RDW Coefficient of Variation 18.2 % Platelet Count 206 K/uL Mean Platelet Volume 11.1 fL Sodium Level 141 mmol/L Potassium Level 4.1 mmol/L Chloride Level 106 mmol/L Carbon Dioxide Level 24 mmol/L Anion Gap 11.0 mmol/L Blood Urea Nitrogen 21 mg/dl Creatinine 1.10 mg/dl Est Creatinine Clear Calc Drug Dose 62.4 ml/min Estimated GFR () 65.0 Estimated GFR (Non- 56.1 BUN/Creatinine Ratio 19.0 Random Glucose 149 mg/dl Calcium Level 8.6 mg/dl Phosphorus Level 3.6 mg/dl Magnesium Level 1.9 mg/dl Assessment and Plan 56 F with metastatic ovarian cancer, here with poor pain control of abdominal pain and nausea. -continue increased dose of fentanyl patch 150 mcg, stop Roxinol as didn't like taste, stopped roxicodone (couldn't tolerate side effects), stopped ODT Zofran ( didn't like taste). Try SL ativan for nausea and anxiety, to see if can transition home with this on Hospice. Stop TPN. With increased pain around G-tube and foul smell, no other signs of infection. G -tube study shows proper tube placement.--> changed out G-tube and smell now gone, pain slightly improved at G-tube site. Prognosis very poor Plan to try to get Home Hospice that can accomodate IV pain meds and IV ZOfran so she can be comfortable Palliative Care Consult appreciated. Family never came in to discuss plans yesterday. DNR/DNI
[2016-10-09] MEDS: CHECK FENTANYL PATCH PLACEMENT SCH ×6 (00:07→15:57)
[2016-10-09 04:06] VITALS: BP 107/73; PULSE 73; TEMP 36.6; O2SAT 95
[2016-10-09] MEDS ORDERED: ENOXAPARIN 30 MG/0.3 ML SYR SQ SCH (08:00)
[2016-10-09 08:12] VITALS: BP 122/79; PULSE 84; TEMP 36.8; O2SAT 93
[2016-10-09] MEDS: ONDANSETRON INJ 2 MG/ML 2 ML VIAL IV PRN (09:46)
[2016-10-09] MEDS: PANTOprazole INJ 40 MG in SYRINGE 0 ML IV SCH (09:47)
[2016-10-09] MEDS: HYDROmorphone INJ 2 MG/ML SYR/VIAL IV PRN (09:47)
[2016-10-09] MEDS: BACITRACIN OINT 15 GM TUBE EXT SCH (09:47)
[2016-10-09] MEDS: LORAZEPAM 1 MG TAB SL PRN ×2 (13:55→23:14)
--- NOTE | 2016-10-09 14:34 | Palliative Care Progress Note ---
Palliative Care Progress Note Date of Service Oct 09, 2016. Subjective Pt evaluation today including: conversation w/ patient, physical exam, chart review, conversation w/ sap solution manager consultant, review of inpatient medication list Pain: 09/01 PO Intake: sips and chips Voiding: no voiding problems Pain is well-controlled at this time. Had 4mg IV Dilaudid in last 24 hours. IV Zofran twice. Informed by case management that [facility] would rather have BIOMEDICAL PHOTOGRAPHER pump instead of IV push dilaudid at home. Patient feels pretty well today. Review of Systems Constitutional: + weakness Respiratory: + dyspnea on exertion, No cough, No dyspnea at rest, No shortness of breath Cardiac: No chest pain, No edema Abdomen: + nausea, + pain, No vomiting Female : No problem reported Psychiatric: + anxiety (some anxiety related to situation) Objective Vital Signs Date Time Temp Pulse Resp B/P Pulse Ox O2 Delivery O2 Flow Rate FiO2 10/09/16 09:30 Room Air 10/09/16 08:12 36.8 84 18 122/79 93 Room Air 10/09/16 04:06 36.6 73 20 107/73 95 Room Air 10/09/16 00:00 Room Air 10/08/16 23:27 36.4 78 18 106/71 95 Room Air 10/08/16 19:17 36.5 85 18 103/72 90 Room Air 10/08/16 16:00 95 Room Air 10/08/16 14:44 36.7 76 18 118/71 94 Room Air Physical Exam General Appearance: no apparent distress, + obese Neck: no JVD Respiratory/Chest: no respiratory distress, no accessory muscle use, + decreased breath sounds Cardiovascular: regular rate, rhythm, no edema, + normal peripheral pulses Abdomen: normal bowel sounds, soft, + tenderness, + pertinent finding (G-tube present) Neurologic/Psychiatric: alert, normal mood/affect, oriented x 3 Skin: + pallor Laboratory Results Last 24 Hours Test 10/08/16 19:01 10/08/16 23:58 10/09/16 06:07 10/09/16 11:30 Bedside Glucose 86 mg/dl 81 mg/dl 88 mg/dl 85 mg/dl Assessment and Plan Problem list: Abdominal pain Weakness Metastatic ovarian CA, abdominal carcinomatosis NPO, on TPN with G-tube to gravity Goals of care (Z51.5) Palliative care plan: Discussed with Dr. Joshua and patient. -Plan is for home with hospice -BIOMEDICAL PHOTOGRAPHER at home Dilaudid 2mg IV Q4h PRN, no basal rate. Will need normal saline at 30ml/hr continuously to KVO via A-port. Addendum: spoke with hospice and they recommended 0.5mg/hr. This seems like a good idea, will decrease fentanyl patch to 125mcg/hr q72h. -Discontinue IV Zofran. Spoke with patient and primary RN about using lorazepam for nausea. -Discontinue Lovenox, promethazine, and pantoprazole. Thank you for allowing me to participate in the care of this patient. Please contact me with any further palliative care needs. Palliative Performance Scale: 30 % (unable to take anything by mouth other than minimal sips) Continued [facility] stay due to: multiple IV medications needed, home environment unsafe for pt Discharge planning: uncertain
[2016-10-09 15:00] VITALS: BP 120/63; PULSE 86; TEMP 36.4; O2SAT 96
[2016-10-09] MEDS: HYDROmorphone INJ 1 MG/ML SYR IV PRN (16:00)
[2016-10-09 19:34] VITALS: BP 121/77; PULSE 73; TEMP 36.4; O2SAT 97
--- NOTE | 2016-10-09 20:53 | Hospitalist Progress Note ---
Hospitalist Progress Note Date of Service Oct 09, 2016. Subjective Pt evaluation today including: conversation w/ patient, physical exam, lab review, review of inpatient medication list PO Intake: npo Pain controlled, ready for dc to home on HARD ROCK MINER pump All Other Systems: Reviewed and Negative Objective Vital Signs Date Time Temp Pulse Resp B/P Pulse Ox O2 Delivery O2 Flow Rate FiO2 10/09/16 19:34 36.4 73 18 121/77 97 Room Air 10/09/16 15:00 36.4 86 20 120/63 96 Room Air 10/09/16 09:30 Room Air 10/09/16 08:12 36.8 84 18 122/79 93 Room Air 10/09/16 04:06 36.6 73 20 107/73 95 Room Air 10/09/16 00:00 Room Air 10/08/16 23:27 36.4 78 18 106/71 95 Room Air Physical Exam General Appearance: no apparent distress, + obese Eyes: normal inspection, sclerae normal Respiratory/Chest: normal breath sounds, no respiratory distress, no accessory muscle use Cardiovascular: regular rate, rhythm, no murmur Abdomen: soft, + tenderness (diffusely without guarding) Extremities: normal inspection, no calf tenderness Neurologic/Psychiatric: alert Skin: no rash Laboratory Results Last 24 Hours Test 10/08/16 23:58 10/09/16 06:07 10/09/16 11:30 Bedside Glucose 81 mg/dl 88 mg/dl 85 mg/dl Assessment and Plan 56 F with metastatic ovarian cancer, here with poor pain control of abdominal pain and nausea. -Going home with Dilaudid HARD ROCK MINER at absal rate of 0.5mg/hr, so will decrease dose of fentanyl patch 125 mcg - stopped Roxinol as didn't like taste, stopped roxicodone (couldn't tolerate side effects), stopped ODT Zofran (didn't like taste). -will use SL ativan for nausea and anxiety, to see if can transition home with this on Hospice. - Stopped TPN and only comfort measures now -stop PPI, promethazine and Zofran IV With increased pain around G-tube and foul smell, no other signs of infection. G -tube study shows proper tube placement.--> changed out G-tube and smell now gone, pain slightly improved at G-tube site. Prognosis very poor Plan for dc to Home Hospice tomorrow Palliative Care Consult appreciated. DNR/DNI
[2016-10-10 00:26] VITALS: BP 101/69; PULSE 77; TEMP 36.5; O2SAT 93
[2016-10-10] MEDS: CHECK FENTANYL PATCH PLACEMENT SCH ×4 (02:57→08:23)
[2016-10-10 04:14] VITALS: BP 110/69; PULSE 77; TEMP 36.5; O2SAT 92
[2016-10-10] MEDS: HYDROmorphone INJ 2 MG/ML SYR/VIAL IV PRN ×3 (05:56→14:28)
[2016-10-10 07:06] VITALS: BP 109/74; PULSE 71; TEMP 36.6; O2SAT 92
[2016-10-10] MEDS: BACITRACIN OINT 15 GM TUBE EXT SCH (09:07)
[2016-10-10] MEDS ORDERED: DRGTP100 TD (10:57)
[2016-10-10] MEDS ORDERED: ATV1 SL (10:57)
[2016-10-10] MEDS ORDERED: FNTTP25 TOP (10:57)
--- NOTE | 2016-10-10 11:03 | Discharge Instructions ---
Discharge Instructions Admission Reason for Admission: Metastatic Malignant Neoplasm To Ovary Discharge Discharge Diagnosis / Problem: Metastatic ovarian cancer, abdominal pain Discharge Goals Goal(s): Decrease discomfort, Therapeutic intervention Activity Recommendations Activity Limitations: per Instructions/Follow-up section Exercise/Sports Limitations: as tolerated Shower/Bathe: no limitations . Instructions / Follow-Up Instructions / Follow-Up You were admitted for abdominal pain related to your ovarian cancer. Your G- tube was changed out and this helped improve new eof your pain. Arrangements have been made for home hospice care with comfort measures on a home Dilaudid CARD FOLDER pump. You made the decision to stop your artificial nutrition (TPN) and to look towards comfort measures only. You do not need to be seen in the office with Oncology for any follow up appointments. The home hospice agency will take care of all of your needs in your own home. Current Hospital Diet Patient's current hospital diet: Discharge Diet Recommended Diet: Clear Liquid Diet (as tolerated) Procedures Procedures Performed: G-tube exchange G-tube xray study CT abdomen/pelvis Chest xray Abdomen xray Pending Studies Studies pending at discharge: no Laboratory Results Lipid Panel Test 10/07/16 06:26 Range/Units Triglycerides Level 151 H 0-150 mg/dl Medical Emergencies . Who to Call and When: Medical Emergencies: If at any time you feel your situation is an emergency, please call 911 immediately. . Non-Emergent Contact Non-Emergency issues call your: Primary Care Provider (Home Hospice) . . "Provider Documentation" section prepared by Courtney Joshua. VTE Core Measure Inpt VTE Proph given/why not?: Treatment not indicated
[2016-10-10 11:16] VITALS: BP 109/71; PULSE 90; TEMP 36.4; O2SAT 90
[2016-10-10] MEDS ORDERED: FENTANYL PATCH REMOVE & WASTE SCH (11:59)
[2016-10-10] MEDS: FENTANYL PATCH REMOVE & WASTE SCH (12:05)
[2016-10-10] MEDS: FENTANYL 50 MCG/HR TDSY TD SCH (12:06)
[2016-10-10] MEDS: FENTANYL 100 MCG/HR TDSY TD SCH (12:07)
[2016-10-10 15:17] VITALS: BP 109/71; PULSE 90; TEMP 36.4; O2SAT 90
--- NOTE | 2016-10-12 11:44 | Discharge Summary ---
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 The tip projects over the superior vena cava. The heart is normal in size. There is no focal pulmonary consolidation. There is no failure. There is blunting of both lateral costophrenic angle suggesting small effusions.[ IMPRESSION: 1. Small bilateral pleural effusions 2. No evidence of focal pulmonary consolidation 3. No evidence of free intraperitoneal air ABDOMEN AND PELVIS CT WITH IV CONTRAST CT DOSE: 1225.47 mGy.cm HISTORY: Pain ovarian CA obstructed? TECHNIQUE: Multiaxial CT images of the abdomen and pelvis were performed following the use of intravenous contrast. COMPARISON STUDY: 09/20/2016 FINDINGS: Small bilateral pleural effusions.. Bibasilar atelectasis slightly progressive. Gastrostomy tube in good position. Liver enhances uniformly. Slightly progressive peritoneal carcinomatosis. Small ventral hernia containing a slightly distended loop of small bowel. This may indicate a partially obstructive component. Anterior abdominal wall carcinomatosis May be a contributory factor. Small bilateral renal parapelvic cysts. Bladder is midline. IMPRESSION: 1. Findings suggesting partial small bowel obstruction 2. This potentially relates to a small ventral hernia combined with mildly progressive anterior abdominal wall carcinomatosis. 3. Slightly progressive bibasilar pleural effusions and bibasilar atelectasis. KUB CLINICAL HISTORY: Tube placement. FINDINGS: 2 AP supine abdominal radiographs are correlated with abdominal CT dated 10/01/2016. There is a nonobstructed abdominal bowel gas pattern noting moderate colonic fecal retention. A gastrostomy tube is present in the left upper quadrant. Cholecystotomy clips are identified in the right upper quadrant, and there is a surgical clip in the right lower quadrant. No evidence of intraperitoneal free air is seen on these supine views. Numerous phlebolith are noted in the pelvis. The skeletal structures are osteopenic. Mild lumbosacral spondylosis is observed. There is sclerotic change at the pubic symphysis. The lung bases are clear as imaged. IMPRESSION: 1. A gastrostomy tube projects over the left upper quadrant. 2. Nonobstructed abdominal bowel gas pattern noting moderate colonic fecal retention. KUB CLINICAL HISTORY: Tube check. FINDINGS: An AP supine abdominal radiograph is compared to study dated 10/02/16. Approximately 50 cc of Gastrografin was injected into the enteric tube prior to the examination. A gastrostomy tube is present in the left upper quadrant. The enteric contrast is located within the stomach. There is no evidence of extraluminal contrast. There is a nonobstructed abdominal bowel gas pattern. There is no evidence of intraperitoneal free air on this supine examination. Mild colonic fecal retention is noted. Cholecystectomy clips are noted. No abnormal abdominal calcifications are identified. The imaged bony structures appear intact. IMPRESSION: 1. A gastrostomy tube is present in the left upper quadrant. Enteric contrast fills the stomach. No extraluminal contrast is seen. 2. There is no radiographic evidence of bowel obstruction. Consultations: Palliative Care Hematology/Oncology Gastroenterology Medication Reconciliation New Medications: Fentanyl (Fentanyl) 100 Mcg Tdsy 100 MCG TD Q3D@1200 for 15 Days, #1 BOX 0 Refills Lorazepam (Lorazepam) 1 Mg Tab 1 MG SL Q4H PRN for Anxiety,insomnia, or nausea for 7 Days, #28 TAB Continued Medications: Fentanyl (Fentanyl) 25 Mcg Tdsy 25 MCG TOP [id number] for 15 Days, #1 BOX 0 Refills (This prescription has been renewed) Discontinued Medications: Citalopram (Citalopram Hydrobromide) 20 Mg Tab 20 MG PO QAM, #30 TAB 2 Refills Fentanyl (Fentanyl) 12 Mcg Tdsy 12 MCG TD Q3D@0900, #10 0 Refills total dose is 37mcg (25mcg patch + 12mcg patch) Hydromorphone Hcl (Hydromorphone Hcl) 2 Mg Tab 2 MG PO Q3HRS PRN for Pain, #30 0 Refills Lorazepam (Ativan) 0.5 Mg Tab 0.5 MG PO Q6H PRN for anxiety or sleep , #30 TAB 0 Refills Meclizine HCl (Meclizine HCl) 25 Mg Tab 25 MG PO Q6H PRN for vertigo, #30 TAB 0 Refills for vertigo Metoclopramide Hcl (Metoclopramide Hcl) 5 Mg Tab 5 MG PO ac/hs, #120 1 Refill Omeprazole (Prilosec) 40 Mg Cap 40 MG PO QAM, #30 CAP 2 Refills Ondansetron (Ondansetron HCl) 4 Mg Tab 4 MG PO UD PRN for Nausea [Boost Nutritional Drink] () 1 BOX LIQD 1 BOX PO BIDM, #60 2 Refills Discharge Exam Review of Systems: Constitutional: No fever Eyes: No problem reported Respiratory: + dyspnea on exertion, + shortness of breath Cardiovascular: No chest pain Abdomen: + nausea, + pain, No vomiting Musculoskeletal: + joint pain (right shoulder) Genitourinary - Female: No problem reported Neurologic: No problem reported Psychiatric: No problem reported Endocrine: + fatigue Hematologic / Lymphatic: No problem reported Integumentary: No itch, No rash Physical Exam: General Appearance: no apparent distress, + obese Eyes: EOMI ENT: hearing grossly normal Neck: trachea midline Respiratory/Chest: no respiratory distress, no accessory muscle use, + decreased breath sounds (at bases bilat) Cardiovascular: regular rate, rhythm, no edema, no murmur, normal peripheral pulses Abdomen / GI: soft, + pertinent finding (diffuse TTP without guarding or rebound, G-tube in place and drainaing green fluid) Extremities: no pedal edema, normal range of motion Neurologic/Psychiatric: alert, oriented x 3, + depressed affect Skin: normal color, warm/dry, no rash Hospital Course 56 F with metastatic ovarian cancer, here with poor pain control of abdominal pain and nausea. 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 -will use SL ativan for nausea and anxiety, to see if can transition home with this on Hospice. - Stopped TPN and only comfort measures now -stop PPI, promethazine and Zofran IV With increased pain around G-tube and foul smell, no other signs of infection. G -tube study shows proper tube placement.--> changed out G-tube and smell now gone, pain slightly improved at G-tube site. Prognosis very poor Plan for dc to Home Hospice today Palliative Care Consult appreciated. DNR/DNI Total Time Spent: Greater than 30 minutes This includes examination of the patient, discharge planning, medication reconciliation, and communication with other providers. Discharge Instructions Please refer to the electronic Patient Visit Report (Discharge Instructions) for additional information. Follow-Up with Home Hospice Dr. Burgess to manage Home Hospice medications Additional Copies To Collin Burgess D.O.; Marsha Espinoza C.R.N.P
== END 2016-10-10 16:27 | disposition hospice, home (50) | DRG 948 ==
LOC: ENRESERVDT → ENRESERVTM → EDBD 09:24 → C.EDA 09:25 → C.4E 12:59
PROVIDERS: ADMIT Internal Medicine; ATTEND Family Medicine
DX: G89.3 Neoplasm related pain (acute) (chronic) (principal); Z51.5 Encounter for palliative care; K31.1 Adult hypertrophic pyloric stenosis; K56.60 Unspecified intestinal obstruction; C56.9 Malignant neoplasm of unspecified ovary; C78.6 Secondary malignant neoplasm of retroperitoneum and peritoneum; J90 Pleural effusion, not elsewhere classified; C80.0 Disseminated malignant neoplasm, unspecified; I50.9 Heart failure, unspecified; R10.84 Generalized abdominal pain; Z93.4 Other artificial openings of gastrointestinal tract status; K21.9 Gastro-esophageal reflux disease without esophagitis; E66.01 Morbid (severe) obesity due to excess calories; Z88.2 Allergy status to sulfonamides; N17.9 Acute kidney failure, unspecified; E86.0 Dehydration; M79.1 Myalgia; Z66 Do not resuscitate

== ENCOUNTER → 2016-10-16 | Outpatient (CLI) | payer OTHER ==
[~2016-10-16] MED LIST changes: -ANT25 PO; +ATV1 SL; -Boost Nutritional Drink PO; -CLX20 PO; +DRGTP100 TD; -DRGTP12 TD; -HYDR2TAB2 PO; -LORA-741 PO; -METO5TAB2 PO; -OMEP40CA41 PO; -ONDA4TAB9 PO
== END | disposition home or self-care (01) ==
LOC: C.LABPVFM 12:37
PROVIDERS: ATTEND Nurse Practitioner
DX: N39.0 Urinary tract infection, site not specified (principal)